=== PATIENT | female | born 1990 | race Caucasian/White ===

== ENCOUNTER 2016-11-16 09:39 | Inpatient (IN) | payer OTHER ==
--- NOTE | 2016-11-16 10:23 | PDOC ---
History of Present Illness - General Chief Complaint: Abscess Boil Stated Complaint: INFECTION IN RIGHT HAND Time Seen by Provider: 11/16/16 10:23 - History of Present Illness Initial Comments: 11/16/16 12:02 CHIEF COMPLAINT: "abscess formation in the left middle finger" PCP: Dr. Keila Garcia HISTORY OF PRESENT ILLNESS: 26 year old female presented to the ED with the chief complaints of abscess formation in the left middle finger since yesterday". A/c to the patient, she noticed redness over the left 3rd digit and was painful on movement, 10/10 in intensity. This morning when she woke up, the redness and swelling got worse, saw a pin point pus and on movement yellowish fluid came out. She started feeling very ill, myalgia and came to the ED. Patient was recently discharged in August. She was treated for osteomyelitis of L thumb confirmed with MRI. Wound culture showed MSSA and was treated with ceftriaxone. Blood cultures were negative. She had PICC line placed 2015. She continued taking rocephin 2g daily via PICC for 37 more days (6 weeks total of abx treatment). Denies chest pain, sob, cough, palpitation, abdominal pain, nausea or vomiting. Bowel/Bladder habit normal Sleep/Appetite normal. Recent Travel: None PAST MEDICAL HISTORY: charcot betty tooth syndrome, hx of osteomyelitis, neuropathy, PTSD PAST SURGICAL HISTORY: As mentioned above Social History: Smoking: Denies Alcohol: Denies Drugs: Denies Family History: Allergies: NKDA Past History - Past Medical History Allergies/Adverse Reactions: Allergies Allergy/AdvReac Type Severity Reaction Status Date / Time oxycodone Allergy Intermediate Rash Verified 11/16/16 09:54 vancomycin Allergy skin Verified 11/16/16 09:54 reaction Home Medications: Ambulatory Orders Risperidone [Risperdal -] 0.5 mg PO BID #40 tablet 05/18/16 Multivitamins [Multivit ([facility] Formul[facility])] 1 tab PO DAILY #0 tab 06/14/16 Duloxetine HCl [Cymbalta -] 60 mg PO DAILY 07/25/16 Omeprazole 20 mg PO DAILY 07/25/16 Fluoxetine HCl [Prozac -] 60 mg PO DAILY 08/13/16 Trazodone HCl 300 mg PO DAILY 08/13/16 Anemia: No Asthma: No Cancer: No Cardiac Disorders: No CVA: No COPD: No CHF: No Dementia: No Diabetes: No GI Disorders: Yes (Gastritis) Disorders: No HTN: No Hypercholesterolemia: No Psychiatric Problems: Yes (bipolar) Seizures: No Thyroid Disease: No Other medical history: neuropathy, scoliosis - Surgical History Abdominal Surgery: Yes Appendectomy: Yes Cholecystectomy: No Orthopedic Surgery: Yes (amp rt great toe,bilat.feet bones removed for osteomyelitis) - Immunization History Immunization Up to Date: Yes (FLU ) - Psycho/Social/Smoking Cessation Hx Anxiety: Yes Suicidal Ideation: No Smoking Status: No Smoking History: Never smoked Have you smoked in the past 12 months: No Number of Cigarettes Smoked Daily: 0 Information on smoking cessation initiated: No 'Breaking Loose' booklet given: 05/16/12 Hx Alcohol Use: No Drug/Substance Use Hx: Yes Substance Use Type: Marijuana Hx Substance Use Treatment: No Review of Systems - Review of Systems Able to Perform ROS?: Yes Comments:: 11/16/16 12:21 CONSTITUTIONAL:~ Absent: fever, chills, diaphoresis, generalized weakness, malaise, loss of appetite HEENT:~ Absent: rhinorrhea, nasal congestion, throat pain, throat swelling, difficulty swallowing, mouth swelling, ear pain, eye pain, visual Changes CARDIOVASCULAR:~ Absent: chest pain, syncope, palpitations, irregular heart rate, lightheadedness , peripheral edema RESPIRATORY:~ Absent: cough, shortness of breath, dyspnea with exertion, orthopnea, wheezing, stridor, hemoptysis GASTROINTESTINAL: Absent: abdominal pain, abdominal distension, nausea, vomiting, diarrhea, constipation, melena, hematochezia GENITOURINARY:~ Absent: dysuria, frequency, urgency, hesitancy, hematuria, flank pain, genital pain MUSCULOSKELETAL: Present: Left middle finger ,Redness, swelling, pus point; Right palm small cut Absent: myalgia, arthralgia, joint swelling SKIN:~ Absent: rash, itching, pallor HEMATOLOGIC/IMMUNOLOGIC:~ Absent: easy bleeding, easy bruising, lymphadenopathy, frequent infections ENDOCRINE: Absent: unexplained weight gain, unexplained weight loss, heat intolerance, cold intolerance NEUROLOGIC:~ Absent: headache, focal weakness or paresthesias, dizziness, unsteady gait, seizure, mental status changes, bladder or bowel incontinence PSYCHIATRIC:~ Absent: anxiety, depression, suicidal or homicidal ideation, hallucinations. Is the patient limited Cameroonian proficient: No *Physical Exam - Vital Signs Last Vital Signs Temp Pulse Resp BP Pulse Ox 98.1 F 113 H 18 116/76 100 11/16/16 09:55 11/16/16 09:55 11/16/16 09:55 11/16/16 09:55 11/16/16 09:55 - Physical Exam Comments: 11/16/16 13:33 PE: GENERAL: Awake, alert, and fully oriented, in no acute distress HEAD: No signs of trauma EYES: PERRLA, EOMI, sclera anicteric, conjunctiva clear ENT: Auricles normal inspection, hearing decreased B/L, nares patent, oropharynx clear without exudates. Moist mucosa NECK: Normal ROM, supple, no lymphadenopathy, JVD, or masses LUNGS: Breath sounds equal, clear to auscultation bilaterally. No wheezes, and no crackles.. HEART: Regular rate and rhythm, normal S1 and S2, no murmurs, rubs or gallops ABDOMEN: Soft, nontender, normoactive bowel sounds. No guarding, no rebound. No masses EXTREMITIES: Left 3rd digit redness, raised temperature, swelling, pin point pus area, tender to palpation and movement. Normal range of motion, no edema. No clubbing or cyanosis. No cords, erythema, or tenderness NEUROLOGICAL: Cranial nerves II through XII grossly intact. Normal speech, normal gait SKIN: Warm, Dry, normal turgor, no rashes or lesions noted. ED Treatment Course - LABORATORY CBC & Chemistry Diagram: 11/16/16 11:16 11/16/16 11:16 Medical Decision Making - Medical Decision Making 11/16/16 10:23 Patient seen and examined at bed side. Vitals noted, unremarkable. Physical examination Left 3rd digit redness, raised temperature, swelling, pin point pus area, tender to palpation and movement. Will order routine labs, urine and x-ray of the finger 11/16/16 11:30 Patient reassessed. Plan: Incision and Drainage IV morphine 4mg, 25mg of Benadryl given Under sterile environment, using a size 11 blade incision and drainage was performed. Minimal pus with blood obtained Wound culture sent IV Ceftriaxone ordered x-ray of the fingers showed Acute osteomyelitis of the middle phalanx of the left third finger with bony destruction and extensive soft tissue swelling. Clinical Impression: Acute osteomyelitis of the middle phalanx of the left third finger Received one dose of Ceftriaxone Admit the patient Spoke with Dr. Gonzales and he agrees to the plan of admission Illness, Investigation and Plan of care explained to the patient. She verbalized understanding. Case seen and discussed with Dr. May. *DC/Admit/Observation/Transfer Diagnosis at time of Disposition: Osteomyelitis Qualifiers: Osteomyelitis location: foot Laterality: unspecified laterality Chronicity: subacute Qualified Code(s): M86.279 - Subacute osteomyelitis, unspecified ankle and foot - Discharge Dispostion Admit: Yes - Referrals
[2016-11-16] MEDS ORDERED: KETOROLAC TROMETHAMINE 30 MG/1 ML VIAL IVPUSH ONE (10:47)
[2016-11-16] MEDS ORDERED: CEFTRIAXONE 1 GM in DEXTROSE 5%-WATER - 50 ML IVPB ONE (10:47)
[2016-11-16] MEDS ORDERED: KETOROLAC TROMETHAMINE 30 MG/1 ML VIAL ONE (10:59)
[2016-11-16] MEDS ORDERED: CEFTRIAXONE 50 ML ONE (10:59)
[2016-11-16 11:30] LABS: BASOPHIL 0.6 % (0-2.0); MCH 29.8 pg (25.7-33.7); MCHC 33.3 g/dl (32.0-36.0); MEAN CELL VOLUME 89.5 fl (80-96); MEAN PLT VOLUME 9.9 fl (7.5-11.1); NEUTROPHILS 76.8 % (42.8-82.8); PLATELET COUNT 221 K/MM3 (134-434); RDW 12.4 % (11.6-15.6); WHITE BLOOD COUNT 13.2 K/mm3 (4.0-10.0)
[2016-11-16 11:51] LABS: ALBUMIN 4.5 g/dl (3.4-5.0); ALK PHOS 110 U/L (45-117); ANION GAP 10 (8-16); CALCIUM 9.3 mg/dL (8.5-10.1); CO2 24 mmol/L (21-32); CREATININE 0.6 mg/dL (0.55-1.02); GLUCOSE,RANDOM 91 mg/dL (74-106); SGOT/AST 9 U/L (15-37); SGPT/ALT 14 U/L (12-78); TOT PROT 8.6 g/dl (6.4-8.2)
[2016-11-16] MEDS ORDERED: morphine CARPU-JECT 2 MG/1 ML DISP.SYRIN IVPUSH ONE (12:08)
[2016-11-16] MEDS ORDERED: ONDANSETRON 4 MG/2 ML VIAL IVPB ONE (12:10)
[2016-11-16] MEDS ORDERED: morphine CARPU-JECT 4 MG/1 ML DISP.SYRIN ONE (12:27)
[2016-11-16] MEDS ORDERED: ONDANSETRON 4 MG/2 ML VIAL ONE (12:28)
--- NOTE | 2016-11-16 14:28 | HP ---
PCP: Keila Zapien CHIEF COMPLAINT: Pain and swelling of left 3rd finger HISTORY OF PRESENT ILLNESS: This is a 26-year-old woman who comes to the ER today with pain and swelling of her left 3rd finger. She denies fever, chills. She notes that some pus has drained from the finger. She had been admitted here August 13 - August 18 with cellulitis and osteomyelitis of the same finger and possible osteomyelitis of her left 1st finger. She was treated then with Zyvox in the ER, followed by Zosyn and Vancomycin. Culture grew MSSA and antibiotics were changed to Ancef. She was discharged on August 18 with a PICC line to complete 6 weeks of antibiotics with Rocephin. She says after this was completed, she took Amoxicillin for another 2 weeks. She says there was improvement until last night. 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 Allergies oxycodone Allergy (Intermediate, Verified 11/16/16 09:54) Rash vancomycin Allergy (Verified 11/16/16 09:54) skin reaction HOME MEDICATIONS 3 Medication Instructions Recorded Risperidone [Risperdal -] 0.5 mg PO BID #40 tablet 05/18/16 Multivitamins [Multivit ([facility] 1 tab PO DAILY #0 tab 06/14/16 Formulary)] Duloxetine HCl [Cymbalta -] 60 mg PO DAILY 07/25/16 Omeprazole 20 mg PO DAILY 07/25/16 Fluoxetine HCl [Prozac -] 60 mg PO DAILY 08/13/16 Trazodone HCl 300 mg PO DAILY 08/13/16 Social History: Smoking: Denies Alcohol: Denies Drugs: Marijuana Recent Travel: No Family History: Neuropathy REVIEW OF SYSTEMS CONSTITUTIONAL: Absent: fever, chills, diaphoresis, generalized weakness, malaise, loss of appetite, weight change HEENT: Absent: rhinorrhea, nasal congestion, throat pain, throat swelling, difficulty swallowing, mouth swelling, ear pain, eye pain, visual changes CARDIOVASCULAR: Absent: chest pain, syncope, palpitations, lightheadedness, peripheral edema RESPIRATORY: Absent: cough, shortness of breath, dyspnea with exertion, orthopnea, wheezing, stridor, hemoptysis GASTROINTESTINAL: Absent: abdominal pain, abdominal distension, nausea, vomiting , diarrhea, constipation, melena, hematochezia GENITOURINARY: Absent: dysuria, frequency, urgency, hesitancy, hematuria, flank pain MUSCULOSKELETAL: Present: myalgias, arthralgias, joint swelling. Absent: back pain, neck pain SKIN: Absent: rash, itching, pallor HEMATOLOGIC/IMMUNOLOGIC: Absent: easy bleeding, easy bruising, lymphadenopathy, frequent infections ENDOCRINE: Absent: unexplained weight gain, unexplained weight loss, heat intolerance, cold intolerance NEUROLOGIC: Absent: headache, focal weakness, paresthesias, dizziness, unsteady gait, seizure, mental status changes, bladder or bowel incontinence PSYCHIATRIC: Absent: anxiety, depression, suicidal or homicidal ideation, hallucinations. PHYSICAL EXAMINATION Vital Signs - 24 hr 11/16/16 09:55 Temperature 98.1 F Pulse Rate 113 H Respiratory 18 Rate Blood Pressure 116/76 O2 Sat by Pulse 100 Oximetry (%) GENERAL: Awake, alert, and fully oriented, in no acute distress. HEAD: Normal with no signs of trauma. EYES: Pupils equal, round and reactive to light, extraocular movements intact, sclerae anicteric, conjunctivae clear. EARS, NOSE, THROAT: Ears normal, nares patent, oropharynx clear without exudates. Moist mucous membranes. NECK: Normal range of motion, supple without lymphadenopathy, JVD, or masses. LUNGS: Breath sounds equal, clear to auscultation bilaterally. No wheezes, and no crackles. No accessory muscle use. HEART: Tachycardic, normal S1 and S2 without murmur, rub or gallop. ABDOMEN: Soft, nontender, not distended, normoactive bowel sounds, no guarding, no rebound, no masses. No hepatomegaly or splenomegaly. MUSCULOSKELETAL: Multiple joint deformities. Left 3rd finger is swollen and erythematous from mid proximal phalanx to tip UPPER EXTREMITIES: 2+ pulses, warm, well-perfused. No cyanosis. No clubbing. Cap refill <2 seconds. No peripheral edema. LOWER EXTREMITIES: 2+ pulses, warm, well-perfused. No calf tenderness. No peripheral edema. NEUROLOGICAL: Cranial nerves II-XII intact. Normal speech. Gait not observed. PSYCHIATRIC: Cooperative. Good eye contact. Appropriate mood and affect. SKIN: Warm, dry, normal turgor, no rashes. Laboratory Results - last 24 hr 11/16/16 11/16/16 11/16/16 11:16 11:16 11:16 WBC 13.2 H D RBC 4.78 D Hgb 14.2 D Hct 42.8 D MCV 89.5 MCHC 33.3 RDW 12.4 Plt Count 221 MPV 9.9 Neutrophils % 76.8 D Lymphocytes % 13.8 D Monocytes % 7.8 Eosinophils % 1.0 Basophils % 0.6 Sodium 136 Potassium 3.8 Chloride 102 Carbon Dioxide 24 Anion Gap 10 BUN 8 Creatinine 0.6 Creat Clearance w eGFR > 60 Random Glucose 91 Calcium 9.3 Total Bilirubin 1.0 D AST 9 L ALT 14 Alkaline Phosphatase 110 Total Protein 8.6 H D Albumin 4.5 D Serum , Qual Negative X-ray left fingers: Extensive soft tissue swelling of the 3rd finger. Destructive changes of the distal middle phalanx. ASSESSMENT/PLAN: This is a 26-year-old woman with a history of osteomyelitis of her left 3rd finger, bipolar disorder, PTSD, GERD/gastritis, fibromyalgia, scoliosis, Charcot -Carmelita-Tooth syndrome and erosive arthritis who presented to the ER with pain and swelling of her left 3rd finger since last night. She is afebrile, but WBC is 13.2 and she is tachycardic 113. X-rays show destruction of the distal 3rd middle phalanx. She is being admitted now for treatment of an emergent condition. 1. Sepsis secondary to cellulitis and abscess of left 3rd finger and acute vs chronic osteomyelitis of left 3rd middle phalanx - In Jul 2016, wound culture from same finger grew MSSA and she was treated with Rocephin - Rocephin 1 g IV given in ER - Incision and drainage done in ER - Check lactic acid, ESR, C-reactive protein - ID and hand surgery consults 2. Bipolar disorder/PTSD - Continue Cymbalta, Risperdal, Trazodone 3. Fibromyalgia - Continue Cymbalta 4. GERD/gastritis - Continue Omeprazole 5. Scoliosis 6. Cvnmarv-Raqsi-Hrgwy syndrome 7. Erosive arthritis Visit type - Emergency Visit Emergency Visit: Yes ED Registration Date: 11/16/16 Care time: The patient presented to the Emergency Department on the above date and was hospitalized for further evaluation of their emergent condition. - New Patient This patient is new to me today: Yes Date on this admission: 11/16/16 - Critical Care Critical Care patient: No
[2016-11-16] MEDS ORDERED: diphenhydrAMINE HCL 25 MG CAPSULE (FP) PO PRN (14:30)
[2016-11-16] MEDS: SODIUM CHLORIDE 1,000 ML IV SCH (14:54)
--- NOTE | 2016-11-16 16:37 | CONSULT ---
Consult Consult Specialty:: Infectious Disease Referred by:: Dr. Gonzales Reason for Consultation:: Osteomyelitis - History of Present Illness Chief Complaint: Swelling and pain or left middle finger History of Present Illness: this is a 26F with PMH listed below including charcot betty tooth and multiple traumatic ulcers due to neuropathy and a history of osteomyelitis presents to the ED with acute onset left third middle finger swelling. She states last night she had pain in the middle finger and then woke up with it erythematous hot and swollen. 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 She states she usually has arthritic pain especially in this weather and didn't think much of the pain since she attributed it to arthritis. She was recently treated in August of 2016 and September of this year with 6 weeks of Rocephin for the same left middle finger osteomyelitis followed by 2 weeks of amoxicillin and she healed well. She also has a history of multiple ulcers of the foot and hands which required admission and IV ABx which have since healed. She follows with Dr. Jackson who sees her regularly for her ulcers on her feet and shaves down the calluses. She denies nausea vomiting fevers dysuria diarrhea shortness of breath or chest pain. She does at times experience chills especially yesterday and today. In the ED there was an attempt to drain the finger but only a few drops of pus were expressed and sent to the lab for culture and sensitivities. Her labs were significant for a WBC count of 13. She was also tachycardic on presentation thus meets criteria for Sepsis. She has a history of rash with Vancomycin but is still able to receive it with Benadryl pre-medication. 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: Peripheral Neuropathy, Other (charcot betty tooth ) Gastrointestinal: Yes: Gastritis ...LMP: 04/25/16 Infectious Disease: Yes: Other Psych: Yes: Anxiety, Bipolar, Depression, Other Musculoskeletal: Yes: Osteoarthritis, Other Rheumatology: Yes: Fibromyalgia, Other (erosive arthritis ) Additional Medical History: neuropathy - Alcohol/Substance Use Hx Alcohol Use: No History of Substance Use: reports: Marijuana - Smoking History Smoking history: Never smoked Have you smoked in the past 12 months: No Aproximately how many cigarettes per day: 0 - Social History ADL: Independent History of Recent Travel: No Home Medications - Allergies Allergies/Adverse Reactions: Allergies Allergy/AdvReac Type Severity Reaction Status Date / Time oxycodone Allergy Intermediate Rash Verified 11/16/16 09:54 vancomycin Allergy skin Verified 11/16/16 09:54 reaction - Home Medications Home Medications: Ambulatory Orders Risperidone [Risperdal -] 0.5 mg PO BID #40 tablet 05/18/16 Multivitamins [Multivit ([facility] Formul[facility])] 1 tab PO DAILY #0 tab 06/14/16 Duloxetine HCl [Cymbalta -] 60 mg PO DAILY 07/25/16 Omeprazole 20 mg PO DAILY 07/25/16 Fluoxetine HCl [Prozac -] 60 mg PO DAILY 08/13/16 Trazodone HCl 300 mg PO DAILY 08/13/16 Review of Systems - Review of Systems Constitutional: reports: Chills Eyes: reports: No Symptoms HENT: reports: No Symptoms Neck: reports: No Symptoms Cardiovascular: reports: No Symptoms Respiratory: reports: No Symptoms Gastrointestinal: reports: Other (ABD pain from chronic gastritis) Genitourinary: reports: No Symptoms Musculoskeletal: reports: Extremity Pain, Joint Pain, Joint Swelling, Muscle Pain Integumentary: reports: Blister, Other (chronic ulcerations) Neurological: reports: Numbness, Parasthesia Endocrine: reports: No Symptoms Hematology/Lymphatic: reports: No Symptoms Psychiatric: reports: Anxiety Physical Exam Vital Signs: Vital Signs Temperature 97.7 F 11/16/16 16:14 Pulse Rate 87 11/16/16 16:14 Respiratory Rate 20 11/16/16 16:14 Blood Pressure 117/75 11/16/16 16:14 O2 Sat by Pulse Oximetry (%) 100 11/16/16 09:55 Constitutional: Yes: Well Nourished, No Distress, Calm HENT: Yes: Atraumatic Neck: Yes: Supple Cardiovascular: Yes: Tachycardia Respiratory: Yes: CTA Bilaterally Gastrointestinal: Yes: Normal Bowel Sounds, Soft Musculoskeletal: Yes: Joint Stiffness Extremities: Yes: Other (left middle finger swelling with erythema and some minimal drainage. Multiple deformed fingers multple healed ulcer on upper and lower extremities) ...Motor Strength: WNL Psychiatric: Yes: Alert, Oriented Imaging - Results X-ray: Report Reviewed, Image Reviewed (left middle finger) Problem List - Problems (1) Osteomyelitis Code(s): M86.9 - OSTEOMYELITIS, UNSPECIFIED Qualifiers: Osteomyelitis location: foot Laterality: unspecified laterality Chronicity: subacute Qualified Code(s): M86.279 - Subacute osteomyelitis , unspecified ankle and foot (2) Abscess of finger of left hand Code(s): L02.512 - CUTANEOUS ABSCESS OF LEFT HAND (3) Anxiety Code(s): F41.9 - ANXIETY DISORDER, UNSPECIFIED (4) Fibromyalgia Code(s): M79.7 - FIBROMYALGIA (5) Gastritis Code(s): K29.70 - GASTRITIS, UNSPECIFIED, WITHOUT BLEEDING (7) Cellulitis of finger of left hand Code(s): L03.012 - CELLULITIS OF LEFT FINGER (8) Skin ulcers of foot, bilateral Code(s): L97.519 - NON-PRS CHRONIC ULCER OTH PRT RIGHT FOOT W UNSP SEVERITY L97.529 - NON-PRESSURE CHRONIC ULCER OTH PRT LEFT FOOT W UNSP SEVERITY (9) Sepsis Code(s): A41.9 - SEPSIS, UNSPECIFIED ORGANISM Assessment/Plan 26F with charcot betty tooth with osteomyelitis of left middle finger middle phalynx patient is tachycardic with leukocytosis which meets SIRS cririera and has a known infection which meets the criteria for sepsis. XRay consistent with erosion of left middle finger distal phalynx Admit to inpatient floors IV Abx with vancomycin and zosyn-premedication with benadryl before vancomycin follow up cultures follow up hand surgery send ESR and CRP f/u lactic acid thank you for this consult and allowing us to participate in the care of this patient Case discussed with Dr. Sanders and Dr. Gonzales
--- NOTE | 2016-11-16 16:46 | PN ---
Teaching Attending Note Name of Resident: Javi Edwards ATTENDING PHYSICIAN STATEMENT I saw and evaluated the patient. I reviewed the resident's note and discussed the case with the resident. I agree with the resident's findings and plan as documented. SUBJECTIVE: OBJECTIVE: ASSESSMENT AND PLAN: Recurrent osteomyelitis L 3rd finger Possible ST abscess CMT Await c/s ESR CRP Hand surgery evaluation Empiric zosyn/ vancomycin
[2016-11-16 16:50] VITALS: BMI 18.7
[2016-11-16] MEDS: diphenhydrAMINE HCL 25 MG CAPSULE (FP) PO SCH (17:09)
[2016-11-16] MEDS: VANCOMYCIN 1 GRAM (PRE-DOCKED) 250 ML IVPB SCH (17:09)
[2016-11-16] MEDS: morphine CARPU-JECT 2 MG/1 ML DISP.SYRIN IVPUSH PRN (17:32)
[2016-11-16] MEDS: PIPERACILLIN/TAZOB 3.375 GM 50 ML IVPB SCH (19:13)
[2016-11-16] MEDS ORDERED: traZODone HCL 50 MG TABLET (FP) ONE (21:24)
[2016-11-16] MEDS: risperiDONE 0.5 MG TABLET (FP) PO SCH (22:05)
[2016-11-16] MEDS: ACETAMINOPHEN 325 MG TABLET (FP) PO PRN (22:08)
[2016-11-17] MEDS: PIPERACILLIN/TAZOB 3.375 GM 50 ML IVPB SCH ×3 (02:23→17:06)
[2016-11-17] MEDS: diphenhydrAMINE HCL 25 MG CAPSULE (FP) PO SCH ×2 (05:06→17:06)
[2016-11-17] MEDS: SODIUM CHLORIDE 1,000 ML IV SCH ×3 (05:15→21:54)
[2016-11-17] MEDS: VANCOMYCIN 1 GRAM (PRE-DOCKED) 250 ML IVPB SCH ×2 (05:36→17:56)
[2016-11-17 07:36] LABS: BASOPHIL 0.8 % (0-2.0); EOSINOPHIL 3.4 % (0-4.5); MCH 31.1 pg (25.7-33.7); MCHC 34.3 g/dl (32.0-36.0); MEAN CELL VOLUME 90.7 fl (80-96); NEUTROPHILS 58.6 % (42.8-82.8); PLATELET COUNT 174 K/MM3 (134-434); RDW 12.4 % (11.6-15.6); WHITE BLOOD COUNT 6.6 K/mm3 (4.0-10.0)
[2016-11-17] MEDS ORDERED: PT OWN MED DRAWER 7, Y5N ONE ×3 (07:50→12:44)
[2016-11-17 08:00] LABS: CALCIUM 8.3 mg/dL (8.5-10.1); CREATININE 0.6 mg/dL (0.55-1.02)
[2016-11-17 09:29] LABS: ERYTHROCYTE SEDIMENTATION RATE 5 mm/hr (0-20)
[2016-11-17] MEDS ORDERED: FLUoxetine HCL 20 MG CAPSULE (FP) PO SCH (10:00)
[2016-11-17] MEDS: MULTIVITAMINS (DAILY MVI) TABLET (FP) PO SCH (12:40)
[2016-11-17] MEDS: PANTOPRAZOLE 20 MG TABLET (FP) PO SCH (12:41)
[2016-11-17] MEDS: DULoxetine HCL 30 MG CAPSULE.DR (FP) PO SCH (12:42)
--- NOTE | 2016-11-17 12:54 | PN ---
Addendum entered and electronically signed by Javi Edwards RES 11/17/16 13:50: will send blood cultures Original Note: Progress Note, Physician History of Present Illness: Patient seen and examined at bedside complains of pain to the left middle finger otherwise no other complaints still not seen by hand surgery - Current Medication List Current Medications: Active Medications Acetaminophen (Tylenol -) 650 mg PO Q4H PRN PRN Reason: FEVER OR PAIN Last Admin: 11/16/16 22:08 Dose: 650 mg Diphenhydramine HCl (Benadryl -) 25 mg PO Q6H PRN PRN Reason: FOR ITCHING Diphenhydramine HCl (Benadryl -) 25 mg PO Q12H [facility] Last Admin: 11/17/16 05:06 Dose: 25 mg Duloxetine HCl (Cymbalta -) 60 mg PO DAILY [facility] Last Admin: 11/17/16 12:42 Dose: 60 mg Sodium Chloride (Normal Saline -) 1,000 mls @ 83 mls/hr IV ASDIR [facility] Last Admin: 11/17/16 05:15 Dose: 83 mls/hr Vancomycin HCl (Vancomycin (Pre-Docked)) 250 mls @ 200 mls/hr IVPB Q12H [facility] Last Admin: 11/17/16 05:36 Dose: 200 mls/hr Piperacillin Sod/Tazobactam Sod (Zosyn 3.375gm Ivpb (Pre-Docked)) 50 mls @ 100 mls/hr IVPB Q8H-IV [facility] PRN Reason: Protocol Last Admin: 11/17/16 02:23 Dose: 100 mls/hr Morphine Sulfate (Morphine Injection -) 2 mg IVPUSH Q4H PRN PRN Reason: PAIN Last Admin: 11/16/16 17:32 Dose: 2 mg Multivitamins/Minerals/Vitamin C (Tab-A-Vit -) 1 tab PO DAILY [facility] Last Admin: 11/17/16 12:40 Dose: 1 tab Ondansetron HCl (Zofran Injection) 4 mg IVPB Q6H PRN PRN Reason: NAUSEA Pantoprazole Sodium (Protonix -) 20 mg PO DAILY [facility] Last Admin: 11/17/16 12:41 Dose: 20 mg Risperidone (Risperdal -) 0.5 mg PO BID [facility] Last Admin: 11/16/16 22:05 Dose: 0.5 mg Trazodone HCl (Desyrel -) 300 mg PO HS [facility] - Objective Vital Signs: Vital Signs Temperature 97.8 F 11/17/16 09:56 Pulse Rate 82 11/17/16 09:56 Respiratory Rate 20 11/17/16 09:56 Blood Pressure 100/58 11/17/16 09:56 O2 Sat by Pulse Oximetry (%) 98 11/17/16 09:00 Laboratory Tests 11/16/16 11/16/16 11/16/16 11:16 11:16 11:16 WBC 13.2 H D RBC 4.78 D Hgb 14.2 D Hct 42.8 D MCV 89.5 MCHC 33.3 RDW 12.4 Plt Count 221 MPV 9.9 Neutrophils % 76.8 D Lymphocytes % 13.8 D Monocytes % 7.8 Eosinophils % 1.0 Basophils % 0.6 ESR Sodium 136 Potassium 3.8 Chloride 102 Carbon Dioxide 24 Anion Gap 10 BUN 8 Creatinine 0.6 Creat Clearance w eGFR > 60 Random Glucose 91 Lactic Acid Calcium 9.3 Total Bilirubin 1.0 D AST 9 L ALT 14 Alkaline Phosphatase 110 Total Protein 8.6 H D Albumin 4.5 D Serum , Qual Negative 11/16/16 11/17/16 11/17/16 21:30 06:35 06:35 WBC 6.6 D RBC 3.90 Hgb 12.2 D Hct 35.4 D MCV 90.7 MCHC 34.3 RDW 12.4 Plt Count 174 D MPV 10.0 Neutrophils % 58.6 D Lymphocytes % 27.3 D Monocytes % 9.9 Eosinophils % 3.4 D Basophils % 0.8 ESR 5 Sodium 142 Potassium 4.2 Chloride 108 H Carbon Dioxide 27 Anion Gap 7 L BUN 14 D Creatinine 0.6 Creat Clearance w eGFR Random Glucose 110 H D Lactic Acid 1.246 Calcium 8.3 L Total Bilirubin AST ALT Alkaline Phosphatase Total Protein Albumin Serum , Qual Constitutional: Yes: Well Nourished, No Distress, Calm HENT: Yes: Atraumatic Neck: Yes: Supple Cardiovascular: Yes: RRR S1 S2 no murmur Respiratory: Yes: CTA Bilaterally Gastrointestinal: Yes: Normal Bowel Sounds, Soft Musculoskeletal: Yes: Joint Stiffness Extremities: Yes: Other (left middle finger swelling with much less erythema increased purulent drainage today. Multiple deformed fingers multiple healed ulcer on upper and lower extremities) ...Motor Strength: WNL Psychiatric: Yes: Alert, Oriented Labs: CBC, BMP 11/17/16 06:35 11/17/16 06:35 Problem List - Problems (1) Osteomyelitis Code(s): M86.9 - OSTEOMYELITIS, UNSPECIFIED Qualifiers: Osteomyelitis location: foot Laterality: unspecified laterality Chronicity: subacute Qualified Code(s): M86.279 - Subacute osteomyelitis , unspecified ankle and foot (2) Abscess of finger of left hand Code(s): L02.512 - CUTANEOUS ABSCESS OF LEFT HAND (3) Anxiety Code(s): F41.9 - ANXIETY DISORDER, UNSPECIFIED (4) Fibromyalgia Code(s): M79.7 - FIBROMYALGIA (5) Gastritis Code(s): K29.70 - GASTRITIS, UNSPECIFIED, WITHOUT BLEEDING (7) Cellulitis of finger of left hand Code(s): L03.012 - CELLULITIS OF LEFT FINGER (8) Skin ulcers of foot, bilateral Code(s): L97.519 - NON-PRS CHRONIC ULCER OTH PRT RIGHT FOOT W UNSP SEVERITY L97.529 - NON-PRESSURE CHRONIC ULCER OTH PRT LEFT FOOT W UNSP SEVERITY (9) Sepsis Code(s): A41.9 - SEPSIS, UNSPECIFIED ORGANISM Assessment/Plan 26F with charcot betty tooth with osteomyelitis of left middle finger middle phalynx patient is tachycardic with leukocytosis which meets SIRS cririera and has a known infection which meets the criteria for sepsis. XRay consistent with erosion of left middle finger distal phalynx IV Abx with vancomycin and zosyn-she is tolerating premedication with benadryl before vancomycin well continue ABx day 2 hospital day 2 vanco trough before fourth dose follow up cultures-pending follow up hand surgery - pending ESR = 5 WNL CRP-pending lactic acid-wnl thank you for this consult and allowing us to participate in the care of this patient Case discussed with Dr. Sanders
--- NOTE | 2016-11-17 13:36 | PN ---
Physical Exam: SUBJECTIVE: Patient seen and examined. She states she feels well, tolerating Vancomycin (needs to be premedicated with Benadrly prior to infusion) OBJECTIVE: Vital Signs Period Temp Pulse Resp BP Sys/Ibarra Pulse Ox Last 24 Hr 97.7 F-98 F 81-87 20-20 97-117/57-75 97-98 GENERAL: The patient is awake, alert, and fully oriented, in no acute distress. HEAD: Normal with no signs of trauma. EYES: PERRL, extraocular movements intact, sclera anicteric, conjunctiva clear. No ptosis. ENT: Ears normal, nares patent, oropharynx clear without exudates, moist mucous membranes. NECK: Trachea midline, full range of motion, supple. LUNGS: Breath sounds equal, clear to auscultation bilaterally, no wheezes, no crackles, no accessory muscle use. HEART: Regular rate and rhythm ABDOMEN: Soft, nontender, nondistended, normoactive bowel sounds, no guarding, no rebound, no hepatosplenomegaly, no masses. EXTREMITIES: 2+ pulses, warm, well-perfused, no edema. NEUROLOGICAL: Normal speech, gait not observed. PSYCH: Normal mood, normal affect. SKIN: abscess formation in the left middle finger with worsening redness and swelling. Laboratory Results - last 24 hr 11/16/16 11/17/16 11/17/16 21:30 06:35 06:35 WBC 6.6 D RBC 3.90 Hgb 12.2 D Hct 35.4 D MCV 90.7 MCHC 34.3 RDW 12.4 Plt Count 174 D MPV 10.0 Neutrophils % 58.6 D Lymphocytes % 27.3 D Monocytes % 9.9 Eosinophils % 3.4 D Basophils % 0.8 ESR 5 Sodium 142 Potassium 4.2 Chloride 108 H Carbon Dioxide 27 Anion Gap 7 L BUN 14 D Creatinine 0.6 Random Glucose 110 H D Lactic Acid 1.246 Calcium 8.3 L Active Medications Generic Name Dose Route Start Last Admin Trade Name Freq PRN Reason Stop Dose Admin Acetaminophen 650 mg 11/16/16 14:30 11/16/16 22:08 Tylenol - PO 650 mg Q4H PRN Administration FEVER OR PAIN Diphenhydramine HCl 25 mg 11/16/16 14:30 Benadryl - PO Q6H PRN FOR ITCHING Diphenhydramine HCl 25 mg 11/16/16 17:00 11/17/16 05:06 Benadryl - PO 25 mg Q12H [facility] Administration Duloxetine HCl 60 mg 11/17/16 10:00 11/17/16 12:42 Cymbalta - PO 60 mg DAILY [facility] Administration Sodium Chloride 1,000 mls @ 83 mls/hr 11/16/16 14:30 11/17/16 05:15 Normal Saline - IV 83 mls/hr ASDIR [facility] Administration Vancomycin HCl 250 mls @ 200 mls/hr 11/16/16 17:30 11/17/16 05:36 Vancomycin (Pre-Docked) IVPB 200 mls/hr Q12H [facility] Administration Piperacillin Sod/Tazobactam Sod 50 mls @ 100 mls/hr 11/16/16 18:00 11/17/16 02: 23 Zosyn 3.375gm Ivpb (Pre-Docked) IVPB 100 mls/hr Q8H-IV [facility] Administration Protocol Morphine Sulfate 2 mg 11/16/16 14:30 11/16/16 17:32 Morphine Injection - IVPUSH 2 mg Q4H PRN Administration PAIN Multivitamins/Minerals/Vitamin C 1 tab 11/17/16 10:00 11/17/16 12:40 Tab-A-Vit - PO 1 tab DAILY [facility] Administration Ondansetron HCl 4 mg 11/16/16 14:30 Zofran Injection IVPB Q6H PRN NAUSEA Pantoprazole Sodium 20 mg 11/17/16 10:00 11/17/16 12:41 Protonix - PO 20 mg DAILY [facility] Administration Risperidone 0.5 mg 11/16/16 22:00 11/16/16 22:05 Risperdal - PO 0.5 mg BID [facility] Administration Trazodone HCl 300 mg 11/16/16 22:00 Desyrel - PO HS [facility] ASSESSMENT/PLAN: Patient is a 25 year old female with a significant past medical history of charcot carmelita tooth, fibromyalgia, gastritis, inflamed colon, appendectomy, bipolar, manic depression and anxiety. She presented to the ER on 11/16/2016 with abscess formation in the left middle finger with worsening redness and swelling. Patient was recently discharged in August of 2016 for osteomylitis of the left thumb and was treated with 6 weeks of IV antibiotics via a PICC line. She denies any chest pain, shortness of breath, fever, chills or vomiting. She has a documented allergy to Vancomycin but has been tolerating Vancomycin thus far with Benadryl 30 minutes prior to Vancomycin. Imaging: Finger Xray 11/16/2016: Findings consistent with acute osteomylitis of middle phalanx of left third finger with bony destruction and extensive soft tissue swelling. ID: Sepsis - likely secondary to abscess formation in the left middle finger with worsening redness and swelling Assessment/Plan: On Vancomycin and Zosyn, started on 11/16/2016: Wound cultures pending Leukocytosis improving 13.2>6.6, Tachycardia resolved Remains afebrile Warm soaks with 10 drops of betadine ordered BID to help healing Wound care as follows: twice daily with warm soaks to left finger with 10 drops of betadine, apply sterile dressing twice per day after soaks Hand surgery consulted Neurology: Charcot-Carmelita Tooth Syndrome Assessment/Plan: Monitor for any progression of symptoms Monitor pain with morphine PRN PT evaluation to avoid decompensation while hospitalized Psych Bipolar disorder Assessment/Plan: On Trazodone 300mg, Cymbalta 60mg daily and Risperidone 0.5mg daily Confirmed with [facility] that pt is no longer on Prozac Muscular/Skeletal: Fibromyalgia Assessment/Plan: On Cymbalta Morphine prn for pain F.E.N. Fluids: Normal saline @ 83cc/hr Electrolytes: corrected calcium 8.2, trend: Nutrition: Regular diet Prophylaxis: GI: Protonix, Colace prn DVT: low risk, ambulatory, SCDs when in bed PT consult Disposition; Requires inpatient hospitalization. Full Code. Visit type - Emergency Visit Emergency Visit: Yes ED Registration Date: 11/16/16 Care time: The patient presented to the Emergency Department on the above date and was hospitalized for further evaluation of their emergent condition. - New Patient This patient is new to me today: Yes Date on this admission: 11/17/16 - Critical Care Critical Care patient: No - Discharge Referral Referred to [facility] No
--- NOTE | 2016-11-17 13:44 | CONSULT ---
Consult - text type - Consultation Consultation Note: FULL CONSULT DICTATED PLAN: CONTINUE ABX, WILL FOLLOW
--- NOTE | 2016-11-17 14:11 | PN ---
Teaching Attending Note Name of Resident: Javi Edwards ATTENDING PHYSICIAN STATEMENT I saw and evaluated the patient. I reviewed the resident's note and discussed the case with the resident. I agree with the resident's findings and plan as documented. SUBJECTIVE: OBJECTIVE: ASSESSMENT AND PLAN: Recurrent osteomyelitis/ cellulitis L 3rd finger CMT Tolerated vancomycin with pre-medication Continue vancomycin + zosyn Check wound and blood c/s, ESR/CRP Hand surgery evaluation
[2016-11-17] MEDS: ONDANSETRON 4 MG/2 ML VIAL IVPB PRN (14:16)
[2016-11-17 14:23] LABS: C-REACTIVE PROTEIN 2.6 MG/DL (0.00-0.3)
[2016-11-17] MEDS: morphine CARPU-JECT 2 MG/1 ML DISP.SYRIN IVPUSH PRN ×2 (15:04→21:48)
[2016-11-17] MEDS: risperiDONE 0.5 MG TABLET (FP) PO SCH ×2 (15:26→21:48)
[2016-11-17] MEDS ORDERED: traZODone HCL 50 MG TABLET (FP) ONE (21:41)
[2016-11-17] MEDS: DOCUSATE SODIUM 100 MG CAPSULE (FP) PO SCH (21:49)
[2016-11-17] MEDS: traZODone HCL 100 MG TABLET (FP) PO SCH (21:55)
[2016-11-18] MEDS: ACETAMINOPHEN 325 MG TABLET (FP) PO PRN (01:04)
[2016-11-18] MEDS: PIPERACILLIN/TAZOB 3.375 GM 50 ML IVPB SCH ×3 (02:19→17:09)
[2016-11-18] MEDS: diphenhydrAMINE HCL 25 MG CAPSULE (FP) PO SCH ×2 (05:35→17:09)
[2016-11-18] MEDS: VANCOMYCIN 1 GRAM (PRE-DOCKED) 250 ML IVPB SCH ×2 (06:20→17:55)
[2016-11-18 07:29] LABS: BASOPHIL 0.5 % (0-2.0); EOSINOPHIL 2.5 % (0-4.5); MCH 30.8 pg (25.7-33.7); MCHC 33.9 g/dl (32.0-36.0); MEAN CELL VOLUME 90.6 fl (80-96); MEAN PLT VOLUME 10.2 fl (7.5-11.1); PLATELET COUNT 162 K/MM3 (134-434); RDW 12.4 % (11.6-15.6); WHITE BLOOD COUNT 7.3 K/mm3 (4.0-10.0)
[2016-11-18 07:56] LABS: ALBUMIN 3.2 g/dl (3.4-5.0); ANION GAP 10 (8-16); CALCIUM 8.5 mg/dL (8.5-10.1); CO2 26 mmol/L (21-32); GLUCOSE,RANDOM 82 mg/dL (74-106)
[2016-11-18 08:00] LABS: ALK PHOS 74 U/L (45-117); BILIRUBIN,TOTAL 0.6 mg/dL (0.2-1.0); CREATININE 0.6 mg/dL (0.55-1.02); SGOT/AST 6 U/L (15-37); SGPT/ALT 11 U/L (12-78); TOT PROT 6.1 g/dl (6.4-8.2)
[2016-11-18] MEDS ORDERED: PT OWN MED DRAWER 7, Y5N ONE (09:23)
[2016-11-18] MEDS: DOCUSATE SODIUM 100 MG CAPSULE (FP) PO SCH ×2 (10:22→23:00)
[2016-11-18] MEDS: DULoxetine HCL 30 MG CAPSULE.DR (FP) PO SCH (10:22)
[2016-11-18] MEDS: PANTOPRAZOLE 20 MG TABLET (FP) PO SCH (10:22)
[2016-11-18] MEDS: risperiDONE 0.5 MG TABLET (FP) PO SCH ×2 (10:22→23:00)
[2016-11-18] MEDS: MULTIVITAMINS (DAILY MVI) TABLET (FP) PO SCH (10:22)
[2016-11-18] MEDS: morphine CARPU-JECT 2 MG/1 ML DISP.SYRIN IVPUSH PRN ×2 (10:37→20:20)
[2016-11-18] MEDS: ONDANSETRON 4 MG/2 ML VIAL IVPB PRN (11:15)
--- NOTE | 2016-11-18 11:20 | PN ---
Progress Note, Physician History of Present Illness: No c/o finger pain Reports small amt wound drainage No fever/ chills Tolerating antibiotics - Current Medication List Current Medications: Active Medications Acetaminophen (Tylenol -) 650 mg PO Q4H PRN PRN Reason: FEVER OR PAIN Last Admin: 11/18/16 01:04 Dose: 650 mg Diphenhydramine HCl (Benadryl -) 25 mg PO Q6H PRN PRN Reason: FOR ITCHING Diphenhydramine HCl (Benadryl -) 25 mg PO Q12H [facility] Last Admin: 11/18/16 05:35 Dose: 25 mg Docusate Sodium (Colace -) 100 mg PO BID [facility] Last Admin: 11/18/16 10:22 Dose: 100 mg Duloxetine HCl (Cymbalta -) 60 mg PO DAILY [facility] Last Admin: 11/18/16 10:22 Dose: 60 mg Vancomycin HCl (Vancomycin (Pre-Docked)) 250 mls @ 200 mls/hr IVPB Q12H [facility] Last Admin: 11/18/16 06:20 Dose: 200 mls/hr Piperacillin Sod/Tazobactam Sod (Zosyn 3.375gm Ivpb (Pre-Docked)) 50 mls @ 100 mls/hr IVPB Q8H-IV [facility] PRN Reason: Protocol Last Admin: 11/18/16 10:22 Dose: 100 mls/hr Morphine Sulfate (Morphine Injection -) 2 mg IVPUSH Q4H PRN PRN Reason: PAIN Last Admin: 11/18/16 10:37 Dose: 2 mg Multivitamins/Minerals/Vitamin C (Tab-A-Vit -) 1 tab PO DAILY [facility] Last Admin: 11/18/16 10:22 Dose: 1 tab Ondansetron HCl (Zofran Injection) 4 mg IVPB Q6H PRN PRN Reason: NAUSEA Last Admin: 11/18/16 11:15 Dose: 4 mg Pantoprazole Sodium (Protonix -) 20 mg PO DAILY [facility] Last Admin: 11/18/16 10:22 Dose: 20 mg Risperidone (Risperdal -) 0.5 mg PO BID [facility] Last Admin: 11/18/16 10:22 Dose: 0.5 mg Trazodone HCl (Desyrel -) 300 mg PO HS [facility] Last Admin: 11/17/16 21:55 Dose: 300 mg - Objective Vital Signs: Vital Signs Temperature 97.6 F 11/17/16 18:09 Pulse Rate 92 H 11/17/16 18:09 Respiratory Rate 20 11/17/16 21:00 Blood Pressure 128/80 11/17/16 18:09 O2 Sat by Pulse Oximetry (%) 98 11/17/16 21:00 Constitutional: Yes: No Distress Eyes: Yes: Conjunctiva Clear Cardiovascular: Yes: Regular Rate and Rhythm, S1, S2 Respiratory: Yes: CTA Bilaterally Gastrointestinal: Yes: Normal Bowel Sounds, Soft. No: Tenderness Extremities: Yes: Other (L 3rd finger remains swollen; erythema resolved Now with slight swelling, dorsum of hand) Labs: CBC, BMP 11/18/16 06:00 11/18/16 06:00 Assessment/Plan Cellulitis/ osteomyelitis L 3rd finger CMT Await wound c/s Continue zosyn/ vancomycin Elevation
--- NOTE | 2016-11-18 15:11 | PN ---
Physical Exam: SUBJECTIVE: Patient seen and examined. She is complaining of left hand pain/ swelling. Denies chest pain or shortness of breath. 0900 - left hand appears more swollen, painful 1030 - spoke with Dr. Germain, ortho who is familiar with patient and discussed hand swelling. No surgical interventions at this time IVF fluids d/ashley, elevate left hand at all times. continue betadine soaks OBJECTIVE: Vital Signs Period Temp Pulse Resp BP Sys/Ibarra Pulse Ox Last 24 Hr 97.6 F 92 20-20 128/80 98 GENERAL: The patient is awake, alert, and fully oriented, in no acute distress. HEAD: Normal with no signs of trauma. EYES: PERRL, extraocular movements intact, sclera anicteric, conjunctiva clear. No ptosis. ENT: Ears normal, nares patent, oropharynx clear without exudates, moist mucous membranes. NECK: Trachea midline, full range of motion, supple. LUNGS: Breath sounds equal, clear to auscultation bilaterally, no wheezes, no crackles, no accessory muscle use. HEART: Regular rate and rhythm ABDOMEN: Soft, nontender, nondistended, normoactive bowel sounds, no guarding, no rebound, no hepatosplenomegaly, no masses. EXTREMITIES: Left hand edema, IVF stopped, hand to be elevated at all times, discussed with ID and Hand surgeon NEUROLOGICAL: Normal speech, gait not observed. PSYCH: Normal mood, normal affect. SKIN: abscess formation in the left middle finger with worsening redness and swelling, now edema on anterior aspect of hand Wound care orders as follows: Warm soaks with 10 drops of betadine ordered BID to help healing Wound care as follows: twice daily with warm soaks to left finger with 10 drops of betadine, apply sterile dressing twice per day after soaks Laboratory Results - last 24 hr 11/18/16 11/18/16 06:00 06:00 WBC 7.3 RBC 3.80 Hgb 11.7 Hct 34.4 MCV 90.6 MCHC 33.9 RDW 12.4 Plt Count 162 MPV 10.2 Neutrophils % 67.0 Lymphocytes % 22.0 Monocytes % 8.0 Eosinophils % 2.5 Basophils % 0.5 Sodium 142 Potassium 3.6 Chloride 106 Carbon Dioxide 26 Anion Gap 10 BUN 7 D Creatinine 0.6 Creat Clearance w eGFR > 60 Random Glucose 82 D Calcium 8.5 Total Bilirubin 0.6 D AST 6 L D ALT 11 L D Alkaline Phosphatase 74 D Total Protein 6.1 L D Albumin 3.2 L D Active Medications Generic Name Dose Route Start Last Admin Trade Name Freq PRN Reason Stop Dose Admin Acetaminophen 650 mg 11/16/16 14:30 11/18/16 01:04 Tylenol - PO 650 mg Q4H PRN Administration FEVER OR PAIN Diphenhydramine HCl 25 mg 11/16/16 14:30 Benadryl - PO Q6H PRN FOR ITCHING Diphenhydramine HCl 25 mg 11/16/16 17:00 11/18/16 05:35 Benadryl - PO 25 mg Q12H [facility] Administration Docusate Sodium 100 mg 11/17/16 22:00 11/18/16 10:22 Colace - PO 100 mg BID [facility] Administration Duloxetine HCl 60 mg 11/17/16 10:00 11/18/16 10:22 Cymbalta - PO 60 mg DAILY [facility] Administration Vancomycin HCl 250 mls @ 200 mls/hr 11/16/16 17:30 11/18/16 06:20 Vancomycin (Pre-Docked) IVPB 200 mls/hr Q12H [facility] Administration Piperacillin Sod/Tazobactam Sod 50 mls @ 100 mls/hr 11/16/16 18:00 11/18/16 10: 22 Zosyn 3.375gm Ivpb (Pre-Docked) IVPB 100 mls/hr Q8H-IV [facility] Administration Protocol Morphine Sulfate 2 mg 11/16/16 14:30 11/18/16 10:37 Morphine Injection - IVPUSH 2 mg Q4H PRN Administration PAIN Multivitamins/Minerals/Vitamin C 1 tab 11/17/16 10:00 11/18/16 10:22 Tab-A-Vit - PO 1 tab DAILY [facility] Administration Ondansetron HCl 4 mg 11/16/16 14:30 11/18/16 11:15 Zofran Injection IVPB 4 mg Q6H PRN Administration NAUSEA Pantoprazole Sodium 20 mg 11/17/16 10:00 11/18/16 10:22 Protonix - PO 20 mg DAILY [facility] Administration Risperidone 0.5 mg 11/16/16 22:00 11/18/16 10:22 Risperdal - PO 0.5 mg BID [facility] Administration Trazodone HCl 300 mg 11/16/16 22:00 11/17/16 21:55 Desyrel - PO 300 mg HS [facility] Administration ASSESSMENT/PLAN: Patient is a 25 year old female with a significant past medical history of charcot carmelita tooth, fibromyalgia, gastritis, inflamed colon, appendectomy, bipolar, manic depression and anxiety. She presented to the ER on 11/16/2016 with abscess formation in the left middle finger with worsening redness and swelling. Patient was recently discharged in August of 2016 for osteomylitis of the left thumb and was treated with 6 weeks of IV antibiotics via a PICC line. She denies any chest pain, shortness of breath, fever, chills or vomiting. She has a documented allergy to Vancomycin but has been tolerating Vancomycin thus far with Benadryl 30 minutes prior to Vancomycin. Imaging: Finger Xray 11/16/2016: Findings consistent with acute osteomylitis of middle phalanx of left third finger with bony destruction and extensive soft tissue swelling. ID: Sepsis - likely secondary to abscess formation in the left middle finger with worsening redness and swelling Assessment/Plan: On Vancomycin and Zosyn, started on 11/16/2016: wound cultures + staph aureus, group D Leukocytosis improving, Tachycardia resolved Remains afebrile Warm soaks with 10 drops of betadine ordered BID to help healing Left hand swelling now extends to anterior prospect of hand, pain verbalizing pain Hand to be elevated at all times, IVF stopped, discussed findings with hand surgery, no surgical interventions at this time Monitor closely, edema seems to be improving with hand elevation. If worsens, will order hand xray Neurology: Charcot-Carmelita Tooth Syndrome Assessment/Plan: Monitor for any progression of symptoms Monitor pain with morphine PRN PT evaluation to avoid decompensation while hospitalized Psych Bipolar disorder Assessment/Plan: On Trazodone 300mg, Cymbalta 60mg daily and Risperidone 0.5mg daily Confirmed with [facility] that pt is no longer on Prozac Muscular/Skeletal: Fibromyalgia Assessment/Plan: On Cymbalta Morphine prn for pain F.E.N. Fluids: tolerating PO Electrolytes: corrected calcium 8.2, trend: Nutrition: Regular diet Prophylaxis: GI: Protonix, Colace prn DVT: low risk, ambulatory, SCDs when in bed PT consult Disposition; Requires inpatient hospitalization. Full Code. Visit type - Emergency Visit Emergency Visit: Yes ED Registration Date: 11/16/16 Care time: The patient presented to the Emergency Department on the above date and was hospitalized for further evaluation of their emergent condition. - New Patient This patient is new to me today: No - Critical Care Critical Care patient: No - Discharge Referral Referred to [facility] No
[2016-11-18] MEDS ORDERED: traZODone HCL 50 MG TABLET (FP) ONE (21:05)
--- NOTE | 2016-11-18 21:32 | CONS ---
DATE OF CONSULTATION: ORTHOPEDIC CONSULTATION HISTORY OF PRESENT ILLNESS: The patient is a 26-year-old female well known to our service. Patient has been admitted multiple times through the emergency room for infected fingers. She has a form of scleroderma which causes it to have a significant deformity of her fingers and recurrent infections. Patient has been debrided in the past by my partner, Dr. Braydon Germain, who has seen her numerous times. We have tried to constantly treat her with conservative measures to preserve her fingers as although possible amputations of part of her fingers has always been entertained, as she has significant deformities and recurrent infections. Currently now she has been readmitted with left 3rd finger deformity and swelling. She was seen by the infectious disease doctor, who placed her on IV antibiotics Zosyn and vancomycin, and then requested orthopedic evaluation and treatment. Her white count is 13.2, yesterday sedimentation rate but was 6.6 today, and the sedimentation rate is 5. Patient feels she is somewhat better today than she was yesterday. PHYSICAL EXAMINATION: She does have the swollen left 3rd finger with a flexion deformity of the DIP joint. There is no fluctuance in any specific location. The swelling she says is down from yesterday. Slight wound on the dorsum of the DIP joint is very small in nature and no drainage at this particular time and no lymphangitis or streaking of the hand. X-rays show complete obliteration of the distal aspect of the middle phalanx into the DIP joint and other multiple deformities in the rest of the hand. IMPRESSION: Improving on intravenous antibiotics for a small wound at this time and resolving swelling and resolving white count. I therefore at this time would recommend continued conservative treatment and have my partner, Dr. Germain, hand surgeon, evaluate her as well to continue treating her. COLE RICH M.D. [id number]
[2016-11-18] MEDS: traZODone HCL 100 MG TABLET (FP) PO SCH (23:01)
[2016-11-19] MEDS: PIPERACILLIN/TAZOB 3.375 GM 50 ML IVPB SCH ×3 (01:39→18:08)
[2016-11-19] MEDS: diphenhydrAMINE HCL 25 MG CAPSULE (FP) PO SCH ×2 (05:04→18:05)
[2016-11-19] MEDS: VANCOMYCIN 1 GRAM (PRE-DOCKED) 250 ML IVPB SCH ×2 (05:25→18:45)
[2016-11-19 07:35] LABS: BASOPHIL 0.5 % (0-2.0); EOSINOPHIL 2.7 % (0-4.5); MCHC 34.5 g/dl (32.0-36.0); MEAN CELL VOLUME 89.7 fl (80-96); MEAN PLT VOLUME 9.9 fl (7.5-11.1); PLATELET COUNT 171 K/MM3 (134-434); RDW 11.9 % (11.6-15.6); WHITE BLOOD COUNT 7.5 K/mm3 (4.0-10.0)
[2016-11-19 07:59] LABS: ALBUMIN 2.9 g/dl (3.4-5.0); ANION GAP 8 (8-16); BILIRUBIN,TOTAL 0.2 mg/dL (0.2-1.0); CO2 30 mmol/L (21-32); CREATININE 0.9 mg/dL (0.55-1.02); GLUCOSE,RANDOM 157 mg/dL (74-106); SGOT/AST 27 U/L (15-37); SGPT/ALT 18 U/L (12-78)
[2016-11-19 08:00] LABS: ALK PHOS 69 U/L (45-117)
[2016-11-19] MEDS: DULoxetine HCL 30 MG CAPSULE.DR (FP) PO SCH (10:39)
[2016-11-19] MEDS: PANTOPRAZOLE 20 MG TABLET (FP) PO SCH (10:39)
[2016-11-19] MEDS: DOCUSATE SODIUM 100 MG CAPSULE (FP) PO SCH ×2 (10:39→22:01)
[2016-11-19] MEDS: MULTIVITAMINS (DAILY MVI) TABLET (FP) PO SCH (10:39)
[2016-11-19] MEDS ORDERED: PT OWN MED DRAWER 7, Y5N ONE (10:40)
[2016-11-19] MEDS: risperiDONE 0.5 MG TABLET (FP) PO SCH ×2 (10:41→22:01)
[2016-11-19] MEDS: ONDANSETRON 4 MG/2 ML VIAL IVPB PRN (11:27)
[2016-11-19] MEDS: morphine CARPU-JECT 2 MG/1 ML DISP.SYRIN IVPUSH PRN (11:41)
--- NOTE | 2016-11-19 11:52 | PN ---
Physical Exam: SUBJECTIVE: Patient seen and examined. Patient reports that her left hand feels better, less swollen. Still having pain. OBJECTIVE: Vital Signs Period Temp Pulse Resp BP Sys/Ibarra Pulse Ox Last 24 Hr 97.8 F-98.2 F 86-94 16-20 102-135/46-78 100 GENERAL: The patient is awake, alert, and fully oriented, in no acute distress. HEAD: Normal with no signs of trauma. EYES: PERRL, extraocular movements intact, sclera anicteric, conjunctiva clear. No ptosis. ENT: Ears normal, nares patent, oropharynx clear without exudates, moist mucous membranes. NECK: Trachea midline, full range of motion, supple. LUNGS: Breath sounds equal, clear to auscultation bilaterally, no wheezes, no crackles, no accessory muscle use. HEART: Regular rate and rhythm ABDOMEN: Soft, nontender, nondistended, normoactive bowel sounds, no guarding, no rebound, no hepatosplenomegaly, no masses. EXTREMITIES: Left hand with less edema, hand to be elevated at all times NEUROLOGICAL: Normal speech, gait not observed. PSYCH: Normal mood, normal affect. SKIN: abscess formation in the left middle finger with worsening redness and swelling, now edema on anterior aspect of hand Wound care orders as follows: Warm soaks with 10 drops of betadine ordered BID to help healing Wound care as follows: twice daily with warm soaks to left finger with 10 drops of betadine, apply sterile dressing twice per day after soaks Laboratory Results - last 24 hr 11/19/16 11/19/16 06:15 06:15 WBC 7.5 RBC 3.67 Hgb 11.4 Hct 33.0 MCV 89.7 MCHC 34.5 RDW 11.9 Plt Count 171 MPV 9.9 Neutrophils % 69.0 Lymphocytes % 19.5 Monocytes % 8.3 Eosinophils % 2.7 Basophils % 0.5 Sodium 143 Potassium 3.6 Chloride 105 Carbon Dioxide 30 Anion Gap 8 BUN 5 L D Creatinine 0.9 D Creat Clearance w eGFR > 60 Random Glucose 157 H D Calcium 8.0 L Total Bilirubin 0.2 D AST 27 D ALT 18 D Alkaline Phosphatase 69 Total Protein 6.0 L Albumin 2.9 L Active Medications Generic Name Dose Route Start Last Admin Trade Name Freq PRN Reason Stop Dose Admin Acetaminophen 650 mg 11/16/16 14:30 11/18/16 01:04 Tylenol - PO 650 mg Q4H PRN Administration FEVER OR PAIN Diphenhydramine HCl 25 mg 11/16/16 14:30 Benadryl - PO Q6H PRN FOR ITCHING Diphenhydramine HCl 25 mg 11/16/16 17:00 11/19/16 05:04 Benadryl - PO 25 mg Q12H FROYLAN Administration Docusate Sodium 100 mg 11/17/16 22:00 11/19/16 10:39 Colace - PO 100 mg BID FROYLAN Administration Duloxetine HCl 60 mg 11/17/16 10:00 11/19/16 10:39 Cymbalta - PO 60 mg DAILY FROYLAN Administration Vancomycin HCl 250 mls @ 200 mls/hr 11/16/16 17:30 11/19/16 05:25 Vancomycin (Pre-Docked) IVPB 200 mls/hr Q12H FROYLAN Administration Piperacillin Sod/Tazobactam Sod 50 mls @ 100 mls/hr 11/16/16 18:00 11/19/16 10: 39 Zosyn 3.375gm Ivpb (Pre-Docked) IVPB 100 mls/hr Q8H-IV FROYLAN Administration Protocol Morphine Sulfate 2 mg 11/16/16 14:30 11/19/16 11:41 Morphine Injection - IVPUSH 2 mg Q4H PRN Administration PAIN Multivitamins/Minerals/Vitamin C 1 tab 11/17/16 10:00 11/19/16 10:39 Tab-A-Vit - PO 1 tab DAILY FROYLAN Administration Ondansetron HCl 4 mg 11/16/16 14:30 11/19/16 11:27 Zofran Injection IVPB 4 mg Q6H PRN Administration NAUSEA Pantoprazole Sodium 20 mg 11/17/16 10:00 11/19/16 10:39 Protonix - PO 20 mg DAILY FROYLAN Administration Risperidone 0.5 mg 11/16/16 22:00 11/19/16 10:41 Risperdal - PO 0.5 mg BID FROYLAN Administration Trazodone HCl 300 mg 11/16/16 22:00 11/18/16 23:01 Desyrel - PO 300 mg HS FROYLAN Administration ASSESSMENT/PLAN: Patient is a 26 year old female with a significant past medical history of charcot carmelita tooth, fibromyalgia, gastritis, inflamed colon, appendectomy, bipolar, manic depression and anxiety. She presented to the ER on 11/16/2016 with abscess formation in the left middle finger with worsening redness and swelling. Patient was recently discharged in August of 2016 for osteomylitis of the left thumb and was treated with 6 weeks of IV antibiotics via a PICC line. She denies any chest pain, shortness of breath, fever, chills or vomiting. She has a documented allergy to Vancomycin but has been tolerating Vancomycin thus far with Benadryl 30 minutes prior to Vancomycin. Imaging: Finger Xray 11/16/2016: Findings consistent with acute osteomylitis of middle phalanx of left third finger with bony destruction and extensive soft tissue swelling. ID: Sepsis - likely secondary to abscess formation in the left middle finger with worsening redness and swelling Assessment/Plan: On Vancomycin and Zosyn, started on 11/16/2016 wound cultures + staph aureus, group D Leukocytosis improving, Tachycardia resolved Remains afebrile Warm soaks with 10 drops of betadine ordered BID to help healing Left hand swelling now extends to anterior prospect of hand, but improvement on edema since yesterday, + pain Hand to be elevated at all times, IVF stopped, no surgical interventions at this time as per surgery Monitor closely, edema seems to be improving with hand elevation. If worsens, will order hand xray Neurology: Charcot-Carmelita Tooth Syndrome Assessment/Plan: Monitor for any progression of symptoms Monitor pain with morphine PRN PT evaluation to avoid decompensation while hospitalized Psych Bipolar disorder Assessment/Plan: On Trazodone 300mg, Cymbalta 60mg daily and Risperidone 0.5mg daily Confirmed with [facility] that pt is no longer on Prozac Muscular/Skeletal: Fibromyalgia Assessment/Plan: On Cymbalta Morphine prn for pain F.E.N. Fluids: tolerating PO Electrolytes: corrected calcium 9.2 Nutrition: Regular diet Prophylaxis: GI: Protonix, Colace prn DVT: low risk, ambulatory, SCDs when in bed PT consult Disposition; Requires inpatient hospitalization. Full Code. Visit type - Emergency Visit Emergency Visit: Yes ED Registration Date: 11/16/16 Care time: The patient presented to the Emergency Department on the above date and was hospitalized for further evaluation of their emergent condition. - New Patient This patient is new to me today: No - Critical Care Critical Care patient: No - Discharge Referral Referred to [facility] Med P.C.: No
[2016-11-19] MEDS ORDERED: morphine CARPU-JECT 2 MG/1 ML DISP.SYRIN IVPUSH PRN (19:50)
[2016-11-19] MEDS ORDERED: traZODone HCL 50 MG TABLET (FP) ONE (20:46)
[2016-11-19] MEDS: traZODone HCL 100 MG TABLET (FP) PO SCH (22:01)
[2016-11-20] MEDS: PIPERACILLIN/TAZOB 3.375 GM 50 ML IVPB SCH ×2 (01:11→10:21)
[2016-11-20] MEDS: ONDANSETRON 4 MG/2 ML VIAL IVPB PRN (02:11)
[2016-11-20] MEDS: diphenhydrAMINE HCL 25 MG CAPSULE (FP) PO SCH (05:25)
[2016-11-20] MEDS: VANCOMYCIN 1 GRAM (PRE-DOCKED) 250 ML IVPB SCH (05:51)
[2016-11-20 07:35] LABS: BASOPHIL 0.3 % (0-2.0); EOSINOPHIL 0.7 % (0-4.5); MCH 31.2 pg (25.7-33.7); MEAN CELL VOLUME 89.1 fl (80-96); MEAN PLT VOLUME 9.6 fl (7.5-11.1); NEUTROPHILS 81.8 % (42.8-82.8); PLATELET COUNT 190 K/MM3 (134-434); WHITE BLOOD COUNT 8.2 K/mm3 (4.0-10.0)
[2016-11-20 08:03] LABS: ALBUMIN 3.4 g/dl (3.4-5.0); ANION GAP 8 (8-16); BILIRUBIN,TOTAL 0.4 mg/dL (0.2-1.0); CALCIUM 8.7 mg/dL (8.5-10.1); CO2 30 mmol/L (21-32); CREATININE 0.9 mg/dL (0.55-1.02); GLUCOSE,RANDOM 131 mg/dL (74-106); SGOT/AST 30 U/L (15-37); SGPT/ALT 22 U/L (12-78); TOT PROT 6.6 g/dl (6.4-8.2)
[2016-11-20 08:04] LABS: ALK PHOS 86 U/L (45-117)
--- NOTE | 2016-11-20 09:01 | PN ---
Progress Note (short form) - Note Progress Note: Ortho Pt seen and examined left 3rd finger improving decr swelling and drainage, incr rom nvi a/p continue abx ROM exercises warm soaks will follow d/w Dr. Germain
--- NOTE | 2016-11-20 09:46 | DS ---
Physical Exam: SUBJECTIVE: Patient seen and examined. States she feels better, her left hand is less swollen. She is worried about her hand getting worse when she goes home. Stressed importance of follow up with hand surgeon. I made appointment for her with Dr Ruano (hand surgeon) [phone] who is affiliated with [facility] and [facility]. Appointment is for this Sunday @11a.m. Pt has to call and provide insurance information. Pt advised to call me back (phone no. provided on d/c instructions) if hand surgeon is unable to accommodate her because of her insurance. Pt verbalized understanding. OBJECTIVE: Vital Signs Period Temp Pulse Resp BP Sys/Ibarra Pulse Ox Last 24 Hr 97.9 F-98.9 F 79-90 16-18 100-132/54-74 98 PHYSICAL EXAM GENERAL: The patient is awake, alert, and fully oriented, in no acute distress. HEAD: Normal with no signs of trauma. EYES: PERRL, extraocular movements intact, sclera anicteric, conjunctiva clear. No ptosis. ENT: Ears normal, nares patent, oropharynx clear without exudates, moist mucous membranes. NECK: Trachea midline, full range of motion, supple. LUNGS: Breath sounds equal, clear to auscultation bilaterally, no wheezes, no crackles, no accessory muscle use. HEART: Regular rate and rhythm ABDOMEN: Soft, nontender, nondistended, normoactive bowel sounds, no guarding, no rebound, no hepatosplenomegaly, no masses. EXTREMITIES: Left hand with less edema, hand to be elevated at all times NEUROLOGICAL: Normal speech, gait not observed. PSYCH: Normal mood, normal affect. SKIN: abscess formation in the left middle finger with, edema on left hand improving - needs outpatient follow up. Wound care orders as follows: Warm soaks with 10 drops of betadine ordered BID to help healing Wound care as follows: twice daily with warm soaks to left finger with 10 drops of betadine, apply sterile dressing twice per day after soaks LABS Laboratory Results - last 24 hr 11/19/16 11/20/16 11/20/16 16:05 06:00 06:00 WBC 8.2 RBC 4.21 Hgb 13.1 D Hct 37.5 MCV 89.1 MCHC 35.0 RDW 12.0 Plt Count 190 MPV 9.6 Neutrophils % 81.8 Lymphocytes % 11.5 D Monocytes % 5.7 Eosinophils % 0.7 Basophils % 0.3 Sodium 143 Potassium 3.6 Chloride 105 Carbon Dioxide 30 Anion Gap 8 BUN 3 L D Creatinine 0.9 Creat Clearance w eGFR > 60 Random Glucose 131 H Calcium 8.7 Total Bilirubin 0.4 D AST 30 ALT 22 D Alkaline Phosphatase 86 D Total Protein 6.6 Albumin 3.4 Vancomycin Trough 10.181 H HOSPITAL COURSE: Date of Admission:11/16/16 Date of Discharge: 11/20/16 ASSESSMENT/PLAN: Patient is a 26 year old female with a significant past medical history of charcot carmelita tooth, fibromyalgia, gastritis, inflamed colon, appendectomy, bipolar, manic depression and anxiety. She presented to the ER on 11/16/2016 with abscess formation in the left middle finger with worsening redness and swelling. Patient was recently discharged in August of 2016 for osteomylitis of the left thumb and was treated with 6 weeks of IV antibiotics via a PICC line. She denies any chest pain, shortness of breath, fever, chills or vomiting. She has a documented allergy to Vancomycin but has been tolerating Vancomycin thus far with Benadryl 30 minutes prior to Vancomycin. Imaging: Finger Xray 11/16/2016: Findings consistent with acute osteomylitis of middle phalanx of left third finger with bony destruction and extensive soft tissue swelling. ID: Sepsis - resolved likely secondary to abscess formation in the left middle finger with worsening redness and swelling, to continue antibiotics as prescribed Assessment/Plan: wound cultures + staph aureus, group D Leukocytosis resolved, Tachycardia resolved Remains afebrile Warm soaks with 10 drops of betadine ordered BID to help healing to continue as outpatient Hand to be elevated at all times, no surgical interventions at this time as per surgery Edema seems to be improving with hand elevation. Must follow up with hand surgeon on d/c as well as PCP and ID, pt in agreement Appt with hand surgeon made for 11/22/2016 @11a.m. Neurology: Charcot-Carmelita Tooth Syndrome - chronic Assessment/Plan: Monitor for any progression of symptoms Monitor pain with morphine PRN PT evaluation to avoid decompensation while hospitalized Psych Bipolar disorder - chronic Assessment/Plan: On Trazodone 300mg, Cymbalta 60mg daily and Risperidone 0.5mg daily Confirmed with [facility] that pt is no longer on Prozac Muscular/Skeletal: Fibromyalgia - chronic Assessment/Plan: On Cymbalta Morphine prn for pain Disposition; Discharge today with continued PO antibiotic therapy. Needs follow up with PCP, hand surgeon and infections disease. Full Code. Minutes to complete discharge: 60 Discharge Summary Reason For Visit: OSTEOMYELITIS Current Active Problems Abscess of finger of left hand (Acute) Cellulitis of finger of left hand (Acute) Osteomyelitis (Acute) Sepsis (Acute) Anxiety (Chronic) Bipolar disorder (manic depression) (Chronic) Cyclic vomiting syndrome (Chronic) Fibromyalgia (Chronic) Gastritis (Chronic) Gastroparesis (Chronic) Skin ulcers of foot, bilateral (Chronic) Condition: Improved - Instructions Diet, Activity, Other Instructions: Please continue new medications of : Dicoloxacillin 500mg twice per day for 3 months. Please follow up with Dr. Sanders/Rowan infections disease within 1 week upon discharge. Please refer to your PCP for a hand surgery consult at [facility]. Please return to the ER if you have the following: Worsening pain on left hand, worsening swelling, streaks/redness on left hand. You have an appointment on SundayNovember 22 @ 11a.m with Dr. Ruano Address: [address] [place] [address], located @ [facility] [phone]. Please call them today with your insurance information. If you have any insurance problems or if the hand surgeon is unable to see you, please call Violet Alvarado NP at [phone] and I will help you find one. [place] see Dr. Sanders/Dr. Donahue after you see the hand surgeon. Referrals: Keila Jeong MD [Primary Care Provider] - Jonathan Donahue MD [Staff Physician] - Disposition: HOME - Home Medications Comprehensive Discharge Medication List: Ambulatory Orders Risperidone [Risperdal -] 0.5 mg PO BID #40 tablet 05/18/16 Multivitamins [Multivit ([facility] Formulary)] 1 tab PO DAILY #0 tab 06/14/16 Duloxetine HCl [Cymbalta -] 60 mg PO DAILY 07/25/16 Omeprazole 20 mg PO DAILY 07/25/16 Trazodone HCl 300 mg PO DAILY 08/13/16 This patient is new to me today: No Emergency Visit: Yes ED Registration Date: 11/16/16 Care time: The patient presented to the Emergency Department on the above date and was hospitalized for further evaluation of their emergent condition. Critical Care patient: No - Discharge Referral Referred to [facility] Med P.C.: No
[2016-11-20] MEDS: DOCUSATE SODIUM 100 MG CAPSULE (FP) PO SCH (10:02)
[2016-11-20] MEDS: DULoxetine HCL 30 MG CAPSULE.DR (FP) PO SCH (10:02)
[2016-11-20] MEDS: PANTOPRAZOLE 20 MG TABLET (FP) PO SCH (10:02)
[2016-11-20] MEDS: MULTIVITAMINS (DAILY MVI) TABLET (FP) PO SCH (10:03)
[2016-11-20] MEDS ORDERED: OXYCODONE/APAP 5/325MG COMBO TABLET PO ONE (10:44)
[2016-11-20] MEDS ORDERED: DICLOXACILLIN SODIUM 250 MG CAPSULE PO SCH (10:45)
--- NOTE | 2016-11-20 11:16 | PN ---
Progress Note, Physician History of Present Illness: Patient seen and examined at bedside complains of pain to the left middle finger otherwise no other complaints - Current Medication List Current Medications: Active Medications Acetaminophen (Tylenol -) 650 mg PO Q4H PRN PRN Reason: FEVER OR PAIN Last Admin: 11/18/16 01:04 Dose: 650 mg Dicloxacillin Sodium (Dynapen -) 500 mg PO BID [facility] Diphenhydramine HCl (Benadryl -) 25 mg PO Q6H PRN PRN Reason: FOR ITCHING Diphenhydramine HCl (Benadryl -) 25 mg PO Q12H [facility] Last Admin: 11/20/16 05:25 Dose: 25 mg Docusate Sodium (Colace -) 100 mg PO BID [facility] Last Admin: 11/20/16 10:02 Dose: 100 mg Duloxetine HCl (Cymbalta -) 60 mg PO DAILY [facility] Last Admin: 11/20/16 10:02 Dose: 60 mg Morphine Sulfate (Morphine Injection -) 2 mg IVPUSH Q4H PRN PRN Reason: PAIN Last Admin: 11/19/16 22:14 Dose: 2 mg Multivitamins/Minerals/Vitamin C (Tab-A-Vit -) 1 tab PO DAILY [facility] Last Admin: 11/20/16 10:03 Dose: 1 tab Ondansetron HCl (Zofran Injection) 4 mg IVPB Q6H PRN PRN Reason: NAUSEA Last Admin: 11/20/16 02:11 Dose: 4 mg Oxycodone/Acetaminophen (Percocet 5/325 -) 1 combo PO ONCE ONE Stop: 11/20/16 10:45 Pantoprazole Sodium (Protonix -) 20 mg PO DAILY [facility] Last Admin: 11/20/16 10:02 Dose: 20 mg Risperidone (Risperdal -) 0.5 mg PO BID [facility] Last Admin: 11/19/16 22:01 Dose: 0.5 mg Trazodone HCl (Desyrel -) 300 mg PO HS [facility] Last Admin: 11/19/16 22:01 Dose: 300 mg - Objective Vital Signs: Vital Signs Temperature 98.9 F 11/20/16 06:57 Pulse Rate 79 11/20/16 06:57 Respiratory Rate 18 11/20/16 06:57 Blood Pressure 107/65 11/20/16 06:57 O2 Sat by Pulse Oximetry (%) 98 11/19/16 21:00 Constitutional: Yes: Well Nourished, No Distress, Calm HENT: Yes: Atraumatic Neck: Yes: Supple Cardiovascular: Yes: RRR S1 S2 no murmur Respiratory: Yes: CTA Bilaterally Gastrointestinal: Yes: Normal Bowel Sounds, Soft Musculoskeletal: Yes: Joint Stiffness Extremities: Yes: Other (left middle finger swelling with no more erythema no purulent drainage today. Multiple deformed fingers multiple healed ulcer on upper and lower extremities) tenderness to palpation ...Motor Strength: WNL Psychiatric: Yes: Alert, Oriented Microbiology 11/17/16 15:30 Blood - Peripheral Venous Blood Culture - Preliminary NO GROWTH OBTAINED AFTER 48 HOURS, INCUBATION TO CONTINUE FOR 3 DAYS. 11/17/16 15:30 Blood - Peripheral Venous Blood Culture - Preliminary NO GROWTH OBTAINED AFTER 48 HOURS, INCUBATION TO CONTINUE FOR 3 DAYS. 11/16/16 13:15 Abscess Gram Stain - Final 11/16/16 13:15 Abscess Wound Culture - Final Staphylococcus Aureus Enterococcus Faecalis Streptococcus Viridans Labs: CBC, BMP 11/20/16 06:00 11/20/16 06:00 Problem List - Problems (1) Osteomyelitis Code(s): M86.9 - OSTEOMYELITIS, UNSPECIFIED Qualifiers: Osteomyelitis location: foot Laterality: unspecified laterality Chronicity: subacute Qualified Code(s): M86.279 - Subacute osteomyelitis , unspecified ankle and foot (2) Abscess of finger of left hand Code(s): L02.512 - CUTANEOUS ABSCESS OF LEFT HAND (3) Anxiety Code(s): F41.9 - ANXIETY DISORDER, UNSPECIFIED (4) Fibromyalgia Code(s): M79.7 - FIBROMYALGIA (5) Gastritis Code(s): K29.70 - GASTRITIS, UNSPECIFIED, WITHOUT BLEEDING (7) Cellulitis of finger of left hand Code(s): L03.012 - CELLULITIS OF LEFT FINGER (8) Skin ulcers of foot, bilateral Code(s): L97.519 - NON-PRS CHRONIC ULCER OTH PRT RIGHT FOOT W UNSP SEVERITY L97.529 - NON-PRESSURE CHRONIC ULCER OTH PRT LEFT FOOT W UNSP SEVERITY (9) Sepsis Code(s): A41.9 - SEPSIS, UNSPECIFIED ORGANISM Assessment/Plan 26F with charcot betty tooth with osteomyelitis of left middle finger middle phalynx patient is tachycardic with leukocytosis which meets SIRS cririera and has a known infection which meets the criteria for sepsis. XRay consistent with erosion of left middle finger distal phalynx erythema improved pain control Stop Vancomycin/Zosyn start dicloxacillin 500mg po BID for 3 months. can discharge from ID standpoint and will need follow up with a hand surgeon at [facility] cultures noted thank you for this consult and allowing us to participate in the care of this patient Case discussed with Dr. Sanders
[2016-11-20] MEDS ORDERED: oxyCODONE HCL 5 MG TABLET PO ONE (11:30)
[2016-11-20] MEDS ORDERED: ACETAMINOPHEN 325 MG TABLET (FP) PO ONE (11:30)
--- NOTE | 2016-11-20 11:46 | DS ---
Physical Exam: SUBJECTIVE: Patient seen and examined. OBJECTIVE: Vital Signs Period Temp Pulse Resp BP Sys/Ibarra Pulse Ox Last 24 Hr 97.9 F-98.9 F 79-90 16-18 100-132/54-74 98 PHYSICAL EXAM GENERAL: The patient is awake, alert, and fully oriented, in no acute distress. HEAD: Normal with no signs of trauma. EYES: PERRL, extraocular movements intact, sclera anicteric, conjunctiva clear. ENT: Ears normal, nares patent, oropharynx clear without exudates, moist mucous membranes. NECK: Trachea midline, full range of motion, supple. LUNGS: Breath sounds equal, clear to auscultation bilaterally, no wheezes, no crackles, no accessory muscle use. HEART: Regular rate and rhythm, S1, S2 without murmur, rub or gallop. ABDOMEN: Soft, nontender, nondistended, normoactive bowel sounds, no guarding, no rebound, no hepatosplenomegaly, no masses. EXTREMITIES: 2+ pulses, warm, well-perfused, no edema. NEUROLOGICAL: Cranial nerves II through XII grossly intact. Normal speech, gait not observed. PSYCH: Normal mood, normal affect. SKIN: Warm, dry, normal turgor, no rashes or lesions noted. LABS Laboratory Results - last 24 hr 11/19/16 11/20/16 11/20/16 16:05 06:00 06:00 WBC 8.2 RBC 4.21 Hgb 13.1 D Hct 37.5 MCV 89.1 MCHC 35.0 RDW 12.0 Plt Count 190 MPV 9.6 Neutrophils % 81.8 Lymphocytes % 11.5 D Monocytes % 5.7 Eosinophils % 0.7 Basophils % 0.3 Sodium 143 Potassium 3.6 Chloride 105 Carbon Dioxide 30 Anion Gap 8 BUN 3 L D Creatinine 0.9 Creat Clearance w eGFR > 60 Random Glucose 131 H Calcium 8.7 Total Bilirubin 0.4 D AST 30 ALT 22 D Alkaline Phosphatase 86 D Total Protein 6.6 Albumin 3.4 Vancomycin Trough 10.181 H HOSPITAL COURSE: Date of Admission:11/16/16 Date of Discharge: 11/20/16 Discharge Summary Reason For Visit: OSTEOMYELITIS Current Active Problems Abscess of finger of left hand (Acute) Cellulitis of finger of left hand (Acute) Osteomyelitis (Acute) Sepsis (Acute) Anxiety (Chronic) Bipolar disorder (manic depression) (Chronic) Cyclic vomiting syndrome (Chronic) Fibromyalgia (Chronic) Gastritis (Chronic) Gastroparesis (Chronic) Skin ulcers of foot, bilateral (Chronic) Condition: Improved - Instructions Diet, Activity, Other Instructions: Please continue new medications of : Dicoloxacillin 500mg twice per day for 3 months. Please follow up with Dr. Sanders/Rowan infections disease within 1 week upon discharge. Please refer to your PCP for a hand surgery consult at [facility]. Please return to the ER if you have the following: Worsening pain on left hand, worsening swelling, streaks/redness on left hand. You have an appointment on SundayNovember 22 @ 11a.m with Dr. Ruano Address: [address] [place] [address], located @ [facility] [phone]. Please call them today with your insurance information. If you have any insurance problems or if the hand surgeon is unable to see you, please call Violet Alvarado NP at [phone] and I will help you find one. [place] see Dr. Sanders/Dr. Donahue after you see the hand surgeon. Referrals: Jonathan Donahue MD [Staff Physician] - Keila Jeong MD [Primary Care Provider] - Disposition: HOME - Home Medications Comprehensive Discharge Medication List: Ambulatory Orders Risperidone [Risperdal -] 0.5 mg PO BID #40 tablet 05/18/16 Multivitamins [Multivit ([facility] Formulary)] 1 tab PO DAILY #0 tab 06/14/16 Duloxetine HCl [Cymbalta -] 60 mg PO DAILY 07/25/16 Omeprazole 20 mg PO DAILY 07/25/16 Trazodone HCl 300 mg PO DAILY 08/13/16 Dicloxacillin Sodium [Dynapen -] 500 mg PO BID #180 capsule 11/20/16 Oxycodone HCl 5 mg PO PRN #20 capsule MDD 20mg 11/20/16 - Discharge Referral Referred to [facility] Med P.C.: No
[2016-11-20 13:50] VITALS: BP 111/60; PULSE 77; TEMP 98
[2016-11-20] MEDS ORDERED: ONDANSETRON *ODT* 4 MG TABLET SL ONE (14:49)
--- NOTE | 2016-11-20 15:00 | PN ---
Teaching Attending Note Name of Resident: Javi Edwards ATTENDING PHYSICIAN STATEMENT I saw and evaluated the patient. I reviewed the resident's note and discussed the case with the resident. I agree with the resident's findings and plan as documented. SUBJECTIVE: Reports less finger pain no fever/ chills Tolerating antibiotics OBJECTIVE: Erythema of 3rd finger resolved; decreased swelling No wound drainage Wound c/s MSSA, Enterococcus,Viridans strep ASSESSMENT AND PLAN: Substitute po dicloxacillin. USP antibiotic suppression Outpatient hand surgery follow up- Orthopedic consultants recommend follow up at [facility]
[2016-11-20] MEDS: risperiDONE 0.5 MG TABLET (FP) PO SCH (16:07)
== END 2016-11-20 18:06 | disposition home or self-care (01) | DRG 720 ==
LOC: JER 09:39 → JERBED 14:40 → J7W 15:47
PROVIDERS: ADMIT Internal Medicine; ATTEND Nurse Practitioner Family
PROC: 0X9 Anatomical Regions, Upper Extremities, Drainage (ICD-10-PCS; principal; 2016-11-16)
DX: A41.9 Sepsis, unspecified organism (principal); M86.142 Other acute osteomyelitis, left hand; M41.9 Scoliosis, unspecified; L02.512 Cutaneous abscess of left hand; F43.10 Post-traumatic stress disorder, unspecified; F31.9 Bipolar disorder, unspecified; K21.9 Gastro-esophageal reflux disease without esophagitis; K29.60 Other gastritis without bleeding; M79.7 Fibromyalgia; G60.0 Hereditary motor and sensory neuropathy; F41.9 Anxiety disorder, unspecified; B95.61 Methicillin susceptible Staphylococcus aureus infection as the cause of diseases classified elsewhere
CPT/HCPCS: 36415; 73140-TC-LT; 80048; 80053; 83605; 84703; 85025; 85651; 86140; 87040; 87070; 87186; 87205; 97116-GP; 97161-GP; 99283-25; G0480

== ENCOUNTER 2017-05-27 14:43 | Emergency (ER) | payer OTHER ==
[2017-05-27 14:51] VITALS: BP 117/71; PULSE 105; TEMP 98.8; BMI 18.0
[2017-05-27] MEDS ORDERED: KETOROLAC TROMETHAMINE 60 MG/2 ML VIAL IM ONE (15:27)
[2017-05-27] MEDS ORDERED: KETOROLAC TROMETHAMINE 60 MG/2 ML VIAL ONE (15:27)
--- NOTE | 2017-05-27 15:32 | PDOC ---
History of Present Illness - General Chief Complaint: Pain Stated Complaint: LEGS PAIN Time Seen by Provider: 05/27/17 15:19 History Source: Patient Exam Limitations: No Limitations - History of Present Illness Initial Comments: 05/27/17 15:27 Came to emergency department for evaluation of an acute exacerbation of fibromyalgia pain. Has not taken any medications today but feels that things like Tylenol and ibuprofen do not work. Has been here in the past for pain medication but states with prefer not to have any narcotic medication as it makes her stomach sick and does not feel resolves pain well. Any recent illness , no exercise changes or recent injury. And is not on any chronic pain management 05/27/17 15:28 Occurred: reports: this morning Severity: reports: mild, moderate Pain Location: reports: lower extremity, upper extremity Method of Injury: Yes: unknown Modifying Factors: improves with: None Loss of Consciousness: no loss of consciousness Associated Symptoms (Fall): denies symptoms Past History - Travel Traveled outside of the country in the last 30 days: No Close contact w/someone who was outside of country & ill: No - Past Medical History Allergies/Adverse Reactions: Allergies Allergy/AdvReac Type Severity Reaction Status Date / Time oxycodone Allergy Intermediate Rash Verified 05/27/17 14:51 vancomycin Allergy skin Verified 05/27/17 14:51 reaction Home Medications: Ambulatory Orders Multivitamins [Multivit ([facility] Formulary)] 1 tab PO DAILY #0 tab 06/14/16 Omeprazole 20 mg PO DAILY 07/25/16 Amoxicillin/Potassium Clav [Augmentin 875-125 Tablet] 1 each PO BID #14 tablet 05/15/17 Amox-Tr/K Cl [Augmentin - 875Mg Tablet] 1 tab PO BID #28 tablet 05/22/17 Anemia: No Asthma: No Cancer: No Cardiac Disorders: No CVA: No COPD: No CHF: No Dementia: No Diabetes: No GI Disorders: Yes (Gastritis) Disorders: No HTN: No Hypercholesterolemia: No Liver Disease: No Psychiatric Problems: Yes (bipolar) Seizures: No Thyroid Disease: No Other medical history: FIBROMYALGIA WITH NEUROPATHY - Surgical History Abdominal Surgery: Yes Appendectomy: Yes Cholecystectomy: No Orthopedic Surgery: Yes (amp rt great toe,bilat.feet bones removed for osteomyelitis) - Immunization History Immunization Up to Date: Yes (FLU ) - Psycho/Social/Smoking Cessation Hx Anxiety: No Suicidal Ideation: No Smoking Status: No Smoking History: Never smoked Have you smoked in the past 12 months: No Number of Cigarettes Smoked Daily: 0 'Breaking Loose' booklet given: 05/16/12 Hx Alcohol Use: Yes (SOCIAL) Drug/Substance Use Hx: No Substance Use Type: None Hx Substance Use Treatment: No Review of Systems - Review of Systems Able to Perform ROS?: Yes Is the patient limited Sinhala proficient: Yes Constitutional: Yes: Symptoms Reported, See HPI. No: Fever, Loss of Appetite, Malaise HEENTM: Yes: See HPI. No: Symptoms Reported Respiratory: Yes: See HPI Musculoskeletal: Yes: Symptoms Reported, See HPI, Joint Pain, Joint Swelling, Joint Stiffness (deformities) Integumentary: Yes: Symptoms Reported, See HPI Neurological: Yes: Symptoms reported, See HPI All Other Systems: Reviewed and Negative *Physical Exam - Vital Signs Last Vital Signs Temp Pulse Resp BP Pulse Ox 98.8 F 105 H 20 117/71 99 05/27/17 14:47 05/27/17 14:47 05/27/17 14:47 05/27/17 14:47 05/27/17 14:47 - Physical Exam General Appearance: Yes: Nourished, Appropriately Dressed, Apparent Distress HEENT: positive: SHREYAS, Normal ENT Inspection, Normal Voice, TMs Normal, Pharynx Normal Neck: positive: Supple, Other. negative: Tender, Lymphadenopathy (R), Lymphadenopathy (L) Respiratory/Chest: positive: Normal Breath Sounds Musculoskeletal: positive: Normal Inspection. negative: Vertebral Tenderness Extremity: positive: Normal Capillary Refill, Normal Range of Motion. negative : Normal Inspection Integumentary: positive: Normal Color Neurologic: positive: machine umbrella tipper II-XII NML intact, Fully Oriented, Alert, Normal Mood/ Affect, Normal Response, Motor Strength 5/5 Progress Note - Progress Note Progress Note: Acute on chronic pain fibromyalgia, will treat with Toradol and recommend continued NSAID use. Has follow-up appointment with psychiatrist tomorrow and will request neurology or chronic pain management referral *DC/Admit/Observation/Transfer Diagnosis at time of Disposition: Fibromyalgia - Discharge Dispostion Disposition: HOME Condition at time of disposition: Stable Admit: No - Patient Instructions Printed Discharge Instructions: Fibromyalgia Additional Instructions: Rest, ice to area on and off for 15 minutes 4-6 times a day Avoid heavy lifting or exercise until pain and swelling is resolved or until further directed Followup with orthopedist / neurologist in one to 2 days if not improving, if significantly improved may wait one week for followup with orthopedist May use ibuprofen 2-200 mg tablets every 6 hours as needed for pain - Post Discharge Activity Work/School Note: Back to Work
== END 2017-05-27 15:39 | disposition home or self-care (01) ==
LOC: JERFT 14:43
PROC: 3E0233Z Introduction of Anti-inflammatory into Muscle, Percutaneous Approach (ICD-10-PCS; principal; 2017-05-27)
DX: M79.7 Fibromyalgia (principal); F31.9 Bipolar disorder, unspecified; Z89.411 Acquired absence of right great toe
CPT/HCPCS: 96372; 99281-25

== ENCOUNTER 2017-06-19 08:01 | Day surgery (SDC) | payer OTHER ==
[2017-06-15 17:09] VITALS: BMI 20.9
[2017-06-19] MEDS ORDERED: LIDOCAINE HCL 1%, 10 MG/ML (20ML VIAL) ONE (09:45)
[2017-06-19] MEDS ORDERED: BUPIVACAINE HCL/PF 0.5% (5MG/ML) 10 ML VIAL ONE (09:46)
[2017-06-19] MEDS ORDERED: PROPOFOL 20 ML ONE (09:55)
[2017-06-19] MEDS ORDERED: MIDAZOLAM HCL 2 MG/2 ML SINGLE DOSE VIAL ONE (09:55)
[2017-06-19] MEDS ORDERED: SUCCINYLCHOLINE CHLORIDE 200 MG/10 ML VIAL ONE (09:55)
[2017-06-19] MEDS ORDERED: ceFAZolin SODIUM 1 GM VIAL ONE (10:18)
[2017-06-19] MEDS ORDERED: LIDOCAINE HCL 1%, 10 MG/ML (20ML VIAL) INF ONE (10:28)
[2017-06-19] MEDS ORDERED: ceFAZolin SODIUM 1 GM VIAL IVPB ONE (11:00)
[2017-06-19] MEDS ORDERED: ONDANSETRON 4 MG/2 ML VIAL IVPUSH PRN (11:10)
[2017-06-19] MEDS ORDERED: ACETAMINOPHEN 1000 MG/100 ML VIAL (NON FORMULARY) IVPB ONE (11:10)
[2017-06-19] MEDS ORDERED: LACTATED RINGERS SOLUTION 1,000 ML IV SCH (11:15)
[2017-06-19] MEDS ORDERED: oxyCODONE HCL 5 MG TABLET PO PRN (11:48)
--- NOTE | 2017-06-19 11:50 | OP ---
Operative Note - Note: Operative Date: 06/19/17 Pre-Operative Diagnosis: Osteomyelitis, right fourth toe Operation: Partial amputation, right fourth toe Post-Operative Diagnosis: Same as Pre-op Surgeon: Beto Jackson Anesthesiologist/LAMINATOR HAND: Wolf Quintero Anesthesia: Local, MAC Specimens Removed: Bone, right foot Estimated Blood Loss (mls): 20 Operative Report Dictated: Yes
[2017-06-19 12:34] VITALS: TEMP 98
[2017-06-19] MEDS ORDERED: oxyCODONE HCL 5 MG TABLET ONE (14:16)
[2017-06-19 14:41] VITALS: BP 108/55; PULSE 87
--- NOTE | 2017-06-20 00:27 | OP ---
DATE OF OPERATION: 06/19/2017 PREOPERATIVE DIAGNOSIS: Osteomyelitis, right fourth toe. POSTOPERATIVE DIAGNOSIS: Osteomyelitis, right fourth toe. PROCEDURE: Partial amputation right fourth toe. SURGEON: Beto Jackson D.P.M. SUGAR MIXER: None. HEMOSTASIS: Surgical dissection. ESTIMATED BLOOD LOSS: 20 mL. ANESTHESIA: Local with IV sedation. PATHOLOGY: Bone, right foot. COMPLICATIONS: None. DESCRIPTION OF PROCEDURE: The patient was brought to the operating room and placed on the operating table in a supine position. I applied a pneumatic ankle tourniquet; however, I elected not to use a tourniquet during the course of the procedure. Following the induction of IV sedation, local anesthesia was achieved, utilizing 5 mL of 2% lidocaine plain. The right foot was then scrubbed, prepped, and draped in the usual aseptic fashion. Directed my attention to the right 4th toe, where a distal probing to bone was visualized and appreciated. I began by performing a fishmouth circumferential incision about the distal aspect of the 4th toe. The incision was deepened using sharp and blunt dissection, taking care to retract vital neural and vascular structures. All bleeders were cauterized and ligated as needed. Next, the distal aspect of the toe was disarticulated at the level of the middle interphalangeal joint. The middle and distal phalanges were removed from the operative field and sent to pathology for analysis. Next, the deep capsular and ligamentous structures were reflected from the head of the proximal phalanx. A sagittal saw was used to resect the head of the proximal phalanx. This was sent for pathology for proximal bone as well as a culture being obtained for bone culture. The surgical site was copiously irrigated with sterile saline. The incision was coapted and maintained utilizing 3-0 nylon in a simple interrupted suture fashion. Following the conclusion of the procedure, the surgical site was covered with Xeroform, and a sterile compressive dressing was applied to the right foot consisting of sterile gauze, Nirmal, Kerlix, and Tj wrap. The patient tolerated the procedure and anesthesia well without complications. She was transferred from the operating room to the recovery unit with vital signs stable and neurovasculature intact to the right foot. RADHA URIARTE/[id number]
--- NOTE | 2017-06-21 15:19 | PATH ---
Surgical Pathology Report Patient Name: CINTIA YUAN [facility]. Rec. #: [id number] /Age/Gender: 1990 (Age: 26) / F Account: [id number] Location: [facility] SURGICAL Taken: 06/19/2017 Received: 06/19/2017 Reported: 06/21/2017 Physicians: Beto Jackson DPM Specimen(s) Received A: RIGHT FOURTH TOE PROXIMAL BONE B: RIGHT FOURTH TOE DISTAL BONE Clinical History Osteomyelitis right fourth toe Final Diagnosis A. BONE, PROXIMAL RIGHT FOURTH TOE, EXCISION: BENIGN BONE WITH ATTACHED SOFT TISSUE. B. DISTAL RIGHT FOURTH TOE, PARTIAL AMPUTATION: SKIN WITH HYPERKERATOSIS AND PARAKERATOSIS SUGGESTIVE OF VERRUCA, AND BONE WITH REACTIVE CHANGES. NO OSTEOMYELITIS IDENTIFIED. Electronically Signed Nam Sharpe M.D. Gross Description A. Received in formalin labeled "right fourth toe proximal bone," is a 1.1 x 0.5 x 0.4 cm escobedo, irregular portion of bone. The specimen is bisected and entirely submitted in one cassette, following decalcification. B. Received in formalin labeled "right fourth toe distal bone," is a 3.0 x 1.5 cm escobedo, elliptical, unoriented portion of skin excised to depth of 1.0 cm. There is a portion of bone attached to the underlying soft tissue. The specimen is serially sectioned and entirely and sequentially submitted in 3 cassettes, following decalcification. /06/20/2017 saudi/06/20/2017
== END 2017-06-19 14:30 | disposition home or self-care (01) ==
LOC: JASU-SURG 08:01
PROVIDERS: ATTEND Student in an Organized Health Care Education/Training Program
PROC: 0Y6V0Z3 Detachment at Right 4th Toe, Low, Open Approach (ICD-10-PCS; principal; 2017-06-19 10:00)
DX: M86.8X7 Other osteomyelitis, ankle and foot (principal)
CPT/HCPCS: 36415; 84702; 87070; 87075; 87186; 87205; 88304-TC; 88311-TC; 94760; 97116-GP

== ENCOUNTER 2017-11-12 12:02 | Emergency (ER) | payer OTHER ==
[2017-11-12 12:22] VITALS: BP 125/90; PULSE 92; TEMP 98; BMI 22.6
--- NOTE | 2017-11-12 13:03 | PDOC ---
History of Present Illness - General Chief Complaint: Chest Pain Stated Complaint: CHEST PAIN Time Seen by Provider: 11/12/17 12:49 History Source: Patient Exam Limitations: No Limitations - History of Present Illness Initial Comments: 11/12/17 13:22 Patient came for evaluation of 2 months of breast tenderness and pain. Denies skin changes, denies any discharge from nipples, denies any history of breast disease. Is not currently sexually active . has seen multiple providers including QUANTITATIVE RESEARCH ANALYST doctor who recommended her to [facility]. Patient had an appointment today but was in too much pain and came to this emergency department instead. Denies exercise changes, denies any heavy lifting or strenuous activity, denies any trauma. Has breast cancer in her family and was concerned about possible cancer. Patient suffers from psychiatric disease, fibromyalgia, rheumatoid arthritis and is on multiple medications for same. Has taken no meds pain medication for this tenderness, has Motrin at home but has not used 11/12/17 13:23 Timing/Duration: unsure, getting worse Severity: mild Associated Symptoms: reports: denies symptoms Past History - Travel Traveled outside of the country in the last 30 days: No Close contact w/someone who was outside of country & ill: No - Past Medical History Allergies/Adverse Reactions: Allergies Allergy/AdvReac Type Severity Reaction Status Date / Time oxycodone Allergy Intermediate Rash Verified 11/12/17 12:16 vancomycin Allergy skin Verified 11/12/17 12:16 reaction Home Medications: Ambulatory Orders Fluoxetine HCl [Prozac] 20 mg PO HS 06/15/17 Quetiapine Fumarate [Seroquel -] 50 mg PO HS 06/15/17 Trazodone HCl 500 mg PO HS 06/15/17 Clonidine HCl [Clonidine HCl ER] 1 tab PO DAILY 10/30/17 Gabapentin [Neurontin] 1 cap PO BID 10/30/17 Anemia: No Asthma: No Cancer: No Cardiac Disorders: No CVA: No COPD: No CHF: No Dementia: No Diabetes: No GI Disorders: Yes (Gastritis) Disorders: No HTN: No Hypercholesterolemia: No Liver Disease: No Psychiatric Problems: Yes (anxiety, bipolar, ptsd, imsomina,) Seizures: No Thyroid Disease: No Other medical history: scoliosis, bbd (body dysmorphic ds),fibromyalgia - Surgical History Abdominal Surgery: Yes Appendectomy: Yes Cholecystectomy: No Orthopedic Surgery: Yes (amp rt great toe,bilat.feet bones removed for osteomyelitis) - Immunization History Immunization Up to Date: Yes (FLU ) - Suicide/Smoking/Psychosocial Hx Smoking Status: No Smoking History: Never smoked Have you smoked in the past 12 months: No Number of Cigarettes Smoked Daily: 1 Information on smoking cessation initiated: No 'Breaking Loose' booklet given: 05/16/12 Hx Alcohol Use: No Drug/Substance Use Hx: Yes (marijuana) Substance Use Type: Marijuana Hx Substance Use Treatment: No Review of Systems - Review of Systems Able to Perform ROS?: Yes Is the patient limited Swiss proficient: Yes Constitutional: Yes: Symptoms Reported, See HPI, Malaise HEENTM: Yes: See HPI Respiratory: Yes: See HPI. No: Symptoms reported, Cough Musculoskeletal: Yes: Symptoms Reported, See HPI, Muscle Pain Integumentary: Yes: See HPI. No: Symptoms Reported, Bruising All Other Systems: Reviewed and Negative *Physical Exam - Vital Signs Last Vital Signs Temp Pulse Resp BP Pulse Ox 98.0 F 92 H 12 125/90 100 11/12/17 12:16 11/12/17 12:16 11/12/17 12:16 11/12/17 12:16 11/12/17 12:16 - Physical Exam General Appearance: Yes: Nourished, Appropriately Dressed, Apparent Distress, Mild Distress HEENT: positive: SHREYAS, Normal ENT Inspection, TMs Normal, Pharynx Normal Neck: positive: Supple. negative: Tender, Lymphadenopathy (R), Lymphadenopathy (L) Respiratory/Chest: positive: Lungs Clear, Normal Breath Sounds, Other ( difficult to assess as patient complaints of pain before palpation of chest wall or breast tissue. Breast exam reveals no lymphadenopathy although intermittent reproduced tenderness along chest wall and musculature. No nodes, masses, skin color changes or nipple discharge with either breast exam, and lip no lip adenopathy appreciated.) Cardiovascular: positive: Regular Rhythm Gastrointestinal/Abdominal: positive: Soft. negative: Tender Musculoskeletal: positive: Normal Inspection Extremity: positive: Normal Inspection, Normal Range of Motion Integumentary: positive: Normal Color, Dry, Warm Neurologic: positive: industrial cafeteria manager II-XII NML intact, Fully Oriented, Alert, Normal Mood/ Affect, Normal Response, Motor Strength 5/5 Heart Score/ECG Review - ECG Intrepretation Rhythm: Regular Rhythm - ST and T Non Specific ST-T Wave changes: No - ECG Impressions Normal ECG: Yes Non-specific ST Elevation: No Ischemic Changes: No Medical Decision Making - Medical Decision Making 11/12/17 16:14 Musculoskeletal pain, breast pain. No evidence of other pathology. therefore will treat with NSAIDs and have follow-up with QUANTITATIVE RESEARCH ANALYST doctor as scheduled *DC/Admit/Observation/Transfer Diagnosis at time of Disposition: Breast tenderness in female - Discharge Dispostion Disposition: HOME Condition at time of disposition: Stable Admit: No - Referrals Referrals: Keila Jeong MD [Primary Care Provider] - - Patient Instructions Printed Discharge Instructions: DI for Breast Pain (Mastalgia) Additional Instructions: Rest, ice to area on and off for 15 minutes 4-6 times a day Avoid heavy lifting or exercise until pain and swelling is resolved or until further directed Followup with IM physician or family practice doctor in one to 2 days if not improving, if significantly improved may wait one week for followup with orthopedist May use ibuprofen 2-200 mg tablets every 6 hours as needed for pain - Post Discharge Activity Forms/Work/School Notes: Back to Work
[2017-11-12] MEDS ORDERED: KETOROLAC TROMETHAMINE 60 MG/2 ML VIAL ONE (13:15)
[2017-11-12] MEDS ORDERED: KETOROLAC TROMETHAMINE 60 MG/2 ML VIAL IM ONE (13:21)
--- NOTE | 2017-11-13 11:37 | EKG ---
Test Reason : Blood Pressure : / mmHG Vent. Rate : 089 BPM Atrial Rate : 089 BPM P-R Int : 144 ms QRS Dur : 098 ms QT Int : 348 ms P-R-T Axes : 072 068 068 degrees QTc Int : 423 ms NORMAL SINUS RHYTHM POSSIBLE LEFT ATRIAL ENLARGEMENT INCOMPLETE RIGHT BUNDLE BRANCH BLOCK BORDERLINE ECG WHEN COMPARED WITH ECG OF 08-MAR-2012 19:46, NO SIGNIFICANT CHANGE WAS FOUND Confirmed by MD Davis, Enoc ([id number]) on 11/13/2017 11:37:16 AM Referred By: Confirmed By:Enoc Cannon MD
== END 2017-11-12 13:29 | disposition home or self-care (01) ==
LOC: JERFT 12:02
PROC: 3E0233Z Introduction of Anti-inflammatory into Muscle, Percutaneous Approach (ICD-10-PCS; principal; 2017-11-12)
DX: N64.4 Mastodynia (principal); Z80.3 Family history of malignant neoplasm of breast; M06.9 Rheumatoid arthritis, unspecified; M79.7 Fibromyalgia; F31.9 Bipolar disorder, unspecified; F41.9 Anxiety disorder, unspecified; F43.10 Post-traumatic stress disorder, unspecified; G47.00 Insomnia, unspecified; Z89.411 Acquired absence of right great toe
CPT/HCPCS: 93005; 93010; 96372; 99281-25

== ENCOUNTER 2019-02-04 14:49 | Inpatient (IN) | payer OTHER ==
--- NOTE | 2019-02-04 14:52 | PDOC ---
Rapid Medical Evaluation Time Seen by Provider: 02/04/19 14:52 Medical Evaluation: Allergies Allergy/AdvReac Type Severity Reaction Status Date / Time oxycodone Allergy Intermediate Rash Verified 11/12/17 12:16 vancomycin Allergy skin Verified 11/12/17 12:16 reaction 02/04/19 14:55 I have performed a brief in-person evaluation of this patient. The patient presents with a chief complaint of: foot infection Pertinent physical exam findings:stable and in NAD, non-focal I have ordered the following: urine , xray, labs, blood cultures The patient will proceed to the ED for further evaluation. 02/04/19 15:32 02/04/19 15:32 02/04/19 15:38
[2019-02-04] MEDS ORDERED: KETOROLAC TROMETHAMINE 30 MG/1 ML VIAL IVPUSH ONE (15:36)
[2019-02-04] MEDS ORDERED: SODIUM CHLORIDE 1,000 ML IV STA (15:36)
[2019-02-04] MEDS ORDERED: CLINDAMYCIN 600MG PREMIX IVPB 600 MG/50 ML BAG IVPB ONE ×2 (15:38→15:52)
--- NOTE | 2019-02-04 15:42 | PDOC ---
History of Present Illness - General Chief Complaint: Pain Stated Complaint: SENT BY PCP RT LEG/FOOT PAIN Time Seen by Provider: 02/04/19 14:52 History Source: Patient - History of Present Illness Occurred: reports: yesterday Severity: Yes: severe Lower Extremity Pain Location: right: other (foot) Past History - Past Medical History Allergies/Adverse Reactions: Allergies Allergy/AdvReac Type Severity Reaction Status Date / Time oxycodone Allergy Intermediate Rash Verified 02/04/19 14:56 vancomycin Allergy skin Verified 02/04/19 14:56 reaction Home Medications: Ambulatory Orders Fluoxetine HCl [Prozac] 20 mg PO HS 06/15/17 Quetiapine Fumarate [Seroquel -] 50 mg PO HS 06/15/17 Trazodone HCl 500 mg PO HS 06/15/17 Clonidine HCl [Clonidine HCl ER] 1 tab PO DAILY 10/30/17 Gabapentin [Neurontin] 1 cap PO BID 10/30/17 Anemia: No Asthma: No Cancer: No Cardiac Disorders: No CVA: No COPD: No CHF: No Dementia: No Diabetes: No GI Disorders: Yes (Gastritis) Disorders: No HTN: No Hypercholesterolemia: No Liver Disease: No Psychiatric Problems: Yes (anxiety, bipolar, ptsd, imsomina,) Seizures: No Thyroid Disease: No Other medical history: neurophathy, amputation of toes - Surgical History Abdominal Surgery: Yes Appendectomy: Yes Cholecystectomy: No Orthopedic Surgery: Yes (amp rt great toe,bilat.feet bones removed for osteomyelitis) - Immunization History Immunization Up to Date: Yes (FLU ) - Suicide/Smoking/Psychosocial Hx Smoking Status: No Smoking History: Never smoked Have you smoked in the past 12 months: No Number of Cigarettes Smoked Daily: 1 Information on smoking cessation initiated: No 'Breaking Loose' booklet given: 05/16/12 Hx Alcohol Use: No Drug/Substance Use Hx: Yes (marijuana) Substance Use Type: Marijuana Hx Substance Use Treatment: No Review of Systems - Review of Systems Constitutional: Yes: Malaise. No: Chills, Fever Integumentary: Yes: Erythema *Physical Exam - Vital Signs Last Vital Signs Temp Pulse Resp BP Pulse Ox 99 F 124 H 19 102/84 97 02/04/19 14:53 02/04/19 14:53 02/04/19 14:53 02/04/19 14:53 02/04/19 14:53 - Physical Exam General Appearance: Yes: Appropriately Dressed. No: Apparent Distress HEENT: positive: Normal Voice Neck: positive: Supple Respiratory/Chest: negative: Respiratory Distress Extremity: positive: Other (diffuse erythema/warmth/ttp to dorsum of R foot, s/ p R hullux amputation, anonychia to R 2nd /3rd/4th digits, hyperkeratotic lesion to submetatarsal R 5th digit) Integumentary: positive: Dry, Warm Neurologic: positive: Fully Oriented, Alert, Normal Mood/Affect ED Treatment Course - LABORATORY CBC & Chemistry Diagram: 02/04/19 15:43 02/04/19 15:43 Medical Decision Making - Medical Decision Making 02/04/19 15:33 28 yo F, h/o anorexia, OCD, PTSD, bipolar, "hereditary neuropathy" w/ multiple toe amputations to R foot, sent in by stamp pad maker, Dr Dubon, for admission for cellulitis to R foot. Pt reports pain/redness/swelling to R foot since yesterday. Also reports malaise but no f/c See exam R foot cellulitis Exam remarkable for tachy to 124 but afebrile w/ erythema/warmth/ttp to dorsum of R foot -abx (prior cx reviewed-enterococcus and staph) -labs -XR -admit 02/04/19 17:52 WBC of 17. Pending admission 02/04/19 19:11 Signed out to LESLEE Helton pending admission. Hospitalist team microblogged by scribe > 1 hr ago *DC/Admit/Observation/Transfer Diagnosis at time of Disposition: Cellulitis of foot - Discharge Dispostion Condition at time of disposition: Fair Decision to Admit order: Yes - Referrals - Patient Instructions - Post Discharge Activity
[2019-02-04] MEDS ORDERED: KETOROLAC TROMETHAMINE 30 MG/1 ML VIAL ONE (15:52)
[2019-02-04 16:07] LABS: BASO % 0.6 % (0-2.0); EOS % 0.5 % (0-4.5); HEMATOCRIT 39.5 % (32.4-45.2); HEMOGLOBIN 13.2 GM/dL (10.7-15.3); LYMPH % 7.8 % (8-40); MCH 30.8 pg (25.7-33.7); MCHC 33.4 g/dl (32.0-36.0); MEAN CELL VOLUME 92.1 fl (80-96); MEAN PLT VOLUME 10.9 fl (7.5-11.1); MONO % 6.9 % (3.8-10.2); NEUT % 84.2 % (42.8-82.8); PLATELET COUNT 205 K/MM3 (134-434); RBC 4.29 M/mm3 (3.60-5.2); RDW 11.9 % (11.6-15.6); WHITE BLOOD COUNT 17.6 K/mm3 (4.0-10.0)
[2019-02-04 16:34] LABS: BILIRUBIN,TOTAL 0.8 mg/dL (0.2-1); CALCIUM 9.5 mg/dL (8.5-10.1); CREATININE 0.5 mg/dL (0.55-1.3); POTASSIUM 3.5 mmol/L (3.5-5.1); TOT PROT 8.2 g/dl (6.4-8.2)
--- NOTE | 2019-02-04 18:29 | HP ---
CHIEF COMPLAINT: pain in rt foot. HISTORY OF PRESENT ILLNESS: Pt was sent in by her ux specialist because of pain in her left foot , swelling and fever for 1 day and discharge from her callus. Patient states that she woke up yesterday with swelling and erytrhema in her foot. She report some discharge from callus. Pt also report chills but didnt checjk her temp. States she is taking a good care of her feet and is seeing her podiatry regularly. States she has switched her podiatry as her old podiatry is not taking her insurance anymore. Denies cough, runny nose, sob, palpitations, burning micturation ER course was notable for: (1)cbc, cmp, Recent Travel: no PAST MEDICAL HISTORY Bipolar disorder PTSD GERD/gastritis Fibromyalgia Scoliosis Ucwsogp-Sgylf-Snoka syndrome Erosive arthritis PAST SURGICAL HISTORY Right 1st toe amputation Bilateral 5th metatarsal head amputations appendectomy 2005 r ankle tendon transfer , l foot surgery, wound debridement hands, R big toe amputation smoking: quit couple of weaks ago marijuana : quit couple of weak ago alcohol: no Allergies oxycodone Allergy (Intermediate, Verified 11/16/16 09:54) Rash vancomycin Allergy (Verified 11/16/16 09:54) skin reaction HOME MEDICATIONS: Home Medications Medication Instructions Recorded Fluoxetine HCl [Prozac] 20 mg PO HS 06/15/17 Quetiapine Fumarate [Seroquel -] 50 mg PO HS 06/15/17 Trazodone HCl 500 mg PO HS 06/15/17 Clonidine HCl [Clonidine HCl ER] 1 tab PO DAILY 10/30/17 Gabapentin [Neurontin] 1 cap PO BID 10/30/17 REVIEW OF SYSTEMS CONSTITUTIONAL: Absent: fever, chills, diaphoresis, generalized weakness, malaise, loss of appetite, weight change HEENT: Absent: rhinorrhea, nasal congestion, throat pain, throat swelling, difficulty swallowing, mouth swelling, ear pain, eye pain, visual changes CARDIOVASCULAR: Absent: chest pain, syncope, palpitations, irregular heart rate, lightheadedness , peripheral edema RESPIRATORY: Absent: cough, shortness of breath, dyspnea with exertion, orthopnea, wheezing, stridor, hemoptysis GASTROINTESTINAL: Absent: abdominal pain, abdominal distension, nausea, vomiting, diarrhea, constipation, melena, hematochezia GENITOURINARY: Absent: dysuria, frequency, urgency, hesitancy, hematuria, flank pain, genital pain MUSCULOSKELETAL: Absent: myalgia, arthralgia, joint swelling, back pain, neck pain SKIN: Absent: rash, itching, pallor HEMATOLOGIC/IMMUNOLOGIC: Absent: easy bleeding, easy bruising, lymphadenopathy, frequent infections ENDOCRINE: Absent: unexplained weight gain, unexplained weight loss, heat intolerance, cold intolerance NEUROLOGIC: Absent: headache, focal weakness or paresthesias, dizziness, unsteady gait, seizure, mental status changes, bladder or bowel incontinence PSYCHIATRIC: Absent: anxiety, depression, suicidal or homicidal ideation, hallucinations. PHYSICAL EXAMINATION Vital Signs - 24 hr 02/04/19 14:53 Temperature 99 F Pulse Rate 124 H Respiratory 19 Rate Blood Pressure 102/84 O2 Sat by Pulse 97 Oximetry (%) GENERAL: Awake, alert, and fully oriented, in no acute distress. HEAD: Normal with no signs of trauma. EARS, NOSE, THROAT: Moist mucous membranes.. LUNGS: Breath sounds equal, clear to auscultation bilaterally. No wheezes, and no crackles. No accessory muscle use. HEART: Regular rate and rhythm, normal S1 and S2 without murmur, rub or gallop. ABDOMEN: Soft, nontender, not distended, normoactive bowel sounds, no guarding, no rebound, no masses. MUSCULOSKELETAL: Normal range of motion at all joints. No bony deformities or tenderness. No CVA tenderness. UPPER EXTREMITIES: 2+ pulses, warm, well-perfused. LOWER EXTREMITIES: 2+ pulses, diffuse erythema on dorasl aspect of foot/warmth/ ttp to dorsum of R foot, s/p R hullux amputation, anonychia to R 2nd /3rd/4th digits, hyperkeratotic lesion to submetatarsal R 5th digit, exudate visualized form hyperkeratotic lesion. dystrophic nails. NEUROLOGICAL: Cranial nerves II-XII intact. Normal speech. PSYCHIATRIC: Cooperative. Good eye contact. Appropriate mood and affect. SKIN: Warm, dry, normal Laboratory Results - last 24 hr 02/04/19 02/04/19 02/04/19 15:43 15:43 15:43 WBC 17.6 H RBC 4.29 Hgb 13.2 Hct 39.5 MCV 92.1 MCH 30.8 MCHC 33.4 RDW 11.9 Plt Count 205 MPV 10.9 D Absolute Neuts (auto) 14.8 H Neutrophils % 84.2 H Lymphocytes % 7.8 L D Monocytes % 6.9 Eosinophils % 0.5 Basophils % 0.6 Nucleated RBC % 0 Sodium 138 Potassium 3.5 Chloride 106 Carbon Dioxide 24 Anion Gap 8 BUN 10 Creatinine 0.5 L Est GFR (CKD-EPI)AfAm 150.52 Est GFR (CKD-EPI)NonAf 129.87 Random Glucose 87 Calcium 9.5 Total Bilirubin 0.8 AST 8 L ALT 14 Alkaline Phosphatase 105 Total Protein 8.2 Albumin 4.0 Serum , Qual Negative ASSESSMENT/PLAN: 28 yo F with h/o anxiety, bipolar disorder, charcot-betty- tooth syndrome, osteomylelitis, erosive arthritis, neuropathy, PTSD, fibromyalgia, scoliosis, and insomnia admitted for cellulitis of the R foot with concern for osteomyelitits. Cellulites of right foot ? osteo IV antibiotics linazolid and zosyn pt is allergic to vanco but she got vanco in previous admissions with Benadryl ID and podiatry consult blood culture crp and esr MRI foot to r/o osteo as pt has callus at planter aspect of foot and fluid is coming out of it. monitor vitals Anxiety/ bpolar/ptsd/fibromyalgia / neuropathy continue home meds. Prophylaxis DVT: Lovenox GI: not indicated dispo: med surg Visit type - Emergency Visit Emergency Visit: Yes ED Registration Date: 02/04/19 Care time: The patient presented to the Emergency Department on the above date and was hospitalized for further evaluation of their emergent condition. - New Patient This patient is new to me today: Yes Date on this admission: 02/06/19 - Critical Care Critical Care patient: No
--- NOTE | 2019-02-04 19:16 | PN ---
Teaching Attending Note Name of Resident: Corwin Gutierrez ATTENDING PHYSICIAN STATEMENT I saw and evaluated the patient. I reviewed the resident's note and discussed the case with the resident. I agree with the resident's findings and plan as documented. SUBJECTIVE: Seen and examined; please review resident note for further historical details. Briefly, this is a 28 y/o presenting to the ER with worsening foot wound. She has a history of anxiety, bipolar disorder, blxkgtq-dtmcb-hjjjr syndrome, osteomylelitis, erosive arthritis, neuropathy, PTSD, fibromyalgia, scoliosis, and insomnia. The wound, present since yday with pain, worsened today and had discharge from the callus. Bone culture from last time gre proteus, staph aureus, and GBS. Seen by Dr. Sanders at that time; prolonged abx course noted. Septic with elevated WBC and tachycardia with source today. Giving broad spectrum abx, fluids, and bringing to medicine. 10 sys ROS done and negative aside from HPI PMH, PSH, FH, SH reviewed Home Medications Medication Instructions Recorded Fluoxetine HCl [Prozac] 20 mg PO HS 06/15/17 Quetiapine Fumarate [Seroquel -] 50 mg PO HS 06/15/17 Trazodone HCl 500 mg PO HS 06/15/17 Clonidine HCl [Clonidine HCl ER] 1 tab PO DAILY 10/30/17 Gabapentin [Neurontin] 1 cap PO BID 10/30/17 OBJECTIVE: VS, labs, imaging reviewed NAD, AAO, resting comfortably in bed NC AT EOMI PERRLA RRR s1/2 no mgr Lungs CTAB, w/ sym exp NT ND +BS Cellulitis evident with induration and pain CN2-12 wnl, no fnd Normal mood, appropriate behavior EKG pending XR pending of foot MRI pending ASSESSMENT AND PLAN: Patient presents with sepsis 2/2 foot wound; 1) Sepsis 2/2 foot wound -Will r/o osteo given history; MRI foot pending. Prior encounters noted. S/P right 1st toe amputation, bilateral 5th metatarsal head amputations -Linezolid and Zosyn given vanco allergy with ID consult -LE dopplers to r/o arterial disease, though less likely given history -Podiatry consult, WC consult, ID consult given abx choice. Appreciate expert opinion. 2) Bipolar disorder -Verify and continue home meds 3) PTSD -Verify and continue home meds 4) GERD/gastritis -Verify and continue home meds 5) Fibromyalgia -Verify and continue home meds 6) Scoliosis -Noted; PRN tx. Followup with PCP; carbajal angle unknown 7) Fomitiw-Pvuzr-Wnlzh syndrome -Noted as applies to #1 8) Erosive arthritis -Noted as applies to #1 9) Vanco allergy -Has gotten it with benadryl before in the past; can retry if Zyvox cost prohibitive, etc. Defer to ID. Full Code
[2019-02-04] MEDS ORDERED: PIPERACILLIN/TAZOB 4.5 GM 4.5 GM/100 ML BAG IVPB ONE (20:54)
[2019-02-04] MEDS ORDERED: QUEtiapine FUMARATE 25 MG TABLET (FP) ONE (20:55)
[2019-02-04] MEDS ORDERED: LINEZOLID 600 MG PREMIX BAG 600 MG/300 ML BAG IVPB ONE (21:00)
[2019-02-04] MEDS ORDERED: CLONIDINE HCL PO SCH (22:00)
[2019-02-04] MEDS: LACTATED RINGERS SOLUTION 1,000 ML/1,000 ML INFUS.BAG IV SCH (22:05)
[2019-02-04] MEDS: PIPERACILLIN/TAZOB 4.5 GM 4.5 GM in DEXTROSE 5%-WATER 100 ML IVPB SCH (22:05)
[2019-02-04] MEDS: QUEtiapine FUMARATE 50 MG TABLET PO SCH (22:35)
[2019-02-04] MEDS: traZODone HCL 100 MG TABLET (FP) PO SCH (22:35)
[2019-02-04] MEDS: CLOTRIMAZOLE 1% CREAM 15 GM TUBE TP SCH (23:23)
[2019-02-05] MEDS ORDERED: morphine CARPU-JECT 4 MG/1 ML DISP.SYRIN IVPUSH ONE (01:33)
[2019-02-05] MEDS ORDERED: morphine SULFATE 4 MG/ML VIAL IVPUSH ONE (01:33)
[2019-02-05] MEDS ORDERED: CLINDAMYCIN 600MG PREMIX IVPB 600 MG/50 ML BAG IVPB SCH (02:00)
[2019-02-05] MEDS ORDERED: PIPERACILLIN/TAZOBACTAM 4.5 GM VIAL IVPB ONE ×2 (02:10→10:53)
[2019-02-05] MEDS ORDERED: DEXTROSE 5%-WATER 100 ML IVPB ONE ×2 (02:11→10:54)
[2019-02-05] MEDS: PIPERACILLIN/TAZOB 4.5 GM 4.5 GM in DEXTROSE 5%-WATER 100 ML IVPB SCH ×4 (02:15→13:17)
[2019-02-05 07:26] LABS: BASO % 0.4 % (0-2.0); EOS % 0.9 % (0-4.5); HEMATOCRIT 31.8 % (32.4-45.2); HEMOGLOBIN 10.7 GM/dL (10.7-15.3); MCH 31.2 pg (25.7-33.7); MCHC 33.8 g/dl (32.0-36.0); MEAN CELL VOLUME 92.5 fl (80-96); MEAN PLT VOLUME 11.1 fl (7.5-11.1); MONO % 8.7 % (3.8-10.2); PLATELET COUNT 154 K/MM3 (134-434); RBC 3.43 M/mm3 (3.60-5.2); RDW 11.9 % (11.6-15.6); WHITE BLOOD COUNT 10.3 K/mm3 (4.0-10.0)
[2019-02-05 07:33] LABS: ALBUMIN 2.9 g/dl (3.4-5.0); BILIRUBIN,TOTAL 0.9 mg/dL (0.2-1); CALCIUM 8.1 mg/dL (8.5-10.1); CREATININE 0.5 mg/dL (0.55-1.3); MAGNESIUM 1.6 mg/dL (1.8-2.4); POTASSIUM 3.1 mmol/L (3.5-5.1)
[2019-02-05] MEDS ORDERED: POTASSIUM CHLORIDE TABS 20 MEQ TABLET.ER (FP) PO ONE (08:34)
[2019-02-05] MEDS ORDERED: MAGNESIUM SULF 50% (8.12 MEQ/2 ML-1 GM VIAL) IVPB ONE (09:02)
[2019-02-05] MEDS ORDERED: ONDANSETRON 4 MG/2 ML VIAL IVPUSH ONE (09:07)
[2019-02-05] MEDS ORDERED: ENOXAPARIN NA (PORCINE) 40 MG/0.4 ML DISP.SYRIN SQ SCH (10:00)
[2019-02-05] MEDS: KCL 10 MEQ IVPB 10 MEQ/100 ML INFUS.BAG IVPB SCH ×3 (11:20→18:09)
--- NOTE | 2019-02-05 12:38 | PN ---
Progress Note (short form) - Note Progress Note: ID CONSULT DICTATED OSTEOMYELITIS R FOOT R/O SOFT TISSUE ABSCESS LEUKOCYTOSIS CMT/ PERIPHERAL NEUROPATHY PODIATRY EVALUATION CONTINUE EMPIRIC ZOSYN
[2019-02-05] MEDS: LINEZOLID 600 MG PREMIX BAG 600 MG/300 ML BAG IVPB SCH (13:16)
--- NOTE | 2019-02-05 15:11 | PN ---
Physical Exam: SUBJECTIVE: Patient seen and examined at bedside- no acute events overnight patient states that she is feeling ok is having some slight nausea and pain at the right forefoot; she denies any CP/SOB/N/V OBJECTIVE: Vital Signs Period Temp Pulse Resp BP Sys/Ibarra Pulse Ox Last 24 Hr 97.7 F-99.3 F 96-109 18-98 100-127/57-74 98-100 GENERAL: The patient is awake, alert, and fully oriented, in no acute distress. EYES:PEERLA; EOMI no scleral icterus NECK: no JVD; no lymphadenopathy LUNGS: CTA B/L; no rales, rhonchi or wheezing . HEART: Regular rate and rhythm, S1, S2 without murmur, rub or gallop. ABDOMEN: Soft, nontender, nondistended, normoactive bowel sounds, no guarding, no rebound, no hepatosplenomegaly, no masses. EXTREMITIES: 2+ pulses, diffuse erythema on dorasl aspect of foot/warmth/ttp to dorsum of R foot, s/p R hullux amputation, anonychia to R 2nd /3rd/4th digits, hyperkeratotic lesion to submetatarsal R 5th digit, exudate visualized form hyperkeratotic lesion. dystrophic nails. PSYCH: Normal mood, normal affect. SKIN: Warm, dry, normal turgor, no rashes or lesions noted Laboratory Results - last 24 hr 02/04/19 02/04/19 02/04/19 15:43 15:43 15:43 WBC 17.6 H RBC 4.29 Hgb 13.2 Hct 39.5 MCV 92.1 MCH 30.8 MCHC 33.4 RDW 11.9 Plt Count 205 MPV 10.9 D Absolute Neuts (auto) 14.8 H Neutrophils % 84.2 H Lymphocytes % 7.8 L D Monocytes % 6.9 Eosinophils % 0.5 Basophils % 0.6 Nucleated RBC % 0 ESR Sodium 138 Potassium 3.5 Chloride 106 Carbon Dioxide 24 Anion Gap 8 BUN 10 Creatinine 0.5 L Est GFR (CKD-EPI)AfAm 150.52 Est GFR (CKD-EPI)NonAf 129.87 POC Glucometer Random Glucose 87 Hemoglobin A1c % Calcium 9.5 Phosphorus Magnesium Total Bilirubin 0.8 AST 8 L ALT 14 Alkaline Phosphatase 105 C-Reactive Protein 4.3 H Total Protein 8.2 Albumin 4.0 Serum , Qual Negative 02/04/19 02/04/19 02/05/19 18:53 22:30 05:30 WBC 10.3 H RBC 3.43 L Hgb 10.7 Hct 31.8 L D MCV 92.5 MCH 31.2 MCHC 33.8 RDW 11.9 Plt Count 154 D MPV 11.1 Absolute Neuts (auto) 8.2 H Neutrophils % 79.0 Lymphocytes % 11.0 D Monocytes % 8.7 Eosinophils % 0.9 Basophils % 0.4 Nucleated RBC % 0 ESR 16 Sodium Potassium Chloride Carbon Dioxide Anion Gap BUN Creatinine Est GFR (CKD-EPI)AfAm Est GFR (CKD-EPI)NonAf POC Glucometer Random Glucose Hemoglobin A1c % 4.4 Calcium Phosphorus Magnesium Total Bilirubin AST ALT Alkaline Phosphatase C-Reactive Protein Total Protein Albumin Serum , Qual 02/05/19 02/05/19 02/05/19 05:30 06:59 11:23 WBC RBC Hgb Hct MCV MCH MCHC RDW Plt Count MPV Absolute Neuts (auto) Neutrophils % Lymphocytes % Monocytes % Eosinophils % Basophils % Nucleated RBC % ESR Sodium 142 Potassium 3.1 L Chloride 110 H Carbon Dioxide 24 Anion Gap 8 BUN 6 L Creatinine 0.5 L Est GFR (CKD-EPI)AfAm 150.52 Est GFR (CKD-EPI)NonAf 129.87 POC Glucometer 84 98 Random Glucose 89 Hemoglobin A1c % Calcium 8.1 L Phosphorus 3.0 Magnesium 1.6 L Total Bilirubin 0.9 AST 5 L ALT 11 L Alkaline Phosphatase 78 C-Reactive Protein Total Protein 6.0 L Albumin 2.9 L Serum , Qual Active Medications Generic Name Dose Route Start Last Admin Trade Name Freq PRN Reason Stop Dose Admin Clotrimazole 1 applic 02/04/19 22:00 02/04/19 23:23 Lotrimin 1% Cream - TP 1 applic BID FROYLAN Administration Enoxaparin Sodium 40 mg 02/05/19 10:00 02/05/19 11:20 Lovenox - SQ 40 mg DAILY FROYLAN Administration Lactated Ringer's 1,000 ml in 1,000 mls @ 100 mls/hr 02/04/19 21:00 02/04/19 22:05 Lactated Ringers Solution IV 100 mls/hr ASDIR FROYLAN Administration Piperacillin Sod/Tazobactam 50 mls @ 100 mls/hr 02/05/19 18:00 Sod 3.375 gm/ Dextrose IVPB Q8H-IV FROYLAN Protocol Non-Formulary Medication 1 tab 02/04/19 22:00 Clonidine Hcl [Clonidine Hcl Er] PO HS FROYLAN Quetiapine Fumarate 50 mg 02/04/19 22:00 02/04/19 22:35 Seroquel - PO 50 mg HS FROYLAN Administration Trazodone HCl 300 mg 02/04/19 22:00 02/04/19 22:35 Desyrel - PO 300 mg HS FROYLAN Administration ASSESSMENT/PLAN: 28 yo F with h/o anxiety, bipolar disorder, sqdgozt-zfcqd-tvthn syndrome, osteomylelitis, erosive arthritis, neuropathy, PTSD, fibromyalgia, scoliosis, and insomnia admitted for cellulitis of the R foot with confirmed osteomyelitis #Osteomyelitis IV antibiotics- lorrie Sanders on board Dr Jackson consulted blood culture no growth to date crp and esr elevated monitor vitals #Bipolar seroqel 50 HS Trazodone 300 mg Prophylaxis DVT: Lovenox GI: not indicated Problem List - Problems (1) Osteomyelitis Code(s): M86.9 - OSTEOMYELITIS, UNSPECIFIED Qualifiers: Osteomyelitis location: foot Laterality: unspecified laterality Qualified Code(s): M86.279 - Subacute osteomyelitis, unspecified ankle and foot (2) Anxiety Code(s): F41.9 - ANXIETY DISORDER, UNSPECIFIED (3) Bipolar disorder (manic depression) Code(s): F31.9 - BIPOLAR DISORDER, UNSPECIFIED Visit type - Emergency Visit Emergency Visit: Yes ED Registration Date: 02/04/19 Care time: The patient presented to the Emergency Department on the above date and was hospitalized for further evaluation of their emergent condition. - New Patient This patient is new to me today: Yes Date on this admission: 02/05/19 - Critical Care Critical Care patient: No
--- NOTE | 2019-02-05 15:24 | EKG ---
Test Reason : Blood Pressure : / mmHG Vent. Rate : 089 BPM Atrial Rate : 089 BPM P-R Int : 146 ms QRS Dur : 086 ms QT Int : 352 ms P-R-T Axes : 066 076 065 degrees QTc Int : 428 ms NORMAL SINUS RHYTHM NORMAL ECG WHEN COMPARED WITH ECG OF 12-NOV-2017 12:10, INCOMPLETE RIGHT BUNDLE BRANCH BLOCK IS NO LONGER PRESENT Confirmed by COLBY TURNER, LEANNA ([id number]) on 02/05/2019 3:24:23 PM Referred By: Confirmed By:LEANNA BOWMAN MD
[2019-02-05] MEDS ORDERED: KETOROLAC TROMETHAMINE 30 MG/1 ML VIAL IVPUSH ONE ×2 (15:26→19:45)
[2019-02-05] MEDS ORDERED: morphine SULFATE 4 MG/ML VIAL IM ONE (15:26)
[2019-02-05 15:28] VITALS: BMI 19.1
--- NOTE | 2019-02-05 15:35 | CONSULT ---
Consult - text type - Consultation Consultation Note: 28 y/o non diabetic female seen and evaluated for right osteo. Sees a pod as an outpatient who saw infection and was sent to the ER. MRI has been done. States she is very prone to feet infections as she has CMT and cannot feel the bottomof her feet. Denies any other complaints. Denies any f/c/n/v/sob O: right foot lateral 5th MPJ head with some underlying fluctuance noted, moderate surrounding edema noted, moderate erythema noted, large plantar callousity noted , no open wound is noted at this time, POP noted overlyign 5th MPJ, prior incision site noted and healed, multiple amputation sites, Vascular status dp/ pt 2/4 A: osteomyelitis right 5th digit/MPJ with underlying abscess P: Evaluated and reviewed will need to have abscess flushed out and will resect remaining 5th MPJ as well for biopsy Will attempt to leave digit on but discussed that if infection continues to recur in future will need amputation Will require long chain beamer IV abx after procedure antibiotics per ID> Plan for OR tomorrow after noon NPO status placed. Discussed with patient and she is in understanding. Will f/u.
--- NOTE | 2019-02-05 15:53 | CONS ---
DATE OF CONSULTATION: DATE OF DICTATION: 02/05/2019 INFECTIOUS DISEASE CONSULTATION The patient is a 28-year-old female with a history of Nvekkwf-Cjlyb-Ctscu syndrome, peripheral neuropathy, history of recurrent infected ulcers, and osteomyelitis of the hands and feet now readmitted with osteomyelitis of the right foot. The patient states that she had developed worsening pain, swelling, erythema of the right foot for approximately 1-2 days prior to admission associated with fever. She was evaluated in the emergency room where she was diagnosed with cellulitis of the foot. An MRI was performed and showed extensive destructive process involving the mid and distal aspect of the fifth metatarsal and base of the proximal phalanx with extensive bone marrow edema and soft tissue swelling. There was a soft tissue swelling near the fifth metatarsal phalangeal joint compatible with an evolving abscess. She denied any purulent drainage. She was empirically treated with Zosyn and linezolid. Patient has had a long history of recurrent ulcerations on her feet and hands bilaterally secondary to peripheral neuropathy secondary to Rdphgum-Udpcy-Tmwre. She has had polymicrobial wound cultures in the past. No documented history of MRSA here at [facility]. PAST MEDICAL HISTORY: Positive for Zujnbrc-Ljfws-Oxnaf, bipolar disorder, posttraumatic stress disorder. PAST SURGICAL HISTORY: Status post amputation of right first toe, bilateral fifth metatarsal resection, appendectomy. ALLERGIES: VANCOMYCIN AND OXYCODONE. Patient had tolerated vancomycin in the past with Benadryl premedication. MEDICATIONS: Include Prozac, Seroquel, trazodone, clonidine, Neurontin. SOCIAL HISTORY: Lives at home in the community. Nonsmoker. Nondrinker. SYSTEM REVIEW: Neurologic: Positive for peripheral neuropathy. Cardiac: Negative chest pain or palpitations. Respiratory: Negative cough or sputum production. Gastrointestinal: Negative vomiting or diarrhea. Genitourinary: Negative for urinary tract infection. LABORATORY DATA: White count on admission 17.6, presently 10.3, hematocrit 31.8, platelet count 154. Creatinine 0.5. ESR 16, C reactive protein 4.3. PHYSICAL EXAMINATION: General: She is awake and alert. She is pale, chronically ill appearing. Vital Signs: Temperature 98.6, blood pressure 100/58, pulse 102 regular respirations 20 per minute. Eyes: Sclerae anicteric. Heart: Sounds S1, S2. Lungs: Clear. Abdomen: Soft and nontender. Hands: Examination of the hands, there are ulcerations present on 1 digit on each hand. They appear deep. No purulent drainage or surrounding erythema. Right Foot: Examination of the right foot, there is a dry callus present over the lateral aspect of the fifth metatarsal head with diffuse swelling of the foot and erythema extending to the dorsum of the foot. No tenderness. No crepitus. No fluctuance. IMPRESSION: 1. Osteomyelitis of the right foot. 2. Rule out soft tissue abscess. 3. Leukocytosis, rule out sepsis secondary to skin source. 4. Mjglexv-Txokh-Kibbj/peripheral neuropathy. 5. History of vancomycin intolerance. PLAN: Await Podiatry evaluation. Blood cultures. Empiric Zosyn. Will follow. Thank you for the kind referral. ORLIN PELAYO M.D. [id number]
[2019-02-05] MEDS: CLOTRIMAZOLE 1% CREAM 15 GM TUBE TP SCH ×2 (16:53→21:41)
[2019-02-05] MEDS ORDERED: KCL 10 MEQ IVPB 10 MEQ/100 ML INFUS.BAG IVPB SCH (17:00)
[2019-02-05] MEDS ORDERED: DEXTROSE 5%-WATER - 50 ML IVPB ONE (17:08)
[2019-02-05] MEDS ORDERED: PIPERACILLIN/TAZOBACTAM 3.375 GM VIAL IVPB ONE (17:08)
[2019-02-05] MEDS: PIPERACILLIN/TAZOB 3.375 GM 3.375 GM in DEXTROSE 5%-WATER - 50 ML IVPB SCH (18:08)
--- NOTE | 2019-02-05 18:27 | PN ---
Teaching Attending Note Name of Resident: Jie Caraballo ATTENDING PHYSICIAN STATEMENT I saw and evaluated the patient. I reviewed the resident's note and discussed the case with the resident. I agree with the resident's findings and plan as documented. SUBJECTIVE: Reports pain/tenderness R fifth toe. No fever/chills. OBJECTIVE: Afebrile, Hemodynamically Stable. Last Vital Signs Temp Pulse Resp BP Pulse Ox 98.4 F 101 H 18 89/51 L 98 02/05/19 14:00 02/05/19 14:00 02/05/19 14:00 02/05/19 14:00 02/04/19 23:00 HEENT - Atraumatic, Normocephalic. Heart - S1, S2, SM Lungs - clear to auscultation Abdomen - soft, non-tender. Bowel Sounds normal. Extremities - R great toe amputation, R 5th toe swelling/tenderness including MTP joint area. Laboratory Results - last 24 hr 02/04/19 02/04/19 02/04/19 15:43 18:53 22:30 WBC RBC Hgb Hct MCV MCH MCHC RDW Plt Count MPV Absolute Neuts (auto) Neutrophils % Lymphocytes % Monocytes % Eosinophils % Basophils % Nucleated RBC % ESR 16 Sodium 138 Potassium 3.5 Chloride 106 Carbon Dioxide 24 Anion Gap 8 BUN 10 Creatinine 0.5 L Est GFR (CKD-EPI)AfAm 150.52 Est GFR (CKD-EPI)NonAf 129.87 POC Glucometer Random Glucose 87 Hemoglobin A1c % 4.4 Calcium 9.5 Phosphorus Magnesium Total Bilirubin 0.8 AST 8 L ALT 14 Alkaline Phosphatase 105 C-Reactive Protein 4.3 H Total Protein 8.2 Albumin 4.0 02/05/19 02/05/19 02/05/19 05:30 05:30 06:59 WBC 10.3 H RBC 3.43 L Hgb 10.7 Hct 31.8 L D MCV 92.5 MCH 31.2 MCHC 33.8 RDW 11.9 Plt Count 154 D MPV 11.1 Absolute Neuts (auto) 8.2 H Neutrophils % 79.0 Lymphocytes % 11.0 D Monocytes % 8.7 Eosinophils % 0.9 Basophils % 0.4 Nucleated RBC % 0 ESR Sodium 142 Potassium 3.1 L Chloride 110 H Carbon Dioxide 24 Anion Gap 8 BUN 6 L Creatinine 0.5 L Est GFR (CKD-EPI)AfAm 150.52 Est GFR (CKD-EPI)NonAf 129.87 POC Glucometer 84 Random Glucose 89 Hemoglobin A1c % Calcium 8.1 L Phosphorus 3.0 Magnesium 1.6 L Total Bilirubin 0.9 AST 5 L ALT 11 L Alkaline Phosphatase 78 C-Reactive Protein Total Protein 6.0 L Albumin 2.9 L 02/05/19 11:23 WBC RBC Hgb Hct MCV MCH MCHC RDW Plt Count MPV Absolute Neuts (auto) Neutrophils % Lymphocytes % Monocytes % Eosinophils % Basophils % Nucleated RBC % ESR Sodium Potassium Chloride Carbon Dioxide Anion Gap BUN Creatinine Est GFR (CKD-EPI)AfAm Est GFR (CKD-EPI)NonAf POC Glucometer 98 Random Glucose Hemoglobin A1c % Calcium Phosphorus Magnesium Total Bilirubin AST ALT Alkaline Phosphatase C-Reactive Protein Total Protein Albumin Current Medications Generic Name Dose Route Start Last Admin Trade Name Freq PRN Reason Stop Dose Admin Clotrimazole 1 applic 02/04/19 22:00 02/05/19 16:53 Lotrimin 1% Cream - TP 1 applic BID FROYLAN Administration Lactated Ringer's 1,000 ml in 1,000 mls @ 100 mls/hr 02/04/19 21:00 02/04/19 22:05 Lactated Ringers Solution IV 100 mls/hr ASDIR FROYLAN Administration Piperacillin Sod/Tazobactam 50 mls @ 100 mls/hr 02/05/19 18:00 02/05/19 18:08 Sod 3.375 gm/ Dextrose IVPB 100 mls/hr Q8H-IV FROYLAN Administration Protocol Non-Formulary Medication 1 tab 02/04/19 22:00 Clonidine Hcl [Clonidine Hcl Er] PO HS FROYLAN Quetiapine Fumarate 50 mg 02/04/19 22:00 02/04/19 22:35 Seroquel - PO 50 mg HS FROYLAN Administration Trazodone HCl 300 mg 02/04/19 22:00 02/04/19 22:35 Desyrel - PO 300 mg HS FROYLAN Administration Home Medications Medication Instructions Recorded Fluoxetine HCl [Prozac] 20 mg PO HS 06/15/17 Quetiapine Fumarate [Seroquel -] 50 mg PO HS 06/15/17 Trazodone HCl 500 mg PO HS 06/15/17 Clonidine HCl [Clonidine HCl ER] 1 tab PO DAILY 10/30/17 Gabapentin [Neurontin] 1 cap PO BID 10/30/17 ASSESSMENT AND PLAN: 28 year old female with Bipolar Disorder, PTSD, GERD, Fibromyalgia, Charcot- Carmelita-Tooth Syndrome, erosive arthritis bilateral 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 1. Sepsis secondary to Osteomyelitis and Abscess 5th MT of R foot MRI - Abscess with ulceration and osteomyleitis. Initially treated with Zosyn and Linezolid (given Hx of MRSA infection and allergy to vancomycin) Eval by ID - Abx rationalized top Zosyn Eval by Podiatry - for Abscess drainage and debridement tomorrow. Leukocytosis, tachycardia improving. 2. Bipolar Disorder/PTSD - Continue Fluoxetine, Quetiapine, Trazodone, Clonidine 3. Lwnopxh-Tqkoz-Hgitr Syndrome Continue Gabapentin DVT Px - Heparin SQ
[2019-02-05] MEDS ORDERED: QUEtiapine FUMARATE 25 MG TABLET (FP) ONE (21:29)
[2019-02-05] MEDS ORDERED: traZODone HCL 50 MG TABLET (FP) ONE (21:30)
[2019-02-05] MEDS: HEPARIN NA (PORCINE) 5,000 UNITS/ML 1ML VIAL SQ SCH (21:35)
[2019-02-05] MEDS: LACTATED RINGERS SOLUTION 1,000 ML/1,000 ML INFUS.BAG IV SCH (21:39)
[2019-02-05] MEDS: traZODone HCL 100 MG TABLET (FP) PO SCH (22:34)
[2019-02-05] MEDS: QUEtiapine FUMARATE 50 MG TABLET PO SCH (22:34)
[2019-02-06] MEDS ORDERED: DEXTROSE 5%-WATER - 50 ML IVPB ONE ×3 (01:11→17:22)
[2019-02-06] MEDS ORDERED: PIPERACILLIN/TAZOBACTAM 3.375 GM VIAL IVPB ONE ×3 (01:11→17:22)
[2019-02-06] MEDS: PIPERACILLIN/TAZOB 3.375 GM 3.375 GM in DEXTROSE 5%-WATER - 50 ML IVPB SCH ×3 (01:57→17:33)
[2019-02-06] MEDS: HEPARIN NA (PORCINE) 5,000 UNITS/ML 1ML VIAL SQ SCH (05:28)
[2019-02-06] MEDS ORDERED: ACETAMINOPHEN 500 MG TABLET (FP) PO ONE (06:15)
--- NOTE | 2019-02-06 08:16 | PN ---
Physical Exam: SUBJECTIVE: Patient seen and examined at bedside no acute events overnight; patient states that she is feeling well in not too much pain; she denies any CP/ SOb/N/V patient going to OR this afternoon OBJECTIVE: Vital Signs Period Temp Pulse Resp BP Sys/Ibarra Pulse Ox Last 24 Hr 98.4 F-99.5 F 92-102 18-20 89-105/50-68 GENERAL: The patient is awake, alert, and fully oriented, in no acute distress. EYES:PEERLA: EOMI; no scleral icterus NECK: no JVD; no lymphadenopathy LUNGS: CTA B/L; no rales, rhoncchi or wheezing . HEART: Regular rate and rhythm, S1, S2 without murmur, rub or gallop. ABDOMEN: Soft, nontender, nondistended, normoactive bowel sounds, no guarding, no rebound, no hepatosplenomegaly, no masses. EXTREMITIES: 2+ pulses, diffuse erythema on dorasl aspect of foot/warmth/ttp to dorsum of R foot, s/p R hullux amputation, anonychia to R 2nd /3rd/4th digits , hyperkeratotic lesion to submetatarsal R 5th digit, exudate visualized form hyperkeratotic lesion. dystrophic nails. PSYCH: Normal mood, normal affect. SKIN: Warm, dry, normal turgor, no rashes or lesions noted Laboratory Results - last 24 hr 02/05/19 02/05/19 11:23 21:34 POC Glucometer 98 89 Active Medications Generic Name Dose Route Start Last Admin Trade Name Freq PRN Reason Stop Dose Admin Clotrimazole 1 applic 02/04/19 22:00 02/05/19 21:41 Lotrimin 1% Cream - TP 1 applic BID FROYLAN Administration Heparin Sodium (Porcine) 5,000 unit 02/05/19 22:00 02/06/19 05:28 Heparin - SQ Not Given TID FROYLAN Lactated Ringer's 1,000 ml in 1,000 mls @ 100 mls/hr 02/04/19 21:00 02/05/19 21:39 Lactated Ringers Solution IV 100 mls/hr ASDIR FROYLAN Administration Piperacillin Sod/Tazobactam 50 mls @ 100 mls/hr 02/05/19 18:00 02/06/19 01:57 Sod 3.375 gm/ Dextrose IVPB 100 mls/hr Q8H-IV FROYLAN Administration Protocol Non-Formulary Medication 1 tab 02/04/19 22:00 Clonidine Hcl [Clonidine Hcl Er] PO HS FROYLAN Quetiapine Fumarate 50 mg 02/04/19 22:00 02/05/19 22:34 Seroquel - PO 50 mg HS FROYLAN Administration Trazodone HCl 300 mg 02/04/19 22:00 02/05/19 22:34 Desyrel - PO 300 mg HS FROYLAN Administration ASSESSMENT/PLAN: 28 yo F with h/o anxiety, bipolar disorder, dvicbtx-qxteh-yjjit syndrome, osteomylelitis, erosive arthritis, neuropathy, PTSD, fibromyalgia, scoliosis, and insomnia admitted for cellulitis of the R foot with confirmed osteomyelitis #Osteomyelitis IV antibiotics- zosyn day 3 [address] Sanders on board Dr Jackson consulted ; patient going to OR today for flush of abscess and resection of 5th mtpj for biopsy blood culture no growth to date crp and esr elevated monitor vitals will need PICC line placed for fci 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 Visit type - Emergency Visit Emergency Visit: Yes ED Registration Date: 02/04/19 Care time: The patient presented to the Emergency Department on the above date and was hospitalized for further evaluation of their emergent condition. - New Patient This patient is new to me today: No - Critical Care Critical Care patient: No
[2019-02-06 08:24] LABS: HEMATOCRIT 28.7 % (32.4-45.2); HEMOGLOBIN 9.7 GM/dL (10.7-15.3); MCHC 33.7 g/dl (32.0-36.0); MEAN CELL VOLUME 91.8 fl (80-96); PLATELET COUNT 136 K/MM3 (134-434); RBC 3.13 M/mm3 (3.60-5.2); RDW 11.9 % (11.6-15.6); WHITE BLOOD COUNT 7.1 K/mm3 (4.0-10.0)
[2019-02-06 08:52] LABS: CREATININE 0.5 mg/dL (0.55-1.3); POTASSIUM 4.1 mmol/L (3.5-5.1)
[2019-02-06] MEDS: CLOTRIMAZOLE 1% CREAM 15 GM TUBE TP SCH ×2 (09:38→21:36)
[2019-02-06] MEDS ORDERED: ONDANSETRON 4 MG/2 ML VIAL IVPUSH ONE (12:29)
[2019-02-06 13:21] LABS: INR 1.23 (0.83-1.09); PROTHROMBIN TIME (PATIENT) 14.6 SEC (9.7-13.0)
[2019-02-06 13:24] LABS: ACTIVATED PTT 33.6 SECONDS (25.2-36.5)
--- NOTE | 2019-02-06 14:42 | PN ---
Progress Note, Physician History of Present Illness: AWAKE, ALERT NO C/O FOOT PAIN NO F/C AFEBRILE WBC IMPROVED WNL BC (-) MRI FINDINGS NOTED - Current Medication List Current Medications: Active Medications Clotrimazole (Lotrimin 1% Cream -) 1 applic TP BID [facility] Last Admin: 02/06/19 09:38 Dose: 1 applic Heparin Sodium (Porcine) (Heparin -) 5,000 unit SQ TID [facility] Last Admin: 02/06/19 05:28 Dose: Not Given Lactated Ringer's (Lactated Ringers Solution) 1,000 ml in 1,000 mls @ 100 mls/ hr IV ASDIR FROYLAN Last Admin: 02/05/19 21:39 Dose: 100 mls/hr Piperacillin Sod/Tazobactam (Sod 3.375 gm/ Dextrose) 50 mls @ 100 mls/hr IVPB Q8H-IV FROYLAN; Protocol Last Admin: 02/06/19 09:38 Dose: 100 mls/hr Non-Formulary Medication (Clonidine Hcl [Clonidine Hcl Er]) 1 tab PO HS [facility] Quetiapine Fumarate (Seroquel -) 50 mg PO HS [facility] Last Admin: 02/05/19 22:34 Dose: 50 mg Trazodone HCl (Desyrel -) 300 mg PO HS [facility] Last Admin: 02/05/19 22:34 Dose: 300 mg - Objective Vital Signs: Vital Signs Temperature 99 F 02/06/19 06:42 Pulse Rate 97 H 02/06/19 06:42 Respiratory Rate 20 02/06/19 06:42 Blood Pressure 103/68 02/06/19 06:42 O2 Sat by Pulse Oximetry (%) 98 02/06/19 09:00 Constitutional: Yes: No Distress Eyes: Yes: Conjunctiva Clear Cardiovascular: Yes: Regular Rate and Rhythm, S1, S2 Respiratory: Yes: CTA Bilaterally Gastrointestinal: Yes: Normal Bowel Sounds, Soft. No: Tenderness Extremities: Yes: Other (DECREASED R FOOT SWELLING/ ERYTHEMA +DRY CALLOUS) Labs: CBC, BMP 02/06/19 06:46 02/06/19 06:46 INR, PTT INR 1.23 (0.83-1.09) H 02/06/19 12:25 Assessment/Plan R FOOT ABSCESS/OSTEOMYELITIS LEUKOCYTOSIS IMPROVED CMT/ PERIPHERAL NEUROPATHY FOR DEBRIDEMENT IN OR CONTINUE ZOSYN
[2019-02-06] MEDS ORDERED: LIDOCAINE HCL 2% (20ML MULTI-DOSE VIAL) NR ONE (14:45)
[2019-02-06] MEDS ORDERED: MIDAZOLAM HCL 2 MG/2 ML SINGLE DOSE VIAL ONE ×2 (14:54)
--- NOTE | 2019-02-06 14:55 | PN ---
Teaching Attending Note Name of Resident: Jie Caraballo ATTENDING PHYSICIAN STATEMENT I saw and evaluated the patient. I reviewed the resident's note and discussed the case with the resident. I agree with the resident's findings and plan as documented. SUBJECTIVE: Reports improvement in pain/tenderness R fifth toe. No fever/chills. OBJECTIVE: Afebrile, Hemodynamically Stable. Last Vital Signs Temp Pulse Resp BP Pulse Ox 98.9 F 100 H 18 100/58 L 98 02/06/19 10:00 02/06/19 10:00 02/06/19 10:00 02/06/19 10:00 02/06/19 09:00 Heart - S1, S2, SM Lungs - clear to auscultation Abdomen - soft, non-tender. Bowel Sounds normal. Extremities - R great toe amputation, R 5th toe swelling/tenderness including MTP joint area. Laboratory Results - last 24 hr 02/05/19 02/06/19 02/06/19 21:34 06:46 06:46 WBC 7.1 RBC 3.13 L Hgb 9.7 L Hct 28.7 L MCV 91.8 MCH 31.0 MCHC 33.7 RDW 11.9 Plt Count 136 MPV 11.0 PT with INR INR PTT (Actin FS) Sodium 142 Potassium 4.1 Chloride 112 H Carbon Dioxide 24 Anion Gap 7 L BUN 5 L Creatinine 0.5 L Est GFR (CKD-EPI)AfAm 150.52 Est GFR (CKD-EPI)NonAf 129.87 POC Glucometer 89 Random Glucose 79 Calcium 8.0 L 02/06/19 12:25 WBC RBC Hgb Hct MCV MCH MCHC RDW Plt Count MPV PT with INR 14.60 H INR 1.23 H PTT (Actin FS) 33.6 Sodium Potassium Chloride Carbon Dioxide Anion Gap BUN Creatinine Est GFR (CKD-EPI)AfAm Est GFR (CKD-EPI)NonAf POC Glucometer Random Glucose Calcium Current Medications Generic Name Dose Route Start Last Admin Trade Name Freq PRN Reason Stop Dose Admin Clotrimazole 1 applic 02/04/19 22:00 02/06/19 09:38 Lotrimin 1% Cream - TP 1 applic BID FROYLAN Administration Heparin Sodium (Porcine) 5,000 unit 02/05/19 22:00 02/06/19 05:28 Heparin - SQ Not Given TID FROYLAN Lactated Ringer's 1,000 ml in 1,000 mls @ 100 mls/hr 02/04/19 21:00 02/05/19 21:39 Lactated Ringers Solution IV 100 mls/hr ASDIR FROYLAN Administration Piperacillin Sod/Tazobactam 50 mls @ 100 mls/hr 02/05/19 18:00 02/06/19 09:38 Sod 3.375 gm/ Dextrose IVPB 100 mls/hr Q8H-IV FROYLAN Administration Protocol Non-Formulary Medication 1 tab 02/04/19 22:00 Clonidine Hcl [Clonidine Hcl Er] PO HS FROYLAN Quetiapine Fumarate 50 mg 02/04/19 22:00 02/05/19 22:34 Seroquel - PO 50 mg HS FROYLAN Administration Trazodone HCl 300 mg 02/04/19 22:00 02/05/19 22:34 Desyrel - PO 300 mg HS FROYLAN Administration ASSESSMENT AND PLAN: 28 year old female with Bipolar Disorder, PTSD, GERD, Fibromyalgia, Charcot- Carmelita-Tooth Syndrome, erosive arthritis bilateral 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 1. Sepsis secondary to Osteomyelitis and Abscess 5th MT of R foot - sepsis resolved. MRI - Abscess with ulceration and osteomyleitis. Continue IV Zosyn as per ID Eval by Podiatry - for Abscess drainage/debridement and resection of remaining 5th MTPJ as well, with sample for Cx. Leukocytosis, tachycardia resolved. Afebrile, Hemodynamically Stable. For PICC placement for long-term Abx therapy. 2. Bipolar Disorder/PTSD - Continue Fluoxetine, Quetiapine, Trazodone, Clonidine 3. Twnijom-Xdrlm-Cfvsa Syndrome Continue Gabapentin 4. Hypokalemia - resolved s/p repletion. DVT Px - Heparin SQ
[2019-02-06] MEDS ORDERED: PROPOFOL 20 ML ONE (15:01)
[2019-02-06] MEDS ORDERED: BACITRACIN 50,000 UNITS VIAL NR ONE (15:10)
[2019-02-06] MEDS ORDERED: LIDOCAINE HCL 2% (50ML VIAL) NR ONE (15:10)
--- NOTE | 2019-02-06 15:30 | OP ---
Operative Note - Note: Operative Date: 02/06/19 Pre-Operative Diagnosis: right foot abscess and osteomyelitis Operation: right foot incision and drainage with debridmetn Findings: see dictation Post-Operative Diagnosis: Same as Pre-op Surgeon: Bakari Deutsch Anesthesia: Local, MAC Estimated Blood Loss (mls): 5 Operative Report Dictated: No
[2019-02-06] MEDS ORDERED: PROMETHAZINE HCL 25 MG/1 ML VIAL IVPUSH PRN (15:37)
[2019-02-06] MEDS ORDERED: ONDANSETRON 4 MG/2 ML VIAL IVPUSH PRN (15:37)
[2019-02-06] MEDS ORDERED: LACTATED RINGERS SOLUTION 1,000 ML IV SCH (15:45)
[2019-02-06] MEDS ORDERED: LACTATED RINGERS SOLUTION 1,000 ML/1,000 ML INFUS.BAG IV SCH (16:15)
[2019-02-06 17:23] LABS: MAGNESIUM 2.1 mg/dL (1.8-2.4)
--- NOTE | 2019-02-06 19:48 | OP ---
DATE OF OPERATION: DATE OF DICTATION: 02/06/2019 PREOPERATIVE DIAGNOSIS: Right foot abscess with osteomyelitis. POSTOPERATIVE DIAGNOSIS: Right foot abscess with osteomyelitis. PROCEDURE PERFORMED: Right foot incision and drainage. SURGEON: Bakari Deutsch DPM ANESTHESIA: IV sedation with local injections. INDICATIONS: This patient is a 28-year-old female with the above mentioned diagnosis. The patient has a long-standing history of Ajfeimo-Tcubc-Weoty, and was admitted to the hospital for underlying abscess with confirmed osteomyelitis on MRI. At this time the patient has exhausted conservative measures and requires surgical intervention for the condition listed above. After a careful explanation of the risks, benefits and complications for the proposed procedure, the patient signed the consent form. All questions and concerns were addressed at this time. Prior to taking the patient to the OR, n.p.o. was verified, and preoperative antibiotics were given. DESCRIPTION OF PROCEDURE: The patient was brought to the operating room and placed on the operating table in the supine position. Due to blood flow, a tourniquet was placed on the patient's right ankle at 250 mmHg. Following the induction of IV sedation, local injection of 2% lidocaine plain was injected into the patient's right foot in a local block type fashion without complications. Following local anesthetic, the right foot was prepped and draped in the normal sterile manner and the procedure began. PROCEDURE NUMBER 1: Right foot incision and drainage with debridement. At this time attention was directed to the lateral aspect of the patient's right foot where at the 5th metatarsophalangeal joint there was a large underlying fluctuant abscess noted. At this time, utilizing a number 15 blade, a linear incision measuring roughly 2.5 cm long, extending dorsolaterally over the 5th metatarsophalangeal joint was made. Upon incision, a large amount of purulent drainage was exposed in the 5th metatarsophalangeal joint area. Roughly 10 mL of purulence was expressed. It is to be noted that in this area, the patient had prior had a 5th metatarsophalangeal joint head resection and so there was no bone left in the area to excise. So at this time the incision was carried distally and proximally just a little to expose the base of the proximal phalanx and the distal tip of the remaining 5th metatarsal head to allow for adequate exposure for flush. Following this, with pulse lavage, the wound was flushed the remainder of the purulent discharge. It is to be noted that prior to the flush cultures were taken. A bone and soft tissue biopsy was also taken from the proximal phalanx of the 5th digit and passed from the operative field. Both of these cultures were sent to [facility] for evaluation, so the patient could be placed on long-term IV antibiotics. After this the wound was flushed with a pulse lavage copiously. Following this, the wound was then partially closed with 4-0 nylon and packed open with Iodoform packing. The wound was then dressed with Adaptic, 4 x 4's and Tj bandage. POSTOPERATIVE CONDITION: The patient tolerated the anesthesia and procedure well and was transferred to the recovery room with vital signs stable and neurovascular status intact to the right foot. The patient will be followed up on the floor as needed. RADHA MODI/[id number]
[2019-02-06] MEDS ORDERED: traZODone HCL 100 MG TABLET (FP) PO SCH (22:00)
[2019-02-06] MEDS ORDERED: CLONIDINE HCL PO SCH (22:00)
[2019-02-06] MEDS ORDERED: QUEtiapine FUMARATE 50 MG TABLET PO SCH (22:00)
[2019-02-07] MEDS ORDERED: DEXTROSE 5%-WATER - 50 ML IVPB ONE (01:08)
[2019-02-07] MEDS ORDERED: PIPERACILLIN/TAZOBACTAM 3.375 GM VIAL IVPB ONE (01:08)
[2019-02-07] MEDS: PIPERACILLIN/TAZOB 3.375 GM 3.375 GM in DEXTROSE 5%-WATER - 50 ML IVPB SCH ×2 (01:20→13:01)
[2019-02-07 06:11] LABS: HEMATOCRIT 29.7 % (32.4-45.2); HEMOGLOBIN 10.1 GM/dL (10.7-15.3); MCH 31.6 pg (25.7-33.7); MEAN CELL VOLUME 92.9 fl (80-96); MEAN PLT VOLUME 10.3 fl (7.5-11.1); PLATELET COUNT 146 K/MM3 (134-434); RDW 11.9 % (11.6-15.6); WHITE BLOOD COUNT 5.5 K/mm3 (4.0-10.0)
[2019-02-07 06:48] LABS: CALCIUM 8.2 mg/dL (8.5-10.1); CREATININE 0.5 mg/dL (0.55-1.3); MAGNESIUM 1.9 mg/dL (1.8-2.4); PHOSPHOROUS 3.7 mg/dL (2.5-4.9); POTASSIUM 3.9 mmol/L (3.5-5.1)
--- NOTE | 2019-02-07 09:06 | PN ---
Progress Note (short form) - Note Progress Note: POD1 s/p right ft debridement under MAC. Pt tolerated procedure well, resting comfortably in bed with minimal pain. No anesthetic issues/complicationed noted.
--- NOTE | 2019-02-07 09:07 | PN ---
Physical Exam: SUBJECTIVE: Patient seen and examined OBJECTIVE: Vital Signs Period Temp Pulse Resp BP Sys/Ibarra Pulse Ox Last 24 Hr 97.8 F-98.9 F 64-100 16-20 90-109/48-74 98-100 GENERAL: The patient is awake, alert, and fully oriented, in no acute distress. HEAD: Normal with no signs of trauma. EYES: PERRL, extraocular movements intact, sclera anicteric, conjunctiva clear. No ptosis. ENT: Ears normal, nares patent, oropharynx clear without exudates, moist mucous membranes. NECK: Trachea midline, full range of motion, supple. LUNGS: Breath sounds equal, clear to auscultation bilaterally, no wheezes, no crackles, no accessory muscle use. HEART: Regular rate and rhythm, S1, S2 without murmur, rub or gallop. ABDOMEN: Soft, nontender, nondistended, normoactive bowel sounds, no guarding, no rebound, no hepatosplenomegaly, no masses. EXTREMITIES: 2+ pulses, warm, well-perfused, no edema. NEUROLOGICAL: Cranial nerves II through XII grossly intact. Normal speech, gait not observed. PSYCH: Normal mood, normal affect. SKIN: Warm, dry, normal turgor, no rashes or lesions noted Laboratory Results - last 24 hr 02/06/19 02/06/19 02/06/19 06:46 12:25 17:37 WBC RBC Hgb Hct MCV MCH MCHC RDW Plt Count MPV PT with INR 14.60 H INR 1.23 H PTT (Actin FS) 33.6 Sodium 142 Potassium 4.1 Chloride 112 H Carbon Dioxide 24 Anion Gap 7 L BUN 5 L Creatinine 0.5 L Est GFR (CKD-EPI)AfAm 150.52 Est GFR (CKD-EPI)NonAf 129.87 POC Glucometer 74 Random Glucose 79 Calcium 8.0 L Phosphorus Magnesium 2.1 02/07/19 02/07/19 05:00 05:00 WBC 5.5 RBC 3.20 L Hgb 10.1 L Hct 29.7 L MCV 92.9 MCH 31.6 MCHC 34.0 RDW 11.9 Plt Count 146 MPV 10.3 PT with INR INR PTT (Actin FS) Sodium 141 Potassium 3.9 Chloride 110 H Carbon Dioxide 25 Anion Gap 6 L BUN 5 L Creatinine 0.5 L Est GFR (CKD-EPI)AfAm 150.52 Est GFR (CKD-EPI)NonAf 129.87 POC Glucometer Random Glucose 80 Calcium 8.2 L Phosphorus 3.7 Magnesium 1.9 Active Medications Generic Name Dose Route Start Last Admin Trade Name Freq PRN Reason Stop Dose Admin Clotrimazole 1 applic 02/06/19 22:00 02/06/19 21:36 Lotrimin 1% Cream - TP 1 applic BID FROYLAN Administration Fentanyl 50 mcg 02/06/19 15:37 Sublimaze Injection - IVPUSH [id number] PRN PAIN-PACU ORDER X 4 DOSES ONLY Lactated Ringer's 1,000 ml in 1,000 mls @ 100 mls/hr 02/06/19 16:15 02/06/19 17:34 Lactated Ringers Solution IV 100 mls/hr ASDIR FROYLAN Administration Piperacillin Sod/Tazobactam 50 mls @ 100 mls/hr 02/06/19 18:00 02/07/19 01:20 Sod 3.375 gm/ Dextrose IVPB 100 mls/hr Q8H-IV FROYLAN Administration Protocol Non-Formulary Medication 1 tab 02/06/19 22:00 Clonidine Hcl [Clonidine Hcl Er] PO HS FROYLAN Ondansetron HCl 4 mg 02/06/19 15:37 Zofran Injection IVPUSH Q6H PRN NAUSEA AND/OR VOMITING Promethazine HCl 12.5 mg 02/06/19 15:37 Phenergan Injection - IVPUSH Q6H PRN NAUSEA-FOR RESCUE AFTER 15 MIN Quetiapine Fumarate 50 mg 02/06/19 22:00 02/06/19 21:37 Seroquel - PO 50 mg HS FROYLAN Administration Trazodone HCl 300 mg 02/06/19 22:00 02/06/19 21:36 Desyrel - PO 300 mg HS FROYLAN Administration ASSESSMENT/PLAN: 28 yo F with h/o anxiety, bipolar disorder, jpeygbz-qonbr-blfqw syndrome, osteomylelitis, erosive arthritis, neuropathy, PTSD, fibromyalgia, scoliosis, and insomnia admitted for cellulitis of the R foot with confirmed osteomyelitis #Osteomyelitis POD#1 right foot I and D with debridement IV antibiotics- zosyn day 4 awaiting cx from OR Dr Sanders on board Dr Jackson consulted ; monitor vitals will need 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
--- NOTE | 2019-02-07 10:49 | PN ---
Progress Note, Physician History of Present Illness: S/P R FOOT DEBRIDEMENT CULTURES PENDING AWAKE, ALERT NO C/O FOOT PAIN NO F/C AFEBRILE WBC IMPROVED WNL BC (-) - Current Medication List Current Medications: Active Medications Clotrimazole (Lotrimin 1% Cream -) 1 applic TP BID [facility] Last Admin: 02/06/19 21:36 Dose: 1 applic Fentanyl (Sublimaze Injection -) 50 mcg IVPUSH [id number] PRN PRN Reason: PAIN-PACU ORDER X 4 DOSES ONLY Lactated Ringer's (Lactated Ringers Solution) 1,000 ml in 1,000 mls @ 100 mls/ hr IV ASDIR [facility] Last Admin: 02/06/19 17:34 Dose: 100 mls/hr Piperacillin Sod/Tazobactam (Sod 3.375 gm/ Dextrose) 50 mls @ 100 mls/hr IVPB Q8H-IV FROYLAN; Protocol Last Admin: 02/07/19 01:20 Dose: 100 mls/hr Non-Formulary Medication (Clonidine Hcl [Clonidine Hcl Er]) 1 tab PO [facility] Ondansetron HCl (Zofran Injection) 4 mg IVPUSH Q6H PRN PRN Reason: NAUSEA AND/OR VOMITING Promethazine HCl (Phenergan Injection -) 12.5 mg IVPUSH Q6H PRN PRN Reason: NAUSEA-FOR RESCUE AFTER 15 MIN Quetiapine Fumarate (Seroquel -) 50 mg PO [facility] Last Admin: 02/06/19 21:37 Dose: 50 mg Trazodone HCl (Desyrel -) 300 mg PO [facility] Last Admin: 02/06/19 21:36 Dose: 300 mg - Objective Vital Signs: Vital Signs Temperature 98.3 F 02/07/19 06:00 Pulse Rate 64 02/07/19 06:00 Respiratory Rate 18 02/07/19 06:00 Blood Pressure 95/63 02/07/19 06:00 O2 Sat by Pulse Oximetry (%) 100 02/06/19 21:00 Constitutional: Yes: No Distress Cardiovascular: Yes: Regular Rate and Rhythm, S1, S2 Respiratory: Yes: CTA Bilaterally Gastrointestinal: Yes: Normal Bowel Sounds, Soft. 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
[2019-02-07] MEDS ORDERED: CEFTRIAXONE 2 GM in DEXTROSE 5%-WATER 100 ML IVPB SCH (11:00)
[2019-02-07] MEDS ORDERED: DEXTROSE 5%-WATER 100 ML IVPB ONE (12:58)
[2019-02-07] MEDS: CLOTRIMAZOLE 1% CREAM 15 GM TUBE TP SCH (13:43)
--- NOTE | 2019-02-07 15:10 | DS ---
Physical Exam: SUBJECTIVE: Patient seen and examined OBJECTIVE: Vital Signs Period Temp Pulse Resp BP Sys/Ibarra Pulse Ox Last 24 Hr 97.8 F-98.5 F 64-97 16-20 90-109/48-74 98-100 PHYSICAL EXAM GENERAL: The patient is awake, alert, and fully oriented, in no acute distress. HEAD: Normal with no signs of trauma. EYES: PERRL, extraocular movements intact, sclera anicteric, conjunctiva clear. ENT: Ears normal, nares patent, oropharynx clear without exudates, moist mucous membranes. NECK: Trachea midline, full range of motion, supple. LUNGS: Breath sounds equal, clear to auscultation bilaterally, no wheezes, no crackles, no accessory muscle use. HEART: Regular rate and rhythm, S1, S2 without murmur, rub or gallop. ABDOMEN: Soft, nontender, nondistended, normoactive bowel sounds, no guarding, no rebound, no hepatosplenomegaly, no masses. EXTREMITIES: 2+ pulses, warm, well-perfused, no edema. NEUROLOGICAL: Cranial nerves II through XII grossly intact. Normal speech, gait not observed. PSYCH: Normal mood, normal affect. SKIN: Warm, dry, normal turgor, no rashes or lesions noted. LABS Laboratory Results - last 24 hr 02/06/19 02/06/19 02/07/19 06:46 17:37 05:00 WBC 5.5 RBC 3.20 L Hgb 10.1 L Hct 29.7 L MCV 92.9 MCH 31.6 MCHC 34.0 RDW 11.9 Plt Count 146 MPV 10.3 Sodium 142 Potassium 4.1 Chloride 112 H Carbon Dioxide 24 Anion Gap 7 L BUN 5 L Creatinine 0.5 L Est GFR (CKD-EPI)AfAm 150.52 Est GFR (CKD-EPI)NonAf 129.87 POC Glucometer 74 Random Glucose 79 Calcium 8.0 L Phosphorus Magnesium 2.1 02/07/19 05:00 WBC RBC Hgb Hct MCV MCH MCHC RDW Plt Count MPV Sodium 141 Potassium 3.9 Chloride 110 H Carbon Dioxide 25 Anion Gap 6 L BUN 5 L Creatinine 0.5 L Est GFR (CKD-EPI)AfAm 150.52 Est GFR (CKD-EPI)NonAf 129.87 POC Glucometer Random Glucose 80 Calcium 8.2 L Phosphorus 3.7 Magnesium 1.9 HOSPITAL COURSE: Date of Admission:02/04/19 Date of Discharge: 02/07/19 Minutes to complete discharge: 35 Discharge Summary Reason For Visit: CELLULITIS Current Active Problems Cellulitis of foot (Acute) Condition: Stable - Instructions Diet, Activity, Other Instructions: You came into the hospital with complaints of right foot swelling and were found to have osteomyelitis of the right fifth metatarsal. You were seen by the guitar player and you underwent an incision and drainage and debridement of the wound. We have been giving you antibiotics for which you got a PICC line placed and will need to continue with the antibiotics for 6 weeks. Please resume all of your home medications in addition: Please take the antibiotic Ceftriaxone 2grams daily through the PICC line for a total of 6 weeks Please follow up with either Dr. Jackson or Dr. Dubon within one week We are giving you a referral for a production support specialist, Dr. Ivan, to follow up with within one week Please follow up with Dr. Sanders the infectious disease specialist Please follow up with your primary care physician within one week *if you begin to experience worsening foot pain, chest pains, shortness of breath, nausea/vomiting please return to the emergency room immediately Referrals: Jonas Sanders MD [Staff Physician] - 1 Week Beto Jackson MD [Staff Physician] - 1 Week Iggy Ivan MD [Non Staff, Medical] - 1 Week Disposition: HOME - Home Medications Comprehensive Discharge Medication List: Ambulatory Orders Fluoxetine HCl [Prozac] 20 mg PO HS 06/15/17 Quetiapine Fumarate [Seroquel -] 50 mg PO HS 06/15/17 Trazodone HCl 500 mg PO HS 06/15/17 Clonidine HCl [Clonidine HCl ER] 1 tab PO DAILY 10/30/17 Gabapentin [Neurontin] 1 cap PO BID 10/30/17 Ceftriaxone [Rocephin -] 2 gm IVPB DAILY vial 02/07/19 Problem List - Problems (1) Osteomyelitis Code(s): M86.9 - OSTEOMYELITIS, UNSPECIFIED Qualifiers: Osteomyelitis location: foot Laterality: unspecified laterality (2) Anxiety Code(s): F41.9 - ANXIETY DISORDER, UNSPECIFIED (3) Bipolar disorder (manic depression) Code(s): F31.9 - BIPOLAR DISORDER, UNSPECIFIED
[2019-02-07 15:54] VITALS: BP 103/65; PULSE 95; TEMP 98.7
--- NOTE | 2019-02-07 16:18 | PN ---
Teaching Attending Note Name of Resident: Jie Caraballo ATTENDING PHYSICIAN STATEMENT I saw and evaluated the patient. I reviewed the resident's note and discussed the case with the resident. I agree with the resident's findings and plan as documented. SUBJECTIVE: Reports improvement in pain/tenderness R fifth toe. No fever/chills. OBJECTIVE: Afebrile, Hemodynamically Stable. Last Vital Signs Temp Pulse Resp BP Pulse Ox 98.7 F 95 H 18 103/65 100 02/07/19 15:00 02/07/19 15:00 02/07/19 15:00 02/07/19 15:00 02/06/19 21:00 Heart - S1, S2, SM Lungs - clear to auscultation Abdomen - soft, non-tender. Bowel Sounds normal. Extremities - R foot dressed s/p 5th toe abscess drainage and MTPJ resection Laboratory Results - last 24 hr 02/06/19 02/06/19 02/07/19 06:46 17:37 05:00 WBC 5.5 RBC 3.20 L Hgb 10.1 L Hct 29.7 L MCV 92.9 MCH 31.6 MCHC 34.0 RDW 11.9 Plt Count 146 MPV 10.3 Sodium 142 Potassium 4.1 Chloride 112 H Carbon Dioxide 24 Anion Gap 7 L BUN 5 L Creatinine 0.5 L Est GFR (CKD-EPI)AfAm 150.52 Est GFR (CKD-EPI)NonAf 129.87 POC Glucometer 74 Random Glucose 79 Calcium 8.0 L Phosphorus Magnesium 2.1 02/07/19 05:00 WBC RBC Hgb Hct MCV MCH MCHC RDW Plt Count MPV Sodium 141 Potassium 3.9 Chloride 110 H Carbon Dioxide 25 Anion Gap 6 L BUN 5 L Creatinine 0.5 L Est GFR (CKD-EPI)AfAm 150.52 Est GFR (CKD-EPI)NonAf 129.87 POC Glucometer Random Glucose 80 Calcium 8.2 L Phosphorus 3.7 Magnesium 1.9 Current Medications Generic Name Dose Route Start Last Admin Trade Name Freq PRN Reason Stop Dose Admin Clotrimazole 1 applic 02/06/19 22:00 02/07/19 13:43 Lotrimin 1% Cream - TP 1 applic BID FROYLAN Administration Fentanyl 50 mcg 02/06/19 15:37 Sublimaze Injection - IVPUSH [id number] PRN PAIN-PACU ORDER X 4 DOSES ONLY Lactated Ringer's 1,000 ml in 1,000 mls @ 100 mls/hr 02/06/19 16:15 02/06/19 17:34 Lactated Ringers Solution IV 100 mls/hr ASDIR FROYLAN Administration Ceftriaxone Sodium 2 gm/ 100 mls @ 100 mls/hr 02/07/19 11:00 02/07/19 13:43 Dextrose IVPB 100 mls/hr DAILY FROYLAN Administration Protocol Non-Formulary Medication 1 tab 02/06/19 22:00 Clonidine Hcl [Clonidine Hcl Er] PO HS FROYLAN Ondansetron HCl 4 mg 02/06/19 15:37 Zofran Injection IVPUSH Q6H PRN NAUSEA AND/OR VOMITING Promethazine HCl 12.5 mg 02/06/19 15:37 Phenergan Injection - IVPUSH Q6H PRN NAUSEA-FOR RESCUE AFTER 15 MIN Quetiapine Fumarate 50 mg 02/06/19 22:00 02/06/19 21:37 Seroquel - PO 50 mg HS FROYLAN Administration Trazodone HCl 300 mg 02/06/19 22:00 02/06/19 21:36 Desyrel - PO 300 mg HS FROYLAN Administration ASSESSMENT AND PLAN: 28 year old female with Bipolar Disorder, PTSD, GERD, Fibromyalgia, Charcot- Carmelita-Tooth Syndrome, erosive arthritis bilateral 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 1. Sepsis secondary to Osteomyelitis and Abscess 5th MT of R foot - sepsis resolved. MRI - Abscess with ulceration and osteomyleitis. POD 1 s/p Abscess drainage/debridement and resection of remaining 5th MTPJ as well, surgical Cx pending. Leukocytosis, tachycardia resolved. Afebrile, Hemodynamically Stable. PICC placed for long-term Abx therapy for 6 weeks For discharge with Ceftriaxone as per ID pending Cx results. Out-patient ID follow up. 2. Acute Blood Loss Anemia s/p Podiatry Surgery - no active blood loss. Will discharge on FeSO4 3. Bipolar Disorder/PTSD - Continue Fluoxetine, Quetiapine, Trazodone, Clonidine 4. Ovjxjav-Mooci-Rzwrt Syndrome Continue Gabapentin 5. Hypokalemia - resolved s/p repletion. Medically stable for discharge with Abx via PICC with Podiatry and ID follow up.
== END 2019-02-07 16:25 | disposition home or self-care (01) | DRG 720 ==
LOC: JER 14:49 → JERBED 19:21 → J8W 22:46
PROVIDERS: ADMIT Internal Medicine
PROC: 0J9Q0ZX Drainage of Right Foot Subcutaneous Tissue and Fascia, Open Approach, Diagnostic (ICD-10-PCS; principal; 2019-02-06 14:30)
PROC: 02HV33Z Insertion of Infusion Device into Superior Vena Cava, Percutaneous Approach (ICD-10-PCS; 2019-02-07)
DX: A41.89 Other specified sepsis (principal); F31.9 Bipolar disorder, unspecified; M79.7 Fibromyalgia; G47.00 Insomnia, unspecified; K21.9 Gastro-esophageal reflux disease without esophagitis; D72.829 Elevated white blood cell count, unspecified; E87.6 Hypokalemia; F41.9 Anxiety disorder, unspecified; G60.0 Hereditary motor and sensory neuropathy; M41.9 Scoliosis, unspecified; G62.9 Polyneuropathy, unspecified; E83.42 Hypomagnesemia; D62 Acute posthemorrhagic anemia; M86.8X7 Other osteomyelitis, ankle and foot; L02.611 Cutaneous abscess of right foot
CPT/HCPCS: 36415; 36569; 73630-TC-RT-FY; 73718-TC-RT; 75820-TC-FY; 77001-TC-FY; 80048; 80053; 82962; 83036; 83735; 84100; 84703; 85025; 85027; 85610; 85651; 85730; 86140; 87040; 87070; 87075; 87186; 87205; 93005; 93010; 94760; 99282-25; C1751; J1644; J7030

== ENCOUNTER 2019-05-22 14:59 | Inpatient (IN) | payer OTHER | END 2019-05-27 17:34 | disposition home health service (06) | LOC: JERFT 14:59 → JERBED 20:54 → J7W 21:29 ==

== ENCOUNTER 2019-06-09 11:00 | Emergency (ER) | payer OTHER ==
[2019-06-09 11:11] VITALS: BP 131/89; PULSE 90; TEMP 97.7; BMI 20.9
--- NOTE | 2019-06-09 11:53 | PDOC ---
History of Present Illness - General Chief Complaint: Suture/Staple Removal(Here) Stated Complaint: STITCHES REMOVAL Time Seen by Provider: 06/09/19 11:17 History Source: Patient, Old Records Exam Limitations: No Limitations - History of Present Illness Initial Comments: 06/09/19 11:48 HISTORY OF PRESENT ILLNESS: This is a 28-year-old woman presents emergency department for evaluation of suture removal from a tunneled dialysis catheter which was placed on 05/27/19. Patient is undergoing outpatient ceftriaxone treatment for osteomyelitis of her left third digit. Patient was instructed to return to have sutures removed from tunneled dialysis catheter 10-14 days after placement. Patient presented to my are today but was told to come to the emergency department to have procedure performed. Patient denies any redness, fevers, chills, tenderness around the insertion site. No recent travel or sick contacts. PAST MEDICAL HISTORY: osteomyelitis, Sqsgl-Ldavelv-Zkcrt, fibromyalgia, neuropathy SURGICAL HISTORY: Denies ALLERGIES: oxycodone, vancomycin REVIEW OF SYSTEMS General/Constitutional: Denies fever or chills. Denies weakness, weight change. HEENT: Denies change in vision. Denies ear pain or discharge. Denies sore throat. Cardiovascular: Denies chest pain or shortness of breath. Respiratory: Denies cough, wheezing, or hemoptysis. Gastrointestinal: Denies nausea, vomiting, diarrhea or constipation. Denies rectal bleeding. Genitourinary: Denies dysuria, frequency, or change in urination. Musculoskeletal: see HPI Skin and breasts: Denies rash or easy bruising. Neurologic: Denies headache, vertigo, loss of consciousness, or loss of sensation. Psychiatric: Denies depression or anxiety. Endocrine: Denies increased thirst. Denies abnormal weight change. Hematologic/Lymphatic: Denies anemia, easy bleeding, or history of blood clots. Allergic/Immunologic: Denies hives or skin allergy. Denies latex allergy. PHYSICAL EXAM General Appearance: Well-appearing, appropriately dressed. No apparent distress , no intoxication. Respiratory/Chest: Lungs CTAB. No shortness of breath, chest tenderness, respiratory distress, accessory muscle use. No crackles, rales, rhonchi, stridor , wheezing, dullness Cardiovascular: RRR. S1, S2. No JVD, murmur, bradycardia, tachycardia. Vascular Pulses: Dorsalis-Pedis (R): 2+, Dorsalis-Pedis (L): 2+ Musculoskeletal/Extremities: Ulceration to PIP of 3rd digit of left hand. Integumentary: Tunneled catheter present in the right anterior chest wall. Site is clean and dry. No erythema or tenderness present to site. Catheter in place with 2 nylon sutures. Neurologic: social work case manager II-XII intact. Fully oriented, alert. Appropriate mood/affect. Motor strength 5/5. No appreciable EOM palsy, facial droop or sensory deficit. Past History - Past Medical History Allergies/Adverse Reactions: Allergies Allergy/AdvReac Type Severity Reaction Status Date / Time oxycodone Allergy Intermediate Rash Verified 06/09/19 11:11 vancomycin Allergy skin Verified 06/09/19 11:11 reaction Home Medications: Ambulatory Orders Trazodone HCl 150 mg PO HS 06/15/17 Clonidine HCl [Clonidine HCl ER] 0.1 mg PO DAILY 10/30/17 Lamotrigine 25 mg PO DAILY 02/12/19 Quetiapine Fumarate [Seroquel -] 100 mg PO HS 05/23/19 Ceftriaxone [Rocephin -] 2 gm IVPB DAILY 28 Days #28 vial 05/26/19 Anemia: Yes Asthma: No Cancer: No Cardiac Disorders: No CVA: No COPD: No CHF: No Dementia: No Diabetes: No GI Disorders: Yes (Gastritis) Disorders: No HTN: No Hypercholesterolemia: No Liver Disease: No Psychiatric Problems: Yes (anxiety, bipolar, ptsd, imsomina,) Seizures: No Thyroid Disease: No - Surgical History Abdominal Surgery: Yes Appendectomy: Yes Cholecystectomy: No Orthopedic Surgery: Yes (amp rt great toe,bilat.feet bones removed for osteomyelitis) - Immunization History Immunization Up to Date: Yes (FLU ) - Suicide/Smoking/Psychosocial Hx Smoking Status: No Smoking History: Never smoked Have you smoked in the past 12 months: No Number of Cigarettes Smoked Daily: 1 If you are a former smoker, when did you quit?: 8 years ago Information on smoking cessation initiated: No 'Breaking Loose' booklet given: 05/16/12 Hx Alcohol Use: No Drug/Substance Use Hx: No Substance Use Type: Marijuana Hx Substance Use Treatment: No *Physical Exam - Vital Signs Last Vital Signs Temp Pulse Resp BP Pulse Ox 97.7 F 90 19 131/89 100 06/09/19 11:09 06/09/19 11:09 06/09/19 11:09 06/09/19 11:09 06/09/19 11:09 Medical Decision Making - Medical Decision Making 06/09/19 11:51 A/P: 28-year-old woman with visit for suture removal on tunneled catheter Sedative tunneled catheter clean, dry without erythema, induration or tenderness present. Patient without systemic signs of infection. Finger wound has been improving on outpatient antibiotics. Suture removal Discharge home 06/09/19 12:14 Nylon retention sutures removed without difficulty. No movement of the catheter. Sterile dressing applied. Patient to follow up with wound care and to have catheter removed the completion of outpatient treatment. I discussed the physical exam findings, ancillary test results and final diagnoses with the patient. I answered all of the patient's questions. The patient was satisfied with the care received and felt comfortable with the discharge plan and treatment plan. The patient will call their primary care physician within 24 hours to arrange follow-up and will return to the Emergency Department with any new, persistent or worsening symptoms. Portions of this note have been documented using voice recognition software. As a result, errors may occur in the upholstery sewer process. Effort has been made to correct all grammatical and upholstery sewer error, but some may have been missed. *DC/Admit/Observation/Transfer Diagnosis at time of Disposition: Visit for suture removal - Discharge Dispostion Disposition: HOME Condition at time of disposition: Stable Decision to Admit order: No - Referrals - Patient Instructions Additional Instructions: Follow-up with wound care as previously instructed. Make sure to follow up with interventional radiology for removal of catheter once outpatient treatment has been completed. Return to emergency department for any concerns. Thank you very much for choosing us to provide your emergent health care needs. - Post Discharge Activity
== END 2019-06-09 12:27 | disposition home or self-care (01) ==
LOC: JERFT 11:00
DX: Z48.02 Encounter for removal of sutures (principal); F31.9 Bipolar disorder, unspecified; F41.9 Anxiety disorder, unspecified; F43.10 Post-traumatic stress disorder, unspecified; G47.00 Insomnia, unspecified; D64.9 Anemia, unspecified; Z87.19 Personal history of other diseases of the digestive system; Z89.411 Acquired absence of right great toe; M86.9 Osteomyelitis, unspecified; G60.0 Hereditary motor and sensory neuropathy; Z88.2 Allergy status to sulfonamides; Z88.5 Allergy status to narcotic agent
CPT/HCPCS: 99281-25

== ENCOUNTER → 2019-07-14 | Day surgery (SDC) | payer OTHER | END | disposition home or self-care (01) | LOC: JRADIR 11:01 | PROVIDERS: ATTEND Internal Medicine | PROC: 02PY03Z Removal of Infusion Device from Great Vessel, Open Approach (ICD-10-PCS; principal; 2019-07-14) | DX: Z45.2 Encounter for adjustment and management of vascular access device (principal) | CPT/HCPCS: 36589 ==

== ENCOUNTER 2019-07-30 15:25 | Inpatient (IN) | payer OTHER ==
--- NOTE | 2019-07-30 15:44 | PDOC ---
Rapid Medical Evaluation Time Seen by Provider: 07/30/19 15:41 Medical Evaluation: Allergies Allergy/AdvReac Type Severity Reaction Status Date / Time oxycodone Allergy Intermediate Rash Verified 06/09/19 11:11 vancomycin Allergy skin Verified 06/09/19 11:11 reaction 07/30/19 15:43 I have performed a brief in-person evaluation of this patient. The patient presents with a chief complaint of: poss osteo of rt 3rd toe, + injury 1 week ago, sent by podiatry for admission and w/u, Pertinent physical exam findings: pt refusing to remove boot/bandage, vss I have ordered the following: none The patient will proceed to the ED for further evaluation. Discharge Disposition - Diagnosis Cellulitis of foot, Oakasdf-Zzmdf-Hwxdg disease, Neuropathy - Discharge Dispostion Condition at time of disposition: Stable - Referrals - Patient Instructions - Post Discharge Activity
--- NOTE | 2019-07-30 16:07 | PDOC ---
History of Present Illness - General Chief Complaint: Pain Stated Complaint: ADMIT FOR POSSIBLE OSTEOMYELITIS Time Seen by Provider: 07/30/19 15:41 - History of Present Illness Initial Comments: The pt is a 28F w/ a history of bipolar disorder, PTSD, GERD, fibromyalgia, scoliosis, Qpiboqn-Wfnyh-Guhyg syndrome, erosive arthritis, osteomyelitis, s/p R hallux amputation who presents for evaluation of worsening swelling and redness of her R third toe for 1 week. The pt was seen at her Materials Mgmt Tech's office today (Dr. Deutsch) and sent for MRI and IV abx. Pt denies fevers/chills, increasing pain, drainage from the foot, myalgias, N/V , red streaking of the skin. 07/30/19 16:08 Past History - Past Medical History Allergies/Adverse Reactions: Allergies Allergy/AdvReac Type Severity Reaction Status Date / Time oxycodone Allergy Intermediate Rash Verified 07/30/19 15:46 vancomycin Allergy skin Verified 07/30/19 15:46 reaction Home Medications: Ambulatory Orders Trazodone HCl 300 mg PO HS 06/15/17 Clonidine HCl [Clonidine HCl ER] 0.1 mg PO DAILY 10/30/17 Lamotrigine 25 mg PO DAILY 02/12/19 Quetiapine Fumarate [Seroquel -] 100 mg PO HS 05/23/19 Anemia: Yes Asthma: No Cancer: No Cardiac Disorders: No CVA: No COPD: No CHF: No Dementia: No Diabetes: No GI Disorders: Yes (Gastritis) Disorders: No HTN: No Hypercholesterolemia: No Liver Disease: No Psychiatric Problems: Yes (anxiety, bipolar, ptsd, imsomina,) Seizures: No Thyroid Disease: No - Surgical History Abdominal Surgery: Yes Appendectomy: Yes Cholecystectomy: No Orthopedic Surgery: Yes (amp rt great toe,bilat.feet bones removed for osteomyelitis) - Immunization History Immunization Up to Date: Yes (FLU ) - Psycho Social/Smoking Cessation Hx Smoking Status: No Smoking History: Never smoked Have you smoked in the past 12 months: No Number of Cigarettes Smoked Daily: 1 If you are a former smoker, when did you quit?: 8 years ago Information on smoking cessation initiated: No 'Breaking Loose' booklet given: 05/16/12 Hx Alcohol Use: No Drug/Substance Use Hx: No Substance Use Type: Marijuana Hx Substance Use Treatment: No Review of Systems - Review of Systems Able to Perform ROS?: Yes Comments:: GENERAL/CONSTITUTIONAL: No fever or chills. No weakness HEAD, EYES, EARS, NOSE AND THROAT: No change in vision. No change in hearing. No sore throat CARDIOVASCULAR: No chest pain or shortness of breath RESPIRATORY: Denies cough, hemoptysis GASTROINTESTINAL: No nausea, vomiting, diarrhea or constipation GENITOURINARY: No dysuria, frequency, or change in urination MUSCULOSKELETAL: No joint or muscle swelling or pain. No neck or back pain SKIN: R third toe increasing redness NEUROLOGIC: No headache, vertigo, loss of consciousness, +chronic peripheral neuropathy ENDOCRINE: No increased thirst. No abnormal weight change HEMATOLOGIC/LYMPHATIC: No anemia, easy bleeding, or history of blood clots ALLERGIC/IMMUNOLOGIC: No hives or skin allergy 07/30/19 16:06 Is the patient limited Vietnamese proficient: No *Physical Exam - Vital Signs Last Vital Signs Temp Pulse Resp BP Pulse Ox 97.9 F 89 18 106/66 98 07/30/19 15:44 07/30/19 15:44 07/30/19 15:44 07/30/19 15:44 07/30/19 15:44 - Physical Exam Comments: GENERAL: Awake, alert, and oriented to person/place/time, in no acute distress HEAD: No signs of trauma, normocephalic, atraumatic EYES: PERRLA, EOMI, sclera anicteric, conjunctiva clear ENT: Hearing grossly normal, nares patent, oropharynx clear without exudates. Moist mucosa LUNGS: No distress, speaks in full sentences, clear to auscultation bilaterally HEART: Regular rate and rhythm, normal S1 and S2, no murmurs appreciated, peripheral pulses normal and equal bilaterally ABDOMEN: Soft, nontender, normoactive bowel sounds. No guarding, no rebound EXTREMITIES: moves all extremities independently; s/p R hallux amputation NEUROLOGICAL: Cranial nerves II through XII grossly intact. Normal speech, normal gait, decreased sensation to light touch to BUE/BLE (reported chronic), decreased to distal 1/3 of BLE and wrist of BUE SKIN: RLE third phalanx erythema, swelling, mild warmth, no drainage 07/30/19 16:07 ED Treatment Course - LABORATORY CBC & Chemistry Diagram: 07/30/19 16:45 07/30/19 16:45 Medical Decision Making - Medical Decision Making The pt is a 28F w/ a history of bipolar disorder, PTSD, GERD, fibromyalgia, scoliosis, Pjjdccb-Rdgca-Bjjvg syndrome, erosive arthritis, osteomyelitis, s/p R hallux amputation who presents for evaluation of worsening swelling and redness of her R third toe. ED Course CMP, CBC, Blood cultures ECG R foot XR Plan for admission for MRI and IV abx Pt w/ allergy to Vancomycin, will give Clinda 600mg IV once 07/30/19 16:22 ECG w/ NSR; HR 72; QTc 407; no axis deviation; no GILBERT; similar to previous 07/30/19 16:57 No leukocytosis No anemia Lytes wnl No PAUL LFTs wnl 07/30/19 17:48 Pt signed out to [facility] Admitting XR read by myself, s/p multiple surgical changes including s/p R hallux amputation, bony distruction of multiple phalanges noted, no SQ at 3rd digit noted 07/30/19 19:45 Discharge - Discharge Information Problems reviewed: Yes Clinical Impression/Diagnosis: Cellulitis of foot, Heouesy-Hjehy-Pgmlg disease, Neuropathy Condition: Stable - Admission Yes - Follow up/Referral - Patient Discharge Instructions - Post Discharge Activity
[2019-07-30] MEDS ORDERED: CLINDAMYCIN 600MG PREMIX IVPB 600 MG/50 ML BAG IVPB ONE ×2 (16:28→16:50)
--- NOTE | 2019-07-30 16:57 | PDOC ---
Documentation entered by Joel Wagner SCRIBE, acting as scribe for Piter Morton MD. Piter Morton MD: This documentation has been prepared by the Kristy bartholomew Nirvannie, SCRIBE, under my direction and personally reviewed by me in its entirety. I confirm that the documentation accurately reflects all work, treatment, procedures, and medical decision making performed by me. Attending Attestation - Resident Resident Name: Corey Knox - ED Attending Attestation I have performed the following: I have examined & evaluated the patient, The case was reviewed & discussed with the resident, I agree w/resident's findings & plan, Exceptions are as noted - HPI HPI: 07/30/19 16:38 The patient is a 28 year old female, with a significant past medical history of bipolar disorder, PTSD, GERD, fibromyalgia, scoliosis, Loghhan-Odrxg-Sljry syndrome, erosive arthritis, osteomyelitis, who presents to the emergency department with 2 weeks of progressively worsening erythema and swelling to the right third toe. As per patient, she was at Dr. Deutsch, her podiatrists office today at which time she was advised to report to the ED for IV antibiotics and MRI. She denies recent fevers, chills, or foul-smelling purulent discharge. She denies recent nausea, vomiting, diarrhea or constipation. She denies recent dysuria, frequency, urgency or hematuria. She denies recent chest pain or shortness of breath. Allergies: Oxycodone, Vancomycin. Primary Care Physician: Dr. Noe - Physicial Exam PE: 07/30/19 16:38 Agree with resident exam - Medical Decision Making 07/30/19 17:00 28 F with toe infection, sent in for r/o osteomyelitis. - Labs - MRI - IV abx
[2019-07-30 17:16] LABS: BASO % 0.5 % (0-2.0); HEMATOCRIT 36.8 % (32.4-45.2); HEMOGLOBIN 12.2 GM/dL (10.7-15.3); LYMPH % 19.2 % (8-40); MCH 31.2 pg (25.7-33.7); MCHC 33.3 g/dl (32.0-36.0); MEAN CELL VOLUME 93.8 fl (80-96); MEAN PLT VOLUME 10.5 fl (7.5-11.1); MONO % 6.7 % (3.8-10.2); NEUT % 68.6 % (42.8-82.8); PLATELET COUNT 245 K/MM3 (134-434); RBC 3.92 M/mm3 (3.60-5.2); RDW 11.8 % (11.6-15.6)
[2019-07-30 17:43] LABS: ALBUMIN 3.6 g/dl (3.4-5.0); BILIRUBIN,TOTAL 0.5 mg/dL (0.2-1); BLOOD UREA NITROGEN 9.3 mg/dL (7-18); CALCIUM 8.9 mg/dL (8.5-10.1); CREATININE 0.5 mg/dL (0.55-1.3); POTASSIUM 4.6 mmol/L (3.5-5.1); TOT PROT 7.4 g/dl (6.4-8.2)
--- NOTE | 2019-07-30 18:37 | PN ---
Teaching Attending Note Name of Resident: Yue Leigh ATTENDING PHYSICIAN STATEMENT I saw and evaluated the patient. I reviewed the resident's note and discussed the case with the resident. I agree with the resident's findings and plan as documented with exceptions below. SUBJECTIVE: 28 yof with PMhx of scoliosis, fibromylagia, charcot carmelita tooth syndrome, hx of osteomyelitis, bipolar disorder, PTSD, neuropathy, GERD, big toe amputation, left middle finger infected ulcer/osteomyelitis in 01/2019 s/p 6 weeks of Ceftriaxone, being followed by Dr. Uribe in the wound care clinic for her left middle finger wound, had trauma to her right 3rd toe about a week ago. was seen by Dr. Deutsch and given 1 week of augmentin, was seen again today but given worsening toe redness/swelling/some pain, was sent to the ED. patient denies fevers, chills, discharge or foul smell. Had decreased sensations in bilateral hands and feet. reports allergy to vancomycin, states local reaction with redness/swelling/ itching with facial redness, that is usually better if pre-medicated with benadryl. OBJECTIVE: Vital Signs Period Temp Pulse Resp BP Sys/Ibarra Pulse Ox Last 24 Hr 97.7 F-98.1 F 67-89 15-20 98-110/66-68 98-100 Intake & Output 07/27/19 07/28/19 07/29/19 07/30/19 23:59 23:59 23:59 23:59 Weight 95 lb GENERAL: Awake, alert, and fully oriented, in no acute distress,cachectic female. HEAD: Normal with no signs of trauma. EYES: Pupils equal, round and reactive to light, extraocular movements intact, sclera anicteric, conjunctiva clear. No lid lag. EARS, NOSE, THROAT: Ears normal, nares patent, oropharynx clear without exudates. Moist mucous membranes. NECK: Normal range of motion, supple, no JVD noted LUNGS: Breath sounds equal, clear to auscultation bilaterally. No wheezes, and no crackles. No accessory muscle use. HEART: Regular rate and rhythm, normal S1 and S2 ABDOMEN: Soft, nontender, not distended, normoactive bowel sounds, no guarding, no rebound, no masses. MUSCULOSKELETAL: marked deformities of bilateral hand and feet joints, scoliosis UPPER EXTREMITIES: bilateral hand deformities, 1 cm ulcer with granulation tissue on right lateral base of thumb, left middle finger wound with granulation /fibrinous tissue at the base, no surrounding swelling or erythema noted LOWER EXTREMITIES: right hallux amputation, right 3rd phalanx with redness/ erythema/some warmth and fluctuation, no active discharge. scab on left lateral distal foot at base on 5th toe and base or left great toe, pos DP pulses NEUROLOGICAL: AAOx3, Cranial nerves II-XII intact. Normal speech. decrease sensation digits and bilateral feet distal to the ankle, power 5/5 PSYCHIATRIC: Cooperative. Good eye contact. Appropriate mood and affect. SKIN: Warm, dry, normal turgor, no rashes or lesions noted, normal capillary refill. Home Medications Medication Instructions Recorded Trazodone HCl 300 mg PO HS 06/15/17 Clonidine HCl [Clonidine HCl ER] 0.1 mg PO DAILY 10/30/17 Lamotrigine 25 mg PO DAILY 02/12/19 Quetiapine Fumarate [Seroquel -] 100 mg PO HS 05/23/19 Laboratory Results - last 24 hr 07/30/19 07/30/19 16:45 16:45 WBC 9.0 RBC 3.92 Hgb 12.2 Hct 36.8 MCV 93.8 MCH 31.2 MCHC 33.3 RDW 11.8 Plt Count 245 D MPV 10.5 Absolute Neuts (auto) 6.2 Neutrophils % 68.6 Lymphocytes % 19.2 Monocytes % 6.7 Eosinophils % 5.0 H Basophils % 0.5 Nucleated RBC % 0 Sodium 140 Potassium 4.6 Chloride 107 Carbon Dioxide 27 Anion Gap 6 L BUN 9.3 Creatinine 0.5 L Est GFR (CKD-EPI)AfAm 150.52 Est GFR (CKD-EPI)NonAf 129.87 Random Glucose 81 Calcium 8.9 Total Bilirubin 0.5 AST 25 ALT 18 Alkaline Phosphatase 77 Total Protein 7.4 Albumin 3.6 Foot xray results pending EKG NSR, Incomplete RBBB ASSESSMENT AND PLAN: 28 yof with h/o scoliosis, fibromylagia, charcot carmelita tooth syndrome, hx of osteomyelitis, bipolar disorder, PTSD, neuropathy, GERD, big toe amputation, left middle finger infected ulcer/osteomyelitis in 01/2019 s/p 6 weeks of Ceftriaxone, being followed by Dr. Uribe in the wound care clinic for her left middle finger wound, admitted with right third toe cellulitis +/- abscess/ osteomyelitis after trauma -Right third toe cellulitis, suspeceted abscess_+/- osteomyelitis -Failure of outpatient antibiotic tx (augmentin) -Charcot Carmelita tooth syndrome -h/o left middle finger infected ulcer/osteomyelitis in 01/2019 s/p 6 weeks of Ceftriaxone, being followed by Dr. Uribe in the wound care clinic -Right hallux amputation -Fibromyalgia -Scoliosis -Cannabis use -Bipolar disorder -PTSD -Neuropathy -GERD Plan: Blood cx, Ceftriaxone/clindamycin. MRI right foot.May need I&D. Podiatry/ID consult. ESR/CRP Continue home seroquel/trazodone/lamotrigine/Clonidine PPI DVTPPX lovenox Dispo pending clinical course, may need senior living IV abx based on above work up. Plan discussed with patient in detail, all questions answered. Total admit time 65 min.
--- NOTE | 2019-07-30 18:45 | HP ---
CHIEF COMPLAINT: R foot 3rd digit pain/swelling PCP: Dr. Noe HISTORY OF PRESENT ILLNESS: 28F w/ pmhx of bipolar disorder, GERD, fibromyalgia, idiopathic scoliosis, Circjhm-Uzkgn-Lbmmp, erosive arthritis, OM (3rd digit of L hand) presents in the ED for complaints of worsening pain, swelling, redness of her 3rd toe on the R foot. States last week her boyfriend accidentally stepped on her foot, she started having pain, had an xray done as an outpatient and found to have a broken 3rd toe. She was seen by her diorama model maker last week, Dr. Deutsch and started on 10 day abx therapy of Amoxicillin for her toe, however with no symptomatic improvement. Today she presented in the ED after being sent by her podiatry for IV abx and MRI to r/o osteomyelitis. Denies f/c, n/v, chest pain, sob, abd pain, urinary/bowel symptoms. Of note she recently underwent 6 weeks of IV Ceftriaxone (finished 07/09) for OM of the 3rd digit of her L hand. ER course was notable for: (1) VS stable, BCx pending (2) IV Clindamycin given (3) Recent Travel: Denies PAST MEDICAL HISTORY: As per HPI PAST SURGICAL HISTORY: R hallux amputation appendectomy R ankle tendon L foot surgery multiple wound debridements of both hands Social History: Smoking: Denies Alcohol: Denies Drugs: Smokes MJ daily Allergies oxycodone Allergy (Intermediate, Verified 07/30/19 15:46) Rash vancomycin Allergy (Verified 07/30/19 15:46) skin reaction HOME MEDICATIONS: Home Medications Medication Instructions Recorded Trazodone HCl 300 mg PO HS 06/15/17 Clonidine HCl [Clonidine HCl ER] 0.1 mg PO DAILY 10/30/17 Lamotrigine 25 mg PO DAILY 02/12/19 Quetiapine Fumarate [Seroquel -] 100 mg PO HS 05/23/19 REVIEW OF SYSTEMS CONSTITUTIONAL: Absent: fever, chills, diaphoresis, generalized weakness, malaise, loss of appetite, weight change HEENT: Absent: rhinorrhea, nasal congestion, throat pain, throat swelling, difficulty swallowing, mouth swelling, ear pain, eye pain, visual changes CARDIOVASCULAR: Absent: chest pain, syncope, palpitations, irregular heart rate, lightheadedness , peripheral edema RESPIRATORY: Absent: cough, shortness of breath, dyspnea with exertion, orthopnea, wheezing, stridor, hemoptysis GASTROINTESTINAL: Absent: abdominal pain, abdominal distension, nausea, vomiting, diarrhea, constipation, melena, hematochezia GENITOURINARY: Absent: dysuria, frequency, urgency, hesitancy, hematuria, flank pain, genital pain MUSCULOSKELETAL: R 3rd toe pain/swelling/redness Absent: myalgia, arthralgia, joint swelling, back pain, neck pain SKIN: Absent: rash, itching, pallor HEMATOLOGIC/IMMUNOLOGIC: Absent: easy bleeding, easy bruising, lymphadenopathy, frequent infections ENDOCRINE: Absent: unexplained weight gain, unexplained weight loss, heat intolerance, cold intolerance NEUROLOGIC: pain on R foot during ambulation Absent: headache, focal weakness or paresthesias, dizziness, unsteady gait, seizure, mental status changes, bladder or bowel incontinence PSYCHIATRIC: Absent: anxiety, depression, suicidal or homicidal ideation, hallucinations. PHYSICAL EXAMINATION Vital Signs - 24 hr 07/30/19 07/30/19 07/30/19 15:44 16:17 18:33 Temperature 97.9 F 98.1 F 97.7 F Pulse Rate 89 Pulse Rate [ 67 80 Right Radial] Respiratory 18 15 20 Rate Blood Pressure 106/66 Blood Pressure 98/67 110/68 [Right Arm] O2 Sat by Pulse 98 100 100 Oximetry (%) GENERAL: Pleasant, well-appearing young female. Awake, alert, and fully oriented , in no acute distress. HEENT: AT/NC. EOMI. MMM. NECK: Normal range of motion, supple without lymphadenopathy, JVD, or masses. LUNGS: Breath sounds equal, clear to auscultation bilaterally. No wheezes, and no crackles. No accessory muscle use. HEART: Regular rate and rhythm, normal S1 and S2 without murmur, rub or gallop. ABDOMEN: Soft, nontender, not distended, normoactive bowel sounds, no guarding, no rebound, no masses. No hepatomegaly or splenomegaly. MUSCULOSKELETAL: Normal range of motion at all joints. No bony deformities or tenderness. No CVA tenderness. UPPER EXTREMITIES: 2+ pulses, warm, well-perfused. No cyanosis. No clubbing. No peripheral edema. B/l hand deformities. Decreased sensation in both UE. LOWER EXTREMITIES: 2+ pulses, warm, well-perfused. No calf tenderness. No peripheral edema. R hallux amputated. R third toe swollen, erythematous and red , no visible open wound ulcer seen. Able to move toes. Visible deformities on toes bilaterally. NEUROLOGICAL: Cranial nerves II-XII intact. Normal speech. PSYCHIATRIC: Cooperative. Good eye contact. Appropriate mood and affect. SKIN: Warm, dry, normal turgor, no rashes or lesions noted, normal capillary refill. Laboratory Results - last 24 hr 07/30/19 07/30/19 16:45 16:45 WBC 9.0 RBC 3.92 Hgb 12.2 Hct 36.8 MCV 93.8 MCH 31.2 MCHC 33.3 RDW 11.8 Plt Count 245 D MPV 10.5 Absolute Neuts (auto) 6.2 Neutrophils % 68.6 Lymphocytes % 19.2 Monocytes % 6.7 Eosinophils % 5.0 H Basophils % 0.5 Nucleated RBC % 0 Sodium 140 Potassium 4.6 Chloride 107 Carbon Dioxide 27 Anion Gap 6 L BUN 9.3 Creatinine 0.5 L Est GFR (CKD-EPI)AfAm 150.52 Est GFR (CKD-EPI)NonAf 129.87 Random Glucose 81 Calcium 8.9 Total Bilirubin 0.5 AST 25 ALT 18 Alkaline Phosphatase 77 Total Protein 7.4 Albumin 3.6 ASSESSMENT/PLAN: 28F w/ pmhx of bipolar disorder, GERD, fibromyalgia, idiopathic scoliosis, Idkcfft-Eicxw-Hvmsu, erosive arthritis, OM (3rd digit of L hand) presents in the ED for complaints of worsening pain, swelling, redness of her 3rd toe on the R foot. #R third toe cellulitis; r/o osteomyelitis -Pt has a significant hx of osteomyelitis -IV Clindamycin given; Will cont with IV Ceftriaxone/Clindamycin -MRI ordered -BCx pending -ESR/CRP -ID/Podiatry consulted #Bipolar Disorder; Cont home meds: Lamotrigine, Seroquel, Clonidine #Insomnia; Cont home med: Trazodone #GERD; Protonix #Prophylaxis DVT: Lovenox Dispo -admit to med-surg Visit type - Emergency Visit Emergency Visit: Yes ED Registration Date: 07/30/19 Care time: The patient presented to the Emergency Department on the above date and was hospitalized for further evaluation of their emergent condition. - New Patient This patient is new to me today: No - Critical Care Critical Care patient: No ATTENDING PHYSICIAN STATEMENT I saw and evaluated the patient. I reviewed the resident's note and discussed the case with the resident. I agree with the resident's findings and plan as documented. SUBJECTIVE: OBJECTIVE: ASSESSMENT AND PLAN:
[2019-07-30] MEDS ORDERED: PATIENT'S OWN MEDICATION (NON-FORMULARY) (Clonidine Hcl [Clonidine Hcl Er] 0.1 MG) PO SCH (20:00)
[2019-07-30] MEDS ORDERED: QUEtiapine FUMARATE 100 MG TABLET (FP) PO SCH (20:00)
[2019-07-30] MEDS ORDERED: traZODone HCL 100 MG TABLET (FP) PO SCH (20:00)
[2019-07-30] MEDS ORDERED: PNEUMOC 13-VAL CONJ-DIP CRM/PF 0.5 ML DISP.SYRIN IM ONE (20:49)
[2019-07-30] MEDS ORDERED: FLU VACCINE QUAD 60 MCG/0.5 ML (MDV 19-20) IM ONE (20:49)
[2019-07-30] MEDS ORDERED: DEXTROSE 5%-WATER 100 ML IVPB ONE (21:08)
[2019-07-30] MEDS: CEFTRIAXONE 2 GM in DEXTROSE 5%-WATER 100 ML IVPB SCH (21:32)
[2019-07-30] MEDS: traZODone HCL 100 MG TABLET (FP) PO SCH (21:36)
[2019-07-30] MEDS: ENOXAPARIN NA (PORCINE) 40 MG/0.4 ML DISP.SYRIN SQ SCH (21:41)
[2019-07-30] MEDS: QUEtiapine FUMARATE 100 MG TABLET (FP) PO SCH (21:45)
[2019-07-30] MEDS: lamoTRIgine 25 MG TABLET PO SCH (21:45)
[2019-07-31] MEDS: CLINDAMYCIN 600MG PREMIX IVPB 600 MG/50 ML BAG IVPB SCH ×3 (01:20→18:38)
[2019-07-31] MEDS ORDERED: CLINDAMYCIN 600MG PREMIX IVPB 600 MG/50 ML BAG IVPB SCH (02:00)
[2019-07-31] MEDS ORDERED: SODIUM CHLORIDE 1,000 ML IV STA ×3 (07:02→09:33)
[2019-07-31 09:18] LABS: BASO % 0.8 % (0-2.0); EOS % 5.1 % (0-4.5); HEMATOCRIT 34.9 % (32.4-45.2); HEMOGLOBIN 11.7 GM/dL (10.7-15.3); LYMPH % 14.7 % (8-40); MCH 31.9 pg (25.7-33.7); MCHC 33.5 g/dl (32.0-36.0); MEAN CELL VOLUME 95.1 fl (80-96); MEAN PLT VOLUME 9.9 fl (7.5-11.1); MONO % 7.4 % (3.8-10.2); PLATELET COUNT 194 K/MM3 (134-434); RBC 3.67 M/mm3 (3.60-5.2); RDW 12.1 % (11.6-15.6); WHITE BLOOD COUNT 7.5 K/mm3 (4.0-10.0)
[2019-07-31] MEDS ORDERED: PT OWN MED DRAWER 7, Y5N ONE (09:19)
[2019-07-31] MEDS: ENOXAPARIN NA (PORCINE) 40 MG/0.4 ML DISP.SYRIN SQ SCH (09:30)
[2019-07-31 10:08] LABS: ALBUMIN 3.2 g/dl (3.4-5.0); BILIRUBIN,TOTAL 0.3 mg/dL (0.2-1); BLOOD UREA NITROGEN 12.8 mg/dL (7-18); CALCIUM 8.6 mg/dL (8.5-10.1); CREATININE 0.6 mg/dL (0.55-1.3); POTASSIUM 3.7 mmol/L (3.5-5.1); TOT PROT 6.4 g/dl (6.4-8.2)
[2019-07-31] MEDS ORDERED: DEXTROSE 5%-WATER 100 ML IVPB ONE (10:56)
[2019-07-31] MEDS: CEFTRIAXONE 2 GM in DEXTROSE 5%-WATER 100 ML IVPB SCH (10:57)
--- NOTE | 2019-07-31 11:11 | PN ---
Physical Exam: SUBJECTIVE: Patient seen and examined. No acute events overnight. Pt endorses chills and has not eaten much, state she is anorexic. OBJECTIVE: Vital Signs Period Temp Pulse Resp BP Sys/Ibarra Pulse Ox Last 24 Hr 97.4 F-98.1 F 67-89 15-20 83-110/41-68 98-100 GENERAL: The patient is lethargic but arousable. Oriented x3. NAD. Cachectic appearing. HEAD: Normal with no signs of trauma. EYES: PERRL, extraocular movements intact, sclera anicteric, conjunctiva clear. No ptosis. LUNGS: Breath sounds equal, clear to auscultation bilaterally, no wheezes, no crackles, no accessory muscle use. HEART: Regular rate and rhythm, S1, S2 without murmur, rub or gallop. ABDOMEN: Soft, nontender, nondistended, normoactive bowel sounds, no guarding, no rebound, no hepatosplenomegaly, no masses. MUSCULOSKELETAL: Scoliosis, marked deformities of hand and leg joints BL. UPPER EXTREMITIES: BL hand deformities. 2cm open wound on w/fibrinous tissue on L middle finger, no purulent discharge. 1-2cm ulcer w/granulation tissue on R thumb base, no surrounding erythema or discharge. EXTREMITIES: R first toe amputation. R 3rd toe with marked fluctuant swelling, erythema, and warmth. No open wounds or discharge. 2+ pulses, no extremity edema. NEUROLOGICAL: Gait not observed. Decreased sensation in BL feet. Laboratory Results - last 24 hr CBC, BMP 07/31/19 07:20 07/31/19 07:20 Active Medications Enoxaparin Sodium (Lovenox -) 40 mg SQ DAILY [facility] Last Admin: 07/31/19 09:30 Dose: 40 mg Ceftriaxone Sodium 2 gm/ (Dextrose) 100 mls @ 200 mls/hr IVPB DAILY [facility]; Protocol Last Admin: 07/30/19 21:32 Dose: 200 mls/hr Clindamycin Phosphate (Cleocin 600 Mg Premix Ivpb -) 600 mg in 50 mls @ 100 mls /hr IVPB Q8H-IV [facility]; Protocol Last Admin: 07/31/19 09:30 Dose: 100 mls/hr Lamotrigine (Lamictal -) 25 mg PO DAILY [facility] Last Admin: 07/30/19 21:45 Dose: 25 mg Non-Formulary Medication (Clonidine Hcl [Clonidine Hcl Er]) 0.1 mg PO HS [facility] Pantoprazole Sodium (Protonix -) 40 mg PO DAILY [facility] Quetiapine Fumarate (Seroquel -) 100 mg PO DAILY@1999 [facility] Last Admin: 07/30/19 21:45 Dose: 100 mg Trazodone HCl (Desyrel -) 300 mg PO HS [facility] Last Admin: 07/30/19 21:36 Dose: 300 mg ASSESSMENT/PLAN: Ms. Rai is a 28 year old female with PMH of bipolar disorder, GERD, fibromyalgia, idiopathic scoliosis, Jyitdwj-Zovwu-Kpgaz, erosive arthritis, osteomyelitis (3rd digit of L hand) presents with worsening pain, swelling, and redness of her R 3rd toe s/p injury. #R 3rd toe cellulitis, complicated by osteomyelitis R foot XR: swelling w/soft tissue and possible osteomyelitis MRI: pending, to assess extent of infection. Cont IV 600mg clindamycin and 2gm ceftriaxone ESR: 6, CRP: 0.6 Podiatry consulted ([facility]): senior living IV abx vs amputation. Likely plan for surgery next week. Can leave dry, open to air w/o dressing ID consulted (Dr. Rios) PT eval daily Blood cx: pending #Bipolar disorder Cont home meds: lamotrigine 25mg, seroquel 100mg, clonidine 0.1mg HS #Insomnia Cont home meds: trazadone 300mg po HS #GERD Cont protonix 40mg daily #DVT ppx Lovenox sq #FEN 1/2-NS @ 75ml/hr Regular diet #Dispo Monitor on med-surg Visit type - Emergency Visit Emergency Visit: No - New Patient This patient is new to me today: Yes Date on this admission: 07/31/19 - Critical Care Critical Care patient: No ATTENDING PHYSICIAN STATEMENT I saw and evaluated the patient. I reviewed the resident's note and discussed the case with the resident. I agree with the resident's findings and plan as documented. SUBJECTIVE: OBJECTIVE: ASSESSMENT AND PLAN:
[2019-07-31] MEDS: lamoTRIgine 25 MG TABLET PO SCH (11:34)
[2019-07-31] MEDS: PANTOPRAZOLE 40 MG TABLET (FP) PO SCH (11:34)
--- NOTE | 2019-07-31 12:39 | EKG ---
Test Reason : Blood Pressure : / mmHG Vent. Rate : 072 BPM Atrial Rate : 072 BPM P-R Int : 144 ms QRS Dur : 092 ms QT Int : 380 ms P-R-T Axes : 057 073 063 degrees QTc Int : 416 ms NORMAL SINUS RHYTHM NORMAL ECG WHEN COMPARED WITH ECG OF 22-MAY-2019 20:14, NO SIGNIFICANT CHANGE WAS FOUND Confirmed by BROOKE AMADO MD ([id number]) on 07/31/2019 12:39:08 PM Referred By: Confirmed By:BROOKE AMADO MD
--- NOTE | 2019-07-31 13:34 | CONSULT ---
Consult - text type - Consultation Consultation Note: 28 yof with PMhx of scoliosis, fibromylagia, charcot betty tooth syndrome, hx of osteomyelitis, bipolar disorder, PTSD, neuropathy, GERD, and a history of amputations sent by myself tot he ER for workup of osteo of the right third digit. Had trauma tot he foot roughly 1 week ago and was seen in my office. Small fracture was noted but digit was grossly swolen and erythematous. Given history of osteo was started on abx. The end of the digit continued to break down and antibiotic treatment failed and was sent to ER. Denies any acute complaints. O: Right foot third digit grossly edematous, erythema decreased from office, minimal serous drainage, wound at tip fo the digit probes directly to the distal phalanx, no pain on palpation noted, amputations noted, no streaking noted up foot , no malodor Xray: ?Gas but more likely from opening of the wound at distal tip o the digit, compared to office xrays last week gross destruction of the distal and middle phalanx of the digit a: Osteo P: Evaluated and reviewed Awaiting MRI to see extend of the infection Discussed need for either termite control representative Iv abx or amputation of the digit; she will consider both pending MRI so will likely plan for surgery early next week if needed Will follow up Can leave open to air for now w/o dressing to keep dry.
[2019-07-31] MEDS ORDERED: SODIUM CHLORIDE 0.45% 1,000 ML IV SCH (14:30)
[2019-07-31] MEDS ORDERED: SODIUM CHLORIDE 0.9% 500 ML INFUS.BAG IV ONE (16:17)
--- NOTE | 2019-07-31 16:38 | PN ---
Teaching Attending Note Name of Resident: Kate Chavez ATTENDING PHYSICIAN STATEMENT I saw and evaluated the patient. I reviewed the resident's note and discussed the case with the resident. I agree with the resident's findings and plan as documented with exceptions below. SUBJECTIVE: patient seen and examined. unchanged right foot findings, sleeping till noon ( states its normal for her with her home medications) OBJECTIVE: Vital Signs Period Temp Pulse Resp BP Sys/Ibarra Pulse Ox Last 24 Hr 97.4 F-98.3 F 69-80 20-20 82-110/41-68 98-100 Intake & Output 07/28/19 07/29/19 07/30/19 07/31/19 23:59 23:59 23:59 23:59 Intake Total 150 Balance 150 Weight 103 lb 102 lb 3.2 oz General; sleeping but arousable, no acute distress Neck: soft, supple Chest: CTAB, no rales or wheezing Abdomen:Soft, NT Extremities: right third toe findings unchanged, pos warmth/swelling/erythema, no tenderness noted on exam Home Medications Medication Instructions Recorded Trazodone HCl 300 mg PO HS 06/15/17 Clonidine HCl [Clonidine HCl ER] 0.1 mg PO DAILY 10/30/17 Lamotrigine 25 mg PO DAILY 02/12/19 Quetiapine Fumarate [Seroquel -] 100 mg PO HS 05/23/19 Active Medications Enoxaparin Sodium (Lovenox -) 40 mg SQ DAILY [facility] Last Admin: 07/31/19 09:30 Dose: 40 mg Ceftriaxone Sodium 2 gm/ (Dextrose) 100 mls @ 200 mls/hr IVPB DAILY [facility]; Protocol Last Admin: 07/31/19 10:57 Dose: 200 mls/hr Clindamycin Phosphate (Cleocin 600 Mg Premix Ivpb -) 600 mg in 50 mls @ 100 mls /hr IVPB Q8H-IV [facility]; Protocol Last Admin: 07/31/19 09:30 Dose: 100 mls/hr Sodium Chloride (Normal Saline -) 1,000 mls @ 125 mls/hr IV ASDIR [facility] Lamotrigine (Lamictal -) 25 mg PO DAILY [facility] Last Admin: 07/31/19 11:34 Dose: 25 mg Non-Formulary Medication (Clonidine Hcl [Clonidine Hcl Er]) 0.1 mg PO HS [facility] Pantoprazole Sodium (Protonix -) 40 mg PO DAILY [facility] Last Admin: 07/31/19 11:34 Dose: 40 mg Quetiapine Fumarate (Seroquel -) 100 mg PO DAILY@1999 [facility] Last Admin: 07/30/19 21:45 Dose: 100 mg Sodium Chloride (Normal Saline -) 1,000 ml IV ONCE ONE Stop: 07/31/19 16:18 Trazodone HCl (Desyrel -) 300 mg PO [facility] Last Admin: 07/30/19 21:36 Dose: 300 mg Laboratory Results - last 24 hr 07/30/19 07/30/19 07/31/19 16:45 16:45 07:20 WBC 9.0 7.5 RBC 3.92 3.67 Hgb 12.2 11.7 Hct 36.8 34.9 MCV 93.8 95.1 MCH 31.2 31.9 MCHC 33.3 33.5 RDW 11.8 12.1 Plt Count 245 D 194 D MPV 10.5 9.9 Absolute Neuts (auto) 6.2 5.4 Neutrophils % 68.6 72.0 Lymphocytes % 19.2 14.7 D Monocytes % 6.7 7.4 Eosinophils % 5.0 H 5.1 H Basophils % 0.5 0.8 Nucleated RBC % 0 0 ESR Sodium 140 Potassium 4.6 Chloride 107 Carbon Dioxide 27 Anion Gap 6 L BUN 9.3 Creatinine 0.5 L Est GFR (CKD-EPI)AfAm 150.52 Est GFR (CKD-EPI)NonAf 129.87 Random Glucose 81 Calcium 8.9 Total Bilirubin 0.5 AST 25 ALT 18 Alkaline Phosphatase 77 C-Reactive Protein Total Protein 7.4 Albumin 3.6 07/31/19 07/31/19 07:20 07:20 WBC RBC Hgb Hct MCV MCH MCHC RDW Plt Count MPV Absolute Neuts (auto) Neutrophils % Lymphocytes % Monocytes % Eosinophils % Basophils % Nucleated RBC % ESR 6 Sodium 141 Potassium 3.7 Chloride 110 H Carbon Dioxide 25 Anion Gap 6 L BUN 12.8 Creatinine 0.6 Est GFR (CKD-EPI)AfAm 141.76 Est GFR (CKD-EPI)NonAf 122.31 Random Glucose 87 Calcium 8.6 Total Bilirubin 0.3 AST 8 L ALT 14 Alkaline Phosphatase 66 C-Reactive Protein 0.6 H Total Protein 6.4 Albumin 3.2 L ASSESSMENT AND PLAN: 28 yof with h/o scoliosis, fibromylagia, charcot betty tooth syndrome, hx of osteomyelitis, bipolar disorder, PTSD, neuropathy, GERD, big toe amputation, left middle finger infected ulcer/osteomyelitis in 01/2019 s/p 6 weeks of Ceftriaxone, being followed by Dr. Uribe in the wound care clinic for her left middle finger wound, admitted with right third toe cellulitis +/- abscess/ osteomyelitis after trauma -Right third toe cellulitis, suspeceted abscess_+/- osteomyelitis -Failure of outpatient antibiotic tx (augmentin) -Charcot Betty tooth syndrome -h/o left middle finger infected ulcer/osteomyelitis in 01/2019 s/p 6 weeks of Ceftriaxone, being followed by Dr. Uribe in the wound care clinic -Right hallux amputation -Fibromyalgia -Scoliosis -Cannabis use -Bipolar disorder -PTSD -Neuropathy -GERD Plan: Blood cx, Ceftriaxone/clindamycin. Right foot xray noted, ?air, discussed with Dr. Jackson. Podiatry input noted. Keep wound open and monitor Follow up MRI right foot custodial IV abx vs amputation. ESR/CRP noted. Continue home seroquel/trazodone/lamotrigine/Clonidine PPI DVTPPX lovenox Dispo pending above. Plan discussed with patient in detail, all questions answered.
[2019-07-31] MEDS ORDERED: SODIUM CHLORIDE 1,000 ML IV SCH (16:45)
[2019-07-31] MEDS ORDERED: ACETAMINOPHEN 325 MG TABLET (FP) PO ONE (19:48)
[2019-07-31] MEDS: QUEtiapine FUMARATE 100 MG TABLET (FP) PO SCH (20:02)
[2019-07-31] MEDS: traZODone HCL 100 MG TABLET (FP) PO SCH (21:05)
[2019-08-01] MEDS: CLINDAMYCIN 600MG PREMIX IVPB 600 MG/50 ML BAG IVPB SCH ×2 (01:30→10:01)
[2019-08-01] MEDS ORDERED: ONDANSETRON 4 MG/2 ML VIAL IVPUSH ONE (02:22)
[2019-08-01 07:43] LABS: HEMATOCRIT 34.2 % (32.4-45.2); HEMOGLOBIN 11.3 GM/dL (10.7-15.3); MCH 31.7 pg (25.7-33.7); MCHC 32.9 g/dl (32.0-36.0); MEAN CELL VOLUME 96.5 fl (80-96); MEAN PLT VOLUME 9.9 fl (7.5-11.1); PLATELET COUNT 175 K/MM3 (134-434); RBC 3.55 M/mm3 (3.60-5.2); RDW 12.1 % (11.6-15.6); WHITE BLOOD COUNT 5.2 K/mm3 (4.0-10.0)
[2019-08-01] MEDS ORDERED: ACETAMINOPHEN 325 MG TABLET (FP) PO PRN (08:03)
[2019-08-01 08:17] LABS: BLOOD UREA NITROGEN 6.1 mg/dL (7-18); CALCIUM 8.1 mg/dL (8.5-10.1); CREATININE 0.4 mg/dL (0.55-1.3); POTASSIUM 3.9 mmol/L (3.5-5.1)
[2019-08-01] MEDS ORDERED: PT OWN MED DRAWER 7, Y5N ONE (09:57)
[2019-08-01] MEDS: ENOXAPARIN NA (PORCINE) 40 MG/0.4 ML DISP.SYRIN SQ SCH (10:01)
[2019-08-01] MEDS: PANTOPRAZOLE 40 MG TABLET (FP) PO SCH (10:01)
[2019-08-01] MEDS: lamoTRIgine 25 MG TABLET PO SCH (10:01)
[2019-08-01] MEDS: SODIUM CHLORIDE 0.45% 1,000 ML IV SCH (10:08)
--- NOTE | 2019-08-01 10:15 | PN ---
Physical Exam: SUBJECTIVE: Patient seen and examined. No acute events overnight. Pt complained of moderate pain in R toe. No fevers, chills, lightheadedness, or dizziness. OBJECTIVE: Vital Signs Period Temp Pulse Resp BP Sys/Ibarra Pulse Ox Last 24 Hr 98 F-98.4 F 69-87 20-20 84-107/50-69 GENERAL: The patient is lethargic, but arousable. Oriented x3, in no acute distress. HEAD: Normal with no signs of trauma. LUNGS: Breath sounds equal, clear to auscultation bilaterally, no wheezes, no crackles, no accessory muscle use. HEART: Regular rate and rhythm, S1, S2 without murmur, rub or gallop. ABDOMEN: Soft, nontender, nondistended, normoactive bowel sounds, no guarding, no rebound, no hepatosplenomegaly, no masses. MUSCULOSKELETAL: Scoliosis, marked deformities of hand and leg joints BL. UPPER EXTREMITIES: BL hand deformities. 2cm open wound on w/fibrinous tissue on L middle finger, no purulent discharge. 1-2cm ulcer w/granulation tissue on R thumb base, no surrounding erythema or discharge. EXTREMITIES: R first toe amputation. R 3rd toe with marked fluctuant swelling, erythema, and warmth. No open wounds or discharge. 2+ pulses, no extremity edema. NEUROLOGICAL: Gait not observed. Decreased sensation in BL feet. Laboratory Results - last 24 hr 08/01/19 08/01/19 06:25 06:25 WBC 5.2 RBC 3.55 L Hgb 11.3 Hct 34.2 MCV 96.5 H MCH 31.7 MCHC 32.9 RDW 12.1 Plt Count 175 MPV 9.9 Sodium 141 Potassium 3.9 Chloride 114 H Carbon Dioxide 24 Anion Gap 3 L BUN 6.1 L Creatinine 0.4 L Est GFR (CKD-EPI)AfAm 161.99 Est GFR (CKD-EPI)NonAf 139.77 Random Glucose 88 Calcium 8.1 L Active Medications Acetaminophen (Tylenol -) 650 mg PO Q6H PRN PRN Reason: Fever Or Pain Enoxaparin Sodium (Lovenox -) 40 mg SQ DAILY [facility] Last Admin: 08/01/19 10:01 Dose: 40 mg Ceftriaxone Sodium 2 gm/ (Dextrose) 100 mls @ 200 mls/hr IVPB DAILY [facility]; Protocol Last Admin: 07/31/19 10:57 Dose: 200 mls/hr Clindamycin Phosphate (Cleocin 600 Mg Premix Ivpb -) 600 mg in 50 mls @ 100 mls /hr IVPB Q8H-IV [facility]; Protocol Last Admin: 08/01/19 10:01 Dose: 100 mls/hr Sodium Chloride (1/2 Normal Saline) 1,000 mls @ 75 mls/hr IV ASDIR [facility] Last Admin: 08/01/19 10:08 Dose: 75 mls/hr Lamotrigine (Lamictal -) 25 mg PO DAILY [facility] Last Admin: 08/01/19 10:01 Dose: 25 mg Non-Formulary Medication (Clonidine Hcl [Clonidine Hcl Er]) 0.1 mg PO HS [facility] Pantoprazole Sodium (Protonix -) 40 mg PO DAILY [facility] Last Admin: 08/01/19 10:01 Dose: 40 mg Quetiapine Fumarate (Seroquel -) 100 mg PO DAILY@1999 [facility] Last Admin: 07/31/19 20:02 Dose: 100 mg Trazodone HCl (Desyrel -) 300 mg PO HS [facility] Last Admin: 07/31/19 21:05 Dose: 300 mg ASSESSMENT/PLAN: Ms. Rai is a 28 year old female with PMH of bipolar disorder, GERD, fibromyalgia, idiopathic scoliosis, Kaothsg-Qcqsr-Urouc, erosive arthritis, osteomyelitis (3rd digit of L hand) presents with worsening pain, swelling, and redness of her R 3rd toe s/p injury. #R 3rd toe cellulitis, complicated by osteomyelitis R foot XR: swelling w/soft tissue and possible osteomyelitis MRI: osteomyelitis in R 3rd distal phalanx with perifocal cellulitis Cont IV 600mg clindamycin and 2gm ceftriaxone (Day 3) ESR: 6, CRP: 0.6 [facility]iatry consulted ([facility]):Plan for amputation next week. Can leave dry, open to air w/o dressing ID consulted (Dr. Rios) PT eval daily Blood cx: pending #Bipolar disorder Cont home meds: lamotrigine 25mg, seroquel 100mg, clonidine 0.1mg HS #Insomnia Cont home meds: trazadone 300mg po HS #GERD Cont protonix 40mg daily #DVT ppx Lovenox sq #FEN 1/2-NS @ 75ml/hr Regular diet #Dispo Monitor on med-surg Visit type - Emergency Visit Emergency Visit: No - New Patient This patient is new to me today: No - Critical Care Critical Care patient: No ATTENDING PHYSICIAN STATEMENT I saw and evaluated the patient. I reviewed the resident's note and discussed the case with the resident. I agree with the resident's findings and plan as documented. SUBJECTIVE: OBJECTIVE: ASSESSMENT AND PLAN:
[2019-08-01] MEDS ORDERED: DEXTROSE 5%-WATER 100 ML IVPB ONE (10:52)
[2019-08-01] MEDS: CEFTRIAXONE 2 GM in DEXTROSE 5%-WATER 100 ML IVPB SCH (10:56)
--- NOTE | 2019-08-01 11:35 | PN ---
Teaching Attending Note Name of Resident: Kate Chavez ATTENDING PHYSICIAN STATEMENT I saw and evaluated the patient. I reviewed the resident's note and discussed the case with the resident. I agree with the resident's findings and plan as documented with exceptions below. SUBJECTIVE: Patient seen and examined. Sleeping, overall unchanged symptoms, no new fevers, chills, dizziness or concerns. OBJECTIVE: Vital Signs Period Temp Pulse Resp BP Sys/Ibarra Pulse Ox Last 24 Hr 97.4 F-98.4 F 69-88 20-20 87-107/50-69 Intake & Output 07/29/19 07/30/19 07/31/19 08/01/19 23:59 23:59 23:59 23:59 Intake Total 4684 500 Balance 4684 500 Weight 103 lb 102 lb 3.2 oz 110 lb General: sleeping in bed, no acute distress Chest: CTAb, no rales or wheezing Abdomen: soft, NT Extremities: right 3rd toe redness/swelling/fluctuation overall unchanged Home Medications Medication Instructions Recorded Trazodone HCl 300 mg PO HS 06/15/17 Clonidine HCl [Clonidine HCl ER] 0.1 mg PO DAILY 10/30/17 Lamotrigine 25 mg PO DAILY 02/12/19 Quetiapine Fumarate [Seroquel -] 100 mg PO HS 05/23/19 Active Medications Acetaminophen (Tylenol -) 650 mg PO Q6H PRN PRN Reason: Fever Or Pain Enoxaparin Sodium (Lovenox -) 40 mg SQ DAILY [facility] Last Admin: 08/01/19 10:01 Dose: 40 mg Ceftriaxone Sodium 2 gm/ (Dextrose) 100 mls @ 200 mls/hr IVPB DAILY [facility]; Protocol Last Admin: 08/01/19 10:56 Dose: 200 mls/hr Clindamycin Phosphate (Cleocin 600 Mg Premix Ivpb -) 600 mg in 50 mls @ 100 mls /hr IVPB Q8H-IV [facility]; Protocol Last Admin: 08/01/19 10:01 Dose: 100 mls/hr Sodium Chloride (1/2 Normal Saline) 1,000 mls @ 75 mls/hr IV ASDIR [facility] Last Admin: 08/01/19 10:08 Dose: 75 mls/hr Lamotrigine (Lamictal -) 25 mg PO DAILY [facility] Last Admin: 08/01/19 10:01 Dose: 25 mg Non-Formulary Medication (Clonidine Hcl [Clonidine Hcl Er]) 0.[address] [facility] Pantoprazole Sodium (Protonix -) 40 mg PO DAILY [facility] Last Admin: 08/01/19 10:01 Dose: 40 mg Quetiapine Fumarate (Seroquel -) 100 mg PO DAILY@1999 [facility] Last Admin: 07/31/19 20:02 Dose: 100 mg Trazodone HCl (Desyrel -) 300 mg PO [facility] Last Admin: 07/31/19 21:05 Dose: 300 mg Laboratory Results - last 24 hr 08/01/19 08/01/19 06:25 06:25 WBC 5.2 RBC 3.55 L Hgb 11.3 Hct 34.2 MCV 96.5 H MCH 31.7 MCHC 32.9 RDW 12.1 Plt Count 175 MPV 9.9 Sodium 141 Potassium 3.9 Chloride 114 H Carbon Dioxide 24 Anion Gap 3 L BUN 6.1 L Creatinine 0.4 L Est GFR (CKD-EPI)AfAm 161.99 Est GFR (CKD-EPI)NonAf 139.77 Random Glucose 88 Calcium 8.1 L Microbiology 07/30/19 16:45 Blood - Peripheral Venous Blood Culture - Preliminary NO GROWTH OBTAINED AFTER 24 HOURS, INCUBATION TO CONTINUE FOR 4 DAYS. 07/30/19 16:45 Blood - Peripheral Venous Blood Culture - Preliminary NO GROWTH OBTAINED AFTER 24 HOURS, INCUBATION TO CONTINUE FOR 4 DAYS. ASSESSMENT AND PLAN: 28 yof with h/o scoliosis, fibromylagia, charcot betty tooth syndrome, hx of osteomyelitis, bipolar disorder, PTSD, neuropathy, GERD, big toe amputation, left middle finger infected ulcer/osteomyelitis in 01/2019 s/p 6 weeks of Ceftriaxone, being followed by Dr. Uribe in the wound care clinic for her left middle finger wound, admitted with right third toe cellulitis +/- abscess/ osteomyelitis after trauma -Right third toe cellulitis, Osteomyelitis+/- suspect abscess -Failure of outpatient antibiotic tx (augmentin) -Charcot Betty tooth syndrome -h/o left middle finger infected ulcer/osteomyelitis in 01/2019 s/p 6 weeks of Ceftriaxone, being followed by Dr. Uribe in the wound care clinic -Right hallux amputation -Fibromyalgia -Scoliosis -Cannabis use -Bipolar disorder -PTSD -Neuropathy -GERD Plan: Blood cx neg ceftriaxone/vancomycin MRI LE noted Discussed with Dr. Jackson, plan for amputation early next week Discuss with ID abx plan. Keep wound open and monitor ESR/CRP noted. Continue home seroquel/trazodone/lamotrigine/Clonidine PPI DVTPPX lovenox Dispo pending amputation early next week. Anticipate will need to stay inhouse for IV abx given concerning findings and need for IV abx. Plan discussed with patient in detail, all questions answered.
--- NOTE | 2019-08-01 15:38 | CONS ---
INFECTIOUS DISEASE CONSULTATION DATE OF CONSULTATION: DATE OF DICTATION: 08/01/2019 HISTORY: The patient is a 28-year-old female with a history of Rgdioba-Hyhfa-Sfwhh syndrome, peripheral neuropathy, history of recurrent, infected foot and hand ulcers, and osteomyelitis now evaluated for recurrent osteomyelitis. She had recently completed a 6-week course of IV ceftriaxone for osteomyelitis of the left 3rd digit. She now returns with swelling of her right 3rd toe. She had sustained trauma to her foot after her boyfriend stepped on her foot. She subsequently developed worsening erythema, warmth, and swelling of the right 3rd today. An x-ray was performed and showed evidence of osteomyelitis of the distal aspect of the toe. This was confirmed on MRI. She had received a course of amoxicillin prior to admission without significant improvement. At the present time, she is awake and responsive. She has no complaint of foot pain. No fever or chills. PAST MEDICAL HISTORY: Positive for Ababcjm-Kdzek-Dcfuf, peripheral neuropathy, bipolar disorder, gastroesophageal reflux, fibromyalgia, history of recurrent, infected foot ulcers, and osteomyelitis. ALLERGIES: VANCOMYCIN and OXYCODONE. 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 SOCIAL HISTORY: Former smoker. Occasional marijuana use. SYSTEMS REVIEW: Neurologic: Positive for peripheral neuropathy. Cardiac: Negative chest pain or palpitations. Respiratory: Negative cough or sputum production. Gastrointestinal: Negative vomiting or diarrhea. Genitourinary: Negative for urinary tract infection. LABORATORY DATA: White count 5.2, hematocrit 34, platelets 175, creatinine 0.4. ESR 6, C-reactive protein 0.6. PHYSICAL EXAMINATION: General: She is awake and alert. She is not acutely toxic appearing. Vital Signs: Temperature 97.4, blood pressure 102/59, pulse 88 regular, respirations 20 per minute. HEENT: Sclerae anicteric. Heart: Sounds S1, S2. Lungs: Clear. Abdomen: Soft. Extremities: Multiple deformities of the fingers with an ulceration present over the dorsal aspect of the left 3rd finger. Examination of the right foot, she is status post amputation of the great toe and partial amputation of the remaining toes. The right 3rd toe is diffusely swollen and red. There is no purulent drainage noted. IMPRESSION: 1. Cellulitis, recurrent osteomyelitis of the right foot. 2. History of peripheral neuropathy/Efhuoej-Qgvge-Nhodu. 3. History of VANCOMYCIN allergy. Previous cultures reviewed. Patient has consistently grown methicillin-sensitive Staphylococcus aureus in the past. Will continue ceftriaxone 2 g IV piggyback daily. Podiatry evaluation for debridement versus amputation. We will follow. Thank you for the kind referral. ROLIN PELAYO M.D. [id number]
--- NOTE | 2019-08-01 16:56 | PN ---
Progress Note (short form) - Note Progress Note: 28 yof with PMhx of scoliosis, fibromylagia, charcot betty tooth syndrome, hx of osteomyelitis, bipolar disorder, PTSD, neuropathy, GERD, and a history of amputations sent by myself tot he ER for workup of osteo of the right third digit. Had trauma tot he foot roughly 1 week ago and was seen in my office. Small fracture was noted but digit was grossly swolen and erythematous. MRI ordered shows osteo. O: Right foot third digit grossly edematous, erythema decreased from office, minimal serous drainage, wound at tip fo the digit probes directly to the distal phalanx, no pain on palpation noted, amputations noted, no streaking noted up foot , no malodor Xray: ?Gas but more likely from opening of the wound at distal tip o the digit, compared to office xrays last week gross destruction of the distal and middle phalanx of the digit MRI: + osteo 3rd digit a: Osteo P: Evaluated and reviewed Wants to try to keep part of the digit so will plan for partial amputation of the digit Will do on sunday afternoon. Will f/u on sunday for pre op. Cont abx per ID. will f/u
[2019-08-01] MEDS: QUEtiapine FUMARATE 100 MG TABLET (FP) PO SCH (21:23)
[2019-08-01] MEDS: traZODone HCL 100 MG TABLET (FP) PO SCH (21:23)
[2019-08-01] MEDS ORDERED: ACETAMINOPHEN 1000 MG/100 ML VIAL (NON FORMULARY) IVPB ONE (22:17)
[2019-08-02 08:05] LABS: HEMATOCRIT 33.3 % (32.4-45.2); HEMOGLOBIN 11.2 GM/dL (10.7-15.3); MCH 31.6 pg (25.7-33.7); MCHC 33.7 g/dl (32.0-36.0); MEAN PLT VOLUME 9.8 fl (7.5-11.1); PLATELET COUNT 187 K/MM3 (134-434); RBC 3.55 M/mm3 (3.60-5.2); RDW 11.6 % (11.6-15.6); WHITE BLOOD COUNT 4.3 K/mm3 (4.0-10.0)
[2019-08-02 08:17] LABS: BLOOD UREA NITROGEN 4.1 mg/dL (7-18); CALCIUM 8.2 mg/dL (8.5-10.1); CREATININE 0.4 mg/dL (0.55-1.3); POTASSIUM 3.6 mmol/L (3.5-5.1)
[2019-08-02] MEDS ORDERED: DEXTROSE 5%-WATER 100 ML IVPB ONE (08:59)
[2019-08-02] MEDS: CEFTRIAXONE 2 GM in DEXTROSE 5%-WATER 100 ML IVPB SCH (09:27)
[2019-08-02] MEDS: PANTOPRAZOLE 40 MG TABLET (FP) PO SCH (09:28)
[2019-08-02] MEDS: ENOXAPARIN NA (PORCINE) 40 MG/0.4 ML DISP.SYRIN SQ SCH (09:28)
[2019-08-02] MEDS: lamoTRIgine 25 MG TABLET PO SCH (09:28)
[2019-08-02] MEDS: SODIUM CHLORIDE 0.45% 1,000 ML IV SCH (10:00)
--- NOTE | 2019-08-02 15:19 | PN ---
Physical Exam: SUBJECTIVE: Patient seen and examined, left toe redness/swelling improved, no new complaints. OBJECTIVE: Vital Signs Period Temp Pulse Resp BP Sys/Ibarra Pulse Ox Last 24 Hr 98 F-98.9 F 66-82 20-20 101-124/57-83 98 Intake & Output 07/30/19 07/31/19 08/01/19 08/02/19 23:59 23:59 23:59 23:59 Intake Total 4684 2519 Balance 4684 2519 Weight 103 lb 102 lb 3.2 oz 110 lb 112 lb GENERAL: sitting in bed, no acute distress Neck: soft, supple HEENT: PERRL, EOMI CVS:S1S2 regular Chest: CTAb, no rales or wheezing Abdomen:Soft, NT Extremities: left third toe swelling/redness markedly improved, Psych: awake appropriate currently Laboratory Results - last 24 hr 08/02/19 08/02/19 06:15 06:15 WBC 4.3 RBC 3.55 L Hgb 11.2 Hct 33.3 MCV 94.0 MCH 31.6 MCHC 33.7 RDW 11.6 Plt Count 187 MPV 9.8 Sodium 141 Potassium 3.6 Chloride 112 H Carbon Dioxide 25 Anion Gap 4 L BUN 4.1 L Creatinine 0.4 L Est GFR (CKD-EPI)AfAm 161.99 Est GFR (CKD-EPI)NonAf 139.77 Random Glucose 83 Calcium 8.2 L Active Medications Generic Name Dose Route Start Last Admin Trade Name Freq PRN Reason Stop Dose Admin Acetaminophen 650 mg 08/01/19 08:03 08/01/19 13:49 Tylenol - PO 650 mg Q6H PRN Administration Fever Or Pain Enoxaparin Sodium 40 mg 07/30/19 18:45 08/02/19 09:28 Lovenox - SQ 40 mg DAILY [facility] Administration Ceftriaxone Sodium 2 gm/ 100 mls @ 200 mls/hr 07/30/19 18:45 08/02/19 09:27 Dextrose IVPB 200 mls/hr DAILY [facility] Administration Protocol Sodium Chloride 1,000 mls @ 75 mls/hr 08/01/19 10:00 08/02/19 10:00 1/2 Normal Saline IV 75 mls/hr ASDIR [facility] Administration Lamotrigine 25 mg 07/30/19 18:45 08/02/19 09:28 Lamictal - PO 25 mg DAILY [facility] Administration Non-Formulary Medication 0.1 mg 07/30/19 20:00 Clonidine Hcl [Clonidine Hcl Er] PO HS [facility] Pantoprazole Sodium 40 mg 07/31/19 10:00 08/02/19 09:28 Protonix - PO 40 mg DAILY [facility] Administration Quetiapine Fumarate 100 mg 07/30/19 20:00 08/01/19 21:23 Seroquel - PO 100 mg DAILY@2000 [facility] Administration Trazodone HCl 300 mg 07/30/19 22:00 08/01/19 21:23 Desyrel - PO 300 mg HS [facility] Administration Microbiology 07/30/19 16:45 Blood - Peripheral Venous Blood Culture - Preliminary NO GROWTH OBTAINED AFTER 48 HOURS, INCUBATION TO CONTINUE FOR 3 DAYS. 07/30/19 16:45 Blood - Peripheral Venous Blood Culture - Preliminary NO GROWTH OBTAINED AFTER 48 HOURS, INCUBATION TO CONTINUE FOR 3 DAYS. ASSESSMENT/PLAN: 28 yof with h/o scoliosis, fibromylagia, charcot carmelita tooth syndrome, hx of osteomyelitis, bipolar disorder, PTSD, neuropathy, GERD, big toe amputation, left middle finger infected ulcer/osteomyelitis in 01/2019 s/p 6 weeks of Ceftriaxone, being followed by Dr. Uribe in the wound care clinic for her left middle finger wound, admitted with right third toe cellulitis +/- abscess/ osteomyelitis after trauma -Right third toe cellulitis, Osteomyelitis+/- suspect abscess -Failure of outpatient antibiotic tx (augmentin) -Charcot Carmelita tooth syndrome -h/o left middle finger infected ulcer/osteomyelitis in 01/2019 s/p 6 weeks of Ceftriaxone, being followed by Dr. Uribe in the wound care clinic -Right hallux amputation -Fibromyalgia -Scoliosis -Cannabis use -Bipolar disorder -PTSD -Neuropathy -GERD Plan: Blood cx neg ID input noted, off vancomycin Ceftriaxone. MRI LE noted Plan for amputation early next week. Keep wound open and monitor ESR/CRP noted. Continue home seroquel/trazodone/lamotrigine/Clonidine PPI DVTPPX lovenox Dispo pending amputation early next week. Anticipate will need to stay inhouse awaiting surgery given concerning findings and ongoing need for IV abx. Plan discussed with patient in detail, all questions answered. Visit type - Emergency Visit Emergency Visit: Yes ED Registration Date: 07/30/19 Care time: The patient presented to the Emergency Department on the above date and was hospitalized for further evaluation of their emergent condition. - New Patient This patient is new to me today: No - Critical Care Critical Care patient: No - Discharge Referral Referred to [facility] No
[2019-08-02] MEDS: QUEtiapine FUMARATE 100 MG TABLET (FP) PO SCH (21:47)
[2019-08-02] MEDS: traZODone HCL 100 MG TABLET (FP) PO SCH (21:47)
[2019-08-03] MEDS ORDERED: DEXTROSE 5%-WATER 100 ML IVPB ONE (09:52)
--- NOTE | 2019-08-03 09:59 | PN ---
Physical Exam: SUBJECTIVE: Patient seen and examined. No acute events overnight. Pt denies fevers or chills. Pain is controlled. OBJECTIVE: Vital Signs Period Temp Pulse Resp BP Sys/Ibarra Pulse Ox Last 24 Hr 97.7 F-98.5 F 58-87 18-20 107-158/66-88 GENERAL: The patient is lethargic, but arousable. Oriented x3, in no acute distress. HEAD: Normal with no signs of trauma. LUNGS: Breath sounds equal, clear to auscultation bilaterally, no wheezes, no crackles, no accessory muscle use. HEART: Regular rate and rhythm, S1, S2 without murmur, rub or gallop. ABDOMEN: Soft, nontender, nondistended, normoactive bowel sounds, no guarding, no rebound, no hepatosplenomegaly, no masses. MUSCULOSKELETAL: Scoliosis, marked deformities of hand and leg joints BL. UPPER EXTREMITIES: BL hand deformities. 2cm open wound on w/fibrinous tissue on L middle finger, no purulent discharge. 1-2cm ulcer w/granulation tissue on R thumb base, no surrounding erythema or discharge. EXTREMITIES: R first toe amputation. R 3rd toe with marked fluctuant swelling, erythema, and warmth. No open wounds or discharge. 2+ pulses, no extremity edema. NEUROLOGICAL: Gait not observed. Decreased sensation in BL feet. Active Medications Acetaminophen (Tylenol -) 650 mg PO Q6H PRN PRN Reason: Fever Or Pain Last Admin: 08/01/19 13:49 Dose: 650 mg Enoxaparin Sodium (Lovenox -) 40 mg SQ DAILY [facility] Last Admin: 08/02/19 09:28 Dose: 40 mg Ceftriaxone Sodium 2 gm/ (Dextrose) 100 mls @ 200 mls/hr IVPB DAILY [facility]; Protocol Last Admin: 08/02/19 09:27 Dose: 200 mls/hr Sodium Chloride (1/2 Normal Saline) 1,000 mls @ 75 mls/hr IV ASDIR [facility] Last Admin: 08/02/19 10:00 Dose: 75 mls/hr Lamotrigine (Lamictal -) 25 mg PO DAILY [facility] Last Admin: 08/02/19 09:28 Dose: 25 mg Non-Formulary Medication (Clonidine Hcl [Clonidine Hcl Er]) 0.[address] [facility] Pantoprazole Sodium (Protonix -) 40 mg PO DAILY [facility] Last Admin: 08/02/19 09:28 Dose: 40 mg Quetiapine Fumarate (Seroquel -) 100 mg PO DAILY@1999 [facility] Last Admin: 08/02/19 21:47 Dose: 100 mg Trazodone HCl (Desyrel -) 300 mg PO HS [facility] Last Admin: 08/02/19 21:47 Dose: 300 mg ASSESSMENT/PLAN: Ms. Rai is a 28 year old female with PMH of bipolar disorder, GERD, fibromyalgia, idiopathic scoliosis, Bgyqjfy-Xoqgn-Akqqs, erosive arthritis, osteomyelitis (3rd digit of L hand) presents with worsening pain, swelling, and redness of her R 3rd toe s/p injury. #R 3rd toe cellulitis, complicated by osteomyelitis R foot XR: swelling w/soft tissue and possible osteomyelitis MRI: osteomyelitis in R 3rd distal phalanx with perifocal cellulitis Cont IV 2gm ceftriaxone (Day 5), d/c vanc per ID (Dr. Rios) ESR: 6, CRP: 0.6 Podiatry ([facility]): Plan for partial amputation 08/05. Can leave toe dry, open to air w/o dressing PT eval daily Blood cx: pending #Bipolar disorder Cont home meds: lamotrigine 25mg, seroquel 100mg, clonidine 0.1mg HS #Insomnia Cont home meds: trazadone 300mg po HS #GERD Cont protonix 40mg daily #DVT ppx Lovenox sq #FEN 1/2-NS @ 75ml/hr Regular diet #Dispo Monitor on med-surg Visit type - Emergency Visit Emergency Visit: No - New Patient This patient is new to me today: No - Critical Care Critical Care patient: No ATTENDING PHYSICIAN STATEMENT I saw and evaluated the patient. I reviewed the resident's note and discussed the case with the resident. I agree with the resident's findings and plan as documented. SUBJECTIVE: OBJECTIVE: ASSESSMENT AND PLAN:
[2019-08-03] MEDS: CEFTRIAXONE 2 GM in DEXTROSE 5%-WATER 100 ML IVPB SCH (10:02)
[2019-08-03] MEDS: PANTOPRAZOLE 40 MG TABLET (FP) PO SCH (10:02)
[2019-08-03] MEDS: lamoTRIgine 25 MG TABLET PO SCH (10:02)
[2019-08-03] MEDS: ENOXAPARIN NA (PORCINE) 40 MG/0.4 ML DISP.SYRIN SQ SCH (10:03)
[2019-08-03] MEDS: SODIUM CHLORIDE 0.45% 1,000 ML IV SCH (10:05)
--- NOTE | 2019-08-03 12:14 | PN ---
Teaching Attending Note Name of Resident: Kate Chavez ATTENDING PHYSICIAN STATEMENT I saw and evaluated the patient. I reviewed the resident's note and discussed the case with the resident. I agree with the resident's findings and plan as documented with exceptions below. SUBJECTIVE: Patient seen and examined, sleeping, no complaints. OBJECTIVE: Vital Signs Period Temp Pulse Resp BP Sys/Ibarra Pulse Ox Last 24 Hr 97.7 F-98.5 F 58-87 18-20 107-158/66-88 Intake & Output 07/31/19 08/01/19 08/02/19 08/03/19 23:59 23:59 23:59 23:59 Intake Total 4684 2519 1700 900 Balance 4684 2519 1700 900 Weight 102 lb 3.2 oz 110 lb 112 lb 112 lb 8 oz General: lying in bed in no acute distress Chest: CTAb, no rales or wheezing Abdomen: soft, obese Extremities: Right foot third toe findings with unchanged swelling/erythema from yesterday, no tenderness noted, pos DP pulses Home Medications Medication Instructions Recorded Trazodone HCl 300 mg PO HS 06/15/17 Clonidine HCl [Clonidine HCl ER] 0.1 mg PO DAILY 10/30/17 Lamotrigine 25 mg PO DAILY 02/12/19 Quetiapine Fumarate [Seroquel -] 100 mg PO HS 05/23/19 Active Medications Acetaminophen (Tylenol -) 650 mg PO Q6H PRN PRN Reason: Fever Or Pain Last Admin: 08/01/19 13:49 Dose: 650 mg Enoxaparin Sodium (Lovenox -) 40 mg SQ DAILY [facility] Last Admin: 08/03/19 10:03 Dose: 40 mg Ceftriaxone Sodium 2 gm/ (Dextrose) 100 mls @ 200 mls/hr IVPB DAILY [facility]; Protocol Last Admin: 08/03/19 10:02 Dose: 200 mls/hr Sodium Chloride (1/2 Normal Saline) 1,000 mls @ 75 mls/hr IV ASDIR [facility] Last Admin: 08/03/19 10:05 Dose: 75 mls/hr Lamotrigine (Lamictal -) 25 mg PO DAILY [facility] Last Admin: 08/03/19 10:02 Dose: 25 mg Non-Formulary Medication (Clonidine Hcl [Clonidine Hcl Er]) 0.1 mg PO [facility] Pantoprazole Sodium (Protonix -) 40 mg PO DAILY [facility] Last Admin: 08/03/19 10:02 Dose: 40 mg Quetiapine Fumarate (Seroquel -) 100 mg PO DAILY@1999 [facility] Last Admin: 08/02/19 21:47 Dose: 100 mg Trazodone HCl (Desyrel -) 300 mg PO HS [facility] Last Admin: 08/02/19 21:47 Dose: 300 mg Microbiology 07/30/19 16:45 Blood - Peripheral Venous Blood Culture - Preliminary NO GROWTH OBTAINED AFTER 72 HOURS, INCUBATION TO CONTINUE FOR 2 DAYS. 07/30/19 16:45 Blood - Peripheral Venous Blood Culture - Preliminary NO GROWTH OBTAINED AFTER 72 HOURS, INCUBATION TO CONTINUE FOR 2 DAYS. ASSESSMENT AND PLAN: 28 yof with h/o scoliosis, fibromylagia, charcot carmelita tooth syndrome, hx of osteomyelitis, bipolar disorder, PTSD, neuropathy, GERD, big toe amputation, left middle finger infected ulcer/osteomyelitis in 01/2019 s/p 6 weeks of Ceftriaxone, being followed by Dr. Uribe in the wound care clinic for her left middle finger wound, admitted with right third toe cellulitis +/- abscess/ osteomyelitis after trauma -Right third toe cellulitis, Osteomyelitis+/- suspect abscess -Failure of outpatient antibiotic tx (augmentin) -Charcot Carmelita tooth syndrome -h/o left middle finger infected ulcer/osteomyelitis in 01/2019 s/p 6 weeks of Ceftriaxone, being followed by Dr. Uribe in the wound care clinic -Right hallux amputation -Fibromyalgia -Scoliosis -Cannabis use -Bipolar disorder -PTSD -Neuropathy -GERD Plan: Blood cx neg ID input noted, off vancomycin Ceftriaxone. MRI LE noted Plan for amputation Sunday. Keep wound open and monitor ESR/CRP noted. Continue home seroquel/trazodone/lamotrigine/Clonidine PPI DVTPPX lovenox Dispo pending amputation early next week. Anticipate will need to stay inhouse awaiting surgery given concerning findings and ongoing need for IV abx.
--- NOTE | 2019-08-03 12:55 | PN ---
Physical Exam: SUBJECTIVE: Patient seen and examined. No acute events overnight. OBJECTIVE: Vital Signs Period Temp Pulse Resp BP Sys/Ibarra Pulse Ox Last 24 Hr 97.7 F-98.5 F 58-87 18-20 107-158/66-88 GENERAL: The patient is lethargic, but arousable. Oriented x3, in no acute distress. HEAD: Normal with no signs of trauma. LUNGS: Breath sounds equal, clear to auscultation bilaterally, no wheezes, no crackles, no accessory muscle use. HEART: Regular rate and rhythm, S1, S2 without murmur, rub or gallop. ABDOMEN: Soft, nontender, nondistended, normoactive bowel sounds, no guarding, no rebound, no hepatosplenomegaly, no masses. MUSCULOSKELETAL: Scoliosis, marked deformities of hand and leg joints BL. UPPER EXTREMITIES: BL hand deformities. 2cm open wound on w/fibrinous tissue on L middle finger, no purulent discharge. 1-2cm ulcer w/granulation tissue on R thumb base, no surrounding erythema or discharge. EXTREMITIES: R first toe amputation. R 3rd toe with marked fluctuant swelling, erythema, and warmth. No open wounds or discharge. 2+ pulses, no extremity edema. NEUROLOGICAL: Gait not observed. Decreased sensation in BL feet. Active Medications Acetaminophen (Tylenol -) 650 mg PO Q6H PRN PRN Reason: Fever Or Pain Last Admin: 08/01/19 13:49 Dose: 650 mg Enoxaparin Sodium (Lovenox -) 40 mg SQ DAILY [facility] Last Admin: 08/03/19 10:03 Dose: 40 mg Ceftriaxone Sodium 2 gm/ (Dextrose) 100 mls @ 200 mls/hr IVPB DAILY [facility]; Protocol Last Admin: 08/03/19 10:02 Dose: 200 mls/hr Sodium Chloride (1/2 Normal Saline) 1,000 mls @ 75 mls/hr IV ASDIR [facility] Last Admin: 08/03/19 10:05 Dose: 75 mls/hr Lamotrigine (Lamictal -) 25 mg PO DAILY [facility] Last Admin: 08/03/19 10:02 Dose: 25 mg Non-Formulary Medication (Clonidine Hcl [Clonidine Hcl Er]) 0.1 mg PO HS [facility] Pantoprazole Sodium (Protonix -) 40 mg PO DAILY [facility] Last Admin: 08/03/19 10:02 Dose: 40 mg Quetiapine Fumarate (Seroquel -) 100 mg PO DAILY@1999 [facility] Last Admin: 08/02/19 21:47 Dose: 100 mg Trazodone HCl (Desyrel -) 300 mg PO HS [facility] Last Admin: 08/02/19 21:47 Dose: 300 mg ASSESSMENT/PLAN: Ms. Rai is a 28 year old female with PMH of bipolar disorder, GERD, fibromyalgia, idiopathic scoliosis, Luucfvk-Jhffh-Rokxf, erosive arthritis, osteomyelitis (3rd digit of L hand) presents with worsening pain, swelling, and redness of her R 3rd toe s/p injury. #R 3rd toe cellulitis, complicated by osteomyelitis R foot XR: swelling w/soft tissue and possible osteomyelitis MRI: osteomyelitis in R 3rd distal phalanx with perifocal cellulitis Cont IV 2gm ceftriaxone (Day 7), d/c vanc per ID (Dr. Rios) ESR: 6, CRP: 0.6 Podiatry ([facility]): Plan for partial amputation 08/05. Can leave toe dry, open to air w/o dressing PT eval daily Blood cx: pending #Bipolar disorder Cont home meds: lamotrigine 25mg, seroquel 100mg, clonidine 0.1mg HS #Insomnia Cont home meds: trazadone 300mg po HS #GERD Cont protonix 40mg daily #DVT ppx Lovenox sq #FEN 1/2-NS @ 75ml/hr Regular diet #Dispo Monitor on med-surg ATTENDING PHYSICIAN STATEMENT I saw and evaluated the patient. I reviewed the resident's note and discussed the case with the resident. I agree with the resident's findings and plan as documented. SUBJECTIVE: OBJECTIVE: ASSESSMENT AND PLAN:
[2019-08-03] MEDS: QUEtiapine FUMARATE 100 MG TABLET (FP) PO SCH (20:57)
[2019-08-03] MEDS: traZODone HCL 100 MG TABLET (FP) PO SCH (21:00)
[2019-08-04 08:11] LABS: HEMATOCRIT 34.8 % (32.4-45.2); HEMOGLOBIN 11.6 GM/dL (10.7-15.3); MCH 31.7 pg (25.7-33.7); MCHC 33.4 g/dl (32.0-36.0); MEAN PLT VOLUME 9.7 fl (7.5-11.1); PLATELET COUNT 199 K/MM3 (134-434); RBC 3.66 M/mm3 (3.60-5.2); RDW 11.8 % (11.6-15.6); WHITE BLOOD COUNT 5.8 K/mm3 (4.0-10.0)
[2019-08-04 08:39] LABS: BLOOD UREA NITROGEN 8.5 mg/dL (7-18); CALCIUM 8.6 mg/dL (8.5-10.1); CREATININE 0.6 mg/dL (0.55-1.3); POTASSIUM 3.5 mmol/L (3.5-5.1)
[2019-08-04] MEDS ORDERED: DEXTROSE 5%-WATER 100 ML IVPB ONE (09:36)
[2019-08-04] MEDS: SODIUM CHLORIDE 0.45% 1,000 ML IV SCH (09:56)
[2019-08-04] MEDS: PANTOPRAZOLE 40 MG TABLET (FP) PO SCH (09:57)
[2019-08-04] MEDS: lamoTRIgine 25 MG TABLET PO SCH (09:57)
[2019-08-04] MEDS: CEFTRIAXONE 2 GM in DEXTROSE 5%-WATER 100 ML IVPB SCH (09:57)
[2019-08-04] MEDS: ENOXAPARIN NA (PORCINE) 40 MG/0.4 ML DISP.SYRIN SQ SCH (10:23)
--- NOTE | 2019-08-04 12:56 | PN ---
Progress Note (short form) - Note Progress Note: Podiatry F/U: Seen/evaluated at bedside NAD. Pain controlled, denies F/V/N/C/SOB/CP. Afebrile. A bit nervous about upcoming surgery tomorrow. AMINA: R foot: pedal pulses palpable 2/4, TG wnl. There is a distal tuft neuropathic ulcer third digit probing deep, surrounding hyperkeratotic tissue, gross digital edema, moderate digital erythema, no purulence, no soft tissue crepitus , no streaking cellulitis, no signs of acute infection. MRI R foot: (+) osteomyelitis right third digit Imp: 28 year old female, history of CMT, with neuropathic ulcer and osteomyelitis right third digit 1. Abx per ID 2. Continue local care 3. Plan for OR tomorrow for right third digit amputation with my partner Dr. Deutsch 4. NPO midnight 5. Will follow Fahad Jackson DPM
--- NOTE | 2019-08-04 16:03 | PN ---
Teaching Attending Note Name of Resident: Elie Armijo ATTENDING PHYSICIAN STATEMENT I saw and evaluated the patient. I reviewed the resident's note and discussed the case with the resident. I agree with the resident's findings and plan as documented with exceptions below. SUBJECTIVE: Patient seen and examined, leg symptoms unchanged, no new pain or concerns. OBJECTIVE: Vital Signs Period Temp Pulse Resp BP Sys/Ibarra Pulse Ox Last 24 Hr 98 F-98.5 F 64-91 18-83 89-137/40-84 96-99 Intake & Output 08/01/19 08/02/19 08/03/19 08/04/19 23:59 23:59 23:59 23:59 Intake Total 2519 1700 2075 400 Balance 2519 1700 2075 400 Weight 110 lb 112 lb 112 lb 8 oz 108 lb 9.6 oz General: sitting in bed, no acute distress Chest: CTAB, no rales or wheezing Abdomen:Soft, Nt Extremities: right third toe findings unchanged Home Medications Medication Instructions Recorded Trazodone HCl 300 mg PO HS 06/15/17 Clonidine HCl [Clonidine HCl ER] 0.1 mg PO DAILY 10/30/17 Lamotrigine 25 mg PO DAILY 02/12/19 Quetiapine Fumarate [Seroquel -] 100 mg PO HS 05/23/19 Active Medications Acetaminophen (Tylenol -) 650 mg PO Q6H PRN PRN Reason: Fever Or Pain Last Admin: 08/01/19 13:49 Dose: 650 mg Enoxaparin Sodium (Lovenox -) 40 mg SQ DAILY [facility]OYLAN Last Admin: 08/04/19 10:23 Dose: 40 mg Ceftriaxone Sodium 2 gm/ (Dextrose) 100 mls @ 200 mls/hr IVPB DAILY FROYLAN; Protocol Last Admin: 08/04/19 09:57 Dose: 200 mls/hr Sodium Chloride (1/2 Normal Saline) 1,000 mls @ 75 mls/hr IV ASDIR FROYLAN Stop: 08/05/19 00:01 Last Admin: 08/04/19 09:56 Dose: 75 mls/hr Dextrose/Lactated Ringer's (D5-Lr -) 1,000 mls @ 100 mls/hr IV ASDIR FROYLAN Lamotrigine (Lamictal -) 25 mg PO DAILY [facility] Last Admin: 08/04/19 09:57 Dose: 25 mg Non-Formulary Medication (Clonidine Hcl [Clonidine Hcl Er]) 0.1 mg PO [facility] Pantoprazole Sodium (Protonix -) 40 mg PO DAILY [facility] Last Admin: 08/04/19 09:57 Dose: 40 mg Quetiapine Fumarate (Seroquel -) 100 mg PO DAILY@1999 [facility] Last Admin: 08/03/19 20:57 Dose: 100 mg Trazodone HCl (Desyrel -) 300 mg PO [facility] Last Admin: 08/03/19 21:00 Dose: 300 mg Laboratory Results - last 24 hr 08/04/19 08/04/19 07:24 07:24 WBC 5.8 RBC 3.66 Hgb 11.6 Hct 34.8 MCV 95.0 MCH 31.7 MCHC 33.4 RDW 11.8 Plt Count 199 MPV 9.7 Sodium 141 Potassium 3.5 Chloride 109 H Carbon Dioxide 27 Anion Gap 5 L BUN 8.5 Creatinine 0.6 Est GFR (CKD-EPI)AfAm 141.76 Est GFR (CKD-EPI)NonAf 122.31 Random Glucose 80 Calcium 8.6 Microbiology 07/30/19 16:45 Blood - Peripheral Venous Blood Culture - Preliminary NO GROWTH OBTAINED AFTER 96 HOURS, INCUBATION TO CONTINUE FOR 1 DAYS. 07/30/19 16:45 Blood - Peripheral Venous Blood Culture - Preliminary NO GROWTH OBTAINED AFTER 96 HOURS, INCUBATION TO CONTINUE FOR 1 DAYS. ASSESSMENT AND PLAN: 28 yof with h/o scoliosis, fibromylagia, charcot carmelita tooth syndrome, hx of osteomyelitis, bipolar disorder, PTSD, neuropathy, GERD, big toe amputation, left middle finger infected ulcer/osteomyelitis in 01/2019 s/p 6 weeks of Ceftriaxone, being followed by Dr. Uribe in the wound care clinic for her left middle finger wound, admitted with right third toe cellulitis /osteomyelitis +/ - abscess. -Right third toe cellulitis, Osteomyelitis+/- suspected abscess -Failure of outpatient antibiotic tx (augmentin) -Charcot Carmelita tooth syndrome -h/o left middle finger infected ulcer/osteomyelitis in 01/2019 s/p 6 weeks of Ceftriaxone, being followed by Dr. Uribe in the wound care clinic -Right hallux amputation -Asymptomatic Hypotension -Fibromyalgia -Scoliosis -Cannabis use -Bipolar disorder -PTSD -Neuropathy -GERD Plan: Blood cx neg ID input noted, off vancomycin Ceftriaxone. MRI LE noted Plan for right third digit amputation tomorrow. Keep wound open and monitor ESR/CRP noted. IV hydration. Continue home seroquel/trazodone/lamotrigine/Clonidine PPI DVTPPX hold lovenox in AM Dispo post op over the next 2-3 days if no concerns. Discussed with patient and nursing.
--- NOTE | 2019-08-04 17:11 | PN ---
Physical Exam: SUBJECTIVE: Patient seen and examined at the bedside. Patient stated she did not have any complaints of pain. Stated was nervous for her surgery tomorrow. Denies fever, chills, cp, sob, n/v/c/d, abd pain, weakness. OBJECTIVE: Vital Signs Period Temp Pulse Resp BP Sys/Ibarra Pulse Ox Last 24 Hr 98 F-98.5 F 64-91 18-83 89-137/40-84 96-99 GENERAL: The patient is awake and alert, Oriented x3, in no acute distress. HEAD: Normal with no signs of trauma. LUNGS: Breath sounds equal, clear to auscultation bilaterally, no wheezes, no crackles, no accessory muscle use. HEART: Regular rate and rhythm, S1, S2 without murmur, rub or gallop. ABDOMEN: Soft, nontender, nondistended, normoactive bowel sounds, no guarding, no rebound, no hepatosplenomegaly, no masses. MUSCULOSKELETAL: Scoliosis, marked deformities of hand and leg joints BL. UPPER EXTREMITIES: BL hand deformities. 2cm open wound on w/fibrinous tissue on L middle finger, no purulent discharge. 1-2cm ulcer w/granulation tissue on R thumb base, no surrounding erythema or discharge. EXTREMITIES: R first toe amputation. R 3rd toe with marked fluctuant swelling, erythema, and warmth. No open wounds or discharge. 2+ pulses, no extremity edema. NEUROLOGICAL: Gait not observed. Decreased sensation in BL feet. Laboratory Results - last 24 hr 08/04/19 08/04/19 07:24 07:24 WBC 5.8 RBC 3.66 Hgb 11.6 Hct 34.8 MCV 95.0 MCH 31.7 MCHC 33.4 RDW 11.8 Plt Count 199 MPV 9.7 Sodium 141 Potassium 3.5 Chloride 109 H Carbon Dioxide 27 Anion Gap 5 L BUN 8.5 Creatinine 0.6 Est GFR (CKD-EPI)AfAm 141.76 Est GFR (CKD-EPI)NonAf 122.31 Random Glucose 80 Calcium 8.6 Active Medications Generic Name Dose Route Start Last Admin Trade Name Freq PRN Reason Stop Dose Admin Acetaminophen 650 mg 08/01/19 08:03 08/01/19 13:49 Tylenol - PO 650 mg Q6H PRN Administration Fever Or Pain Enoxaparin Sodium 40 mg 07/30/19 18:45 08/04/19 10:23 Lovenox - SQ 40 mg DAILY FROYLAN Administration Ceftriaxone Sodium 2 gm/ 100 mls @ 200 mls/hr 07/30/19 18:45 08/04/19 09:57 Dextrose IVPB 200 mls/hr DAILY FROYLAN Administration Protocol Sodium Chloride 1,000 mls @ 75 mls/hr 08/01/19 10:00 08/04/19 09:56 1/2 Normal Saline IV 08/05/19 00:01 75 mls/hr ASDIR FROYLAN Administration Dextrose/Lactated Ringer's 1,000 mls @ 100 mls/hr 08/05/19 00:01 D5-Lr - IV ASDIR FROYLAN Lamotrigine 25 mg 07/30/19 18:45 08/04/19 09:57 Lamictal - PO 25 mg DAILY FROYLAN Administration Non-Formulary Medication 0.1 mg 07/30/19 20:00 Clonidine Hcl [Clonidine Hcl Er] PO HS [facility] Pantoprazole Sodium 40 mg 07/31/19 10:00 08/04/19 09:57 Protonix - PO 40 mg DAILY FROY[facility]AN Administration Quetiapine Fumarate 100 mg 07/30/19 20:00 08/03/19 20:57 Seroquel - PO 100 mg DAILY@1999 [facility] Administration Trazodone HCl 300 mg 07/30/19 22:00 08/03/19 21:00 Desyrel - PO 300 mg HS FROYLAN Administration ASSESSMENT/PLAN: Isabela Rai is a 28 year old female with PMH of bipolar disorder, GERD, fibromyalgia, idiopathic scoliosis, Nrydnhb-Iqade-Onpyy, erosive arthritis, osteomyelitis (3rd digit of L hand) presents with worsening pain, swelling, and redness of her R 3rd toe s/p injury. R 3rd toe cellulitis, complicated by osteomyelitis - R foot XR: swelling w/soft tissue and possible osteomyelitis - MRI: osteomyelitis in R 3rd distal phalanx with perifocal cellulitis - Cont IV 2gm ceftriaxone (Day 6), d/c vanc per ID (Dr. Rios) - Podiatry ([facility]): Plan for partial amputation 08/05. Can leave toe dry, open to air w/o dressing - PT eval daily, walking well with walker, 150ft - Blood cx no growth after 5 days Bipolar disorder - Cont home meds: lamotrigine 25mg, seroquel 100mg, clonidine 0.1mg HS Insomnia - Cont home meds: trazadone 300mg po HS GERD - Cont protonix 40mg daily DVT ppx - Lovenox sq, held pending surgery, SCDs FEN - switch to D5LR after midnight - continue to monitor electrolytes and replete as necessary - NPO after midnight pending surgery Dispo - Monitor on med-surg Visit type - Emergency Visit Emergency Visit: No - New Patient This patient is new to me today: Yes Date on this admission: 08/04/19 - Critical Care Critical Care patient: No
[2019-08-04] MEDS: QUEtiapine FUMARATE 100 MG TABLET (FP) PO SCH (21:16)
[2019-08-04] MEDS: traZODone HCL 100 MG TABLET (FP) PO SCH (21:16)
--- NOTE | 2019-08-04 23:42 | PN ---
Progress Note, Physician History of Present Illness: AWAKE, ALERT NO C/O FOOT PAIN NO FEVER/ CHILLS - Current Medication List Current Medications: Active Medications Acetaminophen (Tylenol -) 650 mg PO Q6H PRN PRN Reason: Fever Or Pain Last Admin: 08/01/19 13:49 Dose: 650 mg Enoxaparin Sodium (Lovenox -) 40 mg SQ DAILY [facility] Last Admin: 08/04/19 10:23 Dose: 40 mg Ceftriaxone Sodium 2 gm/ (Dextrose) 100 mls @ 200 mls/hr IVPB DAILY [facility]; Protocol Last Admin: 08/04/19 09:57 Dose: 200 mls/hr Sodium Chloride (1/2 Normal Saline) 1,000 mls @ 75 mls/hr IV ASDIR [facility] Stop: 08/05/19 00:01 Last Admin: 08/04/19 09:56 Dose: 75 mls/hr Dextrose/Lactated Ringer's (D5-Lr -) 1,000 mls @ 100 mls/hr IV ASDIR [facility] Lamotrigine (Lamictal -) 25 mg PO DAILY [facility] Last Admin: 08/04/19 09:57 Dose: 25 mg Non-Formulary Medication (Clonidine Hcl [Clonidine Hcl Er]) 0.1 mg PO [facility] Pantoprazole Sodium (Protonix -) 40 mg PO DAILY [facility] Last Admin: 08/04/19 09:57 Dose: 40 mg Quetiapine Fumarate (Seroquel -) 100 mg PO DAILY@1999 [facility] Last Admin: 08/04/19 21:16 Dose: 100 mg Trazodone HCl (Desyrel -) 300 mg PO HS [facility] Last Admin: 08/04/19 21:16 Dose: 300 mg - Objective Vital Signs: Vital Signs Temperature 98.0 F 08/04/19 17:53 Pulse Rate 82 08/04/19 17:53 Respiratory Rate 18 08/04/19 17:53 Blood Pressure 118/82 08/04/19 17:53 O2 Sat by Pulse Oximetry (%) 96 08/04/19 09:00 Constitutional: Yes: No Distress Eyes: Yes: Conjunctiva Clear Cardiovascular: Yes: Regular Rate and Rhythm, S1, S2 Respiratory: Yes: CTA Bilaterally Gastrointestinal: Yes: Normal Bowel Sounds, Soft Extremities: Yes: Other (R THIRD TOE SWOLLEN; LESS ERYTHEMATOUS; NO DRAINAGE) Labs: CBC, BMP 08/04/19 07:24 08/04/19 07:24 Assessment/Plan CELLULITIS/ OSTEOMYELITIS R 3RD TOE CMT FOR AMPUTATION OF TOE TODAY CONTINUE ANTIBIOTICS
[2019-08-05] MEDS ORDERED: DEXTROSE 5%-LACTATED RINGERS 1,000 ML IV SCH (00:01)
[2019-08-05] MEDS ORDERED: DEXTROSE 5%-WATER 100 ML IVPB ONE (09:01)
[2019-08-05 09:10] LABS: HEMATOCRIT 37.2 % (32.4-45.2); HEMOGLOBIN 12.4 GM/dL (10.7-15.3); MCH 31.3 pg (25.7-33.7); MCHC 33.4 g/dl (32.0-36.0); MEAN CELL VOLUME 93.8 fl (80-96); MEAN PLT VOLUME 9.8 fl (7.5-11.1); PLATELET COUNT 217 K/MM3 (134-434); RBC 3.96 M/mm3 (3.60-5.2); RDW 11.8 % (11.6-15.6); WHITE BLOOD COUNT 5.5 K/mm3 (4.0-10.0)
[2019-08-05 09:26] LABS: INR 1.08 (0.83-1.09); PROTHROMBIN TIME (PATIENT) 12.8 SEC (9.7-13.0)
[2019-08-05 09:29] LABS: ACTIVATED PTT 35.4 SECONDS (25.2-36.5)
[2019-08-05 10:00] LABS: ANION GAP 7 MMOL/L (8-16); BLOOD UREA NITROGEN 10.7 mg/dL (7-18); CHLORIDE 109 mmol/L (98-107); CO2 26 mmol/L (21-32); CREATININE 0.6 mg/dL (0.55-1.3); GLUCOSE,RANDOM 68 mg/dL (74-106); POTASSIUM 3.7 mmol/L (3.5-5.1); SODIUM 141 mmol/L (136-145)
[2019-08-05] MEDS: lamoTRIgine 25 MG TABLET PO SCH (10:02)
[2019-08-05] MEDS: PANTOPRAZOLE 40 MG TABLET (FP) PO SCH (10:02)
[2019-08-05] MEDS: CEFTRIAXONE 2 GM in DEXTROSE 5%-WATER 100 ML IVPB SCH (10:02)
[2019-08-05] MEDS ORDERED: LIDOCAINE HCL 1%, 10 MG/ML (20ML VIAL) ONE (12:25)
[2019-08-05] MEDS ORDERED: BUPIVACAINE HCL/PF 0.5% (5 MG/ML) 30 ML VIAL IJ ONE ×2 (12:25→14:19)
[2019-08-05] MEDS ORDERED: MIDAZOLAM HCL 2 MG/2 ML SINGLE DOSE VIAL ONE ×2 (13:55→14:08)
[2019-08-05] MEDS ORDERED: fentaNYL CITRATE 250 MCG/5 ML VIAL ONE (13:55)
[2019-08-05] MEDS ORDERED: LIDOCAINE HCL 1%, 10 MG/ML (20ML VIAL) NR ONE (14:02)
[2019-08-05] MEDS ORDERED: PROMETHAZINE HCL 25 MG/1 ML VIAL IVPUSH PRN ×2 (14:06→15:06)
[2019-08-05] MEDS ORDERED: ONDANSETRON 4 MG/2 ML VIAL IVPUSH PRN ×2 (14:06→15:06)
[2019-08-05] MEDS ORDERED: LACTATED RINGERS SOLUTION 1,000 ML IV SCH ×2 (14:15→15:06)
--- NOTE | 2019-08-05 14:32 | PN ---
Physical Exam: SUBJECTIVE: Patient seen and examined at the bedside. She stated she was doing well and was anxious for her surgery. Denied cp, sob, foot pain, numbness, tingling, fever, chills, n/v/c/d, abd pain. OBJECTIVE: Vital Signs Period Temp Pulse Resp BP Sys/Ibarra Pulse Ox Last 24 Hr 97.9 F-98.4 F 66-90 18-20 98-130/52-82 99 GENERAL: The patient is awake and alert, Oriented x3, in no acute distress. HEAD: Normal with no signs of trauma. LUNGS: Breath sounds equal, clear to auscultation bilaterally, no wheezes, no crackles, no accessory muscle use. HEART: Regular rate and rhythm, S1, S2 without murmur, rub or gallop. ABDOMEN: Soft, nontender, nondistended, normoactive bowel sounds, no guarding, no rebound, no masses. MUSCULOSKELETAL: Scoliosis, marked deformities of hand and leg joints BL. UPPER EXTREMITIES: BL hand deformities. 2cm open wound on w/fibrinous tissue on L middle finger, no purulent discharge. 1-2cm ulcer w/granulation tissue on R thumb base, no surrounding erythema or discharge. LOWER EXTREMITIES: R first toe amputation. R 3rd toe with marked fluctuant swelling, erythema, and warmth. No open wounds or discharge. 2+ pulses, no extremity edema. NEUROLOGICAL: Gait not observed. Decreased sensation in BL feet. Laboratory Results - last 24 hr 08/05/19 08/05/19 08/05/19 07:10 07:10 07:10 WBC 5.5 RBC 3.96 Hgb 12.4 Hct 37.2 MCV 93.8 MCH 31.3 MCHC 33.4 RDW 11.8 Plt Count 217 MPV 9.8 PT with INR 12.80 INR 1.08 PTT (Actin FS) 35.4 Sodium 141 Potassium 3.7 Chloride 109 H Carbon Dioxide 26 Anion Gap 7 L BUN 10.7 Creatinine 0.6 Est GFR (CKD-EPI)AfAm 141.76 Est GFR (CKD-EPI)NonAf 122.31 Random Glucose 68 L Calcium 9.0 Beta HCG, Quant < 1.0 Active Medications Generic Name Dose Route Start Last Admin Trade Name Freq PRN Reason Stop Dose Admin Acetaminophen 650 mg 08/01/19 08:03 08/01/19 13:49 Tylenol - PO 650 mg Q6H PRN Administration Fever Or Pain Enoxaparin Sodium 40 mg 07/30/19 18:45 08/04/19 10:23 Lovenox - SQ 40 mg DAILY FROYLAN Administration Fentanyl 50 mcg 08/05/19 14:06 Sublimaze Injection - IVPUSH [id number] PRN PAIN-PACU ORDER X 4 DOSES ONLY Ceftriaxone Sodium 2 gm/ 100 mls @ 200 mls/hr 07/30/19 18:45 08/05/19 10:02 Dextrose IVPB 200 mls/hr DAILY FROYLAN Administration Protocol Dextrose/Lactated Ringer's 1,000 mls @ 100 mls/hr 08/05/19 00:01 08/05/19 10: 02 D5-Lr - IV Not Given ASDIR FROYLAN Lactated Ringer's 1,000 mls @ 125 mls/hr 08/05/19 14:15 Lactated Ringers Solution IV ASDIR FROYLAN Lamotrigine 25 mg 07/30/19 18:45 08/05/19 10:02 Lamictal - PO 25 mg DAILY FROY[facility]AN Administration Non-Formulary Medication 0.1 mg 07/30/19 20:00 Clonidine Hcl [Clonidine Hcl Er] PO HS FROYLAN Ondansetron HCl 4 mg 08/05/19 14:06 Zofran Injection IVPUSH Q6H PRN NAUSEA AND/OR VOMITING Pantoprazole Sodium 40 mg 07/31/19 10:00 08/05/19 10:02 Protonix - PO 40 mg DAILY FROYLAN Administration Promethazine HCl 12.5 mg 08/05/19 14:06 Phenergan Injection - IVPUSH Q6H PRN NAUSEA-FOR RESCUE AFTER 15 MIN Quetiapine Fumarate 100 mg 07/30/19 20:00 08/04/19 21:16 Seroquel - PO 100 mg DAILY@2000 FR[facility] Administration Trazodone HCl 300 mg 07/30/19 22:00 08/04/19 21:16 Desyrel - PO 300 mg HS FROYLAN Administration ASSESSMENT/PLAN: Isabela Rai is a 28 year old female with PMH of bipolar disorder, GERD, fibromyalgia, idiopathic scoliosis, Urgvhxy-Kvhez-Teirb, erosive arthritis, osteomyelitis (3rd digit of L hand) presents with worsening pain, swelling, and redness of her R 3rd toe s/p injury. R 3rd toe cellulitis, complicated by osteomyelitis - R foot XR: swelling w/soft tissue and possible osteomyelitis - MRI: osteomyelitis in R 3rd distal phalanx with perifocal cellulitis - Cont IV 2gm ceftriaxone (Day 7), d/c vanc per ID (Dr. Rios) - Podiatry ([facility]): partial amputation today. Will follow post-surgical recommendations. - PT eval daily, walking well with walker, 150ft - Blood cx no growth after 5 days Bipolar disorder - Cont home meds: lamotrigine 25mg, seroquel 100mg, clonidine 0.1mg HS Insomnia - Cont home meds: trazadone 300mg po HS GERD - Cont protonix 40mg daily DVT ppx - Lovenox sq, held pending surgery, SCDs FEN - D5LR at 125cc/hr, will reduce fluids after surgery - continue to monitor electrolytes and replete as necessary - restart diet as tolerated Dispo - Monitor on med-surg Visit type - Emergency Visit Emergency Visit: No - New Patient This patient is new to me today: No - Critical Care Critical Care patient: No
[2019-08-05] MEDS ORDERED: ACETAMINOPHEN 325 MG TABLET (FP) PO PRN (15:06)
--- NOTE | 2019-08-05 15:19 | OP ---
DATE OF OPERATION: 08/05/2019 PREOPERATIVE DIAGNOSIS: Right foot 3rd digit osteomyelitis. POSTOPERATIVE DIAGNOSIS: Right foot 3rd digit osteomyelitis. PROCEDURE PERFORMED: Right 3rd digit amputation. SURGEON: Bakari Deutsch DPM ANESTHESIA: IV sedation with local injections. INDICATIONS: Patient is a 28-year-old female with the above-mentioned diagnosis. Patient exhausted all forms of conservative treatment at this time and requires further surgical interventions for the conditions listed above. After careful explanation of risks, benefits, complications for the procedure, patient signed the consent form. All questions and concerns addressed at this time. Prior to taking the patient to the OR, n.p.o. status was verified. Preoperative antibiotics had been given on the floor. DESCRIPTION OF PROCEDURE: Patient brought to the operating room and placed on operative table in supine position. Pneumatic ankle tourniquet was placed to the patient's right ankle and inflated to 250 mmHg. Following induction of IV sedation, a local injection of 10 mL of 2% lidocaine plain were injected to the patient's right foot in local block-type fashion without complication. Following local anesthetic, the foot was prepped and draped in the normal sterile manner and procedure began. Procedure number 1, right foot 3rd digit amputation. At this time, attention was directed to the patient's right foot. There was noted to be a grossly swollen 3rd digit at this time. Using a No. 15 blade, a fish mouth-type incision was made starting at the 3rd metatarsophalangeal joint going directly down to bone and ellipsing a 3rd digit. The 3rd digit was then grabbed with a towel clamp, elevated, and disarticulated at the 3rd metatarsophalangeal joint without complication. A culture was taken at this time without complications. Utilizing a sagittal saw, the head of the 3rd metatarsal was removed to remove the cartilaginous cap and allow for adequate bleeding to allow for good healing. This proximal cap was sectioned in 2 parts to be sent 1, for microbiology and 2, for pathology to evaluate the proximal margin to evaluate for any residual signs of osteomyelitis. At this time, the wound was flushed with copious amounts of normal sterile saline. The right foot was closed with 4-0 Vicryl and 4-0 nylon in a normal sterile manner. POSTOPERATIVE CONDITION: Patient tolerated anesthesia and procedure well and was transferred to recovery room with vital signs stable, neurovascular status intact to right foot. This patient will be followed up on the floor as previously discussed with the patient. RADHA MODI/[id number]
[2019-08-05] MEDS: PATIENT'S OWN MEDICATION (NON-FORMULARY) (Clonidine Hcl [Clonidine Hcl Er] 0.1 MG) PO SCH (16:31)
--- NOTE | 2019-08-05 17:59 | PN ---
Progress Note, Physician History of Present Illness: S/P AMPUTATION OF TOE NO C/O PAIN AWAKE, ALERT NO FEVER/ CHILLS - Current Medication List Current Medications: Active Medications Acetaminophen (Tylenol -) 650 mg PO Q6H PRN PRN Reason: Fever Or Pain Enoxaparin Sodium (Lovenox -) 40 mg SQ DAILY [facility] Ceftriaxone Sodium 2 gm/ (Dextrose) 100 mls @ 200 mls/hr IVPB DAILY FROYLNA; Protocol Lactated Ringer's (Lactated Ringers Solution) 1,000 mls @ 125 mls/hr IV ASDIR FROYLAN Lamotrigine (Lamictal -) 25 mg PO DAILY FROYLAN Non-Formulary Medication (Clonidine Hcl [Clonidine Hcl Er]) 0.1 mg PO HS [facility] Pantoprazole Sodium (Protonix -) 40 mg PO DAILY [facility] Quetiapine Fumarate (Seroquel -) 100 mg PO DAILY@1999 [facility] Trazodone HCl (Desyrel -) 300 mg PO HS FROYLAN - Objective Vital Signs: Vital Signs Temperature 97.7 F 08/05/19 16:25 Pulse Rate 87 08/05/19 16:25 Respiratory Rate 20 08/05/19 16:25 Blood Pressure 121/75 08/05/19 16:25 O2 Sat by Pulse Oximetry (%) 98 08/05/19 15:16 Constitutional: Yes: No Distress Eyes: Yes: Conjunctiva Clear Cardiovascular: Yes: Regular Rate and Rhythm, S1, S2 Respiratory: Yes: CTA Bilaterally Gastrointestinal: Yes: Normal Bowel Sounds, Soft. No: Tenderness Extremities: Yes: Other (POST OPERATIVE DRESSING IN PLACE) Labs: CBC, BMP 08/05/19 07:10 08/05/19 07:10 INR, PTT INR 1.08 (0.83-1.09) 08/05/19 07:10 Assessment/Plan CELLULITIS/ OSTEOMYELITIS R 3RD TOE S/P AMPUTATION CMT AWAIT C/S , PATH CONTINUE ANTIBIOTICS
[2019-08-05] MEDS ORDERED: cloNIDine HCL 0.1 MG TABLET PO SCH ×3 (18:00→20:00)
--- NOTE | 2019-08-05 18:40 | PN ---
Teaching Attending Note Name of Resident: Elie Armijo ATTENDING PHYSICIAN STATEMENT I saw and evaluated the patient. I reviewed the resident's note and discussed the case with the resident. I agree with the resident's findings and plan as documented. SUBJECTIVE: R 2nd toe swelling/discomfort. No fever/chills. OBJECTIVE: Afebrile, Hemodynamically Stable. Comfortable. Last Vital Signs Temp Pulse Resp BP Pulse Ox 97.7 F 87 20 121/75 98 08/05/19 16:25 08/05/19 16:25 08/05/19 16:25 08/05/19 16:25 08/05/19 15:16 HEENT - Atraumativc, Normocephalic. Heart - S1, S2, RRR lungs - clear to auscultation Abdomen - Soft, non-tender. Bowel Sounds normal. Extremities - R foot s/p R great toe amputation, partial R 2nd toe amputation, swollen discolored 3rd toe. Multiple DIP and PIP joint deformities in hands. Laboratory Results - last 24 hr 08/05/19 08/05/19 08/05/19 07:10 07:10 07:10 WBC 5.5 RBC 3.96 Hgb 12.4 Hct 37.2 MCV 93.8 MCH 31.3 MCHC 33.4 RDW 11.8 Plt Count 217 MPV 9.8 PT with INR 12.80 INR 1.08 PTT (Actin FS) 35.4 Sodium 141 Potassium 3.7 Chloride 109 H Carbon Dioxide 26 Anion Gap 7 L BUN 10.7 Creatinine 0.6 Est GFR (CKD-EPI)AfAm 141.76 Est GFR (CKD-EPI)NonAf 122.31 Random Glucose 68 L Calcium 9.0 Beta HCG, Quant < 1.0 Current Medications Generic Name Dose Route Start Last Admin Trade Name Freq PRN Reason Stop Dose Admin Acetaminophen 650 mg 08/05/19 15:06 Tylenol - PO Q6H PRN Fever Or Pain Clonidine 0.2 mg 08/05/19 20:00 Catapres - PO DAILY@2000 [facility] Enoxaparin Sodium 40 mg 08/06/19 10:00 Lovenox - SQ DAILY [facility] Ceftriaxone Sodium 2 gm/ 100 mls @ 200 mls/hr 08/06/19 10:00 Dextrose IVPB DAILY [facility] Protocol Lactated Ringer's 1,000 mls @ 125 mls/hr 08/05/19 15:06 Lactated Ringers Solution IV ASDIR [facility] Lamotrigine 25 mg 08/06/19 10:00 Lamictal - PO DAILY [facility] Pantoprazole Sodium 40 mg 08/06/19 10:00 Protonix - PO DAILY [facility] Quetiapine Fumarate 100 mg 08/05/19 20:00 Seroquel - PO DAILY@2000 [facility] Trazodone HCl 300 mg 08/05/19 22:00 Desyrel - PO [facility] Home Medications Medication Instructions Recorded Trazodone HCl 300 mg PO HS 06/15/17 Clonidine HCl [Clonidine HCl ER] 0.1 mg PO DAILY 10/30/17 Lamotrigine 25 mg PO DAILY 02/12/19 Quetiapine Fumarate [Seroquel -] 100 mg PO HS 05/23/19 ASSESSMENT AND PLAN: 28 year old female with history of Scoliosis, Fibromylagia, Charcot Carmelita Tooth syndrome, Hx of osteomyelitis, Bipolar disorder, PTSD, neuropathy, GERD, R great toe amputation, left middle finger infected ulcer/osteomyelitis in 01/2019 s/p 6 weeks of Ceftriaxone, being followed by Dr. Uribe in the wound care clinic for her left middle finger wound, admitted with right third toe cellulitis/osteomyelitis. 1. R third toe osteomyelitis Scheduled for OR today for amputation Continue IV ceftriaxone. Podiatry/ID following 2. Bipolar/PTSD - continue Seroquel, Lamotrigine, Trazodone. DVT Px - Lovenox SQ
[2019-08-05] MEDS: QUEtiapine FUMARATE 100 MG TABLET (FP) PO SCH (20:19)
[2019-08-05] MEDS ORDERED: IBUPROFEN 400 MG TABLET (FP) PO ONE (20:40)
[2019-08-05] MEDS ORDERED: PATIENT'S OWN MEDICATION (NON-FORMULARY) (Clonidine Hcl [Clonidine Hcl Er] 0.1 MG) PO SCH (22:00)
[2019-08-05] MEDS: traZODone HCL 100 MG TABLET (FP) PO SCH (22:11)
[2019-08-06] MEDS ORDERED: DEXTROSE 5%-WATER 100 ML IVPB ONE (09:18)
[2019-08-06] MEDS: CEFTRIAXONE 2 GM in DEXTROSE 5%-WATER 100 ML IVPB SCH (09:22)
[2019-08-06] MEDS: KETOROLAC TROMETHAMINE 10 MG TABLET PO PRN ×2 (09:22→21:32)
[2019-08-06] MEDS: lamoTRIgine 25 MG TABLET PO SCH (09:23)
[2019-08-06] MEDS: PANTOPRAZOLE 40 MG TABLET (FP) PO SCH (09:23)
[2019-08-06] MEDS: ENOXAPARIN NA (PORCINE) 40 MG/0.4 ML DISP.SYRIN SQ SCH (09:23)
[2019-08-06 11:30] VITALS: BMI 21.9
--- NOTE | 2019-08-06 11:41 | PN ---
Progress Note, Physician History of Present Illness: S/P AMPUTATION OF TOE NO C/O PAIN AWAKE, ALERT NO FEVER/ CHILLS CULTURES AND PATHOLOGY PENDING - Current Medication List Current Medications: Active Medications Acetaminophen (Tylenol -) 650 mg PO Q6H PRN PRN Reason: Fever Or Pain Last Admin: 08/06/19 11:19 Dose: 650 mg Clonidine (Catapres -) 0.2 mg PO DAILY@1999 [facility] Last Admin: 08/05/19 20:19 Dose: 0.2 mg Enoxaparin Sodium (Lovenox -) 40 mg SQ DAILY [facility] Last Admin: 08/06/19 09:23 Dose: 40 mg Ceftriaxone Sodium 2 gm/ (Dextrose) 100 mls @ 200 mls/hr IVPB DAILY [facility]; Protocol Last Admin: 08/06/19 09:22 Dose: 200 mls/hr Lactated Ringer's (Lactated Ringers Solution) 1,000 mls @ 125 mls/hr IV ASDIR [facility] Ketorolac Tromethamine (Toradol) 10 mg PO TID PRN PRN Reason: PAIN LEVEL 6-10 Stop: 08/11/19 13:59 Last Admin: 08/06/19 09:22 Dose: 10 mg Lamotrigine (Lamictal -) 25 mg PO DAILY [facility] Last Admin: 08/06/19 09:23 Dose: 25 mg Pantoprazole Sodium (Protonix -) 40 mg PO DAILY [facility] Last Admin: 08/06/19 09:23 Dose: 40 mg Quetiapine Fumarate (Seroquel -) 100 mg PO DAILY@1999 [facility] Last Admin: 08/05/19 20:19 Dose: 100 mg Trazodone HCl (Desyrel -) 300 mg PO [facility] Last Admin: 08/05/19 22:11 Dose: 300 mg - Objective Vital Signs: Vital Signs Temperature 98.1 F 08/06/19 09:21 Pulse Rate 67 08/06/19 08:37 Respiratory Rate 20 08/06/19 08:37 Blood Pressure 106/56 L 08/06/19 08:37 O2 Sat by Pulse Oximetry (%) 99 08/05/19 19:30 Constitutional: Yes: No Distress Eyes: Yes: Conjunctiva Clear Cardiovascular: Yes: Regular Rate and Rhythm, S1, S2 Respiratory: Yes: CTA Bilaterally Gastrointestinal: Yes: Normal Bowel Sounds, Soft. No: Tenderness Extremities: Yes: Other (R 3RD TOE AMP SITE WITH SUTURES IN PLACE AREA RED; NO DRAINAGE) Labs: CBC, BMP 08/05/19 07:10 08/05/19 07:10 INR, PTT INR 1.08 (0.83-1.09) 08/05/19 07:10 Assessment/Plan CELLULITIS/ OSTEOMYELITIS R 3RD TOE S/P AMPUTATION CMT AWAIT C/S , PATH CONTINUE ANTIBIOTICS DURATION OF ANTIBIOTIC THERAPY TO BE DETERMINED UPON WHETHER OR NOT ALL INFECTED BONE EXCISED
--- NOTE | 2019-08-06 14:38 | PN ---
Physical Exam: SUBJECTIVE: Patient seen and examined at the bedside. POD#1 s/p R 3rd toe amputation. Patient stated that she had some pain post-operatively, but was doing well overall. Denied numbness, tinging, cold limb, fever, chills, cp, sob , n/v/c/d, abd pain. Currently awaiting pathology results to determine length of antibiotic regimen. OBJECTIVE: Vital Signs Period Temp Pulse Resp BP Sys/Ibarra Pulse Ox Last 24 Hr 97.6 F-98.4 F 60-87 13-20 82-133/38-82 98-100 GENERAL: The patient is awake and alert, Oriented x3, in no acute distress. HEAD: Normal with no signs of trauma. LUNGS: Breath sounds equal, clear to auscultation bilaterally, no wheezes, no crackles, no accessory muscle use. HEART: Regular rate and rhythm, S1, S2 without murmur, rub or gallop. ABDOMEN: Soft, nontender, nondistended, normoactive bowel sounds, no guarding, no rebound, no masses. MUSCULOSKELETAL: Scoliosis, marked deformities of hand and leg joints BL. UPPER EXTREMITIES: BL hand deformities. 2cm open wound on w/fibrinous tissue on L middle finger, no purulent discharge. 1-2cm ulcer w/granulation tissue on R thumb base, no surrounding erythema or discharge. LOWER EXTREMITIES: R first toe amputation. R 3rd toe amputation. Healing wound post-amputation. Foot in dressing. 2+ pulses, no extremity edema. NEUROLOGICAL: Gait not observed. Decreased sensation in BL feet. Active Medications Generic Name Dose Route Start Last Admin Trade Name Freq PRN Reason Stop Dose Admin Acetaminophen 650 mg 08/05/19 15:06 08/06/19 11:19 Tylenol - PO 650 mg Q6H PRN Administration Fever Or Pain Amino Acids 30 ml 08/06/19 17:30 Prosource No Carb Liquid Pkt PO BID@0800,1730 [facility] Ascorbic Acid 500 mg 08/07/19 10:00 Vitamin C - PO DAILY [facility] Clonidine 0.2 mg 08/05/19 20:00 08/05/19 20:19 Catapres - PO 0.2 mg DAILY@2000 [facility] Administration Enoxaparin Sodium 40 mg 08/06/19 10:00 08/06/19 09:23 Lovenox - SQ 40 mg DAILY [facility] Administration Ceftriaxone Sodium 2 gm/ 100 mls @ 200 mls/hr 08/06/19 10:00 08/06/19 09:22 Dextrose IVPB 200 mls/hr DAILY [facility] Administration Protocol Lactated Ringer's 1,000 mls @ 125 mls/hr 08/05/19 15:06 Lactated Ringers Solution IV ASDIR [facility] Ketorolac Tromethamine 10 mg 08/06/19 08:43 08/06/19 09:22 Toradol PO 08/11/19 13:59 10 mg TID PRN Administration PAIN LEVEL 6-10 Lamotrigine 25 mg 08/06/19 10:00 08/06/19 09:23 Lamictal - PO 25 mg DAILY [facility] Administration Multivitamins/Minerals 15 ml 08/07/19 10:00 Certavite-Antioxidant Liquid PO DAILY [facility] Pantoprazole Sodium 40 mg 08/06/19 10:00 08/06/19 09:23 Protonix - PO 40 mg DAILY [facility] Administration Quetiapine Fumarate 100 mg 08/05/19 20:00 08/05/19 20:19 Seroquel - PO 100 mg DAILY@1999 [facility] Administration Trazodone HCl 300 mg 08/05/19 22:00 08/05/19 22:11 Desyrel - PO 300 mg HS [facility] Administration ASSESSMENT/PLAN: Isabela Rai is a 28 year old female with PMH of bipolar disorder, GERD, fibromyalgia, idiopathic scoliosis, Ajciikf-Wvjft-Guxyc, erosive arthritis, osteomyelitis (3rd digit of L hand) presents with worsening pain, swelling, and redness of her R 3rd toe s/p injury. R 3rd toe cellulitis, complicated by osteomyelitis - R foot XR: swelling w/soft tissue and possible osteomyelitis - MRI: osteomyelitis in R 3rd distal phalanx with perifocal cellulitis - Cont IV 2gm ceftriaxone (Day 8), d/c vanc per ID (Dr. Sanders) - Podiatry ([facility]): R 3rd toe amputation. Following post-op surgery recommendations - PT eval daily, walking well with walker, 150ft - Blood cx no growth after 5 days - awaiting culture and pathology results to determine length of antibiotic regimen - toradol and tylenol for post-op pain Bipolar disorder - Cont home meds: lamotrigine 25mg, seroquel 100mg, clonidine 0.1mg HS Insomnia - Cont home meds: trazadone 300mg po HS GERD - Cont protonix 40mg daily Chronic hand wounds - patient had appointment with Dr. Uribe in wound clinic for regular follow up of chronic wounds - Dr. Uribe seen patient at the bedside FEN - no standing fluids - continue to monitor electrolytes and replete as necessary - regular diet, addition of Prosource, MVI, and Vitamic C DVT ppx - Lovenox sq Dispo - Monitor on med-surg - plan for discharge upon pathology results Visit type - Emergency Visit Emergency Visit: No - New Patient This patient is new to me today: No - Critical Care Critical Care patient: No
--- NOTE | 2019-08-06 15:51 | PN ---
Progress Note (short form) - Note Progress Note: Podiatry F/U: Seen/evaluated at bedside NAD. Pain controlled, denies F/V/N/C/SOB/CP. Afebrile. S/p 3rd digit amputation. AMINA: R foot: pedal pulses palpable 2/4, TG wnl. suture line intact, no dehiscence, no sigsn of hematoma, no erythema, no edema, no signs of acute infection. MRI R foot: (+) osteomyelitis right third digit Imp: 28 year old female, history of CMT, with neuropathic ulcer and osteomyelitis right third digit; s/p amputation Evaluated and reviewed path still pending Upon d/c even if culture negative would send with 10 days PO augmentin abx coverage for post op period if fine with ID dressing changed keep c/d/i until follow up to see me in my office next sunday stable for dc planning
--- NOTE | 2019-08-06 16:38 | PN ---
Teaching Attending Note Name of Resident: Elie Armijo ATTENDING PHYSICIAN STATEMENT I saw and evaluated the patient. I reviewed the resident's note and discussed the case with the resident. I agree with the resident's findings and plan as documented. SUBJECTIVE: R 2nd toe swelling/discomfort. No fever/chills. OBJECTIVE: Afebrile, Hemodynamically Stable. Comfortable. Last Vital Signs Temp Pulse Resp BP Pulse Ox 97.8 F 95 H 20 100/52 L 100 08/06/19 14:00 08/06/19 14:00 08/06/19 14:00 08/06/19 14:00 08/06/19 09:00 HEENT - Atraumativc, Normocephalic. Heart - S1, S2, RRR lungs - clear to auscultation Abdomen - Soft, non-tender. Bowel Sounds normal. Extremities - R foot s/p R great toe amputation, partial R 2nd toe amputation, swollen discolored 3rd toe. Multiple DIP and PIP joint deformities in hands. Current Medications Generic Name Dose Route Start Last Admin Trade Name Freq PRN Reason Stop Dose Admin Acetaminophen 650 mg 08/05/19 15:06 08/06/19 11:19 Tylenol - PO 650 mg Q6H PRN Administration Fever Or Pain Amino Acids 30 ml 08/06/19 17:30 Prosource No Carb Liquid Pkt PO BID@0800,1730 [facility] Ascorbic Acid 500 mg 08/07/19 10:00 Vitamin C - PO DAILY [facility] Clonidine 0.1 mg 08/06/19 20:00 Catapres - PO DAILY@2000 [facility] Enoxaparin Sodium 40 mg 08/06/19 10:00 08/06/19 09:23 Lovenox - SQ 40 mg DAILY [facility] Administration Ceftriaxone Sodium 2 gm/ 100 mls @ 200 mls/hr 08/06/19 10:00 08/06/19 09:22 Dextrose IVPB 200 mls/hr DAILY [facility] Administration Protocol Ketorolac Tromethamine 10 mg 08/06/19 08:43 08/06/19 09:22 Toradol PO 08/11/19 13:59 10 mg TID PRN Administration PAIN LEVEL 6-10 Lamotrigine 25 mg 08/06/19 10:00 08/06/19 09:23 Lamictal - PO 25 mg DAILY [facility] Administration Multivitamins/Minerals 15 ml 08/07/19 10:00 Certavite-Antioxidant Liquid PO DAILY [facility] Pantoprazole Sodium 40 mg 08/06/19 10:00 08/06/19 09:23 Protonix - PO 40 mg DAILY [facility] Administration Quetiapine Fumarate 100 mg 08/05/19 20:00 08/05/19 20:19 Seroquel - PO 100 mg DAILY@2000 [facility] Administration Trazodone HCl 300 mg 08/05/19 22:00 08/05/19 22:11 Desyrel - PO 300 mg HS [facility] Administration Home Medications Medication Instructions Recorded Trazodone HCl 300 mg PO HS 06/15/17 Lamotrigine 25 mg PO DAILY 02/12/19 Quetiapine Fumarate [Seroquel -] 100 mg PO HS 05/23/19 Miscellaneous Medical Supply 1 each ASDIR #1 [facility] [place]/06/19 [Outpatient Order] cloNIDine HCL [Catapres -] 0.1 mg PO DAILY 08/06/19 ASSESSMENT AND PLAN: 28 year old female with history of Scoliosis, Fibromylagia, Charcot Carmelita Tooth syndrome, Hx of osteomyelitis, Bipolar disorder, PTSD, neuropathy, GERD, R great toe amputation, left middle finger infected ulcer/osteomyelitis in 01/2019 s/p 6 weeks of Ceftriaxone, being followed by Dr. Uribe in the wound care clinic for her left middle finger wound, admitted with right third toe cellulitis/osteomyelitis. 1. R third toe osteomyelitis POD 1 s/p amputation R third toe Afebrile, Hemodynamically Stable. Continue IV ceftriaxone. Podiatry/ID following - awaiting ID and Sens of Surgical Cx and pathology report to determine need/duration of ongoing Abx therapy. 2. Bipolar/PTSD - continue Seroquel, Lamotrigine, Trazodone. DVT Px - Lovenox SQ
[2019-08-06] MEDS: AMINO ACIDS/PROTEIN HYDROLYS 30 ML LIQUID.PKT PO SCH (17:45)
[2019-08-06] MEDS ORDERED: cloNIDine HCL 0.1 MG TABLET PO SCH ×2 (20:00)
[2019-08-06] MEDS: traZODone HCL 100 MG TABLET (FP) PO SCH (21:33)
[2019-08-06] MEDS: QUEtiapine FUMARATE 100 MG TABLET (FP) PO SCH (21:34)
[2019-08-07] MEDS ORDERED: SODIUM CHLORIDE 250 ML IV STA (02:51)
[2019-08-07] MEDS ORDERED: DEXTROSE 5%-WATER 100 ML IVPB ONE (08:40)
[2019-08-07] MEDS: ENOXAPARIN NA (PORCINE) 40 MG/0.4 ML DISP.SYRIN SQ SCH (09:28)
[2019-08-07] MEDS: CEFTRIAXONE 2 GM in DEXTROSE 5%-WATER 100 ML IVPB SCH (09:28)
[2019-08-07] MEDS: lamoTRIgine 25 MG TABLET PO SCH (09:29)
[2019-08-07] MEDS: PANTOPRAZOLE 40 MG TABLET (FP) PO SCH (09:29)
[2019-08-07] MEDS ORDERED: ASCORBIC ACID 500 MG TABLET (FP) PO SCH (10:00)
[2019-08-07] MEDS ORDERED: MULTIVIT-MINERALS ORAL LIQUID PO SCH (10:00)
[2019-08-07] MEDS: AMINO ACIDS/PROTEIN HYDROLYS 30 ML LIQUID.PKT PO SCH ×2 (10:12→17:12)
--- NOTE | 2019-08-07 12:15 | PN ---
Teaching Attending Note Name of Resident: Elie Armijo ATTENDING PHYSICIAN STATEMENT I saw and evaluated the patient. I reviewed the resident's note and discussed the case with the resident. I agree with the resident's findings and plan as documented. SUBJECTIVE: Feeling well post-op. No fever/chills. Pain well controlled. OBJECTIVE: Afebrile, Hemodynamically Stable. Comfortable. Last Vital Signs Temp Pulse Resp BP Pulse Ox 97.8 F 66 18 94/55 L 100 08/07/19 06:00 08/07/19 06:00 08/07/19 06:00 08/07/19 06:00 08/06/19 21:00 Heart - S1, S2, RRR lungs - clear to auscultation Abdomen - Soft, non-tender. Bowel Sounds normal. Extremities - R foot post-op dressing in place. On prior exam 08/05 - s/p R great toe amputation, partial R 2nd toe amputation, swollen discolored 3rd toe. Multiple DIP and PIP joint deformities in hands. Current Medications Generic Name Dose Route Start Last Admin Trade Name Haq PRN Reason Stop Dose Admin Acetaminophen 650 mg 08/05/19 15:06 08/06/19 11:19 Tylenol - PO 650 mg Q6H PRN Administration Fever Or Pain Amino Acids 30 ml 08/06/19 17:30 08/07/19 10:12 Prosource No Carb Liquid Pkt PO 30 ml BID@0800,1730 [facility] Administration Ascorbic Acid 500 mg 08/07/19 10:00 08/07/19 09:29 Vitamin C - PO 500 mg DAILY [facility] Administration Clonidine 0.1 mg 08/06/19 20:00 08/06/19 21:34 Catapres - PO 0.1 mg DAILY@2000 [facility] Administration Enoxaparin Sodium 40 mg 08/06/19 10:00 08/07/19 09:28 Lovenox - SQ 40 mg DAILY [facility] Administration Ceftriaxone Sodium 2 gm/ 100 mls @ 200 mls/hr 08/06/19 10:00 08/07/19 09:28 Dextrose IVPB 200 mls/hr DAILY [facility] Administration Protocol Ketorolac Tromethamine 10 mg 08/06/19 08:43 08/06/19 21:32 Toradol PO 08/11/19 13:59 10 mg TID PRN Administration PAIN LEVEL 6-10 Lamotrigine 25 mg 08/06/19 10:00 08/07/19 09:29 Lamictal - PO 25 mg DAILY [facility] Administration Multivitamins/Minerals 15 ml 08/07/19 10:00 Certavite-Antioxidant Liquid PO DAILY [facility] Pantoprazole Sodium 40 mg 08/06/19 10:00 08/07/19 09:29 Protonix - PO 40 mg DAILY [facility] Administration Quetiapine Fumarate 100 mg 08/05/19 20:00 08/06/19 21:34 Seroquel - PO 100 mg DAILY@1999 [facility] Administration Trazodone HCl 300 mg 08/05/19 22:00 08/06/19 21:33 Desyrel - PO 300 mg HS [facility] Administration Home Medications Medication Instructions Recorded Trazodone HCl 300 mg PO HS 06/15/17 Lamotrigine 25 mg PO DAILY 02/12/19 Quetiapine Fumarate [Seroquel -] 100 mg PO HS 05/23/19 Miscellaneous Medical Supply 1 each ASDIR #1 misc 08/06/19 [Outpatient Order] cloNIDine HCL [Catapres -] 0.1 mg PO DAILY 08/06/19 ASSESSMENT AND PLAN: 28 year old female with history of Scoliosis, Fibromylagia, Charcot Carmelita Tooth syndrome, Hx of osteomyelitis, Bipolar disorder, PTSD, neuropathy, GERD, R great toe amputation, left middle finger infected ulcer/osteomyelitis in 01/2019 s/p 6 weeks of Ceftriaxone, being followed by Dr. Uribe in the wound care clinic for her left middle finger wound, admitted with right third toe cellulitis/osteomyelitis. 1. R third toe osteomyelitis POD 2 s/p amputation R third toe Afebrile, Hemodynamically Stable. On IV ceftriaxone. For discharge on Augmentin as per Podiatry. Podiatry/ID following - awaiting ID and Sens of Surgical Cx and pathology report to determine need/duration of ongoing Abx therapy - PO vs IV. 2. Bipolar/PTSD - continue Seroquel, Lamotrigine, Trazodone. DVT Px - Lovenox SQ
[2019-08-07] MEDS ORDERED: PT OWN MED DRAWER 7, Y5N ONE (14:19)
--- NOTE | 2019-08-07 15:56 | PATH ---
Surgical Pathology Report Patient Name: CINTIA YUAN Med. Rec. #: [id number] /Age/Gender: 1990 (Age: 28) / F Account: [id number] Location: [facility] MED/SURG Taken: 08/05/2019 Received: 08/06/2019 Reported: 08/07/2019 Physicians: Bakari Deutsch DPM Specimen(s) Received A: RIGHT 3RD DIGIT B: RIGHT 3RD DIGIT PROXIMAL MARGIN Clinical History Osteomyelitis Final Diagnosis A. FOOT, RIGHT, THIRD DIGIT, RIGHT, AMPUTATION: DIGIT WITH ACUTE AND CHRONIC INFLAMMATION AND ASSOCIATED ULCERATION. UNDERLYING BONE WITH FOCAL REMODELING AND REACTIVE CHANGES. NO ACUTE OSTEOMYELITIS IDENTIFIED. BONE AND SOFT TISSUE MARGINS ARE VIABLE. B. FOOT, RIGHT, THIRD DIGIT, PROXIMAL MARGIN, RIGHT, EXCISION: BONE WITH FATTY MARROW. NO ACUTE OSTEOMYELITIS IDENTIFIED. Electronically Signed Cassi Newton M.D. Gross Description A. Received in formalin labeled "right third digit," is a 4.4 x 2.3 x 2.0 cm toe amputation. The epidermal surface displays a 2.0 x 1.4 cm ulcerated lesion at the distal aspect. The lesion extends to 0.4 cm from the skin and soft tissue margin. Loss Prevention Auditor sections are submitted in 3 cassettes as follows: 1-lesion and underlying bone, following decalcification; 2-skin and soft tissue margin; 3-bone margin, following decalcification. B. Received in formalin labeled "right third digit proximal margin," are 2 bone fragments measuring 0.9 x 0.4 x 0.2 cm and 1.0 x 0.4 x 0.3 cm. The specimens are submitted in toto in one cassette, following decalcification. 08/06/201908/06/2019
--- NOTE | 2019-08-07 17:24 | DS ---
Physical Exam: SUBJECTIVE: Patient seen and examined at the bedside. The patient stated that she felt well and did not have any pain at the site of the amputation. Patient denied fever, chills, cp, sob, abd pain, n/v/c/d, numbness, tingling. Pathology report was obtained and showed that margins were clear and viable. Dr. Sanders, infectious disease, was notified and agreed to continue the patient on Augmentin 875-125mg bid for 10 days. OBJECTIVE: Vital Signs Period Temp Pulse Resp BP Sys/Ibarra Pulse Ox Last 24 Hr 97.8 F-98.8 F 66-91 16-18 86-121/44-76 98-100 PHYSICAL EXAM GENERAL: The patient is awake and alert, Oriented x3, in no acute distress. HEAD: Normal with no signs of trauma. LUNGS: Breath sounds equal, clear to auscultation bilaterally, no wheezes, no crackles, no accessory muscle use. HEART: Regular rate and rhythm, S1, S2 without murmur, rub or gallop. ABDOMEN: Soft, nontender, nondistended, normoactive bowel sounds, no guarding, no rebound, no masses. MUSCULOSKELETAL: Scoliosis, marked deformities of hand and leg joints BL. UPPER EXTREMITIES: BL hand deformities. 2cm open wound on w/fibrinous tissue on L middle finger, no purulent discharge. 1-2cm ulcer w/granulation tissue on R thumb base, no surrounding erythema or discharge. LOWER EXTREMITIES: R first toe amputation. R 3rd toe amputation. Healing wound post-amputation. Foot in dressing. 2+ pulses, no extremity edema. NEUROLOGICAL: Gait not observed. Decreased sensation in BL feet. HOSPITAL COURSE: Isabela Rai is a 28 year old female with a past medical history of bipolar disorder, GERD, fibromyalgia, idiopathic scoliosis, Fsgfkul-Vigxb-Kbiap, erosive arthritis, OM (3rd digit of L hand) who was admitted for worsening pain , swelling and redness of her 3rd toe on her R foot after an accident. The patient was sent to the hospital by her drafter heating and ventilating Dr. Deutsch when her pain did not improved after a 10 day course of amoxicillin. The patient was admitted and treated with IV antibiotics, ceftriaxone and vancomycin. Vancomycin was stopped and the patient continued on IV ceftriaxone. She underwent and MRI that was highly suggestive of osteomyelitis. She was seen by Dr. Deutsch who recommended that the patient have an amputation of the 3rd toe and the patient underwent a R third toe amputation. Pathology results showed acute and chronic inflammation with no definitive osteomyelitis and clear and viable margins. Dr. Sanders was notified and recommended that the patient complete an outpatient course of Augmentin 875-125mg bid for 10 days and follow up with Dr. Deutsch. A walker was ordered for the patient to help offload her foot. The patient voiced understanding and stated she would comply with the discharged instructions. The patient was discharged in stable condition. Date of Admission:07/30/19 Date of Discharge: 08/07/19 Minutes to complete discharge: 35 Discharge Summary Problems reviewed: Yes Reason For Visit: PERONEAL MUSCULAR ATROPHY Current Active Problems Hwsyvhr-Ycemg-Hmerq disease (Chronic) Condition: Stable - Instructions Diet, Activity, Other Instructions: You were admitted to the hospital for an infection of the bone. You were seen by the drafter heating and ventilating, Dr. Deutsch. You received antibiotics for the infection and had an amputation performed to control the spread of the infection. You will be sent home on antibiotics. You were seen by physical therapy and it was recommended that you have an assistive device to help you walk such as a walker. MEDICATIONS Please start taking Augmentin 875mg every 12 hours for 10 days. Continue taking all of your home medications. REFERRALS Please follow up with your primary care doctor, Dr. Enoc Noe, within one week. Please follow up with the drafter heating and ventilating, Dr. Bakari Deutsch, within one week. SPECIAL INSTRUCTIONS You have been prescribed a walker. Please use it to walk around safely. Please use dry dressings for your wound. You will need to have your foot evaluated by the drafter heating and ventilating within one week for continued care of your wounds. If you have any symptoms of fever, chills, extreme pain around the foot, redness , excessive bleeding from the foot, or general feelings of unwellness please go to your nearest emergency room for further evaluation. Referrals: Enoc Noe MD [Primary Care Provider] - 1 Week Bakari Deutsch DPM [Staff Physician] - 1 Week Disposition: HOME - Home Medications Comprehensive Discharge Medication List: Ambulatory Orders Trazodone HCl 300 mg PO HS 06/15/17 Lamotrigine 25 mg PO DAILY 02/12/19 Quetiapine Fumarate [Seroquel -] 100 mg PO HS 05/23/19 Miscellaneous Medical Supply [Outpatient Order] 1 each ASDIR #1 misc cloNIDine HCL [Catapres -] 0.1 mg PO DAILY 08/06/19 Amox-Tr/K Cl [Augmentin - 875Mg Tablet] 1 tab PO BID #20 tablet 08/07/19 Problem List - Problems (1) Xmsvtik-Qvnre-Wzyot disease Code(s): G60.0 - HEREDITARY MOTOR AND SENSORY NEUROPATHY (2) Anxiety Code(s): F41.9 - ANXIETY DISORDER, UNSPECIFIED (3) Bipolar disorder (manic depression) Code(s): F31.9 - BIPOLAR DISORDER, UNSPECIFIED (4) Fibromyalgia Code(s): M79.7 - FIBROMYALGIA (5) Finger ulcer Code(s): L98.499 - NON-PRESSURE CHRONIC ULCER OF SKIN OF SITES W UNSP SEVERITY (6) Neuropathy Code(s): G62.9 - POLYNEUROPATHY, UNSPECIFIED (7) Skin ulcers of foot, bilateral Code(s): L97.519 - NON-PRS CHRONIC ULCER OTH PRT RIGHT FOOT W UNSP SEVERITY; L97.529 - NON-PRESSURE CHRONIC ULCER OTH PRT LEFT FOOT W UNSP SEVERITY (8) Osteomyelitis Code(s): M86.9 - OSTEOMYELITIS, UNSPECIFIED Qualifiers: Osteomyelitis type: other chronic This patient is new to me today: No Emergency Visit: No Critical Care patient: No - Discharge Referral Referred to [facility] Med P.C.: No
--- NOTE | 2019-08-07 18:07 | PN ---
Progress Note, Physician History of Present Illness: S/P AMPUTATION OF TOE NO C/O PAIN AWAKE, ALERT NO FEVER/ CHILLS PATH-SURGICAL MARGINS CLEAR - Current Medication List Current Medications: Active Medications Acetaminophen (Tylenol -) 650 mg PO Q6H PRN PRN Reason: Fever Or Pain Last Admin: 08/06/19 11:19 Dose: 650 mg Amino Acids (Prosource No Carb Liquid Pkt) 30 ml PO BID@0800,1730 [facility] Last Admin: 08/07/19 17:12 Dose: Not Given Ascorbic Acid (Vitamin C -) 500 mg PO DAILY [facility] Last Admin: 08/07/19 09:29 Dose: 500 mg Clonidine (Catapres -) 0.1 mg PO DAILY@1999 [facility] Last Admin: 08/06/19 21:34 Dose: 0.1 mg Enoxaparin Sodium (Lovenox -) 40 mg SQ DAILY [facility] Last Admin: 08/07/19 09:28 Dose: 40 mg Ceftriaxone Sodium 2 gm/ (Dextrose) 100 mls @ 200 mls/hr IVPB DAILY [facility]; Protocol Last Admin: 08/07/19 09:28 Dose: 200 mls/hr Ketorolac Tromethamine (Toradol) 10 mg PO TID PRN PRN Reason: PAIN LEVEL 6-10 Stop: 08/11/19 13:59 Last Admin: 08/06/19 21:32 Dose: 10 mg Lamotrigine (Lamictal -) 25 mg PO DAILY [facility] Last Admin: 08/07/19 09:29 Dose: 25 mg Multivitamins/Minerals (Certavite-Antioxidant Liquid) 15 ml PO DAILY [facility] Last Admin: 08/07/19 14:31 Dose: 15 ml Pantoprazole Sodium (Protonix -) 40 mg PO DAILY [facility] Last Admin: 08/07/19 09:29 Dose: 40 mg Quetiapine Fumarate (Seroquel -) 100 mg PO DAILY@1999 [facility] Last Admin: 08/06/19 21:34 Dose: 100 mg Trazodone HCl (Desyrel -) 300 mg PO HS [facility] Last Admin: 08/06/19 21:33 Dose: 300 mg - Objective Vital Signs: Vital Signs Temperature 98.2 F 08/07/19 14:00 Pulse Rate 89 08/07/19 14:00 Respiratory Rate 18 08/07/19 14:00 Blood Pressure 117/75 08/07/19 14:00 O2 Sat by Pulse Oximetry (%) 100 08/06/19 21:00 Constitutional: Yes: No Distress Eyes: Yes: Conjunctiva Clear Cardiovascular: Yes: Regular Rate and Rhythm, S1, S2 Respiratory: Yes: CTA Bilaterally Gastrointestinal: Yes: Normal Bowel Sounds, Soft. No: Tenderness Extremities: Yes: Other (TOE AMPUTATION SITE WITH SUTURES IN PLACE NO DRAINAGE ) Labs: CBC, BMP 08/05/19 07:10 08/05/19 07:10 INR, PTT INR 1.08 (0.83-1.09) 08/05/19 07:10 Assessment/Plan CELLULITIS/ OSTEOMYELITIS R 3RD TOE S/P AMPUTATION CMT SUBSTITUTE AUGMENTIN 875MG PO Q12H X 7D
[2019-08-07 18:13] VITALS: BP 111/70; PULSE 92; TEMP 98.6
== END 2019-08-07 18:29 | disposition home or self-care (01) | DRG 305 ==
LOC: JER 15:25 → JERBED 16:59 → J8W 20:09
PROVIDERS: ADMIT Hospitalist
PROC: 0Y6M0ZC Detachment at Right Foot, Partial 3rd Ray, Open Approach (ICD-10-PCS; 2019-08-05)
PROC: 0Y6T0Z0 Detachment at Right 3rd Toe, Complete, Open Approach (ICD-10-PCS; principal; 2019-08-05 14:12)
DX: M86.9 Osteomyelitis, unspecified (principal); K21.9 Gastro-esophageal reflux disease without esophagitis; G47.00 Insomnia, unspecified; G62.9 Polyneuropathy, unspecified; F12.90 Cannabis use, unspecified, uncomplicated; F31.9 Bipolar disorder, unspecified; F43.10 Post-traumatic stress disorder, unspecified; L03.031 Cellulitis of right toe; G60.0 Hereditary motor and sensory neuropathy; M79.7 Fibromyalgia; M41.9 Scoliosis, unspecified; Z68.22 Body mass index [BMI] 22.0-22.9, adult; R64 Cachexia
CPT/HCPCS: 36415; 73630-TC-RT-FY; 73718-TC-RT; 80048; 80053; 84702; 85025; 85027; 85610; 85651; 85730; 86140; 87040; 87070; 87075; 87077; 87186; 87205; 90670; 93005; 93010; 94760; 97116-GP; 97162-GP; 99284-25; J0131; J0735; J7030; Q2036

== ENCOUNTER 2019-09-14 22:59 | Emergency (ER) | payer OTHER ==
[2019-09-14 23:16] VITALS: BMI 20.5
--- NOTE | 2019-09-15 00:18 | PDOC ---
History of Present Illness - General History Source: Patient Exam Limitations: No Limitations - History of Present Illness Initial Comments: 09/14/19 23:49 HPI: Pt Cecelia is a 28 year old female with PMH of bipolar disorder, GERD, fibromyalgia, idiopathic scoliosis, Yuhkdca-Mafon-Oebqc, erosive arthritis, OM ( 3rd digit of L hand) admitted 07/30-08/07/19 for osteo myelitis s/p R 3rd toe amputation for OM (d/ashley on 10 days Augmentin and a walker), presenting with bilateral chronic hand wounds with concern for infection. Patient reports chronic hand wounds on bilateral hands (Right thumb MCP joint, left 3rd digit DIP joint) that have started to cause her pain (neuropathy with almost no sensation at baseline) and change to a dusky bradley color. She also notes that they have become warmer than usual. She is concerned given her recent presentation with R foot OM that also was not too painful and resulted ultimately in an amputation. All: Oxycodone, Vancomycin Meds: Per chart PMH: As above PSH: As above <Darshan Powell - Last Filed: 09/15/19 02:03> <Ortiz Velez - Last Filed: 09/15/19 03:17> - General Chief Complaint: Wound Stated Complaint: HAND PAIN Time Seen by Provider: 09/14/19 23:46 Past History - Travel Traveled outside of the country in the last 30 days: No Close contact w/someone who was outside of country & ill: No - Past Medical History Anemia: Yes Asthma: No Cancer: No Cardiac Disorders: No CVA: No COPD: No CHF: No Dementia: No Diabetes: No GI Disorders: Yes (Gastritis) Disorders: No (chronic UTI) HTN: No Hypercholesterolemia: No Liver Disease: No Psychiatric Problems: Yes (anxiety, bipolar, ptsd, imsomina,) Seizures: No Thyroid Disease: No Other medical history: neuropathy, [place], fibromyalgia, Borderline , PTSD - Surgical History Abdominal Surgery: Yes Appendectomy: Yes Cholecystectomy: No Orthopedic Surgery: Yes (amp rt great toe,bilat.feet bones removed for osteomyelitis) - Immunization History Immunization Up to Date: Yes (FLU ) - Psycho Social/Smoking Cessation Hx Smoking Status: No Smoking History: Never smoked Have you smoked in the past 12 months: No Number of Cigarettes Smoked Daily: 1 If you are a former smoker, when did you quit?: 7 years ago 'Breaking Loose' booklet given: 05/16/12 Hx Alcohol Use: No Drug/Substance Use Hx: Yes (Marijuana) Substance Use Type: Marijuana Hx Substance Use Treatment: No <Darshan Powell - Last Filed: 09/15/19 02:03> <Ortiz Velez - Last Filed: 09/15/19 03:17> - Past Medical History Allergies/Adverse Reactions: Allergies Allergy/AdvReac Type Severity Reaction Status Date / Time oxycodone Allergy Intermediate Rash Verified 07/30/19 15:46 vancomycin Allergy skin Verified 07/30/19 15:46 reaction Home Medications: Ambulatory Orders Trazodone HCl 300 mg PO HS 06/15/17 Lamotrigine 25 mg PO DAILY 02/12/19 Quetiapine Fumarate [Seroquel -] 100 mg PO HS 05/23/19 Miscellaneous Medical Supply [Outpatient Order] 1 each ASDIR #1 misc cloNIDine HCL [Catapres -] 0.1 mg PO DAILY 08/06/19 Amox-Tr/K Cl [Augmentin - 875Mg Tablet] 1 tab PO BID #20 tablet 08/07/19 Review of Systems - Review of Systems Able to Perform ROS?: Yes Is the patient limited [place]ian proficient: Yes Constitutional: No: Chills, Diaphoresis, Fever HEENTM: No: Recent change in vision, Nose Congestion, Throat Pain Respiratory: No: Cough, Shortness of Breath, Wheezing Cardiac (ROS): No: Chest Pain, Irregular Heart Rate, Chest Tightness ABD/GI: No: Constipated, Diarrhea, Nausea, Poor Fluid Intake, Vomiting : No: Burning, Dysuria, Discharge, Frequency Musculoskeletal: Yes: See HPI, Joint Pain, Joint Swelling. No: Muscle Pain, Muscle Weakness Integumentary: Yes: Dryness, Erythema, Lesions Neurological: No: Headache, Numbness, Tingling, Weakness Hematologic/Lymphatic: No: Anemia, Blood Clots, Easy Bleeding All Other Systems: Reviewed and Negative <Darshan Powell - Last Filed: 09/15/19 02:03> *Physical Exam - Vital Signs Last Vital Signs Temp Pulse Resp BP Pulse Ox 98.1 F 89 19 93/61 98 09/14/19 23:11 09/14/19 23:11 09/14/19 23:11 09/14/19 23:11 09/14/19 23:11 - Physical Exam 09/15/19 00:52 Vitals reviewed, AFVSS WDWN woman, appears stated age, no acute distress MMM, EOMI, NCAT, normal morphologies RRR, nl s1s2, no murmurs appreciated Soft, non-tender, non-distended 2+ radial and PT pulses WWP, no peripheral edema 2mm diameter circular lesion on right thumb MCP joint, does not appears swollen / erythematous / warm, no purulence, no drainage, some dawkins skin on medial aspect 2cm linear lesion on left 3rd digit above DIP joint, does not appears swollen / erythematous / warm, no purulence, no drainage, some dawkins skin along proximal edge <Darshan Powell - Last Filed: 09/15/19 02:03> - Vital Signs Last Vital Signs Temp Pulse Resp BP Pulse Ox 98.1 F 89 19 93/61 98 09/14/19 23:11 09/14/19 23:11 09/14/19 23:11 09/14/19 23:11 09/14/19 23:11 <Ortiz Velez - Last Filed: 09/15/19 03:17> ED Treatment Course - LABORATORY CBC & Chemistry Diagram: 09/15/19 01:00 09/15/19 01:00 <Darshan Powell - Last Filed: 09/15/19 02:03> - LABORATORY CBC & Chemistry Diagram: 09/15/19 01:00 09/15/19 02:00 - ADDITIONAL ORDERS Additional order review: Laboratory Results 09/15/19 09/15/19 09/15/19 02:00 01:00 01:00 Sodium 140 Cancelled Potassium 3.6 Cancelled Chloride 109 H Cancelled Carbon Dioxide 25 Cancelled Anion Gap 6 L Cancelled BUN 9.4 Cancelled Creatinine 0.5 L Cancelled Est GFR (CKD-EPI)AfAm 150.52 Cancelled Est GFR (CKD-EPI)NonAf 129.87 Cancelled Random Glucose 93 Cancelled Calcium 8.3 L Cancelled Total Bilirubin 0.4 Cancelled AST 7 L Cancelled ALT 16 Cancelled Alkaline Phosphatase 76 Cancelled C-Reactive Protein < 0.3 Total Protein 7.1 Cancelled Albumin 3.5 Cancelled Serum , Qual Negative 09/15/19 01:00 Sodium Potassium Chloride Carbon Dioxide Anion Gap BUN Creatinine Est GFR (CKD-EPI)AfAm Est GFR (CKD-EPI)NonAf Random Glucose Calcium Total Bilirubin AST ALT Alkaline Phosphatase C-Reactive Protein Cancelled Total Protein Albumin Serum , Qual 09/15/19 01:00 RBC 4.10 MCV 94.3 MCHC 33.0 RDW 12.7 MPV 11.0 D Neutrophils % 55.8 D Lymphocytes % 31.0 D Monocytes % 6.0 Eosinophils % 6.5 H Basophils % 0.7 <Ortiz Velez - Last Filed: 09/15/19 03:17> Medical Decision Making - Medical Decision Making 09/15/19 00:59 Pt Cecelia is a 28 year old female with PMH of bipolar disorder, GERD, fibromyalgia, idiopathic scoliosis, Cquhcpw-Lqmrm-Iyjao, erosive arthritis, OM ( 3rd digit of L hand) admitted 07/30-08/07/19 for osteo myelitis s/p R 3rd toe amputation for OM (d/ashley on 10 days Augmentin and a walker), presenting with bilateral chronic hand wounds with concern for infection. History notable for recent OM s/p R 3rd toe amputation, absence of systemic signs. Exam notable for lack of infectious signs - non-cellulitic appearance, dusky / dawkins skin abutting wounds. Plan for labs to search for infectious signs. Xray for gross bone involvement. Likely d/c with follow-up if everything is normal - Patient follows at [facility]ound Care, would need Sep 24 appointment moved earlier. - CBC, CMP, ESR, CRP - X-Ray B/L Hands 09/15/19 01:50 - CMP and CRP hemolyzed, reordered 09/15/19 02:02 - Sent repeat labs - Patient Endorsed to Dr. Cain, night team - F/u labs, if non-toxic, discharge with f/u, if infections / inflammatory makers, CT hands r/o OM <Darshan Powell - Last Filed: 09/15/19 02:03> Discharge - Discharge Information Problems reviewed: Yes - Admission No <Darshan Powell - Last Filed: 09/15/19 02:03> - Discharge Information Problems reviewed: Yes - Admission No <Ortiz Velez - Last Filed: 09/15/19 03:17> - Discharge Information Clinical Impression/Diagnosis: Finger ulcer Qualifiers: Non-pressure ulcer stage: limited to breakdown of skin Qualified Code(s): L98.491 - Non-pressure chronic ulcer of skin of other sites limited to breakdown of skin Condition: Stable Disposition: HOME - Follow up/Referral Referrals: Enoc Noe MD [Primary Care Provider] - - Patient Discharge Instructions Patient Printed Discharge Instructions: DI for Wound Infection Additional Instructions: Please call your wound care doctor and ask to move your appointment from Sep 24 to an earlier date, preferably in the next 2-3 days. Return to the ED if you experience any new or concerning symptoms including but not limited to: development of fevers / chills / nausea / vomiting, worsening pain at the wound sites, development of redness, swelling, and/or discharge from the wounds.
[2019-09-15 01:33] LABS: BASO % 0.7 % (0-2.0); EOS % 6.5 % (0-4.5); HEMATOCRIT 38.7 % (32.4-45.2); HEMOGLOBIN 12.7 GM/dL (10.7-15.3); MCH 31.1 pg (25.7-33.7); MEAN CELL VOLUME 94.3 fl (80-96); NEUT % 55.8 % (42.8-82.8); PLATELET COUNT 189 K/MM3 (134-434); RDW 12.7 % (11.6-15.6); WHITE BLOOD COUNT 7.9 K/mm3 (4.0-10.0)
--- NOTE | 2019-09-15 02:12 | PDOC ---
Documentation entered by Nita Huitron SCRIBE, acting as scribe for Ortiz Velez MD. Ortiz Velez MD: This documentation has been prepared by the jenniferibeTomy Lincy, SCRIBE, under my direction and personally reviewed by me in its entirety. I confirm that the documentation accurately reflects all work, treatment, procedures, and medical decision making performed by me. Attending Attestation - Resident Resident Name: AndreDarshan - ED Attending Attestation I have performed the following: I have examined & evaluated the patient, The case was reviewed & discussed with the resident, I agree w/resident's findings & plan, Exceptions are as noted - HPI HPI: 09/15/19 01:09 The patient is a 28-year-old female with a past medical history significant for bipolar disorder, GERD, fibromyalgia, idiopathic scoliosis, Ljqqfvv-Vusxg-Xzmrw , erosive arthritis and OM who presents to the emergency department with 2 wounds to the upper extremities digits. The patient reports a wound to the base of the right thumb and left middle finger thats chronic in nature. However, the patient reports the wounds have been more painful and swollen lately, associated with changing in colo. Denies fever or chills. Exam: General: No acute distress Abd: soft nontender Extremity: knobby/disfigured fingers, R thumb base - deep chornic appeaing ulcer withou significant erythema, rolled bordes without inuration, active dischage, bleeding. L midle finger - with deformity and open wound in crease between 1s and 2nd DIP without any ehythema induration/fluctance. wounds appear chronic, withou any active signs of infection - however as p notes pain is worse and apepars mor swollen to her will obtain xrays/labs screen for osteo - Physicial Exam PE: 09/15/19 02:15 see above - Medical Decision Making 09/15/19 00:10 see above 09/15/19 02:15 signed out to evening team to fu 09/15/19 03:21 labs reviewed no signs of leukocytosis, elevated crp/esr no signs of osteo on xray will dc with wond care fu return precautions were discussed I discussed the physical exam findings, ancillary test results and final diagnoses with the patient. I answered all of the patient's questions. The patient was satisfied with the care received and felt comfortable with the discharge plan and treatment plan. The patient will call their primary care physician within 24 hours to arrange follow-up and will return to the Emergency Department with any new, persistent or worsening symptoms.
[2019-09-15 02:37] LABS: ALBUMIN 3.5 g/dl (3.4-5.0); ALK PHOS 76 U/L (45-117); ANION GAP 6 MMOL/L (8-16); BILIRUBIN,TOTAL 0.4 mg/dL (0.2-1); BLOOD UREA NITROGEN 9.4 mg/dL (7-18); CALCIUM 8.3 mg/dL (8.5-10.1); CHLORIDE 109 mmol/L (98-107); CO2 25 mmol/L (21-32); CREATININE 0.5 mg/dL (0.55-1.3); GLUCOSE,RANDOM 93 mg/dL (74-106); POTASSIUM 3.6 mmol/L (3.5-5.1); SGOT/AST 7 U/L (15-37); SGPT/ALT 16 U/L (13-61); SODIUM 140 mmol/L (136-145); TOT PROT 7.1 g/dl (6.4-8.2)
[2019-09-15 06:30] VITALS: BP 102/70; PULSE 75; TEMP 98.6
== END 2019-09-15 03:30 | disposition home or self-care (01) ==
LOC: JER 22:59
DX: L98.491 Non-pressure chronic ulcer of skin of other sites limited to breakdown of skin (principal); M86.9 Osteomyelitis, unspecified; G60.0 Hereditary motor and sensory neuropathy; M41.9 Scoliosis, unspecified; K21.9 Gastro-esophageal reflux disease without esophagitis; M79.7 Fibromyalgia; F31.9 Bipolar disorder, unspecified; F41.9 Anxiety disorder, unspecified; F43.10 Post-traumatic stress disorder, unspecified; Z89.411 Acquired absence of right great toe; Z89.431 Acquired absence of right foot; Z88.1 Allergy status to other antibiotic agents; Z88.5 Allergy status to narcotic agent; Z99.89 Dependence on other enabling machines and devices
CPT/HCPCS: 36415; 73130-TC-LT-FY; 73130-TC-RT-FY; 80053; 84703; 85025; 85651; 86140; 99282-25

== ENCOUNTER 2019-11-20 18:25 | Emergency (ER) | payer OTHER ==
--- NOTE | 2019-11-20 18:28 | PDOC ---
Rapid Medical Evaluation Time Seen by Provider: 11/20/19 18:27 Medical Evaluation: Allergies Allergy/AdvReac Type Severity Reaction Status Date / Time oxycodone Allergy Intermediate Rash Verified 07/30/19 15:46 vancomycin Allergy skin Verified 07/30/19 15:46 reaction 11/20/19 18:28 I have performed a brief in-person evaluation of this patient. The patient presents with a chief complaint of: abd pain since this morning, persistent vomiting, syncopized upon arrival to ED Pertinent physical exam findings: uncomfortable appearing I have ordered the following: EKG, labs The patient will proceed to the ED for further evaluation. Discharge Disposition - Diagnosis Abdominal pain - Referrals - Patient Instructions - Post Discharge Activity
[2019-11-20 18:34] VITALS: BP 125/86; TEMP 98; BMI 16.1
[2019-11-20] MEDS ORDERED: MAG HYDROX/AL HYDROX/SIMETH 30 ML UNIT-DOSE CUP PO ONE (18:55)
[2019-11-20] MEDS ORDERED: FAMOTIDINE 20 MG/50 ML IVPB 20 MG/50 ML MG IVPB ONE ×2 (18:55→19:02)
[2019-11-20] MEDS ORDERED: LACTATED RINGERS SOLUTION 1000 ML INFUS.BAG IV ONE (18:55)
[2019-11-20] MEDS ORDERED: METOCLOPRAMIDE HCL INJECTION 10 MG/2 ML VIAL IVPUSH ONE (18:55)
[2019-11-20] MEDS ORDERED: ACETAMINOPHEN 1000 MG/100 ML VIAL (NON FORMULARY) IVPB ONE (18:59)
[2019-11-20] MEDS ORDERED: ACETAMINOPHEN INJECTION 100 ML IVPB ONE (19:02)
--- NOTE | 2019-11-20 19:06 | PDOC ---
History of Present Illness - General Chief Complaint: Pain, Acute Stated Complaint: ABD PAIN / FALL Time Seen by Provider: 11/20/19 18:27 History Source: Patient - History of Present Illness Initial Comments: 11/20/19 19:00 Ms. Rai is a 29 y/o woman w/hx cyclic vomiting synrome, charcot betty tooth, chronic upper extremity wounds (followed by wound care), bipolar disorder, p/w one day of 06/26 epigastric abdominal pain, nausea, vomiting. She reports nbnb vomiting constantly over the course of the day and cannot quantify how many times. She endorses x2 non-bloody loose bowel movements. She has been unable to tolerate po over the course of the day. She reports generalized weakness, fatigue. While at triage she reports one brief episode of lightheadedness and syncope, which quickly resolved to her baseline mental status. She denies any vertigo, confusion, chest pain, shortness of breath. Past History - Past Medical History Allergies/Adverse Reactions: Allergies Allergy/AdvReac Type Severity Reaction Status Date / Time oxycodone Allergy Intermediate Rash Verified 07/30/19 15:46 vancomycin Allergy skin Verified 07/30/19 15:46 reaction Home Medications: Ambulatory Orders Duloxetine HCl [Cymbalta -] 40 mg PO HS 10/01/19 Anemia: Yes Asthma: No Cancer: No Cardiac Disorders: No CVA: No COPD: No CHF: No Dementia: No Diabetes: No GI Disorders: Yes (Gastritis) Disorders: No (chronic UTI) HTN: No Hypercholesterolemia: No Liver Disease: No Psychiatric Problems: Yes (anxiety, bipolar, ptsd, imsomina,) Seizures: No Thyroid Disease: No - Surgical History Abdominal Surgery: Yes Appendectomy: Yes Cholecystectomy: No Orthopedic Surgery: Yes (amp rt great toe,bilat.feet bones removed for osteomyelitis) - Immunization History Immunization Up to Date: Yes (FLU ) - Psycho Social/Smoking Cessation Hx Smoking Status: No Smoking History: Never smoked Have you smoked in the past 12 months: No Number of Cigarettes Smoked Daily: 1 If you are a former smoker, when did you quit?: 7 years ago Cigars Per Day: 0 Information on smoking cessation initiated: No 'Breaking Loose' booklet given: 05/16/12 Hx Alcohol Use: No Drug/Substance Use Hx: No Substance Use Type: Marijuana Hx Substance Use Treatment: No Review of Systems - Review of Systems Able to Perform ROS?: Yes Comments:: 11/20/19 19:03 GENERAL/CONSTITUTIONAL: No fever or chills. No weakness. HEAD, EYES, EARS, NOSE AND THROAT: No change in vision. No ear pain or discharge. No sore throat. CARDIOVASCULAR: No chest pain or shortness of breath RESPIRATORY: No cough, wheezing, or hemoptysis. GASTROINTESTINAL: Nausea, vomiting, diarrhea. No constipation. GENITOURINARY: No dysuria, frequency, or change in urination. MUSCULOSKELETAL: No joint or muscle swelling or pain. No neck or back pain. SKIN: No rash NEUROLOGIC: LOC. No headache, vertigo, or change in strength/sensation. ENDOCRINE: No increased thirst. No abnormal weight change HEMATOLOGIC/LYMPHATIC: No anemia, easy bleeding, or history of blood clots. ALLERGIC/IMMUNOLOGIC: No hives or skin allergy. *Physical Exam - Vital Signs Last Vital Signs Temp Pulse Resp BP Pulse Ox 98.0 F 87 18 125/86 100 11/20/19 18:28 11/20/19 18:28 11/20/19 18:28 11/20/19 18:28 11/20/19 18:28 - Physical Exam 11/20/19 19:06 GENERAL: Awake, alert, and fully oriented, hunched over in bed clutching abdomen HEAD: No signs of trauma, normocephalic, atraumatic EYES: PERRLA, EOMI, sclera anicteric, conjunctiva clear ENT: Auricles normal inspection, hearing grossly normal, nares patent, oropharynx clear without exudates. Moist mucosa NECK: Normal ROM, supple, no lymphadenopathy, JVD, or masses LUNGS: No distress, speaks full sentences, clear to auscultation bilaterally HEART: Regular rate and rhythm, normal S1 and S2, no murmurs, rubs or gallops, peripheral pulses normal and equal bilaterally. ABDOMEN: Epigastric tenderness. Otherwise: Soft, normoactive bowel sounds. No guarding, no rebound. No masses EXTREMITIES : Normal inspection, Normal range of motion, no edema. No clubbing or cyanosis NEUROLOGICAL: Cranial nerves II through XII grossly intact. Normal speech, normal gait, no focal sensorimotor deficits SKIN: Warm, Dry, normal turgor, no rashes or lesions noted ED Treatment Course - LABORATORY CBC & Chemistry Diagram: 11/20/19 18:50 11/20/19 18:50 Medical Decision Making - Medical Decision Making 11/20/19 19:08 29F w/hx cyclic vomiting syndrome, charcot betty tooth, chronic wounds p/w one day of constant intractable vomiting with severe epigastric pain and tenderness. Ddx includes cyclic vomiting syndrome, pancreatitis, viral gastroenteritis. Plan: CBC CMP EKG CXR Lipase Pepcid Maalox Reglan UA Urine culture Serum test Ativan pending test PO challenge pending symptom control Dispo: Likely discharge pending po challenge, symptom management 11/20/19 20:05 test - negative Plan for 2mg ativan 11/20/19 20:06 CBC - WBC 15.8 CMP - wnl Lipase - negative 11/20/19 22:15 On reassessment, Ms. Rai is sleeping comfortably. 11/21/19 00:46 On reassessment, she is awake and sitting comfortably. Plan for po challenge, then discharge with close PCP follow up. Discharge - Discharge Information Problems reviewed: Yes Clinical Impression/Diagnosis: Abdominal pain Qualifiers: Abdominal location: epigastric Qualified Code(s): R10.13 - Epigastric pain Condition: Stable Disposition: HOME - Admission No - Follow up/Referral - Patient Discharge Instructions Patient Printed Discharge Instructions: Nausea and Vomiting-Adult Additional Instructions: You were seen in the ER for abdominal pain, nausea, vomiting. Your symptoms improved with medication. Your bloodwork was normal. Please be sure to follow up with your primary care provider as soon as possible, in the next 2-3 days. Return to the ER if you develop high fevers, intractable pain, intractable vomi ting, weakness, chest pain, or trouble breathing. - Post Discharge Activity
[2019-11-20 19:07] LABS: BASO % 0.1 % (0-2.0); HEMATOCRIT 39.2 % (32.4-45.2); HEMOGLOBIN 13.1 GM/dL (10.7-15.3); LYMPH % 1.5 % (8-40); MCH 31.1 pg (25.7-33.7); MCHC 33.3 g/dl (32.0-36.0); MEAN CELL VOLUME 93.2 fl (80-96); MEAN PLT VOLUME 10.3 fl (7.5-11.1); MONO % 0.7 % (3.8-10.2); NEUT % 97.7 % (42.8-82.8); PLATELET COUNT 201 K/MM3 (134-434); RDW 12.6 % (11.6-15.6); WHITE BLOOD COUNT 15.8 K/mm3 (4.0-10.0)
--- NOTE | 2019-11-20 19:22 | PDOC ---
Documentation entered by Enoc Bartlett SCRIBE, acting as scribe for Miladis Love DO. Miladis Love DO: This documentation has been prepared by the Dhruv bartholomew Daniel, SCRIBE, under my direction and personally reviewed by me in its entirety. I confirm that the documentation accurately reflects all work, treatment, procedures, and medical decision making performed by me. Attending Attestation - Resident Resident Name: Joni Cheng - ED Attending Attestation I have performed the following: I have examined & evaluated the patient, The case was reviewed & discussed with the resident, I agree w/resident's findings & plan, Exceptions are as noted - HPI HPI: 11/20/19 19:02 The patient is a 29 year old female with a past medical history of bipolar disorder, GERD, fibromyalgia, idiopathic scoliosis, Qdkdfwx-Httjt-Uiufy, erosive arthritis, and osteomyelitis here today for evaluation of abdominal pain. The patient reports that her abdominal pain began this morning around 10 AM and describes it as epigastric with associated nausea and vomiting. She also reports that she has been unable to tolerate PO intake. She states that while she was in the ER, she developed sudden lightheadedness which caused her to slide down in her wheelchair but sat back up and her lightheadedness resolved. Patient denies headache, lightheadedness. Denies fever, chills. Denies chest pain, shortness of breath. Denies diarrhea. Allergies: oxycodone, vancomycin - Physicial Exam PE: 11/20/19 19:10 Constitutional: +moaning in pain. Awake, alert, oriented. Head: Normocephalic. Atraumatic Eyes: PERRL. EOMI. Conjunctivae are not pale. ENT: Mucous membranes are moist and intact. Posterior pharynx without exudates or erythema. Uvula midline. Neck: Supple. Full ROM. No lymphadenopathy. Cardiovascular: Regular rate. Regular rhythm. S1, S2 regular. Distal pulses are 2+ and symmetric. Pulmonary/Chest: No evidence of respiratory distress. Clear to auscultation bilaterally No wheezing, rales or rhonchi. Abdominal: +epigastric tenderness. Soft and non-distended. No rebound, guarding or rigidity. No organomegaly. No palpable masses. Good bowel sounds. Back: No CVA tenderness. Musculoskeletal: No edema. No cyanosis. No clubbing. Full range of motion in all extremities. No calf tenderness. Radial/pedal pulses are intact and 2+ bilaterally Skin: Skin is warm and dry. No petechiae. No purpura. Neurological: Alert and oriented to person, place, and time. Cranial nerves II-XII are grossly intact. Normal speech. Strength is grossly symmetric. No sensory deficits. Psychiatric: Good eye contact. Normal interaction, affect and behavior. - Medical Decision Making 11/20/19 19:18 I, Dr. Miladis Love, DO, attest that this document has been prepared under my direction and personally reviewed by me in its entirety. I further attest, that it accurately reflects all work, treatment, procedures and medical d ecision-making performed by me. a/p: 29yo female with epigastric pain and intractable n/v at home today -hx of vomiting, cyclic vomiting in the past -pt states unable to tolerate po today, even water or ice chips -pt moaning -pt with a lightheaded episode in triage, near syncope- suspect secondary to pain and volume status -will send labs, hydrate, pain control, nausea control -will monitor and reassess -abd is soft, nd, epigastric ttp 11/20/19 20:21 elevated wbc, most likely secondary to pain and vomiting chem reviewed lipase neg serum preg still with vomiting, given ativan will continue to monitor and reassess 11/21/19 00:13 attempted to wake the patient, still sleeping after ativan 11/21/19 00:36 pt feeling better will po challenge 11/21/19 01:08 pt has tolerated po feels better asking to go home stable for dc to home Heart Score/ECG Review - ECG Intrepretation Comment:: 11/20/19 20:25 sinus at 87, nl axis, nl interval, no acute st/t wave findings
[2019-11-20] MEDS ORDERED: METOCLOPRAMIDE HCL INJECTION 10 MG/2 ML VIAL ONE (19:38)
[2019-11-20] MEDS ORDERED: MAG HYDROX/AL HYDROX/SIMETH 30 ML UNIT-DOSE CUP ONE (19:38)
[2019-11-20 19:54] LABS: ALBUMIN 4.5 g/dl (3.4-5.0); BILIRUBIN,TOTAL 0.7 mg/dL (0.2-1); BLOOD UREA NITROGEN 8.9 mg/dL (7-18); CALCIUM 9.5 mg/dL (8.5-10.1); CREATININE 0.7 mg/dL (0.55-1.3); POTASSIUM 3.8 mmol/L (3.5-5.1); TOT PROT 8.4 g/dl (6.4-8.2)
[2019-11-20] MEDS ORDERED: LORazepam 2 MG/ML SDV VIAL ONE (20:05)
[2019-11-21 01:42] VITALS: PULSE 82
--- NOTE | 2019-11-21 11:12 | EKG ---
Test Reason : Blood Pressure : / mmHG Vent. Rate : 087 BPM Atrial Rate : 087 BPM P-R Int : 138 ms QRS Dur : 084 ms QT Int : 366 ms P-R-T Axes : 056 073 058 degrees QTc Int : 440 ms NORMAL SINUS RHYTHM INCOMPLETE RBBB Confirmed by ORLIN HOPKINS MD ([id number]) on 11/21/2019 11:11:48 AM Referred By: Confirmed By:ORLIN HOPKINS MD
== END 2019-11-21 01:42 | disposition home or self-care (01) ==
LOC: JER 18:25
DX: R10.13 Epigastric pain (principal); R11.15 Cyclical vomiting syndrome unrelated to migraine; L97.519 Non-pressure chronic ulcer of other part of right foot with unspecified severity; F43.10 Post-traumatic stress disorder, unspecified; F31.9 Bipolar disorder, unspecified; F41.9 Anxiety disorder, unspecified; G60.0 Hereditary motor and sensory neuropathy; M79.7 Fibromyalgia; Z87.39 Personal history of other diseases of the musculoskeletal system and connective tissue; Z89.411 Acquired absence of right great toe; Z87.440 Personal history of urinary (tract) infections
CPT/HCPCS: 36415; 80053; 83690; 84703; 85025; 93005; 93010; 99284-25; J0131

== ENCOUNTER 2021-12-13 07:28 | Emergency (ER) | payer OTHER ==
[2021-12-13 07:48] VITALS: BP 141/72; PULSE 91; TEMP 98.2; BMI 19.8
[2021-12-13] MEDS ORDERED: FAMOTIDINE 20 MG/50 ML IVPB 20 MG/50 ML MG IVPB ONE ×2 (08:04→08:06)
[2021-12-13] MEDS ORDERED: SODIUM CHLORIDE 0.9% 500 ML INFUS.BAG IV ONE (08:04)
[2021-12-13] MEDS ORDERED: ONDANSETRON 4 MG/2 ML VIAL ONE (08:05)
[2021-12-13] MEDS ORDERED: ONDANSETRON 4 MG/2 ML VIAL IVPUSH ONE (08:05)
[2021-12-13] MEDS ORDERED: HALOPERIDOL LACTATE 5 MG/ML IV ONE (08:54)
[2021-12-13] MEDS ORDERED: ACETAMINOPHEN 1000 MG/100 ML BAG IVPB ONE (08:55)
[2021-12-13] MEDS ORDERED: ACETAMINOPHEN INJECTION 100 ML IVPB ONE (08:56)
[2021-12-13] MEDS ORDERED: HALOPERIDOL LACTATE 5 MG/ML ONE (08:56)
[2021-12-13 09:09] LABS: BASO % 0.3 % (0-2.0); EOS % 0.8 % (0-4.5); HEMATOCRIT 41.1 % (32.4-45.2); HEMOGLOBIN 13.7 GM/dL (10.7-15.3); LYMPH % 6.4 % (8-40); MCH 31.5 pg (25.7-33.7); MCHC 33.4 g/dl (32.0-36.0); MEAN CELL VOLUME 94.4 fl (80-96); MEAN PLT VOLUME 10.4 fl (7.5-11.1); MONO % 4.3 % (3.8-10.2); NEUT % 88.2 % (42.8-82.8); PLATELET COUNT 213 10^3/uL (134-434); RBC 4.35 M/mm3 (3.60-5.2); WHITE BLOOD COUNT 13.3 K/mm3 (4.0-10.0)
[2021-12-13 09:17] LABS: CALCIUM 9.2 mg/dL (8.5-10.1)
[2021-12-13 09:18] LABS: ALBUMIN 4.3 g/dl (3.4-5.0); BLOOD UREA NITROGEN 8.9 mg/dL (7-18); MAGNESIUM 1.9 mg/dL (1.8-2.4)
[2021-12-13 09:21] LABS: CREATININE 0.5 mg/dL (0.55-1.3)
[2021-12-13 09:22] LABS: BILIRUBIN,TOTAL 0.4 mg/dL (0.2-1)
[2021-12-14 11:08] LABS: SARS-CoV-2 NAA Not Detected (Not Detected)
== END 2021-12-13 13:40 | disposition home or self-care (01) ==
LOC: JER 07:28
PROC: 3E033GC Introduction of Other Therapeutic Substance into Peripheral Vein, Percutaneous Approach (ICD-10-PCS; principal; 2021-12-13)
DX: R11.15 Cyclical vomiting syndrome unrelated to migraine (principal); R10.13 Epigastric pain
CPT/HCPCS: 73630-TC-RT-FY; 76705-TC; 80053; 83690; 83735; 84703; 85025; 93005; 93010; 99285-25; C9803-CS; U0003; U0005

== ENCOUNTER 2021-12-14 14:19 | Inpatient (IN) | payer OTHER ==
[2021-12-14 14:27] VITALS: BMI 20.9
[2021-12-14] MEDS ORDERED: ONDANSETRON 4 MG/2 ML VIAL IVPUSH ONE (15:05)
[2021-12-14] MEDS ORDERED: PIPERACILLIN/TAZOB 4.5 GM 4.5 GM in DEXTROSE 5%-WATER 100 ML IVPB ONE (15:05)
[2021-12-14] MEDS ORDERED: CLINDAMYCIN 600MG PREMIX IVPB 600 MG/50 ML BAG IVPB ONE ×2 (15:06→15:18)
[2021-12-14] MEDS ORDERED: LACTATED RINGERS SOLUTION 1000 ML INFUS.BAG IV ONE (15:09)
[2021-12-14] MEDS ORDERED: ACETAMINOPHEN 1000 MG/100 ML BAG IVPB ONE (15:14)
[2021-12-14] MEDS ORDERED: PIPERACILLIN/TAZOB 4.5 GM 4.5 GM/100 ML BAG IVPB ONE (15:17)
[2021-12-14] MEDS ORDERED: ACETAMINOPHEN INJECTION 100 ML IVPB ONE (15:17)
[2021-12-14] MEDS ORDERED: ONDANSETRON 4 MG/2 ML VIAL ONE (15:17)
[2021-12-14] MEDS ORDERED: morphine CARPU-JECT 4 MG/1 ML DISP.SYRIN IVPUSH ONE (16:51)
[2021-12-14] MEDS ORDERED: METOCLOPRAMIDE HCL INJECTION 10 MG/2 ML VIAL IVPB ONE (16:51)
[2021-12-14] MEDS ORDERED: morphine SULFATE 4 MG/ML VIAL ONE (17:12)
[2021-12-14] MEDS ORDERED: METOCLOPRAMIDE HCL INJECTION 10 MG/2 ML VIAL ONE (17:12)
[2021-12-14 17:48] LABS: HEMATOCRIT 41.2 % (32.4-45.2); HEMOGLOBIN 14.1 GM/dL (10.7-15.3); MCH 31.7 pg (25.7-33.7); MCHC 34.1 g/dl (32.0-36.0); MEAN CELL VOLUME 92.9 fl (80-96); MEAN PLT VOLUME 10.3 fl (7.5-11.1); PLATELET COUNT 204 10^3/uL (134-434); RBC 4.44 M/mm3 (3.60-5.2); RDW 12.1 % (11.6-15.6); WHITE BLOOD COUNT 15.5 K/mm3 (4.0-10.0)
[2021-12-14 17:54] LABS: URINE APPEARANCE CLOUDY; URINE COLOR YELLOW
[2021-12-14 17:55] LABS: URINE BILIRUBIN NEGATIVE (NEGATIVE); URINE GLUCOSE (UA) NEGATIVE (NEGATIVE); URINE KETONE 2+ (NEGATIVE); URINE LEUK ESTERASE NEGATIVE (NEGATIVE); URINE NITRITE NEGATIVE (NEGATIVE); URINE PROTEIN 1+ (NEGATIVE); URINE UROBILINOGEN 0.2 mg/dL (0.2-1.0)
[2021-12-14 17:56] LABS: EPI CELLS 82 /uL (0-25.1); HYALINE CASTS 6 /uL (0-3.1); URINE BACTERIA 97531 /uL (0-1359); URINE RBC 17 /uL (0-23.9); URINE WBC 56 /uL (0-25.8)
[2021-12-14 18:08] LABS: INR 1.25 (0.83-1.09); PROTHROMBIN TIME (PATIENT) 14.4 SEC (9.7-13.0)
[2021-12-14 18:10] LABS: ACTIVATED PTT 29.9 SECONDS (25.2-36.5)
[2021-12-14 18:14] LABS: ALBUMIN 4.7 g/dl (3.4-5.0); MAGNESIUM 1.9 mg/dL (1.8-2.4)
[2021-12-14 18:17] LABS: CREATININE 0.6 mg/dL (0.55-1.3)
[2021-12-14 18:19] LABS: BILIRUBIN,TOTAL 0.8 mg/dL (0.2-1); TOT PROT 8.8 g/dl (6.4-8.2)
[2021-12-14] MEDS ORDERED: MAGNESIUM SULF 50% (8.12 MEQ/2 ML-1 GM VIAL) IVPB ONE (21:09)
[2021-12-14] MEDS ORDERED: SODIUM CHLORIDE 1,000 ML IV SCH (21:15)
[2021-12-14] MEDS ORDERED: PANTOPRAZOLE SODIUM 40 MG/100 ML BAG IVPB ONE (21:24)
[2021-12-14] MEDS: PANTOPRAZOLE SODIUM 40 MG VIAL IVPUSH SCH (21:32)
[2021-12-14] MEDS ORDERED: MAGNESIUM SULFATE IN WATER 2 GM/50 ML IVPB IVPB ONE (21:33)
[2021-12-14] MEDS ORDERED: KCL 10 MEQ IVPB 10 MEQ/100 ML INFUS.BAG IVPB ONE ×2 (22:14→23:18)
[2021-12-14] MEDS: KCL 10 MEQ IVPB 10 MEQ/100 ML INFUS.BAG IVPB SCH ×2 (22:19→23:20)
[2021-12-15] MEDS: ACETAMINOPHEN 325 MG TABLET (FP) PO PRN (00:49)
[2021-12-15] MEDS: KCL 10 MEQ IVPB 10 MEQ/100 ML INFUS.BAG IVPB SCH (00:49)
[2021-12-15] MEDS: ONDANSETRON 4 MG/2 ML VIAL IVPUSH PRN ×3 (00:49→18:12)
[2021-12-15] MEDS ORDERED: ACETAMINOPHEN 1000 MG/100 ML BAG IVPB ONE (01:27)
[2021-12-15] MEDS: METOCLOPRAMIDE HCL INJECTION 10 MG/2 ML VIAL IVPUSH PRN ×3 (02:13→18:12)
[2021-12-15] MEDS ORDERED: MELATONIN 5 MG TABLETS PO ONE (04:22)
[2021-12-15] MEDS: MAG HYDROX/AL HYDROX/SIMETH 30 ML UNIT-DOSE CUP PO PRN (05:05)
[2021-12-15] MEDS ORDERED: IBUPROFEN 800 MG/8 ML IJ IVPB ONE ×2 (05:07→21:20)
[2021-12-15 08:19] LABS: BASO % 0.2 % (0-2.0); HEMATOCRIT 41.5 % (32.4-45.2); HEMOGLOBIN 13.7 GM/dL (10.7-15.3); MCH 31.3 pg (25.7-33.7); MEAN CELL VOLUME 94.8 fl (80-96); MEAN PLT VOLUME 10.4 fl (7.5-11.1); MONO % 5.2 % (3.8-10.2); NEUT % 87.6 % (42.8-82.8); PLATELET COUNT 201 10^3/uL (134-434); RBC 4.38 M/mm3 (3.60-5.2)
[2021-12-15 08:30] LABS: ALBUMIN 4.3 g/dl (3.4-5.0); BLOOD UREA NITROGEN 5.8 mg/dL (7-18)
[2021-12-15 08:33] LABS: CREATININE 0.8 mg/dL (0.55-1.3); PHOSPHOROUS 2.6 mg/dL (2.5-4.9)
[2021-12-15 08:34] LABS: BILIRUBIN,TOTAL 0.9 mg/dL (0.2-1); TOT PROT 8.2 g/dl (6.4-8.2)
[2021-12-15] MEDS ORDERED: SODIUM CHLORIDE 0.9%/KCL 20 MEQ/1,000 ML INFUS.BAG IV SCH ×2 (09:30→13:51)
[2021-12-15] MEDS: ENOXAPARIN NA (PORCINE) 40 MG/0.4 ML DISP.SYRIN SQ SCH (09:56)
[2021-12-15] MEDS: PANTOPRAZOLE SODIUM 40 MG VIAL IVPUSH SCH (09:56)
[2021-12-15] MEDS ORDERED: DULoxetine HCL 20 MG CAPSULE.DR PO SCH (10:00)
[2021-12-15] MEDS: ALPRAZolam 1 MG TABLET PO PRN (14:29)
[2021-12-15] MEDS: ERTAPENEM SODIUM 1 GM in SODIUM CHLORIDE 50 ML IVPB SCH (14:29)
[2021-12-15] MEDS ORDERED: ALPRAZolam 1 MG TABLET PO ONE (21:20)
[2021-12-15] MEDS: MIRTAZAPINE 15 MG TABLET (FP) PO SCH (21:38)
[2021-12-16] MEDS: ONDANSETRON 4 MG/2 ML VIAL IVPUSH PRN ×3 (00:54→18:28)
[2021-12-16] MEDS: METOCLOPRAMIDE HCL INJECTION 10 MG/2 ML VIAL IVPUSH PRN ×3 (03:03→20:14)
[2021-12-16] MEDS: ALPRAZolam 1 MG TABLET PO PRN (03:03)
[2021-12-16 07:59] LABS: BASO % 0.3 % (0-2.0); EOS % 0.2 % (0-4.5); HEMATOCRIT 42.9 % (32.4-45.2); HEMOGLOBIN 14.8 GM/dL (10.7-15.3); LYMPH % 14.6 % (8-40); MCHC 34.4 g/dl (32.0-36.0); MEAN CELL VOLUME 92.9 fl (80-96); MEAN PLT VOLUME 9.9 fl (7.5-11.1); MONO % 8.3 % (3.8-10.2); NEUT % 76.6 % (42.8-82.8); PLATELET COUNT 186 10^3/uL (134-434); RBC 4.62 M/mm3 (3.60-5.2); RDW 11.7 % (11.6-15.6); WHITE BLOOD COUNT 10.3 K/mm3 (4.0-10.0)
[2021-12-16 08:17] LABS: ALBUMIN 4.2 g/dl (3.4-5.0)
[2021-12-16 08:18] LABS: BLOOD UREA NITROGEN 6.4 mg/dL (7-18); CALCIUM 9.4 mg/dL (8.5-10.1); MAGNESIUM 1.8 mg/dL (1.8-2.4); PHOSPHOROUS 2.4 mg/dL (2.5-4.9)
[2021-12-16 08:19] LABS: BILIRUBIN,TOTAL 0.9 mg/dL (0.2-1); TOT PROT 7.9 g/dl (6.4-8.2)
[2021-12-16 08:21] LABS: CREATININE 0.5 mg/dL (0.55-1.3)
[2021-12-16] MEDS ORDERED: SODIUM CHLORIDE 50 ML IVPB ONE (09:13)
[2021-12-16] MEDS ORDERED: ERTAPENEM SODIUM 1 GM VIAL ONE (09:13)
[2021-12-16] MEDS: ENOXAPARIN NA (PORCINE) 40 MG/0.4 ML DISP.SYRIN SQ SCH (09:16)
[2021-12-16] MEDS: MAG HYDROX/AL HYDROX/SIMETH 30 ML UNIT-DOSE CUP PO PRN (09:17)
[2021-12-16] MEDS: ERTAPENEM SODIUM 1 GM in SODIUM CHLORIDE 50 ML IVPB SCH (09:17)
[2021-12-16] MEDS: PANTOPRAZOLE SODIUM 40 MG VIAL IVPUSH SCH (09:17)
[2021-12-16] MEDS ORDERED: POTASSIUM PHOSPHATE 30 MM in SODIUM CHLORIDE 500 ML IVPB ONE (12:00)
[2021-12-16] MEDS: PALIPERIDONE 1.5 MG PO SCH ×2 (17:40→17:41)
[2021-12-16] MEDS: MIRTAZAPINE 15 MG TABLET (FP) PO SCH (21:10)
[2021-12-17] MEDS: ONDANSETRON 4 MG/2 ML VIAL IVPUSH PRN ×4 (00:09→21:27)
[2021-12-17] MEDS: METOCLOPRAMIDE HCL INJECTION 10 MG/2 ML VIAL IVPUSH PRN ×2 (02:51→09:18)
[2021-12-17] MEDS ORDERED: ERTAPENEM SODIUM 1 GM VIAL ONE (08:31)
[2021-12-17] MEDS ORDERED: SODIUM CHLORIDE 50 ML IVPB ONE (08:31)
[2021-12-17] MEDS: PANTOPRAZOLE SODIUM 40 MG VIAL IVPUSH SCH (09:18)
[2021-12-17] MEDS: ERTAPENEM SODIUM 1 GM in SODIUM CHLORIDE 50 ML IVPB SCH (09:18)
[2021-12-17] MEDS: ENOXAPARIN NA (PORCINE) 40 MG/0.4 ML DISP.SYRIN SQ SCH (09:18)
[2021-12-17 09:30] LABS: BASO % 0.5 % (0-2.0); EOS % 0.4 % (0-4.5); HEMATOCRIT 47.1 % (32.4-45.2); HEMOGLOBIN 16.7 GM/dL (10.7-15.3); LYMPH % 11.7 % (8-40); MCH 32.4 pg (25.7-33.7); MCHC 35.4 g/dl (32.0-36.0); MEAN CELL VOLUME 91.6 fl (80-96); MEAN PLT VOLUME 9.8 fl (7.5-11.1); MONO % 9.7 % (3.8-10.2); NEUT % 77.7 % (42.8-82.8); PLATELET COUNT 226 10^3/uL (134-434); RBC 5.15 M/mm3 (3.60-5.2); RDW 11.8 % (11.6-15.6); WHITE BLOOD COUNT 14.3 K/mm3 (4.0-10.0)
[2021-12-17 09:53] LABS: ALBUMIN 4.3 g/dl (3.4-5.0); BLOOD UREA NITROGEN 10.2 mg/dL (7-18); CALCIUM 9.4 mg/dL (8.5-10.1)
[2021-12-17 09:57] LABS: BILIRUBIN,TOTAL 1.1 mg/dL (0.2-1); CREATININE 0.7 mg/dL (0.55-1.3); TOT PROT 8.7 g/dl (6.4-8.2)
[2021-12-17] MEDS: MIRTAZAPINE 15 MG TABLET (FP) PO SCH (21:26)
[2021-12-18] MEDS: ONDANSETRON 4 MG/2 ML VIAL IVPUSH PRN (02:40)
[2021-12-18] MEDS: METOCLOPRAMIDE HCL INJECTION 10 MG/2 ML VIAL IVPUSH PRN (04:52)
[2021-12-18 09:08] LABS: BASO % 0.6 % (0-2.0); EOS % 0.9 % (0-4.5); MCH 31.7 pg (25.7-33.7); MCHC 34.8 g/dl (32.0-36.0); MEAN CELL VOLUME 91.2 fl (80-96); MEAN PLT VOLUME 9.9 fl (7.5-11.1); MONO % 9.2 % (3.8-10.2); NEUT % 76.3 % (42.8-82.8); PLATELET COUNT 223 10^3/uL (134-434); RBC 4.71 M/mm3 (3.60-5.2); RDW 12.2 % (11.6-15.6); WHITE BLOOD COUNT 11.2 K/mm3 (4.0-10.0)
[2021-12-18 09:27] LABS: CALCIUM 9.2 mg/dL (8.5-10.1)
[2021-12-18 09:28] LABS: ALBUMIN 3.9 g/dl (3.4-5.0)
[2021-12-18] MEDS ORDERED: SODIUM CHLORIDE 50 ML IVPB ONE (09:28)
[2021-12-18] MEDS ORDERED: ERTAPENEM SODIUM 1 GM VIAL ONE (09:28)
[2021-12-18 09:31] LABS: CREATININE 0.7 mg/dL (0.55-1.3)
[2021-12-18 09:32] LABS: BLOOD UREA NITROGEN 10.1 mg/dL (7-18)
[2021-12-18 09:33] LABS: BILIRUBIN,TOTAL 1.2 mg/dL (0.2-1); TOT PROT 7.8 g/dl (6.4-8.2)
[2021-12-18] MEDS: ENOXAPARIN NA (PORCINE) 40 MG/0.4 ML DISP.SYRIN SQ SCH (09:33)
[2021-12-18] MEDS: PANTOPRAZOLE SODIUM 40 MG VIAL IVPUSH SCH (09:33)
[2021-12-18] MEDS ORDERED: ALPRAZolam 1 MG TABLET PO PRN (09:33)
[2021-12-18] MEDS: ERTAPENEM SODIUM 1 GM in SODIUM CHLORIDE 50 ML IVPB SCH (09:33)
[2021-12-18] MEDS: MIRTAZAPINE 15 MG TABLET (FP) PO SCH (21:59)
[2021-12-19] MEDS: ONDANSETRON 4 MG/2 ML VIAL IVPUSH PRN ×2 (06:41→12:43)
[2021-12-19] MEDS: METOCLOPRAMIDE HCL INJECTION 10 MG/2 ML VIAL IVPUSH PRN (08:54)
[2021-12-19] MEDS ORDERED: ERTAPENEM SODIUM 1 GM VIAL ONE ×2 (10:48→10:50)
[2021-12-19] MEDS ORDERED: SODIUM CHLORIDE 50 ML IVPB ONE (10:48)
[2021-12-19] MEDS: PANTOPRAZOLE SODIUM 40 MG VIAL IVPUSH SCH (10:55)
[2021-12-19] MEDS: ENOXAPARIN NA (PORCINE) 40 MG/0.4 ML DISP.SYRIN SQ SCH (10:55)
[2021-12-19] MEDS: ERTAPENEM SODIUM 1 GM in SODIUM CHLORIDE 50 ML IVPB SCH (10:55)
[2021-12-19] MEDS ORDERED: FAMOTIDINE 20 MG/50 ML IVPB 20 MG/50 ML MG IVPB ONE (12:55)
[2021-12-19] MEDS ORDERED: SODIUM CHLORIDE 1,000 ML IV SCH (13:00)
[2021-12-19] MEDS: LACTOBACILLUS ACIDOPHILUS 1 TABLET PO SCH (13:43)
[2021-12-19] MEDS: MIRTAZAPINE 15 MG TABLET (FP) PO SCH (21:16)
[2021-12-20 07:43] LABS: BASO % 1.2 % (0-2.0); EOS % 3.7 % (0-4.5); HEMATOCRIT 38.6 % (32.4-45.2); HEMOGLOBIN 13.1 GM/dL (10.7-15.3); LYMPH % 23.7 % (8-40); MCH 31.7 pg (25.7-33.7); MCHC 33.9 g/dl (32.0-36.0); MEAN CELL VOLUME 93.5 fl (80-96); MONO % 9.6 % (3.8-10.2); NEUT % 61.8 % (42.8-82.8); PLATELET COUNT 178 10^3/uL (134-434); RBC 4.13 M/mm3 (3.60-5.2); RDW 11.9 % (11.6-15.6); WHITE BLOOD COUNT 7.4 K/mm3 (4.0-10.0)
[2021-12-20 07:58] LABS: CALCIUM 8.5 mg/dL (8.5-10.1)
[2021-12-20 07:59] LABS: ALBUMIN 3.2 g/dl (3.4-5.0); BLOOD UREA NITROGEN 9.4 mg/dL (7-18)
[2021-12-20 08:02] LABS: CREATININE 0.5 mg/dL (0.55-1.3)
[2021-12-20 08:04] LABS: BILIRUBIN,TOTAL 0.7 mg/dL (0.2-1); TOT PROT 6.4 g/dl (6.4-8.2)
[2021-12-20] MEDS ORDERED: SODIUM CHLORIDE 50 ML IVPB ONE (09:39)
[2021-12-20] MEDS ORDERED: ERTAPENEM SODIUM 1 GM VIAL ONE (09:39)
[2021-12-20] MEDS: ENOXAPARIN NA (PORCINE) 40 MG/0.4 ML DISP.SYRIN SQ SCH (09:47)
[2021-12-20] MEDS: ERTAPENEM SODIUM 1 GM in SODIUM CHLORIDE 50 ML IVPB SCH (09:47)
[2021-12-20] MEDS: LACTOBACILLUS ACIDOPHILUS 1 TABLET PO SCH (09:47)
[2021-12-20] MEDS: ONDANSETRON 4 MG/2 ML VIAL IVPUSH PRN (09:47)
[2021-12-20] MEDS: PANTOPRAZOLE SODIUM 40 MG VIAL IVPUSH SCH (09:48)
[2021-12-20] MEDS: POLYETHYLENE GLYCOL (HEALTHYLAX) 3350 17 GM PACKET PO SCH (22:24)
[2021-12-20] MEDS: MIRTAZAPINE 15 MG TABLET (FP) PO SCH (22:24)
[2021-12-21 08:27] LABS: BASO % 1.2 % (0-2.0); EOS % 4.4 % (0-4.5); HEMATOCRIT 40.3 % (32.4-45.2); HEMOGLOBIN 13.7 GM/dL (10.7-15.3); LYMPH % 20.5 % (8-40); MCHC 33.9 g/dl (32.0-36.0); MEAN CELL VOLUME 94.3 fl (80-96); MEAN PLT VOLUME 10.2 fl (7.5-11.1); MONO % 9.5 % (3.8-10.2); NEUT % 64.4 % (42.8-82.8); PLATELET COUNT 185 10^3/uL (134-434); RBC 4.27 M/mm3 (3.60-5.2); RDW 11.8 % (11.6-15.6); WHITE BLOOD COUNT 7.7 K/mm3 (4.0-10.0)
[2021-12-21 08:38] LABS: CALCIUM 8.8 mg/dL (8.5-10.1)
[2021-12-21 08:39] LABS: BLOOD UREA NITROGEN 9.1 mg/dL (7-18)
[2021-12-21 08:42] LABS: CREATININE 0.5 mg/dL (0.55-1.3)
[2021-12-21 08:44] LABS: BILIRUBIN,TOTAL 0.6 mg/dL (0.2-1); TOT PROT 7.3 g/dl (6.4-8.2)
[2021-12-21 08:55] LABS: ALBUMIN 3.9 g/dl (3.4-5.0)
[2021-12-21] MEDS ORDERED: SODIUM CHLORIDE 50 ML IVPB ONE (10:10)
[2021-12-21] MEDS ORDERED: ERTAPENEM SODIUM 1 GM VIAL ONE (10:10)
[2021-12-21] MEDS: POLYETHYLENE GLYCOL (HEALTHYLAX) 3350 17 GM PACKET PO SCH (10:16)
[2021-12-21] MEDS: ENOXAPARIN NA (PORCINE) 40 MG/0.4 ML DISP.SYRIN SQ SCH (10:16)
[2021-12-21] MEDS: PANTOPRAZOLE SODIUM 40 MG VIAL IVPUSH SCH (10:17)
[2021-12-21] MEDS: ERTAPENEM SODIUM 1 GM in SODIUM CHLORIDE 50 ML IVPB SCH (10:17)
[2021-12-21] MEDS: LACTOBACILLUS ACIDOPHILUS 1 TABLET PO SCH (10:17)
[2021-12-21] MEDS: MIRTAZAPINE 15 MG TABLET (FP) PO SCH (21:25)
[2021-12-22 07:41] LABS: BASO % 1.1 % (0-2.0); EOS % 2.9 % (0-4.5); HEMATOCRIT 41.2 % (32.4-45.2); HEMOGLOBIN 14.1 GM/dL (10.7-15.3); LYMPH % 18.8 % (8-40); MCH 32.2 pg (25.7-33.7); MCHC 34.3 g/dl (32.0-36.0); MEAN CELL VOLUME 93.8 fl (80-96); MEAN PLT VOLUME 9.7 fl (7.5-11.1); MONO % 8.2 % (3.8-10.2); PLATELET COUNT 196 10^3/uL (134-434); RBC 4.39 M/mm3 (3.60-5.2); RDW 12.1 % (11.6-15.6); WHITE BLOOD COUNT 8.2 K/mm3 (4.0-10.0)
[2021-12-22 08:12] LABS: BLOOD UREA NITROGEN 10.4 mg/dL (7-18); CALCIUM 9.7 mg/dL (8.5-10.1)
[2021-12-22 08:16] LABS: BILIRUBIN,TOTAL 0.8 mg/dL (0.2-1); CREATININE 0.5 mg/dL (0.55-1.3); TOT PROT 7.6 g/dl (6.4-8.2)
[2021-12-22] MEDS ORDERED: ERTAPENEM SODIUM 1 GM VIAL ONE (10:22)
[2021-12-22] MEDS ORDERED: SODIUM CHLORIDE 50 ML IVPB ONE (10:22)
[2021-12-22] MEDS: ERTAPENEM SODIUM 1 GM in SODIUM CHLORIDE 50 ML IVPB SCH (10:25)
[2021-12-22] MEDS: PANTOPRAZOLE SODIUM 40 MG VIAL IVPUSH SCH (10:26)
[2021-12-22] MEDS: ENOXAPARIN NA (PORCINE) 40 MG/0.4 ML DISP.SYRIN SQ SCH (10:26)
[2021-12-22] MEDS: POLYETHYLENE GLYCOL (HEALTHYLAX) 3350 17 GM PACKET PO SCH (10:26)
[2021-12-22] MEDS: LACTOBACILLUS ACIDOPHILUS 1 TABLET PO SCH (10:26)
[2021-12-22] MEDS ORDERED: MINERAL OIL ENEMA 133 ML ENEMA PR ONE (10:51)
[2021-12-22] MEDS ORDERED: LORazepam 0.5 MG TABLET PO PRN (17:27)
[2021-12-22] MEDS: MIRTAZAPINE 15 MG TABLET (FP) PO SCH (22:19)
[2021-12-23 09:07] LABS: ALBUMIN 3.6 g/dl (3.4-5.0); BLOOD UREA NITROGEN 11.6 mg/dL (7-18); CALCIUM 8.9 mg/dL (8.5-10.1)
[2021-12-23 09:09] LABS: BASO % 1.2 % (0-2.0); EOS % 3.1 % (0-4.5); HEMATOCRIT 41.6 % (32.4-45.2); HEMOGLOBIN 13.7 GM/dL (10.7-15.3); MCH 31.4 pg (25.7-33.7); MCHC 33.1 g/dl (32.0-36.0); MEAN PLT VOLUME 10.1 fl (7.5-11.1); NEUT % 67.7 % (42.8-82.8); PLATELET COUNT 202 10^3/uL (134-434); RBC 4.38 M/mm3 (3.60-5.2); RDW 12.1 % (11.6-15.6); WHITE BLOOD COUNT 7.7 K/mm3 (4.0-10.0)
[2021-12-23 09:11] LABS: BILIRUBIN,TOTAL 0.6 mg/dL (0.2-1); CREATININE 0.6 mg/dL (0.55-1.3); TOT PROT 7.2 g/dl (6.4-8.2)
[2021-12-23] MEDS ORDERED: ERTAPENEM SODIUM 1 GM VIAL ONE (10:17)
[2021-12-23] MEDS ORDERED: SODIUM CHLORIDE 50 ML IVPB ONE (10:17)
[2021-12-23] MEDS: LACTOBACILLUS ACIDOPHILUS 1 TABLET PO SCH (11:48)
[2021-12-23] MEDS: POLYETHYLENE GLYCOL (HEALTHYLAX) 3350 17 GM PACKET PO SCH (11:48)
[2021-12-23] MEDS: ENOXAPARIN NA (PORCINE) 40 MG/0.4 ML DISP.SYRIN SQ SCH (11:49)
[2021-12-23] MEDS: ERTAPENEM SODIUM 1 GM in SODIUM CHLORIDE 50 ML IVPB SCH (11:49)
[2021-12-23] MEDS: PANTOPRAZOLE SODIUM 40 MG VIAL IVPUSH SCH (11:49)
[2021-12-23] MEDS: PALIPERIDONE 1.5 MG PO SCH (21:42)
[2021-12-23] MEDS: MIRTAZAPINE 15 MG TABLET (FP) PO SCH (21:42)
[2021-12-24] MEDS ORDERED: SODIUM CHLORIDE 50 ML IVPB ONE (09:02)
[2021-12-24] MEDS ORDERED: ERTAPENEM SODIUM 1 GM VIAL ONE (09:02)
[2021-12-24] MEDS: ENOXAPARIN NA (PORCINE) 40 MG/0.4 ML DISP.SYRIN SQ SCH (09:09)
[2021-12-24] MEDS: POLYETHYLENE GLYCOL (HEALTHYLAX) 3350 17 GM PACKET PO SCH (09:09)
[2021-12-24] MEDS: PANTOPRAZOLE SODIUM 40 MG VIAL IVPUSH SCH (09:09)
[2021-12-24] MEDS: LACTOBACILLUS ACIDOPHILUS 1 TABLET PO SCH (09:09)
[2021-12-24] MEDS: ERTAPENEM SODIUM 1 GM in SODIUM CHLORIDE 50 ML IVPB SCH (09:09)
[2021-12-24] MEDS: ACETAMINOPHEN 325 MG TABLET (FP) PO PRN (17:19)
[2021-12-24] MEDS: MIRTAZAPINE 15 MG TABLET (FP) PO SCH (21:42)
[2021-12-24] MEDS: PALIPERIDONE 1.5 MG PO SCH (21:42)
[2021-12-25 05:37] VITALS: BP 120/71; PULSE 96; TEMP 97.9
[2021-12-25] MEDS ORDERED: ERTAPENEM SODIUM 1 GM VIAL ONE (09:33)
[2021-12-25] MEDS ORDERED: SODIUM CHLORIDE 50 ML IVPB ONE (09:34)
[2021-12-25] MEDS: PANTOPRAZOLE SODIUM 40 MG VIAL IVPUSH SCH (10:07)
[2021-12-25] MEDS: ENOXAPARIN NA (PORCINE) 40 MG/0.4 ML DISP.SYRIN SQ SCH (10:07)
[2021-12-25] MEDS: POLYETHYLENE GLYCOL (HEALTHYLAX) 3350 17 GM PACKET PO SCH (10:07)
[2021-12-25] MEDS: ERTAPENEM SODIUM 1 GM in SODIUM CHLORIDE 50 ML IVPB SCH (10:07)
[2021-12-25] MEDS: LACTOBACILLUS ACIDOPHILUS 1 TABLET PO SCH (10:08)
== END 2021-12-25 12:24 | disposition home or self-care (01) | DRG 463 ==
LOC: JER 14:19 → JERBED 17:38 → J7W 12-15 00:20
PROVIDERS: ADMIT Internal Medicine
DX: N39.0 Urinary tract infection, site not specified (principal); N31.9 Neuromuscular dysfunction of bladder, unspecified; M41.9 Scoliosis, unspecified; B96.1 Klebsiella pneumoniae [K. pneumoniae] as the cause of diseases classified elsewhere; D72.829 Elevated white blood cell count, unspecified; E87.6 Hypokalemia; F12.90 Cannabis use, unspecified, uncomplicated; F17.200 Nicotine dependence, unspecified, uncomplicated; F31.9 Bipolar disorder, unspecified; F43.10 Post-traumatic stress disorder, unspecified; H91.91 Unspecified hearing loss, right ear; K21.9 Gastro-esophageal reflux disease without esophagitis; L08.9 Local infection of the skin and subcutaneous tissue, unspecified; M79.7 Fibromyalgia; R35.0 Frequency of micturition; Z16.12 Extended spectrum beta lactamase (ESBL) resistance; B95.5 Unspecified streptococcus as the cause of diseases classified elsewhere; F41.8 Other specified anxiety disorders
CPT/HCPCS: 36415; 73630-TC-RT-FY; 74018-TC-FY; 74177-TC; 76705-TC; 80053; 81003; 82962; 83690; 83735; 84100; 84703; 85025; 85610; 85730; 86850; 86900; 86901; 87040; 87086; 87186; 93005; 93010; 97116-GP; 97161-GP; 99285-25; C9803-CS; Q9967; U0003; U0005

== ENCOUNTER 2021-12-26 14:14 | Emergency (ER) | payer OTHER ==
[2021-12-26 14:51] VITALS: BMI 19.8
[2021-12-26] MEDS ORDERED: SODIUM CHLORIDE 0.9% 500 ML INFUS.BAG IV ONE ×2 (15:14→17:55)
[2021-12-26] MEDS ORDERED: FAMOTIDINE 20 MG/50 ML IVPB 20 MG/50 ML MG IVPB ONE (15:14)
[2021-12-26] MEDS ORDERED: METOCLOPRAMIDE HCL INJECTION 10 MG/2 ML VIAL IVPB ONE (15:14)
[2021-12-26] MEDS ORDERED: ACETAMINOPHEN 1000 MG/100 ML BAG IVPB ONE (15:15)
[2021-12-26] MEDS ORDERED: ACETAMINOPHEN INJECTION 100 ML IVPB ONE (16:24)
[2021-12-26] MEDS ORDERED: METOCLOPRAMIDE HCL INJECTION 10 MG/2 ML VIAL ONE (16:24)
[2021-12-26] MEDS ORDERED: HALOPERIDOL LACTATE 5 MG/ML IM ONE (16:24)
[2021-12-26 16:52] LABS: BASO % 0.6 % (0-2.0); HEMATOCRIT 39.6 % (32.4-45.2); HEMOGLOBIN 13.3 GM/dL (10.7-15.3); LYMPH % 3.5 % (8-40); MCH 31.8 pg (25.7-33.7); MCHC 33.6 g/dl (32.0-36.0); MEAN CELL VOLUME 94.4 fl (80-96); MEAN PLT VOLUME 9.8 fl (7.5-11.1); MONO % 2.9 % (3.8-10.2); PLATELET COUNT 236 10^3/uL (134-434); RDW 12.1 % (11.6-15.6); WHITE BLOOD COUNT 13.8 K/mm3 (4.0-10.0)
[2021-12-26] MEDS ORDERED: HALOPERIDOL LACTATE 5 MG/ML ONE (17:10)
[2021-12-26 17:22] LABS: MAGNESIUM 1.7 mg/dL (1.8-2.4)
[2021-12-26] MEDS ORDERED: MAGNESIUM SULF 50% (8.12 MEQ/2 ML-1 GM VIAL) IVPB ONE (17:27)
[2021-12-26 17:28] LABS: PH,URINE >= 9.0 (5.0-8.0); URINE APPEARANCE TURBID; URINE BILIRUBIN NEGATIVE (NEGATIVE); URINE COLOR YELLOW; URINE GLUCOSE (UA) NEGATIVE (NEGATIVE); URINE KETONE 1+ (NEGATIVE); URINE LEUK ESTERASE NEGATIVE (NEGATIVE); URINE NITRITE NEGATIVE (NEGATIVE); URINE PROTEIN TRACE (NEGATIVE); URINE UROBILINOGEN 0.2 mg/dL (0.2-1.0)
[2021-12-26 17:54] LABS: ANISOCYTOSIS 0; MACROCYTOSIS 0
[2021-12-26] MEDS ORDERED: MAGNESIUM SULFATE IN WATER 2 GM/50 ML IVPB IVPB ONE (18:19)
[2021-12-26 18:47] VITALS: BP 101/57
[2021-12-26 18:53] LABS: ALBUMIN 4.1 g/dl (3.4-5.0); BLOOD UREA NITROGEN 5.6 mg/dL (7-18); CALCIUM 9.8 mg/dL (8.5-10.1)
[2021-12-26 18:56] LABS: CREATININE 0.7 mg/dL (0.55-1.3)
[2021-12-26 18:58] LABS: BILIRUBIN,TOTAL 0.7 mg/dL (0.2-1); TOT PROT 8.1 g/dl (6.4-8.2)
[2021-12-26 19:27] VITALS: TEMP 98.8
[2021-12-26] MEDS ORDERED: morphine CARPU-JECT 4 MG/1 ML DISP.SYRIN IVPUSH ONE (19:54)
[2021-12-26 19:59] VITALS: PULSE 100
[2021-12-26 20:00] LABS: BLOOD UREA NITROGEN 5.4 mg/dL (7-18)
[2021-12-26] MEDS ORDERED: morphine SULFATE 4 MG/ML VIAL ONE (20:01)
[2021-12-26 20:03] LABS: CREATININE 0.4 mg/dL (0.55-1.3)
[2021-12-26 20:04] LABS: BILIRUBIN,TOTAL 0.5 mg/dL (0.2-1); TOT PROT 6.1 g/dl (6.4-8.2)
[2021-12-26 20:39] LABS: CALCIUM 8.1 mg/dL (8.5-10.1)
[2021-12-26 20:53] LABS: INR 1.14 (0.83-1.09); PROTHROMBIN TIME (PATIENT) 13.1 SEC (9.7-13.0)
[2021-12-26 20:56] LABS: ACTIVATED PTT 30.9 SECONDS (25.2-36.5)
== END 2021-12-27 00:05 | disposition home or self-care (01) ==
LOC: JER 14:14
PROC: 3E0333Z Introduction of Anti-inflammatory into Peripheral Vein, Percutaneous Approach (ICD-10-PCS; principal; 2021-12-26)
PROC: 3E033GC Introduction of Other Therapeutic Substance into Peripheral Vein, Percutaneous Approach (ICD-10-PCS; 2021-12-26)
PROC: 3E033GC Introduction of Other Therapeutic Substance into Peripheral Vein, Percutaneous Approach (ICD-10-PCS; 2021-12-26)
PROC: 3E033GC Introduction of Other Therapeutic Substance into Peripheral Vein, Percutaneous Approach (ICD-10-PCS; 2021-12-26)
PROC: 3E033NZ Introduction of Analgesics, Hypnotics, Sedatives into Peripheral Vein, Percutaneous Approach (ICD-10-PCS; 2021-12-26)
PROC: 3E023GC Introduction of Other Therapeutic Substance into Muscle, Percutaneous Approach (ICD-10-PCS; 2021-12-26)
DX: R11.15 Cyclical vomiting syndrome unrelated to migraine (principal); R11.0 Nausea
CPT/HCPCS: 36415; 71045-TC-FY; 80053; 81003; 83690; 83735; 84439; 84443; 84484; 84703; 85025; 85379; 85610; 85730; 87077; 87086; 87491; 87591; 93005; 93010; 99285-25; C9803-CS; U0003; U0005

== ENCOUNTER 2021-12-30 14:02 | Emergency (ER) | payer OTHER ==
[2021-12-30 14:20] VITALS: BP 97/61; PULSE 87; TEMP 98.1; BMI 18.8
== END 2021-12-30 16:40 | disposition home or self-care (01) ==
LOC: JERFT 14:02
DX: L08.89 Other specified local infections of the skin and subcutaneous tissue (principal)
CPT/HCPCS: 73140-TC-LT-FY; 87070; 87077; 87186; 87205; 99283-25

== ENCOUNTER 2022-01-04 18:46 | Inpatient (IN) | payer OTHER ==
[2022-01-04 19:03] VITALS: BMI 18.8
[2022-01-04 21:31] LABS: BASO % 0.5 % (0-2.0); EOS % 4.2 % (0-4.5); HEMATOCRIT 36.2 % (32.4-45.2); LYMPH % 19.7 % (8-40); MCHC 33.2 g/dl (32.0-36.0); MEAN CELL VOLUME 96.4 fl (80-96); MEAN PLT VOLUME 9.3 fl (7.5-11.1); NEUT % 69.6 % (42.8-82.8); PLATELET COUNT 232 10^3/uL (134-434); RBC 3.76 M/mm3 (3.60-5.2); RDW 12.2 % (11.6-15.6); WHITE BLOOD COUNT 8.1 K/mm3 (4.0-10.0)
[2022-01-04 21:48] LABS: CALCIUM 8.9 mg/dL (8.5-10.1)
[2022-01-04 21:49] LABS: BLOOD UREA NITROGEN 10.6 mg/dL (7-18)
[2022-01-04 21:52] LABS: CREATININE 0.7 mg/dL (0.55-1.3)
[2022-01-04 21:53] LABS: BILIRUBIN,TOTAL 0.2 mg/dL (0.2-1); TOT PROT 7.4 g/dl (6.4-8.2)
[2022-01-04 21:58] LABS: ALBUMIN 3.6 g/dl (3.4-5.0)
[2022-01-04] MEDS ORDERED: CLINDAMYCIN 600MG PREMIX IVPB 600 MG/50 ML BAG IVPB ONE ×2 (22:53→22:56)
[2022-01-04] MEDS ORDERED: KETOROLAC TROMETHAMINE 30 MG/1 ML VIAL ONE (23:52)
[2022-01-05] MEDS ORDERED: KETOROLAC TROMETHAMINE 30 MG/1 ML VIAL IVPUSH ONE (00:14)
[2022-01-05] MEDS ORDERED: ACETAMINOPHEN 325 MG TABLET (FP) PO PRN (01:30)
[2022-01-05] MEDS ORDERED: KETOROLAC TROMETHAMINE 15 MG/ML VIAL IVPUSH PRN (01:48)
[2022-01-05] MEDS ORDERED: PIPERACILLIN/TAZOB 3.375 GM 3.375 GM/50 ML BAG IVPB ONE ×2 (02:11→09:31)
[2022-01-05] MEDS: PIPERACILLIN/TAZOB 3.375 GM 3.375 GM in DEXTROSE 5%-WATER - 50 ML IVPB SCH ×5 (02:16→17:30)
[2022-01-05] MEDS: morphine CARPU-JECT 2 MG/1 ML DISP.SYRIN IVPUSH SCH ×2 (02:37→16:52)
[2022-01-05] MEDS: LINEZOLID 600 MG PREMIX BAG 600 MG/300 ML BAG IVPB SCH ×2 (02:45→14:28)
[2022-01-05 06:22] LABS: HEMATOCRIT 32.7 % (32.4-45.2); MCH 32.3 pg (25.7-33.7); MCHC 33.7 g/dl (32.0-36.0); MEAN CELL VOLUME 95.8 fl (80-96); MEAN PLT VOLUME 9.3 fl (7.5-11.1); PLATELET COUNT 184 10^3/uL (134-434); RBC 3.41 M/mm3 (3.60-5.2); RDW 12.2 % (11.6-15.6); WHITE BLOOD COUNT 6.8 K/mm3 (4.0-10.0)
[2022-01-05 06:38] LABS: CALCIUM 8.3 mg/dL (8.5-10.1)
[2022-01-05 06:39] LABS: BLOOD UREA NITROGEN 11.1 mg/dL (7-18)
[2022-01-05 06:42] LABS: CREATININE 0.5 mg/dL (0.55-1.3)
[2022-01-05] MEDS ORDERED: FAMOTIDINE 20 MG TABLET ONE (09:30)
[2022-01-05] MEDS ORDERED: ENOXAPARIN NA (PORCINE) 40 MG/0.4 ML DISP.SYRIN SQ ONE (09:31)
[2022-01-05] MEDS: FAMOTIDINE 20 MG TABLET PO SCH (09:40)
[2022-01-05] MEDS: ENOXAPARIN NA (PORCINE) 40 MG/0.4 ML DISP.SYRIN SQ SCH (09:40)
[2022-01-05] MEDS ORDERED: ONDANSETRON 4 MG/2 ML VIAL IVPUSH ONE ×2 (13:55→15:38)
[2022-01-05] MEDS ORDERED: ONDANSETRON 4 MG/2 ML VIAL ONE (13:56)
[2022-01-05] MEDS ORDERED: DEXTROSE 5%-WATER - 50 ML IVPB ONE (17:24)
[2022-01-05] MEDS ORDERED: PIPERACILLIN/TAZOBACTAM 3.375 GM VIAL IVPB ONE (17:24)
[2022-01-05] MEDS: MIRTAZAPINE 15 MG TABLET (FP) PO SCH (21:26)
[2022-01-05] MEDS ORDERED: PALIPERIDONE 1.5 MG PO SCH (22:00)
[2022-01-06] MEDS ORDERED: PIPERACILLIN/TAZOBACTAM 3.375 GM VIAL IVPB ONE ×3 (01:24→16:26)
[2022-01-06] MEDS ORDERED: DEXTROSE 5%-WATER - 50 ML IVPB ONE ×3 (01:24→16:27)
[2022-01-06] MEDS: LINEZOLID 600 MG PREMIX BAG 600 MG/300 ML BAG IVPB SCH ×2 (02:51→13:55)
[2022-01-06] MEDS: PIPERACILLIN/TAZOB 3.375 GM 3.375 GM in DEXTROSE 5%-WATER - 50 ML IVPB SCH ×3 (02:52→17:07)
[2022-01-06 08:41] LABS: HEMATOCRIT 35.2 % (32.4-45.2); HEMOGLOBIN 11.9 GM/dL (10.7-15.3); MCHC 33.6 g/dl (32.0-36.0); PLATELET COUNT 224 10^3/uL (134-434); RBC 3.71 M/mm3 (3.60-5.2); RDW 12.2 % (11.6-15.6); WHITE BLOOD COUNT 5.5 K/mm3 (4.0-10.0)
[2022-01-06] MEDS: ENOXAPARIN NA (PORCINE) 40 MG/0.4 ML DISP.SYRIN SQ SCH (09:36)
[2022-01-06] MEDS: FAMOTIDINE 20 MG TABLET PO SCH (09:36)
[2022-01-06] MEDS: MIRTAZAPINE 15 MG TABLET (FP) PO SCH (23:14)
[2022-01-07] MEDS ORDERED: PIPERACILLIN/TAZOBACTAM 3.375 GM VIAL IVPB ONE ×3 (01:38→17:40)
[2022-01-07] MEDS ORDERED: DEXTROSE 5%-WATER - 50 ML IVPB ONE ×3 (01:38→17:40)
[2022-01-07] MEDS: LINEZOLID 600 MG PREMIX BAG 600 MG/300 ML BAG IVPB SCH ×2 (01:53→15:31)
[2022-01-07] MEDS: PIPERACILLIN/TAZOB 3.375 GM 3.375 GM in DEXTROSE 5%-WATER - 50 ML IVPB SCH ×3 (03:10→17:55)
[2022-01-07] MEDS: FAMOTIDINE 20 MG TABLET PO SCH (11:35)
[2022-01-07] MEDS: ENOXAPARIN NA (PORCINE) 40 MG/0.4 ML DISP.SYRIN SQ SCH (11:35)
[2022-01-07] MEDS: MIRTAZAPINE 15 MG TABLET (FP) PO SCH (21:34)
[2022-01-08] MEDS ORDERED: DEXTROSE 5%-WATER - 50 ML IVPB ONE ×3 (01:07→17:58)
[2022-01-08] MEDS ORDERED: PIPERACILLIN/TAZOBACTAM 3.375 GM VIAL IVPB ONE ×3 (01:07→17:58)
[2022-01-08] MEDS: LINEZOLID 600 MG PREMIX BAG 600 MG/300 ML BAG IVPB SCH ×2 (01:11→14:55)
[2022-01-08] MEDS: PIPERACILLIN/TAZOB 3.375 GM 3.375 GM in DEXTROSE 5%-WATER - 50 ML IVPB SCH ×3 (02:38→18:02)
[2022-01-08 09:12] LABS: BASO % 0.7 % (0-2.0); EOS % 7.2 % (0-4.5); HEMATOCRIT 37.1 % (32.4-45.2); HEMOGLOBIN 12.5 GM/dL (10.7-15.3); MCHC 33.7 g/dl (32.0-36.0); MEAN CELL VOLUME 94.9 fl (80-96); MEAN PLT VOLUME 8.8 fl (7.5-11.1); MONO % 6.4 % (3.8-10.2); NEUT % 62.7 % (42.8-82.8); PLATELET COUNT 231 10^3/uL (134-434); RBC 3.91 M/mm3 (3.60-5.2)
[2022-01-08] MEDS ORDERED: ONDANSETRON 4 MG/2 ML VIAL IVPUSH PRN (09:14)
[2022-01-08 09:35] LABS: BLOOD UREA NITROGEN 12.1 mg/dL (7-18); CALCIUM 8.8 mg/dL (8.5-10.1)
[2022-01-08 09:39] LABS: CREATININE 0.6 mg/dL (0.55-1.3)
[2022-01-08] MEDS: FAMOTIDINE 20 MG TABLET PO SCH (10:02)
[2022-01-08] MEDS: ENOXAPARIN NA (PORCINE) 40 MG/0.4 ML DISP.SYRIN SQ SCH (10:03)
[2022-01-08] MEDS: POLYETHYLENE GLYCOL (HEALTHYLAX) 3350 17 GM PACKET PO SCH (15:50)
[2022-01-08] MEDS: MIRTAZAPINE 15 MG TABLET (FP) PO SCH (21:38)
[2022-01-09] MEDS: LINEZOLID 600 MG PREMIX BAG 600 MG/300 ML BAG IVPB SCH ×2 (00:56→14:22)
[2022-01-09] MEDS ORDERED: PIPERACILLIN/TAZOBACTAM 3.375 GM VIAL IVPB ONE ×3 (01:18→17:12)
[2022-01-09] MEDS ORDERED: DEXTROSE 5%-WATER - 50 ML IVPB ONE ×3 (01:18→17:12)
[2022-01-09] MEDS: PIPERACILLIN/TAZOB 3.375 GM 3.375 GM in DEXTROSE 5%-WATER - 50 ML IVPB SCH ×3 (02:02→17:26)
[2022-01-09] MEDS: ENOXAPARIN NA (PORCINE) 40 MG/0.4 ML DISP.SYRIN SQ SCH (10:46)
[2022-01-09] MEDS: FAMOTIDINE 20 MG TABLET PO SCH (10:47)
[2022-01-09] MEDS: POLYETHYLENE GLYCOL (HEALTHYLAX) 3350 17 GM PACKET PO SCH (10:47)
[2022-01-09] MEDS ORDERED: DULoxetine HCL 20 MG CAPSULE.DR PO SCH (16:15)
[2022-01-09] MEDS: MIRTAZAPINE 15 MG TABLET (FP) PO SCH (21:25)
[2022-01-10] MEDS ORDERED: DEXTROSE 5%-WATER - 50 ML IVPB ONE ×3 (00:19→17:01)
[2022-01-10] MEDS ORDERED: PIPERACILLIN/TAZOBACTAM 3.375 GM VIAL IVPB ONE ×3 (00:19→17:00)
[2022-01-10] MEDS: LINEZOLID 600 MG PREMIX BAG 600 MG/300 ML BAG IVPB SCH ×2 (00:50→14:43)
[2022-01-10] MEDS: PIPERACILLIN/TAZOB 3.375 GM 3.375 GM in DEXTROSE 5%-WATER - 50 ML IVPB SCH ×3 (01:58→17:28)
[2022-01-10] MEDS ORDERED: ALPRAZolam 0.25 MG TABLET PO ONE (06:19)
[2022-01-10] MEDS: POLYETHYLENE GLYCOL (HEALTHYLAX) 3350 17 GM PACKET PO SCH (10:41)
[2022-01-10] MEDS: ENOXAPARIN NA (PORCINE) 40 MG/0.4 ML DISP.SYRIN SQ SCH (10:41)
[2022-01-10] MEDS: FAMOTIDINE 20 MG TABLET PO SCH (10:41)
[2022-01-10 12:11] LABS: SARS-CoV-2 NAA Not Detected (Not Detected)
[2022-01-10] MEDS: MIRTAZAPINE 15 MG TABLET (FP) PO SCH (21:14)
[2022-01-11] MEDS ORDERED: DEXTROSE 5%-WATER - 50 ML IVPB ONE ×3 (01:15→17:50)
[2022-01-11] MEDS ORDERED: PIPERACILLIN/TAZOBACTAM 3.375 GM VIAL IVPB ONE ×3 (01:15→17:50)
[2022-01-11] MEDS: LINEZOLID 600 MG PREMIX BAG 600 MG/300 ML BAG IVPB SCH ×2 (01:19→14:18)
[2022-01-11] MEDS: PIPERACILLIN/TAZOB 3.375 GM 3.375 GM in DEXTROSE 5%-WATER - 50 ML IVPB SCH ×3 (02:29→17:57)
[2022-01-11] MEDS: FAMOTIDINE 20 MG TABLET PO SCH (09:32)
[2022-01-11] MEDS: POLYETHYLENE GLYCOL (HEALTHYLAX) 3350 17 GM PACKET PO SCH (09:32)
[2022-01-11] MEDS: ENOXAPARIN NA (PORCINE) 40 MG/0.4 ML DISP.SYRIN SQ SCH (09:32)
[2022-01-11] MEDS ORDERED: ALPRAZolam 1 MG TABLET PO ONE (12:11)
[2022-01-11 14:07] VITALS: TEMP 98.9
[2022-01-11] MEDS: MIRTAZAPINE 15 MG TABLET (FP) PO SCH (21:30)
[2022-01-12 00:25] VITALS: BP 140/87; PULSE 112
== END 2022-01-11 22:25 | disposition short-term general hospital (02) | DRG 344 ==
LOC: JERFT 18:46 → JER 18:46 → JERBED 23:13 → J7W 01-05 16:08
PROVIDERS: ADMIT Hospitalist
DX: M86.8X4 Other osteomyelitis, hand (principal); M00.9 Pyogenic arthritis, unspecified; L03.114 Cellulitis of left upper limb; K29.60 Other gastritis without bleeding; S63.259A Unspecified dislocation of unspecified finger, initial encounter; F60.3 Borderline personality disorder; G60.0 Hereditary motor and sensory neuropathy; M79.7 Fibromyalgia; F25.9 Schizoaffective disorder, unspecified; Z89.421 Acquired absence of other right toe(s); F41.9 Anxiety disorder, unspecified; F31.9 Bipolar disorder, unspecified; X58.XXXA Exposure to other specified factors, initial encounter; Y93.89 Activity, other specified; Y92.89 Other specified places as the place of occurrence of the external cause; Y99.8 Other external cause status
CPT/HCPCS: 36415; 73130-TC-LT-FY; 73218-TC-LT; 80048; 80053; 85025; 85027; 85651; 86140; 87040; 99285-25; C9803-CS; U0003; U0005

== ENCOUNTER 2022-03-03 04:26 | Day surgery (SDC) | payer OTHER ==
[2022-03-02 10:25] VITALS: BMI 21.3
[2022-03-03] MEDS ORDERED: LIDOCAINE 1%/EPI 1:100000 (20 ML MULTI DOSE VIAL) ONE (12:32)
[2022-03-03] MEDS ORDERED: BUPIVACAINE HCL/PF 0.5% (5MG/ML) 10 ML VIAL ONE (12:32)
[2022-03-03] MEDS ORDERED: PROPOFOL 20 ML ONE ×3 (12:50)
[2022-03-03] MEDS ORDERED: MIDAZOLAM HCL 2 MG/2 ML SINGLE DOSE VIAL ONE ×4 (12:51→13:30)
[2022-03-03] MEDS ORDERED: ceFAZolin SODIUM 1 GM VIAL IVPB ONE (13:08)
[2022-03-03] MEDS ORDERED: BUPIVACAINE HCL/PF 0.5% (5MG/ML) 10 ML VIAL NR ONE (13:24)
[2022-03-03] MEDS ORDERED: LIDOCAINE 1%/EPI 1:100000 (20 ML MULTI DOSE VIAL) IJ ONE (13:28)
[2022-03-03 15:29] VITALS: BP 112/70; PULSE 70; TEMP 97
== END 2022-03-03 15:10 | disposition home or self-care (01) ==
LOC: JASU-SURG 04:26
PROVIDERS: ATTEND Podiatrist Foot Surgery
PROC: 0QBN0ZZ Excision of Right Metatarsal, Open Approach (ICD-10-PCS; principal; 2022-03-03 12:30)
DX: M77.41 Metatarsalgia, right foot (principal)
CPT/HCPCS: 73630-TC-RT-FY; 81025; 88304-TC; 88311-TC

== ENCOUNTER 2022-03-18 11:46 | Inpatient (IN) | payer OTHER ==
[2022-03-18] MEDS ORDERED: SODIUM CHLORIDE 0.9% 500 ML INFUS.BAG IV ONE (12:56)
[2022-03-18] MEDS ORDERED: ACETAMINOPHEN 1000 MG/100 ML BAG IVPB ONE (12:56)
[2022-03-18] MEDS ORDERED: PIPERACILLIN/TAZOB 3.375 GM 3.375 GM in DEXTROSE 5%-WATER - 50 ML IVPB ONE (12:56)
[2022-03-18] MEDS ORDERED: ACETAMINOPHEN INJECTION 100 ML IVPB ONE (13:17)
[2022-03-18] MEDS ORDERED: PIPERACILLIN/TAZOB 3.375 GM 3.375 GM/50 ML BAG IVPB ONE (13:17)
[2022-03-18] MEDS ORDERED: VANCOMYCIN 1 GM in D5W (PRE-DOCKED) 1,000 MG/250 ML IVPB ONE (13:51)
[2022-03-18 13:59] LABS: ALBUMIN 3.8 g/dl (3.4-5.0); BLOOD UREA NITROGEN 11.2 mg/dL (7-18); CALCIUM 8.8 mg/dL (8.5-10.1)
[2022-03-18] MEDS ORDERED: VANCOMYCIN 1 GRAM (PRE-DOCKED) 1,000 MG/250 ML BAG IVPB ONE (14:00)
[2022-03-18 14:02] LABS: CREATININE 0.5 mg/dL (0.55-1.3)
[2022-03-18 14:04] LABS: BILIRUBIN,TOTAL 0.6 mg/dL (0.2-1); TOT PROT 7.7 g/dl (6.4-8.2)
[2022-03-18 14:25] LABS: ERYTHROCYTE SEDIMENTATION RATE 11 mm/hr (0-20)
[2022-03-18 14:27] LABS: BASO % 0.2 % (0-2.0); EOS % 1.5 % (0-4.5); HEMATOCRIT 38.8 % (32.4-45.2); HEMOGLOBIN 13.4 GM/dL (10.7-15.3); LYMPH % 6.9 % (8-40); MCH 31.3 pg (25.7-33.7); MCHC 34.5 g/dl (32.0-36.0); MEAN CELL VOLUME 90.7 fl (80-96); MEAN PLT VOLUME 9.8 fl (7.5-11.1); MONO % 8.2 % (3.8-10.2); NEUT % 83.2 % (42.8-82.8); PLATELET COUNT 193 10^3/uL (134-434); RBC 4.28 M/mm3 (3.60-5.2); RDW 11.6 % (11.6-15.6); WHITE BLOOD COUNT 16.6 K/mm3 (4.0-10.0)
[2022-03-18] MEDS ORDERED: morphine CARPU-JECT 2 MG/1 ML DISP.SYRIN IVPUSH ONE (14:38)
[2022-03-18] MEDS ORDERED: oxyCODONE HCL 5 MG TABLET PO ONE (15:39)
[2022-03-18] MEDS ORDERED: oxyCODONE HCL 5 MG TABLET ONE (15:50)
[2022-03-18] MEDS ORDERED: ONDANSETRON 4 MG/2 ML VIAL IVPUSH ONE (17:12)
[2022-03-18] MEDS ORDERED: ONDANSETRON 4 MG/2 ML VIAL ONE (17:13)
[2022-03-18] MEDS ORDERED: oxyCODONE HCL 5 MG TABLET PO PRN (18:13)
[2022-03-18] MEDS ORDERED: ACETAMINOPHEN 325 MG TABLET (FP) PO PRN (18:13)
[2022-03-18] MEDS ORDERED: ONDANSETRON 4 MG/2 ML VIAL IVPUSH PRN (18:13)
[2022-03-18] MEDS ORDERED: ACETAMINOPHEN 1000 MG/100 ML BAG IVPB PRN (18:19)
[2022-03-18] MEDS ORDERED: MIRTAZAPINE 15 MG TABLET (FP) ONE (21:00)
[2022-03-18] MEDS ORDERED: HEPARIN NA (PORCINE) 5,000 UNITS/ML 1ML VIAL ONE (21:00)
[2022-03-18] MEDS: MIRTAZAPINE 15 MG TABLET (FP) PO SCH (21:05)
[2022-03-18] MEDS: HEPARIN NA (PORCINE) 5,000 UNITS/ML 1ML VIAL SQ SCH (21:05)
[2022-03-18] MEDS ORDERED: PALIPERIDONE 1.5 MG PO SCH (22:00)
[2022-03-18] MEDS ORDERED: HYDROXYZINE HCL PO SCH (22:00)
[2022-03-19] MEDS: MIRTAZAPINE 15 MG TABLET (FP) PO SCH (00:23)
[2022-03-19] MEDS: HEPARIN NA (PORCINE) 5,000 UNITS/ML 1ML VIAL SQ SCH ×2 (00:48→09:17)
[2022-03-19] MEDS: FAMOTIDINE 20 MG TABLET PO SCH (09:17)
[2022-03-19 09:50] LABS: BASO % 0.6 % (0-2.0); EOS % 3.5 % (0-4.5); HEMATOCRIT 37.1 % (32.4-45.2); HEMOGLOBIN 12.6 GM/dL (10.7-15.3); LYMPH % 11.4 % (8-40); MCH 31.5 pg (25.7-33.7); MEAN CELL VOLUME 92.7 fl (80-96); MEAN PLT VOLUME 10.4 fl (7.5-11.1); MONO % 6.6 % (3.8-10.2); NEUT % 77.9 % (42.8-82.8); PLATELET COUNT 170 10^3/uL (134-434); RDW 11.6 % (11.6-15.6)
[2022-03-19 10:12] LABS: CALCIUM 8.6 mg/dL (8.5-10.1)
[2022-03-19 10:13] LABS: ALBUMIN 3.5 g/dl (3.4-5.0); BLOOD UREA NITROGEN 9.4 mg/dL (7-18)
[2022-03-19 10:16] LABS: CREATININE 0.5 mg/dL (0.55-1.3)
[2022-03-19 10:18] LABS: TOT PROT 7.1 g/dl (6.4-8.2)
[2022-03-19] MEDS ORDERED: DAPTOMYCIN 250 MG in SODIUM CHLORIDE 50 ML IVPB SCH (11:45)
[2022-03-19] MEDS: ERTAPENEM SODIUM 1 GM in SODIUM CHLORIDE 50 ML IVPB SCH (12:18)
[2022-03-19] MEDS: DAPTOMYCIN 250 MG in SODIUM CHLORIDE 50 ML IVPB SCH (13:36)
[2022-03-20 09:49] LABS: BASO % 0.7 % (0-2.0); EOS % 7.1 % (0-4.5); HEMATOCRIT 36.9 % (32.4-45.2); HEMOGLOBIN 12.8 GM/dL (10.7-15.3); MCH 31.6 pg (25.7-33.7); MCHC 34.7 g/dl (32.0-36.0); MEAN CELL VOLUME 91.2 fl (80-96); MEAN PLT VOLUME 10.1 fl (7.5-11.1); MONO % 6.8 % (3.8-10.2); NEUT % 68.4 % (42.8-82.8); PLATELET COUNT 187 10^3/uL (134-434); RBC 4.04 M/mm3 (3.60-5.2); RDW 11.5 % (11.6-15.6); WHITE BLOOD COUNT 7.2 K/mm3 (4.0-10.0)
[2022-03-20] MEDS: HEPARIN NA (PORCINE) 5,000 UNITS/ML 1ML VIAL SQ SCH ×2 (10:07→22:09)
[2022-03-20] MEDS: ERTAPENEM SODIUM 1 GM in SODIUM CHLORIDE 50 ML IVPB SCH (10:08)
[2022-03-20] MEDS: FAMOTIDINE 20 MG TABLET PO SCH (10:10)
[2022-03-20 10:36] LABS: ALBUMIN 3.4 g/dl (3.4-5.0)
[2022-03-20 10:37] LABS: CALCIUM 9.1 mg/dL (8.5-10.1)
[2022-03-20 10:39] LABS: CREATININE 0.5 mg/dL (0.55-1.3)
[2022-03-20 10:41] LABS: BILIRUBIN,TOTAL 0.4 mg/dL (0.2-1); TOT PROT 7.5 g/dl (6.4-8.2)
[2022-03-20 11:30] LABS: ERYTHROCYTE SEDIMENTATION RATE 52 mm/hr (0-20)
[2022-03-20] MEDS: DAPTOMYCIN 250 MG in SODIUM CHLORIDE 50 ML IVPB SCH (13:21)
[2022-03-20] MEDS: MIRTAZAPINE 15 MG TABLET (FP) PO SCH (22:09)
[2022-03-21 09:16] LABS: BASO % 1.1 % (0-2.0); EOS % 8.4 % (0-4.5); HEMATOCRIT 35.9 % (32.4-45.2); HEMOGLOBIN 12.2 GM/dL (10.7-15.3); LYMPH % 26.3 % (8-40); MCH 31.1 pg (25.7-33.7); MCHC 34.1 g/dl (32.0-36.0); MEAN CELL VOLUME 91.2 fl (80-96); MEAN PLT VOLUME 10.4 fl (7.5-11.1); MONO % 8.5 % (3.8-10.2); NEUT % 55.7 % (42.8-82.8); PLATELET COUNT 208 10^3/uL (134-434); RBC 3.94 M/mm3 (3.60-5.2); RDW 11.6 % (11.6-15.6); WHITE BLOOD COUNT 5.1 K/mm3 (4.0-10.0)
[2022-03-21 09:47] LABS: CALCIUM 8.8 mg/dL (8.5-10.1)
[2022-03-21 09:50] LABS: BLOOD UREA NITROGEN 10.6 mg/dL (7-18)
[2022-03-21 09:51] LABS: CREATININE 0.5 mg/dL (0.55-1.3); PHOSPHOROUS 3.3 mg/dL (2.5-4.9)
[2022-03-21] MEDS: FAMOTIDINE 20 MG TABLET PO SCH (10:13)
[2022-03-21] MEDS: ERTAPENEM SODIUM 1 GM in SODIUM CHLORIDE 50 ML IVPB SCH (10:13)
[2022-03-21] MEDS: HEPARIN NA (PORCINE) 5,000 UNITS/ML 1ML VIAL SQ SCH ×2 (10:13→22:18)
[2022-03-21] MEDS: DAPTOMYCIN 250 MG in SODIUM CHLORIDE 50 ML IVPB SCH (13:12)
[2022-03-21] MEDS: MIRTAZAPINE 15 MG TABLET (FP) PO SCH (22:18)
[2022-03-21 23:59] VITALS: BMI 20.9
[2022-03-22 08:42] LABS: EOS % 8.5 % (0-4.5); LYMPH % 28.2 % (8-40); MCH 31.3 pg (25.7-33.7); MCHC 34.2 g/dl (32.0-36.0); MEAN CELL VOLUME 91.6 fl (80-96); MEAN PLT VOLUME 9.7 fl (7.5-11.1); MONO % 8.1 % (3.8-10.2); NEUT % 54.2 % (42.8-82.8); PLATELET COUNT 201 10^3/uL (134-434); RBC 3.82 M/mm3 (3.60-5.2); RDW 11.5 % (11.6-15.6); WHITE BLOOD COUNT 5.3 K/mm3 (4.0-10.0)
[2022-03-22] MEDS: HEPARIN NA (PORCINE) 5,000 UNITS/ML 1ML VIAL SQ SCH (08:59)
[2022-03-22] MEDS: FAMOTIDINE 20 MG TABLET PO SCH (08:59)
[2022-03-22 09:07] LABS: CALCIUM 9.1 mg/dL (8.5-10.1)
[2022-03-22 09:08] LABS: ALBUMIN 3.2 g/dl (3.4-5.0); BLOOD UREA NITROGEN 13.4 mg/dL (7-18); MAGNESIUM 1.9 mg/dL (1.8-2.4)
[2022-03-22 09:11] LABS: BILIRUBIN,TOTAL 0.3 mg/dL (0.2-1); CREATININE 0.6 mg/dL (0.55-1.3); TOT PROT 6.8 g/dl (6.4-8.2)
[2022-03-22] MEDS: CEPHALEXIN MONOHYDRATE 500 MG CAPSULE (UD) PO SCH ×2 (11:50→17:33)
[2022-03-22 14:43] VITALS: BP 109/78; PULSE 103; TEMP 97.8
== END 2022-03-22 18:43 | disposition home or self-care (01) | DRG 383 ==
LOC: JER 11:46 → JERBED 17:27 → J6S 03-19 00:01
PROVIDERS: ADMIT Internal Medicine
PROC: 0Y9M3ZZ Drainage of Right Foot, Percutaneous Approach (ICD-10-PCS; principal; 2022-03-19)
DX: L03.031 Cellulitis of right toe (principal); F50.9 Eating disorder, unspecified; G60.0 Hereditary motor and sensory neuropathy; G60.8 Other hereditary and idiopathic neuropathies; A49.01 Methicillin susceptible Staphylococcus aureus infection, unspecified site; D72.829 Elevated white blood cell count, unspecified; F12.20 Cannabis dependence, uncomplicated; F31.9 Bipolar disorder, unspecified; F43.10 Post-traumatic stress disorder, unspecified; Z68.1 Body mass index [BMI] 19.9 or less, adult; K21.9 Gastro-esophageal reflux disease without esophagitis
CPT/HCPCS: 0241U-QW; 36415; 73610-TC-RT-FY; 73630-TC-RT-FY; 80048; 80053; 82550; 83605; 83735; 84100; 84703; 85025; 85651; 86140; 87040; 87070; 87186; 87205; 88304-TC; 93005; 93010; 99285-25; G0463-25; J0878; J1644

== ENCOUNTER 2022-05-20 05:45 | Emergency (ER) | payer OTHER ==
[2022-05-20 05:53] VITALS: BMI 20.5
[2022-05-20] MEDS ORDERED: SODIUM CHLORIDE 0.9% 500 ML INFUS.BAG IV ONE ×2 (05:59→08:11)
[2022-05-20] MEDS ORDERED: METOCLOPRAMIDE HCL INJECTION 10 MG/2 ML VIAL IVPUSH ONE (05:59)
[2022-05-20] MEDS ORDERED: FAMOTIDINE 20 MG/50 ML IVPB 20 MG/50 ML MG IVPB ONE ×2 (06:07→06:27)
[2022-05-20] MEDS ORDERED: LACTATED RINGERS SOLUTION 1000 ML INFUS.BAG IV ONE (06:07)
[2022-05-20] MEDS ORDERED: ACETAMINOPHEN 1000 MG/100 ML BAG IVPB ONE (06:07)
[2022-05-20] MEDS ORDERED: METOCLOPRAMIDE HCL INJECTION 10 MG/2 ML VIAL IM ONE (06:07)
[2022-05-20] MEDS ORDERED: METOCLOPRAMIDE HCL INJECTION 10 MG/2 ML VIAL ONE (06:13)
[2022-05-20] MEDS ORDERED: ACETAMINOPHEN INJECTION 100 ML IVPB ONE (06:27)
[2022-05-20 06:58] LABS: BASO % 0.4 % (0-2.0); HEMATOCRIT 39.6 % (32.4-45.2); HEMOGLOBIN 13.2 GM/dL (10.7-15.3); LYMPH % 8.1 % (8-40); MCH 30.9 pg (25.7-33.7); MCHC 33.4 g/dl (32.0-36.0); MEAN CELL VOLUME 92.7 fl (80-96); MEAN PLT VOLUME 10.5 fl (7.5-11.1); MONO % 3.9 % (3.8-10.2); NEUT % 86.6 % (42.8-82.8); PLATELET COUNT 193 10^3/uL (134-434); RBC 4.27 M/mm3 (3.60-5.2); RDW 12.3 % (11.6-15.6); WHITE BLOOD COUNT 15.2 K/mm3 (4.0-10.0)
[2022-05-20 07:18] LABS: ALBUMIN 4.3 g/dl (3.4-5.0); CALCIUM 9.1 mg/dL (8.5-10.1)
[2022-05-20 07:19] LABS: BLOOD UREA NITROGEN 9.8 mg/dL (7-18)
[2022-05-20 07:21] LABS: CREATININE 0.6 mg/dL (0.55-1.3)
[2022-05-20 07:23] LABS: BILIRUBIN,TOTAL 0.5 mg/dL (0.2-1); TOT PROT 7.9 g/dl (6.4-8.2)
[2022-05-20] MEDS ORDERED: KCL 10 MEQ IVPB 10 MEQ/100 ML INFUS.BAG IVPB SCH (07:45)
[2022-05-20 07:47] LABS: MAGNESIUM 1.6 mg/dL (1.8-2.4)
[2022-05-20] MEDS ORDERED: MAGNESIUM SULF 50% (8.12 MEQ/2 ML-1 GM VIAL) IVPB ONE (07:49)
[2022-05-20] MEDS ORDERED: HALOPERIDOL LACTATE 5 MG/ML IV ONE (07:55)
[2022-05-20] MEDS ORDERED: MAGNESIUM SULFATE IN WATER 2 GM/50 ML IVPB IVPB ONE (08:39)
[2022-05-20] MEDS ORDERED: HALOPERIDOL LACTATE 5 MG/ML ONE (08:39)
[2022-05-20] MEDS ORDERED: KCL 10 MEQ IVPB 10 MEQ/100 ML INFUS.BAG IVPB ONE (09:45)
[2022-05-20] MEDS ORDERED: MAG HYDROX/AL HYDROX/SIMETH -MYLANTA- ORAL SUSPENSION PO ONE (10:31)
[2022-05-20 10:47] VITALS: BP 133/87; PULSE 90; RESP 20; TEMP 98.3
[2022-05-20] MEDS ORDERED: MAG HYDROX/AL HYDROX/SIMETH 30 ML UNIT-DOSE CUP ONE (10:50)
[2022-05-20 11:26] LABS: PH,URINE 8.5 (5.0-8.0); URINE APPEARANCE CLEAR; URINE BILIRUBIN NEGATIVE (NEGATIVE); URINE COLOR YELLOW; URINE GLUCOSE (UA) TRACE (NEGATIVE); URINE KETONE 1+ (NEGATIVE); URINE LEUK ESTERASE NEGATIVE (NEGATIVE); URINE NITRITE NEGATIVE (NEGATIVE); URINE PROTEIN NEGATIVE (NEGATIVE); URINE UROBILINOGEN 0.2 mg/dL (0.2-1.0)
[2022-05-20] MEDS ORDERED: metroNIDAZOLE 250 MG TABLET PO ONE (14:11)
[2022-05-20] MEDS ORDERED: metroNIDAZOLE 250 MG TABLET ONE (14:15)
== END 2022-05-20 15:05 | disposition home or self-care (01) ==
LOC: JER 05:45
PROC: 3E0333Z Introduction of Anti-inflammatory into Peripheral Vein, Percutaneous Approach (ICD-10-PCS; principal; 2022-05-20)
PROC: 3E033GC Introduction of Other Therapeutic Substance into Peripheral Vein, Percutaneous Approach (ICD-10-PCS; 2022-05-20)
PROC: 3E033GC Introduction of Other Therapeutic Substance into Peripheral Vein, Percutaneous Approach (ICD-10-PCS; 2022-05-20)
PROC: 3E033GC Introduction of Other Therapeutic Substance into Peripheral Vein, Percutaneous Approach (ICD-10-PCS; 2022-05-20)
PROC: 3E033GC Introduction of Other Therapeutic Substance into Peripheral Vein, Percutaneous Approach (ICD-10-PCS; 2022-05-20)
PROC: 3E0233Z Introduction of Anti-inflammatory into Muscle, Percutaneous Approach (ICD-10-PCS; 2022-05-20)
DX: R11.2 Nausea with vomiting, unspecified (principal); R19.7 Diarrhea, unspecified; E87.6 Hypokalemia; E83.42 Hypomagnesemia
CPT/HCPCS: 36415; 74177-TC; 76705-TC; 80053; 81003; 83605; 83690; 83735; 84703; 85025; 87086; 87186; 93005; 93010; 99285-25; Q9967

== ENCOUNTER 2022-05-21 14:43 | Inpatient (IN) | payer OTHER ==
[2022-05-21 14:47] VITALS: RESP 18; TEMP 97.8; BMI 20.5
[2022-05-21] MEDS ORDERED: SODIUM CHLORIDE 0.9% 1000 ML INFUS.BAG IV ONE (15:12)
[2022-05-21] MEDS ORDERED: METOCLOPRAMIDE HCL INJECTION 10 MG/2 ML VIAL IVPUSH ONE (15:13)
[2022-05-21] MEDS ORDERED: HALOPERIDOL LACTATE 5 MG/ML IM ONE (15:18)
[2022-05-21] MEDS ORDERED: HALOPERIDOL LACTATE 5 MG/ML ONE (15:19)
[2022-05-21] MEDS ORDERED: METOCLOPRAMIDE HCL INJECTION 10 MG/2 ML VIAL ONE (15:19)
[2022-05-21 15:46] LABS: BASO % 0.3 % (0-2.0); EOS % 0.2 % (0-4.5); HEMATOCRIT 40.9 % (32.4-45.2); HEMOGLOBIN 13.9 GM/dL (10.7-15.3); MCHC 33.9 g/dl (32.0-36.0); MEAN CELL VOLUME 91.3 fl (80-96); MEAN PLT VOLUME 9.9 fl (7.5-11.1); MONO % 6.7 % (3.8-10.2); NEUT % 82.8 % (42.8-82.8); PLATELET COUNT 203 10^3/uL (134-434); RBC 4.48 M/mm3 (3.60-5.2); RDW 12.2 % (11.6-15.6); WHITE BLOOD COUNT 11.4 K/mm3 (4.0-10.0)
[2022-05-21 16:07] LABS: BLOOD UREA NITROGEN 6.4 mg/dL (7-18); CALCIUM 9.3 mg/dL (8.5-10.1)
[2022-05-21 16:08] LABS: ALBUMIN 4.2 g/dl (3.4-5.0)
[2022-05-21 16:11] LABS: CREATININE 0.6 mg/dL (0.55-1.3)
[2022-05-21 16:12] LABS: TOT PROT 8.3 g/dl (6.4-8.2)
[2022-05-21 23:21] VITALS: BP 118/73; PULSE 65
[2022-05-22] MEDS ORDERED: ERTAPENEM SODIUM 1 GM in SODIUM CHLORIDE 50 ML IVPB SCH (02:10)
[2022-05-22] MEDS ORDERED: morphine CARPU-JECT 2 MG/1 ML DISP.SYRIN IVPUSH PRN (02:13)
[2022-05-22] MEDS ORDERED: morphine CARPU-JECT 4 MG/1 ML DISP.SYRIN IVPUSH PRN (02:13)
[2022-05-22] MEDS ORDERED: ACETAMINOPHEN 1000 MG/100 ML BAG IVPB PRN (02:13)
[2022-05-22] MEDS ORDERED: ERTAPENEM SODIUM 1 GM VIAL ONE (02:23)
[2022-05-22] MEDS ORDERED: ONDANSETRON 4 MG/2 ML VIAL IVPUSH PRN (02:23)
[2022-05-22] MEDS ORDERED: KCL 10 MEQ IVPB 10 MEQ/100 ML INFUS.BAG IVPB SCH (02:30)
[2022-05-22] MEDS ORDERED: D5-LR+20 MEQ KCL - 20 MEQ/1,000 ML INFUS.BAG IV SCH (02:30)
[2022-05-22] MEDS ORDERED: morphine SULFATE 4 MG/ML VIAL IVPUSH PRN (02:52)
[2022-05-22] MEDS ORDERED: DEXTROSE 5%-LACTATED RINGERS 1,000 ML with POTASSIUM CHLORIDE 20 MEQ IV SCH (03:15)
[2022-05-22] MEDS ORDERED: INSULIN SLIDING SCALE (NOVOLOG) 1 VIAL SQ SCH (06:00)
[2022-05-22] MEDS ORDERED: ENOXAPARIN NA (PORCINE) 40 MG/0.4 ML DISP.SYRIN SQ SCH (10:00)
[2022-05-22] MEDS ORDERED: FERROUS SO4 325 MG TABLET (FP) PO SCH (10:00)
== END 2022-05-22 04:15 | disposition left against medical advice (07) | DRG 249 ==
LOC: JER 14:43 → JERBED 16:46
PROVIDERS: ADMIT Internal Medicine; ATTEND Internal Medicine
DX: K52.89 Other specified noninfective gastroenteritis and colitis (principal); M79.7 Fibromyalgia; E87.6 Hypokalemia; D72.829 Elevated white blood cell count, unspecified; R10.13 Epigastric pain; F31.9 Bipolar disorder, unspecified; F43.10 Post-traumatic stress disorder, unspecified; G47.00 Insomnia, unspecified
CPT/HCPCS: 0241U-QW; 36415; 80053; 83690; 84703; 85025; 93005; 93010; 99285-25

== ENCOUNTER 2022-09-03 11:51 | Inpatient (IN) | payer OTHER ==
[2022-09-03] MEDS ORDERED: ACETAMINOPHEN 500 MG TABLET (FP) PO ONE (12:21)
[2022-09-03] MEDS ORDERED: ACETAMINOPHEN 500 MG TABLET (FP) ONE (12:26)
[2022-09-03] MEDS ORDERED: KETOROLAC TROMETHAMINE 15 MG/ML VIAL IVPUSH ONE ×2 (13:37→17:42)
[2022-09-03] MEDS ORDERED: KETOROLAC TROMETHAMINE 15 MG/ML VIAL ONE ×2 (13:38→17:45)
[2022-09-03 13:41] LABS: BASO % 0.3 % (0-2.0); EOS % 1.1 % (0-4.5); HEMATOCRIT 37.1 % (32.4-45.2); HEMOGLOBIN 12.2 GM/dL (10.7-15.3); LYMPH % 8.6 % (8-40); MCH 30.5 pg (25.7-33.7); MCHC 32.8 g/dl (32.0-36.0); MEAN CELL VOLUME 93.1 fl (80-96); MEAN PLT VOLUME 9.9 fl (7.5-11.1); MONO % 3.8 % (3.8-10.2); NEUT % 86.2 % (42.8-82.8); PLATELET COUNT 206 10^3/uL (134-434); RBC 3.98 M/mm3 (3.60-5.2); RDW 11.5 % (11.6-15.6); WHITE BLOOD COUNT 12.8 K/mm3 (4.0-10.0)
[2022-09-03 14:02] LABS: ALBUMIN 3.5 g/dl (3.4-5.0); CALCIUM 8.7 mg/dL (8.5-10.1)
[2022-09-03 14:03] LABS: BLOOD UREA NITROGEN 15.3 mg/dL (7-18)
[2022-09-03 14:06] LABS: CREATININE 0.6 mg/dL (0.55-1.3)
[2022-09-03 14:07] LABS: BILIRUBIN,TOTAL 0.6 mg/dL (0.2-1); TOT PROT 7.3 g/dl (6.4-8.2)
[2022-09-03] MEDS ORDERED: CEFEPIME HCL/D5W 1 GM/50 ML BAG IVPB ONE (14:27)
[2022-09-03] MEDS ORDERED: VANCOMYCIN 1 GM in D5W (PRE-DOCKED) 1,000 MG/250 ML IVPB ONE (14:27)
[2022-09-03 14:28] LABS: ERYTHROCYTE SEDIMENTATION RATE 13 mm/hr (0-20)
[2022-09-03] MEDS ORDERED: VANCOMYCIN/WATER FOR INJ (PEG) 1,000 MG/200 ML BAG IVPB ONE (14:36)
[2022-09-03] MEDS ORDERED: CEFEPIME 1 GM/100 ML BAG IVPB ONE (14:37)
[2022-09-03] MEDS: ACETAMINOPHEN 1000 MG/100 ML BAG IVPB PRN (21:45)
[2022-09-03] MEDS ORDERED: KETOROLAC TROMETHAMINE 30 MG/1 ML VIAL IVPUSH ONE (22:21)
[2022-09-03] MEDS ORDERED: MELATONIN 5 MG TABLETS PO ONE (22:24)
[2022-09-03 23:06] VITALS: BMI 22.1
[2022-09-04] MEDS ORDERED: VANCOMYCIN/WATER FOR INJ (PEG) 1,000 MG/200 ML BAG IVPB SCH (03:00)
[2022-09-04] MEDS ORDERED: VANCOMYCIN 1 GM PREMIX - 1 GM/200 ML BAG IVPB SCH (08:00)
[2022-09-04 08:43] LABS: BASO % 0.6 % (0-2.0); EOS % 4.3 % (0-4.5); HEMATOCRIT 35.4 % (32.4-45.2); HEMOGLOBIN 11.8 GM/dL (10.7-15.3); LYMPH % 19.2 % (8-40); MCH 31.2 pg (25.7-33.7); MCHC 33.3 g/dl (32.0-36.0); MEAN CELL VOLUME 93.6 fl (80-96); MEAN PLT VOLUME 10.2 fl (7.5-11.1); MONO % 7.1 % (3.8-10.2); NEUT % 68.8 % (42.8-82.8); PLATELET COUNT 175 10^3/uL (134-434); RBC 3.78 M/mm3 (3.60-5.2); RDW 11.6 % (11.6-15.6); WHITE BLOOD COUNT 6.5 K/mm3 (4.0-10.0)
[2022-09-04 09:02] LABS: CALCIUM 8.8 mg/dL (8.5-10.1)
[2022-09-04 09:03] LABS: BLOOD UREA NITROGEN 20.2 mg/dL (7-18); MAGNESIUM 1.8 mg/dL (1.8-2.4)
[2022-09-04 09:05] LABS: CREATININE 0.6 mg/dL (0.55-1.3)
[2022-09-04] MEDS: ENOXAPARIN NA (PORCINE) 30 MG/0.3 ML DISP.SYRIN SQ SCH (11:24)
[2022-09-04] MEDS: SODIUM CHLORIDE 1,000 ML IV SCH (11:27)
[2022-09-04] MEDS: ACETAMINOPHEN 1000 MG/100 ML BAG IVPB PRN (11:27)
[2022-09-04] MEDS ORDERED: hydrOXYzine HCL 10 MG/5 ML LIQUID BULK BOTTLE PO PRN (14:36)
[2022-09-04] MEDS ORDERED: VANCOMYCIN 1 GM/200 ML PREMIX BAG (RESTRICTED TO ID ONLY) IVPB SCH ×2 (14:45→14:50)
[2022-09-04] MEDS ORDERED: PALIPERIDONE 1.5 MG PO SCH (14:45)
[2022-09-04] MEDS: CEFTRIAXONE 1 GM in DEXTROSE 5%-WATER - 50 ML IVPB SCH (16:03)
[2022-09-04] MEDS: KETOROLAC TROMETHAMINE 15 MG/ML VIAL IVPUSH PRN (16:04)
[2022-09-04] MEDS: PANTOPRAZOLE SODIUM 40 MG VIAL IVPUSH SCH (21:15)
[2022-09-04] MEDS: MIRTAZAPINE 15 MG TABLET (FP) PO SCH (21:16)
[2022-09-05] MEDS: SODIUM CHLORIDE 1,000 ML IV SCH ×2 (07:25→21:19)
[2022-09-05] MEDS: CEFTRIAXONE 1 GM in DEXTROSE 5%-WATER - 50 ML IVPB SCH (09:24)
[2022-09-05] MEDS: PANTOPRAZOLE SODIUM 40 MG VIAL IVPUSH SCH ×2 (09:25→21:16)
[2022-09-05] MEDS: FERROUS SO4 325 MG TABLET (FP) PO SCH (09:25)
[2022-09-05] MEDS: ENOXAPARIN NA (PORCINE) 30 MG/0.3 ML DISP.SYRIN SQ SCH (09:25)
[2022-09-05 10:57] LABS: BASO % 0.7 % (0-2.0); EOS % 4.2 % (0-4.5); HEMATOCRIT 39.6 % (32.4-45.2); LYMPH % 24.1 % (8-40); MCH 31.1 pg (25.7-33.7); MCHC 32.9 g/dl (32.0-36.0); MEAN CELL VOLUME 94.5 fl (80-96); MEAN PLT VOLUME 9.9 fl (7.5-11.1); MONO % 5.2 % (3.8-10.2); NEUT % 65.8 % (42.8-82.8); PLATELET COUNT 205 10^3/uL (134-434); RBC 4.19 M/mm3 (3.60-5.2); RDW 11.7 % (11.6-15.6); WHITE BLOOD COUNT 5.7 K/mm3 (4.0-10.0)
[2022-09-05 11:31] LABS: BLOOD UREA NITROGEN 15.7 mg/dL (7-18); MAGNESIUM 1.8 mg/dL (1.8-2.4)
[2022-09-05 11:35] LABS: CREATININE 0.6 mg/dL (0.55-1.3)
[2022-09-05] MEDS: KETOROLAC TROMETHAMINE 15 MG/ML VIAL IVPUSH PRN (15:32)
[2022-09-05] MEDS ORDERED: LIDOCAINE HCL 1%, 10 MG/ML (20ML VIAL) ONE (16:38)
[2022-09-05] MEDS ORDERED: LIDOCAINE HCL 1%, 10 MG/ML (50 mL VIAL) SQ ONE (16:47)
[2022-09-05] MEDS ORDERED: LIDOCAINE HCL 1%, 10 MG/ML (20ML VIAL) SQ ONE (17:00)
[2022-09-05] MEDS ORDERED: ACETAMINOPHEN 325 MG TABLET (FP) PO PRN ×2 (18:16→18:20)
[2022-09-05] MEDS: MIRTAZAPINE 15 MG TABLET (FP) PO SCH (21:16)
[2022-09-05] MEDS: MUPIROCIN 2% TOPICAL OINTMENT 22 GM TUBE TP SCH (21:17)
[2022-09-05] MEDS ORDERED: MUPIROCIN 2% TOPICAL OINTMENT 22 GM TUBE TP SCH ×2 (22:00)
[2022-09-06] MEDS: ENOXAPARIN NA (PORCINE) 30 MG/0.3 ML DISP.SYRIN SQ SCH (09:51)
[2022-09-06] MEDS: PANTOPRAZOLE SODIUM 40 MG VIAL IVPUSH SCH ×2 (09:51→21:21)
[2022-09-06] MEDS: SODIUM CHLORIDE 1,000 ML IV SCH (09:51)
[2022-09-06] MEDS: FERROUS SO4 325 MG TABLET (FP) PO SCH (09:52)
[2022-09-06] MEDS: CEFTRIAXONE 1 GM in DEXTROSE 5%-WATER - 50 ML IVPB SCH (09:52)
[2022-09-06 10:42] LABS: BASO % 0.8 % (0-2.0); EOS % 5.7 % (0-4.5); HEMATOCRIT 33.2 % (32.4-45.2); LYMPH % 27.4 % (8-40); MCH 31.3 pg (25.7-33.7); MCHC 33.2 g/dl (32.0-36.0); MEAN CELL VOLUME 94.4 fl (80-96); MEAN PLT VOLUME 9.9 fl (7.5-11.1); MONO % 6.5 % (3.8-10.2); NEUT % 59.6 % (42.8-82.8); PLATELET COUNT 159 10^3/uL (134-434); RBC 3.52 M/mm3 (3.60-5.2); RDW 11.5 % (11.6-15.6); WHITE BLOOD COUNT 4.9 K/mm3 (4.0-10.0)
[2022-09-06] MEDS: MUPIROCIN 2% TOPICAL OINTMENT 22 GM TUBE TP SCH ×2 (10:52→21:21)
[2022-09-06] MEDS: KETOROLAC TROMETHAMINE 15 MG/ML VIAL IVPUSH PRN (10:53)
[2022-09-06 11:10] LABS: BLOOD UREA NITROGEN 11.4 mg/dL (7-18); CALCIUM 8.1 mg/dL (8.5-10.1); MAGNESIUM 1.8 mg/dL (1.8-2.4)
[2022-09-06 11:13] LABS: CREATININE 0.5 mg/dL (0.55-1.3); PHOSPHOROUS 2.7 mg/dL (2.5-4.9)
[2022-09-06] MEDS ORDERED: CEFTRIAXONE 1 GM in DEXTROSE 5%-WATER - 50 ML IVPB ONE (12:15)
[2022-09-06] MEDS: MIRTAZAPINE 15 MG TABLET (FP) PO SCH (21:21)
[2022-09-07] MEDS: SODIUM CHLORIDE 1,000 ML IV SCH ×2 (01:56→10:34)
[2022-09-07] MEDS ORDERED: CEFTRIAXONE 2 GM in DEXTROSE 5%-WATER 100 ML IVPB SCH (10:00)
[2022-09-07] MEDS: PANTOPRAZOLE SODIUM 40 MG VIAL IVPUSH SCH (10:35)
[2022-09-07] MEDS: FERROUS SO4 325 MG TABLET (FP) PO SCH (10:35)
[2022-09-07] MEDS: MUPIROCIN 2% TOPICAL OINTMENT 22 GM TUBE TP SCH (10:47)
[2022-09-07] MEDS: KETOROLAC TROMETHAMINE 15 MG/ML VIAL IVPUSH PRN (11:02)
[2022-09-07 11:46] LABS: BASO % 0.6 % (0-2.0); EOS % 4.8 % (0-4.5); HEMATOCRIT 34.7 % (32.4-45.2); HEMOGLOBIN 11.5 GM/dL (10.7-15.3); LYMPH % 18.7 % (8-40); MCHC 33.1 g/dl (32.0-36.0); MEAN CELL VOLUME 93.8 fl (80-96); MEAN PLT VOLUME 9.9 fl (7.5-11.1); MONO % 6.7 % (3.8-10.2); NEUT % 69.2 % (42.8-82.8); PLATELET COUNT 182 10^3/uL (134-434); RDW 11.4 % (11.6-15.6); WHITE BLOOD COUNT 5.8 K/mm3 (4.0-10.0)
[2022-09-07 12:32] LABS: BLOOD UREA NITROGEN 11.3 mg/dL (7-18); CALCIUM 8.3 mg/dL (8.5-10.1); CREATININE 0.5 mg/dL (0.55-1.3); MAGNESIUM 1.7 mg/dL (1.8-2.4); PHOSPHOROUS 2.3 mg/dL (2.5-4.9)
[2022-09-07 14:35] VITALS: BP 97/62; PULSE 84; RESP 18; TEMP 98.6
[2022-09-07] MEDS ORDERED: NAPH,MB-DB/K PH,MBDB POWDER PACKET PO ONE (15:54)
[2022-09-07] MEDS ORDERED: MAGNESIUM OXIDE 400 MG TABLET (FP) PO ONE (15:56)
[2022-09-11] MEDS ORDERED: ERGOCALCIFEROL (VIT D2) 50,000 UNIT (1.25 MG) CAPSULE PO SCH (10:00)
== END 2022-09-07 18:01 | disposition home or self-care (01) | DRG 344 ==
LOC: JER 11:51 → JERFT 11:51 → INTOOBSV 14:42 → JERBED 14:42 → UNDOADMOB 14:42 → JERBED 15:17 → J7W 20:23 → J6S 09-05 01:17 → OBSVTOIN 09-05 14:27 → J6S 09-05 16:58
PROVIDERS: ADMIT Internal Medicine; ATTEND Internal Medicine
PROC: 0H9GXZX Drainage of Left Hand Skin, External Approach, Diagnostic (ICD-10-PCS; principal; 2022-09-05)
PROC: 0HBQXZZ Excision of Finger Nail, External Approach (ICD-10-PCS; 2022-09-05)
DX: M86.8X4 Other osteomyelitis, hand (principal); G60.0 Hereditary motor and sensory neuropathy; G62.9 Polyneuropathy, unspecified; L03.012 Cellulitis of left finger; M79.7 Fibromyalgia
CPT/HCPCS: 0241U-QW; 36415; 73130-TC-LT-FY; 73218-TC-LT; 80048; 80053; 83735; 84100; 84443; 85025; 85651; 86140; 87070; 87186; 87205; 99285-25; G0378

== ENCOUNTER 2022-09-08 10:59 | Day surgery (SDC) | payer OTHER ==
[2022-09-08] MEDS ORDERED: DALBAVANCIN HCL 1,500 MG in DEXTROSE 5%-WATER - 500 ML IVPB ONE (11:30)
[2022-09-08 11:31] VITALS: BP 116/73; TEMP 98.1
[2022-09-08 14:00] VITALS: PULSE 76; RESP 18
== END 2022-09-08 13:00 | disposition home or self-care (01) ==
LOC: FINFUSION 10:59 → FM/S 11:01 → FINFUSION 13:00
PROVIDERS: ATTEND Internal Medicine Infectious Disease
DX: M06.9 Rheumatoid arthritis, unspecified (principal)
CPT/HCPCS: 96365; J0875

== ENCOUNTER 2022-09-15 11:18 | Day surgery (SDC) | payer OTHER ==
[2022-09-15] MEDS ORDERED: DALBAVANCIN HCL 1,500 MG in DEXTROSE 5%-WATER - 500 ML IVPB ONE (12:00)
[2022-09-15 13:25] VITALS: BP 100/62; PULSE 80; RESP 16; TEMP 98.1
== END 2022-09-15 13:00 | disposition home or self-care (01) ==
LOC: FINFUSION 11:18 → FM/S 11:19 → FINFUSION 13:00
PROVIDERS: ATTEND Internal Medicine Infectious Disease
DX: M86.9 Osteomyelitis, unspecified (principal)
CPT/HCPCS: 96365; J0875

== ENCOUNTER 2022-11-05 11:42 | Emergency (ER) | payer OTHER ==
[2022-11-05 11:46] VITALS: BP 121/82; PULSE 93; RESP 18; TEMP 98.2; BMI 22.1
== END 2022-11-05 15:07 | disposition home or self-care (01) ==
LOC: JERFT 11:42 → JER 11:42 → JERFT 15:07
DX: M79.89 Other specified soft tissue disorders (principal)
CPT/HCPCS: 73130-TC-RT-FY; 99283-25

== ENCOUNTER 2023-01-08 04:09 | Day surgery (SDC) | payer OTHER ==
[2023-01-05 09:27] VITALS: BMI 20.9
[~2023-01-08 04:09] MED LIST: BUPIVACAINE HCL/PF 0.25% (2.5MG/ML) 10 ML VIAL IJ ONE; LIDOCAINE 1%/EPI 1:100000 (20 ML MULTI DOSE VIAL) IJ ONE
[2023-01-08] MEDS ORDERED: MIDAZOLAM HCL 2 MG/2 ML SINGLE DOSE VIAL ONE (14:17)
[2023-01-08] MEDS ORDERED: BUPIVACAINE HCL/PF 0.25% (2.5MG/ML) 10 ML VIAL ONE (14:28)
[2023-01-08] MEDS ORDERED: ceFAZolin SODIUM 1 GM VIAL IVPB ONE (15:00)
[2023-01-08] MEDS ORDERED: LIDOCAINE 1%/EPI 1:100000 (20 ML MULTI DOSE VIAL) IJ ONE ×2 (15:11)
[2023-01-08] MEDS ORDERED: BUPIVACAINE HCL/PF 0.25% (2.5MG/ML) 10 ML VIAL IJ ONE ×2 (15:11)
[2023-01-08] MEDS ORDERED: ONDANSETRON 4 MG/2 ML VIAL IVPUSH PRN (17:12)
[2023-01-08] MEDS ORDERED: oxyCODONE HCL 5 MG TABLET PO PRN (17:12)
[2023-01-08] MEDS ORDERED: LACTATED RINGERS SOLUTION 1,000 ML IV SCH (17:15)
[2023-01-08 17:29] VITALS: RESP 18
[2023-01-08 19:02] VITALS: BP 109/69; PULSE 69; TEMP 98.6
== END 2023-01-08 19:30 | disposition home or self-care (01) ==
LOC: JASU-SURG 04:09
PROVIDERS: ATTEND Plastic Surgery
PROC: 0HRGXK3 Replacement of Left Hand Skin with Nonautologous Tissue Substitute, Full Thickness, External Approach (ICD-10-PCS; principal; 2023-01-08 14:00)
DX: L85.9 Epidermal thickening, unspecified (principal); A52.16 Charcot's arthropathy (tabetic)
CPT/HCPCS: 11423; 15275; Q4121; 81025; 87070; 87186; 87205; 88305-TC; 88342-TC; 94760

== ENCOUNTER 2023-01-23 14:08 | Inpatient (IN) | payer OTHER ==
[2023-01-23] MEDS ORDERED: SODIUM CHLORIDE 0.9% 500 ML INFUS.BAG IV ONE (15:27)
[2023-01-23] MEDS ORDERED: ACETAMINOPHEN 1000 MG/100 ML BAG IVPB ONE (15:28)
[2023-01-23] MEDS ORDERED: VANCOMYCIN 1 GM in D5W (PRE-DOCKED) 1,000 MG/250 ML (RESTRICTED TO ID ONLY IVPB ONE (15:53)
[2023-01-23] MEDS ORDERED: PIPERACILLIN/TAZOB 4.5 GM 4.5 GM in DEXTROSE 5%-WATER 100 ML IVPB ONE (16:01)
[2023-01-23] MEDS ORDERED: ACETAMINOPHEN INJECTION 100 ML IVPB ONE (16:13)
[2023-01-23] MEDS ORDERED: VANCOMYCIN/WATER FOR INJ (PEG) 1,000 MG/200 ML BAG IVPB ONE (16:14)
[2023-01-23 16:50] LABS: BASO % 0.7 % (0-2.0); EOS % 6.2 % (0-4.5); HEMATOCRIT 34.7 % (32.4-45.2); HEMOGLOBIN 11.8 GM/dL (10.7-15.3); LYMPH % 22.3 % (8-40); MCH 31.5 pg (25.7-33.7); MCHC 34.2 g/dl (32.0-36.0); MEAN CELL VOLUME 92.4 fl (80-96); MEAN PLT VOLUME 9.7 fl (7.5-11.1); MONO % 6.3 % (3.8-10.2); NEUT % 64.5 % (42.8-82.8); PLATELET COUNT 176 10^3/uL (134-434); RBC 3.75 M/mm3 (3.60-5.2); RDW 11.5 % (11.6-15.6); WHITE BLOOD COUNT 6.4 K/mm3 (4.0-10.0)
[2023-01-23 16:59] LABS: CHLORIDE 108 mmol/L (98-107); POTASSIUM 4.2 mmol/L (3.5-5.1); SODIUM 138 mmol/L (136-145)
[2023-01-23 17:01] LABS: ALBUMIN 3.4 g/dl (3.4-5.0); ANION GAP 5 MMOL/L (8-16); BLOOD UREA NITROGEN 10.5 mg/dL (7-18); CALCIUM 8.7 mg/dL (8.5-10.1); CO2 25 mmol/L (21-32); GLUCOSE,RANDOM 105 mg/dL (74-106)
[2023-01-23 17:04] LABS: CREATININE 0.5 mg/dL (0.55-1.3); SGPT/ALT 18 U/L (13-61)
[2023-01-23 17:05] LABS: SGOT/AST 7 U/L (15-37)
[2023-01-23 17:06] LABS: BILIRUBIN,TOTAL 0.3 mg/dL (0.2-1); TOT PROT 6.7 g/dl (6.4-8.2)
[2023-01-23 17:07] LABS: ALK PHOS 73 U/L (45-117)
[2023-01-23 17:32] LABS: ERYTHROCYTE SEDIMENTATION RATE 2 mm/hr (0-20)
[2023-01-23] MEDS ORDERED: PIPERACILLIN/TAZOB 4.5 GM 4.5 GM/100 ML BAG IVPB ONE (18:41)
[2023-01-23 21:43] VITALS: BMI 23.4
[2023-01-23] MEDS: HEPARIN NA (PORCINE) 5,000 UNITS/ML 1ML VIAL SQ SCH (23:01)
[2023-01-24] MEDS ORDERED: PIPERACILLIN/TAZOB 3.375 GM 3.375 GM in DEXTROSE 5%-WATER - 50 ML IVPB SCH (01:00)
[2023-01-24] MEDS: PIPERACILLIN/TAZOB 3.375 GM 3.375 GM in DEXTROSE 5%-WATER - 50 ML IVPB SCH ×3 (01:38→17:17)
[2023-01-24] MEDS ORDERED: KETOROLAC TROMETHAMINE 15 MG/ML VIAL IVPUSH ONE (03:03)
[2023-01-24] MEDS ORDERED: PIPERACILLIN/TAZOBACTAM 3.375 GM VIAL IVPB ONE (06:55)
[2023-01-24] MEDS ORDERED: ENOXAPARIN NA (PORCINE) 40 MG/0.4 ML DISP.SYRIN SQ SCH (10:00)
[2023-01-24 11:03] LABS: BASO % 0.7 % (0-2.0); EOS % 9.6 % (0-4.5); HEMATOCRIT 34.9 % (32.4-45.2); HEMOGLOBIN 12.1 GM/dL (10.7-15.3); LYMPH % 24.1 % (8-40); MCH 32.1 pg (25.7-33.7); MCHC 34.8 g/dl (32.0-36.0); MEAN CELL VOLUME 92.3 fl (80-96); MONO % 5.7 % (3.8-10.2); NEUT % 59.9 % (42.8-82.8); PLATELET COUNT 174 10^3/uL (134-434); RBC 3.78 M/mm3 (3.60-5.2); RDW 11.8 % (11.6-15.6); WHITE BLOOD COUNT 5.2 K/mm3 (4.0-10.0)
[2023-01-24 11:13] LABS: CALCIUM 8.6 mg/dL (8.5-10.1)
[2023-01-24 11:14] LABS: ALBUMIN 3.2 g/dl (3.4-5.0); BLOOD UREA NITROGEN 9.7 mg/dL (7-18); MAGNESIUM 1.8 mg/dL (1.8-2.4)
[2023-01-24 11:17] LABS: CREATININE 0.6 mg/dL (0.55-1.3); PHOSPHOROUS 3.1 mg/dL (2.5-4.9)
[2023-01-24 11:18] LABS: TOT PROT 6.5 g/dl (6.4-8.2)
[2023-01-24 11:19] LABS: BILIRUBIN,TOTAL 0.6 mg/dL (0.2-1)
[2023-01-24] MEDS: HEPARIN NA (PORCINE) 5,000 UNITS/ML 1ML VIAL SQ SCH ×2 (11:28→21:41)
[2023-01-24] MEDS: ACETAMINOPHEN 1000 MG/100 ML BAG IVPB PRN ×3 (11:28→21:40)
[2023-01-24] MEDS ORDERED: PALIPERIDONE 1.5 MG PO PRN (15:24)
[2023-01-24] MEDS: MIRTAZAPINE 15 MG TABLET (FP) PO SCH (21:40)
[2023-01-24] MEDS: MUPIROCIN 2% TOPICAL OINTMENT 22 GM TUBE TP SCH (21:43)
[2023-01-25] MEDS: PIPERACILLIN/TAZOB 3.375 GM 3.375 GM in DEXTROSE 5%-WATER - 50 ML IVPB SCH ×3 (02:19→17:44)
[2023-01-25] MEDS ORDERED: KETOROLAC TROMETHAMINE 15 MG/ML VIAL IVPUSH ONE (09:07)
[2023-01-25] MEDS: PANTOPRAZOLE 20 MG TABLET PO SCH (09:53)
[2023-01-25] MEDS: hydrOXYzine HCL 10 MG/5 ML LIQUID BULK BOTTLE PO SCH (09:54)
[2023-01-25] MEDS: HEPARIN NA (PORCINE) 5,000 UNITS/ML 1ML VIAL SQ SCH ×2 (09:54→23:07)
[2023-01-25] MEDS: MUPIROCIN 2% TOPICAL OINTMENT 22 GM TUBE TP SCH ×2 (10:03→23:08)
[2023-01-25 13:55] VITALS: RESP 18
[2023-01-25] MEDS: MIRTAZAPINE 15 MG TABLET (FP) PO SCH (23:07)
[2023-01-26] MEDS: PIPERACILLIN/TAZOB 3.375 GM 3.375 GM in DEXTROSE 5%-WATER - 50 ML IVPB SCH ×2 (01:22→10:00)
[2023-01-26] MEDS: hydrOXYzine HCL 10 MG/5 ML LIQUID BULK BOTTLE PO SCH (09:57)
[2023-01-26] MEDS: PANTOPRAZOLE 20 MG TABLET PO SCH (09:57)
[2023-01-26] MEDS: HEPARIN NA (PORCINE) 5,000 UNITS/ML 1ML VIAL SQ SCH (09:57)
[2023-01-26] MEDS: MUPIROCIN 2% TOPICAL OINTMENT 22 GM TUBE TP SCH (10:03)
[2023-01-26 15:40] VITALS: BP 102/54; PULSE 75; TEMP 98.1
== END 2023-01-26 17:29 | disposition home or self-care (01) | DRG 383 ==
LOC: JER 14:08 → JERBED 16:03 → J6S 20:25
PROVIDERS: ADMIT Internal Medicine; ATTEND Internal Medicine
DX: L03.011 Cellulitis of right finger (principal); G60.0 Hereditary motor and sensory neuropathy; A49.01 Methicillin susceptible Staphylococcus aureus infection, unspecified site; F31.9 Bipolar disorder, unspecified; G60.9 Hereditary and idiopathic neuropathy, unspecified; M79.7 Fibromyalgia
CPT/HCPCS: 36415; 73130-TC-RT-FY; 73140-TC-RT-FY; 80053; 83735; 84100; 84703; 85025; 85651; 86140; 87070; 87186; 87205; 93005; 93010; 99285-25; C9803-CS; G0463-25; J1644; U0003; U0005

== ENCOUNTER 2023-08-30 16:35 | Inpatient (IN) | payer OTHER ==
[2023-08-30 16:44] VITALS: BMI 21.7
[2023-08-30 18:42] LABS: BASO % 0.6 % (0-2.0); EOS % 8.1 % (0-4.5); HEMATOCRIT 34.2 % (32.4-45.2); HEMOGLOBIN 11.5 GM/dL (10.7-15.3); LYMPH % 23.3 % (8-40); MCH 31.6 pg (25.7-33.7); MCHC 33.6 g/dl (32.0-36.0); MEAN CELL VOLUME 94.1 fl (80-96); MEAN PLT VOLUME 10.2 fl (7.5-11.1); MONO % 5.7 % (3.8-10.2); NEUT % 62.3 % (42.8-82.8); PLATELET COUNT 159 10^3/uL (134-434); RBC 3.63 M/mm3 (3.60-5.2); RDW 11.9 % (11.6-15.6); WHITE BLOOD COUNT 7.7 K/mm3 (4.0-10.0)
[2023-08-30 19:17] LABS: URINE APPEARANCE CLEAR; URINE BILIRUBIN NEGATIVE (NEGATIVE); URINE COLOR YELLOW; URINE GLUCOSE (UA) NEGATIVE (NEGATIVE); URINE KETONE NEGATIVE (NEGATIVE); URINE LEUK ESTERASE NEGATIVE (NEGATIVE); URINE NITRITE NEGATIVE (NEGATIVE); URINE PROTEIN NEGATIVE (NEGATIVE); URINE UROBILINOGEN 0.2 mg/dL (0.2-1.0)
[2023-08-30] MEDS ORDERED: ACETAMINOPHEN 1000 MG/100 ML BAG IVPB ONE (19:34)
[2023-08-30] MEDS ORDERED: SODIUM CHLORIDE 1,000 ML IV STA (19:37)
[2023-08-30] MEDS ORDERED: PIPERACILLIN/TAZOB 3.375 GM 3.375 GM in DEXTROSE 5%-WATER - 50 ML IVPB ONE (19:37)
[2023-08-30] MEDS ORDERED: VANCOMYCIN 1,000 MG in DEXTROSE 5%-WATER - 250 ML IVPB ONE (19:37)
[2023-08-30 19:45] LABS: ALBUMIN 3.2 g/dl (3.4-5.0); ALK PHOS 70 U/L (45-117); ANION GAP 6 mmol/L (4-13); BILIRUBIN,TOTAL 0.2 mg/dL (0.2-1); BLOOD UREA NITROGEN 14.7 mg/dL (7-18); CALCIUM 8.3 mg/dL (8.5-10.1); CHLORIDE 109 mmol/L (98-107); CO2 25 mmol/L (21-32); CREATININE 0.6 mg/dL (0.55-1.3); GLUCOSE,RANDOM 90 mg/dL (74-106); SGOT/AST 13 U/L (15-37); SGPT/ALT 20 U/L (13-61); SODIUM 139 mmol/L (136-145); TOT PROT 6.4 g/dl (6.4-8.2)
[2023-08-30] MEDS ORDERED: VANCOMYCIN 1 GRAM (PRE-DOCKED) 1,000 MG/250 ML BAG IVPB ONE (20:30)
[2023-08-30] MEDS ORDERED: ACETAMINOPHEN INJECTION 100 ML IVPB ONE (20:30)
[2023-08-30] MEDS ORDERED: PIPERACILLIN/TAZOB 3.375 GM 3.375 GM/50 ML BAG IVPB ONE (20:31)
[2023-08-30 20:36] LABS: ERYTHROCYTE SEDIMENTATION RATE 5 mm/hr (0-20)
[2023-08-30] MEDS ORDERED: morphine CARPU-JECT 2 MG/1 ML DISP.SYRIN IM ONE (22:42)
[2023-08-30] MEDS ORDERED: KETOROLAC TROMETHAMINE 15 MG/ML VIAL IVPUSH PRN (22:48)
[2023-08-30] MEDS ORDERED: morphine CARPU-JECT 2 MG/1 ML DISP.SYRIN IM PRN (22:49)
[2023-08-30] MEDS ORDERED: KETOROLAC TROMETHAMINE 15 MG/ML VIAL IVPUSH ONE (22:57)
[2023-08-30] MEDS ORDERED: ACETAMINOPHEN 1000 MG/100 ML BAG IVPB PRN (23:00)
[2023-08-31] MEDS ORDERED: PALIPERIDONE 1.5 MG PO PRN (00:05)
[2023-08-31] MEDS ORDERED: KETOROLAC TROMETHAMINE 15 MG/ML VIAL ONE ×2 (00:26→08:28)
[2023-08-31] MEDS: CLINDAMYCIN 600MG PREMIX IVPB 600 MG/50 ML BAG IVPB SCH ×4 (02:32→22:53)
[2023-08-31] MEDS ORDERED: CLINDAMYCIN 600MG PREMIX IVPB 600 MG/50 ML BAG IVPB ONE ×4 (02:34→22:58)
[2023-08-31] MEDS ORDERED: PIPERACILLIN/TAZOB 3.375 GM 3.375 GM/50 ML BAG IVPB ONE ×3 (04:04→17:56)
[2023-08-31] MEDS: PIPERACILLIN/TAZOB 3.375 GM 3.375 GM in DEXTROSE 5%-WATER - 50 ML IVPB SCH ×3 (05:20→17:58)
[2023-08-31] MEDS ORDERED: PANTOPRAZOLE 20 MG TABLET PO ONE (08:05)
[2023-08-31] MEDS ORDERED: ENOXAPARIN NA (PORCINE) 40 MG/0.4 ML DISP.SYRIN SQ ONE (08:06)
[2023-08-31 08:53] LABS: HEMATOCRIT 33.8 % (32.4-45.2); HEMOGLOBIN 11.4 GM/dL (10.7-15.3); MCHC 33.6 g/dl (32.0-36.0); MEAN CELL VOLUME 95.1 fl (80-96); MEAN PLT VOLUME 10.2 fl (7.5-11.1); PLATELET COUNT 132 10^3/uL (134-434); RBC 3.55 M/mm3 (3.60-5.2); RDW 11.8 % (11.6-15.6); WHITE BLOOD COUNT 5.4 K/mm3 (4.0-10.0)
[2023-08-31] MEDS: ENOXAPARIN NA (PORCINE) 40 MG/0.4 ML DISP.SYRIN SQ SCH (09:11)
[2023-08-31] MEDS: hydrOXYzine HCL 10 MG/5 ML UNIT DOSE CUPS PO SCH (09:11)
[2023-08-31] MEDS: PANTOPRAZOLE 20 MG TABLET PO SCH (09:11)
[2023-08-31 09:19] LABS: POTASSIUM 3.9 mmol/L (3.5-5.1)
[2023-08-31 09:31] LABS: ALBUMIN 2.9 g/dl (3.4-5.0); BLOOD UREA NITROGEN 11.4 mg/dL (7-18); CALCIUM 7.7 mg/dL (8.5-10.1)
[2023-08-31 09:33] LABS: CREATININE 0.6 mg/dL (0.55-1.3)
[2023-08-31 09:36] LABS: BILIRUBIN,TOTAL 0.4 mg/dL (0.2-1); TOT PROT 5.9 g/dl (6.4-8.2)
[2023-08-31] MEDS ORDERED: SODIUM CHLORIDE 1,000 ML IV STA (10:27)
[2023-08-31] MEDS ORDERED: SODIUM CHLORIDE 1,000 ML IV SCH (10:30)
[2023-08-31] MEDS ORDERED: HYDROmorphone HCl 2 MG/ML VIAL ONE (17:56)
[2023-08-31] MEDS: HYDROmorphone HCl 2 MG/ML VIAL IVPB PRN (17:58)
[2023-08-31] MEDS: MIRTAZAPINE 15 MG TABLET (FP) PO SCH (22:53)
[2023-08-31] MEDS ORDERED: MIRTAZAPINE 15 MG TABLET (FP) ONE (22:58)
[2023-08-31] MEDS ORDERED: ACETAMINOPHEN INJECTION 100 ML IVPB ONE (22:58)
[2023-09-01] MEDS ORDERED: PIPERACILLIN/TAZOB 3.375 GM 3.375 GM in DEXTROSE 5%-WATER - 50 ML IVPB SCH (03:00)
[2023-09-01] MEDS: CLINDAMYCIN 600MG PREMIX IVPB 600 MG/50 ML BAG IVPB SCH ×4 (04:55→22:52)
[2023-09-01] MEDS: PIPERACILLIN/TAZOB 3.375 GM 3.375 GM in DEXTROSE 5%-WATER - 50 ML IVPB SCH ×3 (04:55→18:49)
[2023-09-01] MEDS ORDERED: PIPERACILLIN/TAZOB 3.375 GM 3.375 GM/50 ML BAG IVPB ONE ×3 (05:10→18:49)
[2023-09-01] MEDS ORDERED: CLINDAMYCIN 600MG PREMIX IVPB 600 MG/50 ML BAG IVPB ONE ×4 (05:10→22:18)
[2023-09-01] MEDS ORDERED: HYDROmorphone HCl 2 MG/ML VIAL ONE ×2 (07:28→22:57)
[2023-09-01] MEDS: HYDROmorphone HCl 2 MG/ML VIAL IVPB PRN ×2 (07:39→23:00)
[2023-09-01] MEDS ORDERED: ENOXAPARIN NA (PORCINE) 40 MG/0.4 ML DISP.SYRIN SQ ONE (11:16)
[2023-09-01] MEDS ORDERED: PANTOPRAZOLE 20 MG TABLET PO ONE (11:16)
[2023-09-01] MEDS: SODIUM CHLORIDE 1,000 ML IV SCH (11:35)
[2023-09-01] MEDS: PANTOPRAZOLE 20 MG TABLET PO SCH (11:35)
[2023-09-01] MEDS: ENOXAPARIN NA (PORCINE) 40 MG/0.4 ML DISP.SYRIN SQ SCH (11:35)
[2023-09-01] MEDS: hydrOXYzine HCL 10 MG/5 ML UNIT DOSE CUPS PO SCH (13:20)
[2023-09-01] MEDS ORDERED: MIRTAZAPINE 15 MG TABLET (FP) ONE (22:17)
[2023-09-01] MEDS: MIRTAZAPINE 15 MG TABLET (FP) PO SCH (22:53)
[2023-09-02] MEDS ORDERED: PIPERACILLIN/TAZOB 3.375 GM 3.375 GM/50 ML BAG IVPB ONE ×3 (02:34→19:02)
[2023-09-02] MEDS: PIPERACILLIN/TAZOB 3.375 GM 3.375 GM in DEXTROSE 5%-WATER - 50 ML IVPB SCH ×3 (02:39→19:03)
[2023-09-02] MEDS ORDERED: CLINDAMYCIN 600MG PREMIX IVPB 600 MG/50 ML BAG IVPB ONE ×4 (03:41→21:33)
[2023-09-02] MEDS: CLINDAMYCIN 600MG PREMIX IVPB 600 MG/50 ML BAG IVPB SCH ×4 (03:41→21:48)
[2023-09-02 08:41] LABS: HEMATOCRIT 32.9 % (32.4-45.2); MCH 32.1 pg (25.7-33.7); MCHC 33.4 g/dl (32.0-36.0); MEAN CELL VOLUME 96.2 fl (80-96); MEAN PLT VOLUME 10.2 fl (7.5-11.1); PLATELET COUNT 147 10^3/uL (134-434); RBC 3.42 M/mm3 (3.60-5.2); RDW 12.1 % (11.6-15.6); WHITE BLOOD COUNT 5.6 K/mm3 (4.0-10.0)
[2023-09-02 08:58] LABS: CALCIUM 7.9 mg/dL (8.5-10.1)
[2023-09-02 08:59] LABS: BLOOD UREA NITROGEN 13.9 mg/dL (7-18)
[2023-09-02 09:02] LABS: CREATININE 0.6 mg/dL (0.55-1.3)
[2023-09-02] MEDS ORDERED: ENOXAPARIN NA (PORCINE) 40 MG/0.4 ML DISP.SYRIN SQ ONE (09:27)
[2023-09-02] MEDS ORDERED: PANTOPRAZOLE 20 MG TABLET PO ONE (09:27)
[2023-09-02] MEDS: PANTOPRAZOLE 20 MG TABLET PO SCH (09:59)
[2023-09-02] MEDS: ENOXAPARIN NA (PORCINE) 40 MG/0.4 ML DISP.SYRIN SQ SCH (09:59)
[2023-09-02] MEDS: SODIUM CHLORIDE 1,000 ML IV SCH (09:59)
[2023-09-02] MEDS: hydrOXYzine HCL 10 MG/5 ML UNIT DOSE CUPS PO SCH (11:11)
[2023-09-02] MEDS ORDERED: HYDROmorphone HCl 2 MG/ML VIAL ONE ×2 (13:02→21:50)
[2023-09-02] MEDS: HYDROmorphone HCl 2 MG/ML VIAL IVPB PRN ×2 (13:04→21:53)
[2023-09-02] MEDS ORDERED: ACETAMINOPHEN 1000 MG/100 ML BAG IVPB PRN (18:50)
[2023-09-02] MEDS ORDERED: ACETAMINOPHEN INJECTION 100 ML IVPB ONE (19:02)
[2023-09-02] MEDS ORDERED: MIRTAZAPINE 15 MG TABLET (FP) ONE (21:32)
[2023-09-02] MEDS: MIRTAZAPINE 15 MG TABLET (FP) PO SCH (21:48)
[2023-09-03] MEDS ORDERED: PIPERACILLIN/TAZOB 3.375 GM 3.375 GM/50 ML BAG IVPB ONE ×2 (02:07→09:01)
[2023-09-03] MEDS ORDERED: CLINDAMYCIN 600MG PREMIX IVPB 600 MG/50 ML BAG IVPB ONE ×2 (02:07→09:00)
[2023-09-03] MEDS: PIPERACILLIN/TAZOB 3.375 GM 3.375 GM in DEXTROSE 5%-WATER - 50 ML IVPB SCH ×2 (02:08→09:02)
[2023-09-03] MEDS: CLINDAMYCIN 600MG PREMIX IVPB 600 MG/50 ML BAG IVPB SCH ×2 (02:36→09:02)
[2023-09-03] MEDS: ENOXAPARIN NA (PORCINE) 40 MG/0.4 ML DISP.SYRIN SQ SCH (09:02)
[2023-09-03] MEDS: hydrOXYzine HCL 10 MG/5 ML UNIT DOSE CUPS PO SCH (09:02)
[2023-09-03] MEDS: PANTOPRAZOLE 20 MG TABLET PO SCH (09:02)
[2023-09-03] MEDS: SODIUM CHLORIDE 1,000 ML IV SCH (10:33)
[2023-09-03 11:17] VITALS: RESP 18
[2023-09-03 14:30] VITALS: BP 108/80; PULSE 83; TEMP 98.1
[2023-09-03] MEDS ORDERED: AMOX TR/POT CLAV 875MG/125MG TABLETS (FP) PO SCH (17:30)
== END 2023-09-03 14:50 | disposition home or self-care (01) | DRG 383 ==
LOC: JER 16:35 → JERBED 22:01 → OBSVTOIN 09-03 11:10
PROVIDERS: ADMIT Internal Medicine; ATTEND Internal Medicine
DX: L03.011 Cellulitis of right finger (principal); G60.0 Hereditary motor and sensory neuropathy
CPT/HCPCS: 0241U-QW; 36415; 73110-TC-RT-FY; 80048; 80053; 81003; 82550; 83605; 84100; 84703; 85025; 85027; 85651; 86140; 87040; 87086; 93005; 93010; 99285-25; G0378; J0131

== ENCOUNTER 2023-12-20 13:10 | Inpatient (IN) | payer OTHER ==
[2023-12-20] MEDS ORDERED: ACETAMINOPHEN 325 MG TABLET (FP) ONE (15:04)
[2023-12-20] MEDS: ACETAMINOPHEN 500 MG TABLET (FP) PO ONE (15:33)
[2023-12-20 15:44] LABS: BASO % 0.7 % (0-2.0); HEMATOCRIT 38.8 % (32.4-45.2); HEMOGLOBIN 13.3 GM/dL (10.7-15.3); LYMPH % 18.5 % (8-40); MCH 31.8 pg (25.7-33.7); MCHC 34.3 g/dl (32.0-36.0); MEAN CELL VOLUME 92.8 fl (80-96); MEAN PLT VOLUME 9.5 fl (7.5-11.1); MONO % 5.1 % (3.8-10.2); NEUT % 69.7 % (42.8-82.8); PLATELET COUNT 215 10^3/uL (134-434); RBC 4.18 M/mm3 (3.60-5.2); WHITE BLOOD COUNT 8.5 K/mm3 (4.0-10.0)
[2023-12-20 16:04] LABS: POTASSIUM 3.8 mmol/L (3.5-5.1)
[2023-12-20 16:06] LABS: CALCIUM 8.8 mg/dL (8.5-10.1)
[2023-12-20 16:07] LABS: ALBUMIN 3.9 g/dl (3.4-5.0); BLOOD UREA NITROGEN 8.1 mg/dL (7-18)
[2023-12-20 16:10] LABS: CREATININE 0.6 mg/dL (0.55-1.3)
[2023-12-20 16:11] LABS: BILIRUBIN,TOTAL 0.7 mg/dL (0.2-1); TOT PROT 7.9 g/dl (6.4-8.2)
[2023-12-20] MEDS ORDERED: PIPERACILLIN/TAZOB 4.5 GM 4.5 GM/100 ML BAG IVPB ONE (16:53)
[2023-12-20] MEDS: PIPERACILLIN/TAZOB 4.5 GM 4.5 GM in DEXTROSE 5%-WATER 100 ML IVPB ONE (17:04)
[2023-12-20] MEDS: PIPERACILLIN/TAZOB 3.375 GM 3.375 GM in DEXTROSE 5%-WATER - 50 ML IVPB SCH (17:24)
[2023-12-20] MEDS ORDERED: CLINDAMYCIN 600MG PREMIX IVPB 600 MG/50 ML BAG IVPB ONE (17:40)
[2023-12-20] MEDS: CLINDAMYCIN 600MG PREMIX IVPB 600 MG/50 ML BAG IVPB ONE (17:46)
[2023-12-20] MEDS ORDERED: KETOROLAC TROMETHAMINE 15 MG/ML VIAL ONE (18:21)
[2023-12-20] MEDS: KETOROLAC TROMETHAMINE 15 MG/ML VIAL IVPUSH ONE (18:24)
[2023-12-20 20:46] VITALS: BMI 22.4
[2023-12-20] MEDS: KETOROLAC TROMETHAMINE 15 MG/ML VIAL IVPUSH PRN (21:34)
[2023-12-20] MEDS: MIRTAZAPINE 15 MG TABLET (FP) PO SCH (21:34)
[2023-12-21 09:01] LABS: BASO % 0.8 % (0-2.0); EOS % 8.6 % (0-4.5); HEMATOCRIT 34.6 % (32.4-45.2); LYMPH % 18.9 % (8-40); MCH 32.1 pg (25.7-33.7); MCHC 34.6 g/dl (32.0-36.0); MEAN CELL VOLUME 92.9 fl (80-96); MEAN PLT VOLUME 10.1 fl (7.5-11.1); MONO % 5.9 % (3.8-10.2); NEUT % 65.8 % (42.8-82.8); PLATELET COUNT 182 10^3/uL (134-434); RBC 3.73 M/mm3 (3.60-5.2); WHITE BLOOD COUNT 6.6 K/mm3 (4.0-10.0)
[2023-12-21 09:19] LABS: POTASSIUM 3.6 mmol/L (3.5-5.1)
[2023-12-21 09:21] LABS: ALBUMIN 3.2 g/dl (3.4-5.0); CALCIUM 8.5 mg/dL (8.5-10.1)
[2023-12-21 09:22] LABS: BLOOD UREA NITROGEN 10.4 mg/dL (7-18); MAGNESIUM 1.8 mg/dL (1.8-2.4)
[2023-12-21 09:25] LABS: CREATININE 0.6 mg/dL (0.55-1.3); PHOSPHOROUS 3.3 mg/dL (2.5-4.9)
[2023-12-21 09:26] LABS: BILIRUBIN,TOTAL 0.4 mg/dL (0.2-1); TOT PROT 6.4 g/dl (6.4-8.2)
[2023-12-21] MEDS: hydrOXYzine PAMOATE 25 MG CAPSULE (FP) PO SCH (10:20)
[2023-12-21] MEDS: ENOXAPARIN NA (PORCINE) 40 MG/0.4 ML DISP.SYRIN SQ SCH (10:25)
[2023-12-21 18:36] LABS: EPI CELLS >36 /uL (0-25.1); HYALINE CASTS 42 /uL (0-3.1); PH,URINE 5.5 (5.0-8.0); URINE APPEARANCE CLOUDY; URINE BILIRUBIN NEGATIVE (NEGATIVE); URINE COLOR YELLOW; URINE GLUCOSE (UA) NEGATIVE (NEGATIVE); URINE KETONE TRACE (NEGATIVE); URINE LEUK ESTERASE 2+ (NEGATIVE); URINE NITRITE POSITIVE (NEGATIVE); URINE PROTEIN TRACE (NEGATIVE); URINE RBC 6 /uL (0-23.9); URINE UROBILINOGEN 0.2 mg/dL (0.2-1.0); URINE WBC 860 /uL (0-25.8)
[2023-12-21 18:42] LABS: URINE BACTERIA 990.3 /uL (0-1359)
[2023-12-22 21:16] VITALS: RESP 18
[2023-12-22] MEDS: hydrOXYzine PAMOATE 25 MG CAPSULE (FP) PO ONE (21:32)
[2023-12-23 08:08] LABS: EOS % 9.2 % (0-4.5); HEMATOCRIT 35.6 % (32.4-45.2); HEMOGLOBIN 11.8 GM/dL (10.7-15.3); MCH 31.4 pg (25.7-33.7); MCHC 33.3 g/dl (32.0-36.0); MEAN CELL VOLUME 94.4 fl (80-96); MEAN PLT VOLUME 9.4 fl (7.5-11.1); MONO % 6.6 % (3.8-10.2); NEUT % 53.2 % (42.8-82.8); PLATELET COUNT 201 10^3/uL (134-434); RBC 3.77 M/mm3 (3.60-5.2); RDW 11.9 % (11.6-15.6); WHITE BLOOD COUNT 5.2 K/mm3 (4.0-10.0)
[2023-12-23 08:21] LABS: POTASSIUM 3.7 mmol/L (3.5-5.1)
[2023-12-23 08:24] LABS: CALCIUM 8.4 mg/dL (8.5-10.1)
[2023-12-23 08:25] LABS: BLOOD UREA NITROGEN 13.1 mg/dL (7-18)
[2023-12-23 08:28] LABS: CREATININE 0.5 mg/dL (0.55-1.3)
[2023-12-24 00:05] VITALS: TEMP 97.6
[2023-12-24 08:26] LABS: BASO % 0.8 % (0-2.0); HEMATOCRIT 36.5 % (32.4-45.2); HEMOGLOBIN 12.2 GM/dL (10.7-15.3); LYMPH % 23.2 % (8-40); MCH 31.7 pg (25.7-33.7); MCHC 33.4 g/dl (32.0-36.0); MEAN CELL VOLUME 94.8 fl (80-96); MEAN PLT VOLUME 9.7 fl (7.5-11.1); MONO % 6.9 % (3.8-10.2); NEUT % 54.1 % (42.8-82.8); PLATELET COUNT 214 10^3/uL (134-434); RBC 3.84 M/mm3 (3.60-5.2); RDW 11.6 % (11.6-15.6); WHITE BLOOD COUNT 5.7 K/mm3 (4.0-10.0)
[2023-12-24 08:35] LABS: CALCIUM 8.4 mg/dL (8.5-10.1)
[2023-12-24 08:36] LABS: BLOOD UREA NITROGEN 14.4 mg/dL (7-18)
[2023-12-24 08:39] LABS: CREATININE 0.5 mg/dL (0.55-1.3)
[2023-12-24 13:06] VITALS: BP 113/70; PULSE 82
== END 2023-12-24 03:10 | disposition home or self-care (01) | DRG 383 ==
LOC: JER 13:10 → JERBED 16:13 → J7W 18:32
PROVIDERS: ADMIT Internal Medicine; ATTEND Nurse Practitioner Acute Care
DX: L03.031 Cellulitis of right toe (principal); G60.0 Hereditary motor and sensory neuropathy; G62.9 Polyneuropathy, unspecified; M79.7 Fibromyalgia; K31.84 Gastroparesis; F41.9 Anxiety disorder, unspecified; G47.00 Insomnia, unspecified; F31.9 Bipolar disorder, unspecified
CPT/HCPCS: 36415; 73610-TC-RT-FY; 73630-TC-RT-FY; 80048; 80053; 81003; 83735; 84100; 85025; 85651; 86140; 87040; 93005; 93010; 99285-25

== ENCOUNTER 2024-04-25 12:17 | Day surgery (SDC) | payer OTHER ==
[2024-04-22 15:30] VITALS: BMI 20.9
[2024-04-25 12:47] VITALS: TEMP 97.4
[2024-04-25 13:32] VITALS: RESP 18
[2024-04-25 14:00] VITALS: BP 91/50; PULSE 67
== END 2024-04-25 13:57 | disposition home or self-care (01) ==
LOC: FASU-ENDO 12:17
PROVIDERS: ATTEND Internal Medicine Gastroenterology
PROC: 0DJ08ZZ Inspection of Upper Intestinal Tract, Via Natural or Artificial Opening Endoscopic (ICD-10-PCS; principal; 2024-04-25 13:09)
DX: R10.13 Epigastric pain (principal); R11.0 Nausea
CPT/HCPCS: 81025

== ENCOUNTER 2024-06-27 10:31 | Day surgery (SDC) | payer OTHER ==
[2024-06-23 11:35] VITALS: BMI 20.2
[2024-06-27 11:54] VITALS: PULSE 63; RESP 18; TEMP 97.8
[2024-06-27 12:13] VITALS: BP 110/61
== END 2024-06-27 12:05 | disposition home or self-care (01) ==
LOC: FASU-ENDO 10:31
PROVIDERS: ATTEND Internal Medicine Gastroenterology
PROC: 0DB68ZX Excision of Stomach, Via Natural or Artificial Opening Endoscopic, Diagnostic (ICD-10-PCS; 2024-06-27)
PROC: 0DB98ZX Excision of Duodenum, Via Natural or Artificial Opening Endoscopic, Diagnostic (ICD-10-PCS; principal; 2024-06-27 11:16)
DX: K29.50 Unspecified chronic gastritis without bleeding (principal)
CPT/HCPCS: 81025; 88305-TC; 88342-TC

== ENCOUNTER 2024-07-22 05:14 | Day surgery (SDC) | payer OTHER ==
[2024-07-22] MEDS ORDERED: LIDOCAINE HCL 1%, 10 MG/ML (20ML VIAL) ONE (14:26)
[2024-07-22] MEDS ORDERED: GENTAMICIN SO4 80 MG/2 ML VIAL ONE (14:30)
[2024-07-22] MEDS ORDERED: BACITRACIN ZINC 15 GM TUBE TOPICAL OINTMENT ONE (14:30)
[2024-07-22] MEDS ORDERED: MIDAZOLAM HCL 2 MG/2 ML SINGLE DOSE VIAL ONE ×2 (14:40→15:34)
[2024-07-22] MEDS ORDERED: ONDANSETRON 4 MG/2 ML VIAL ONE (15:06)
[2024-07-22] MEDS ORDERED: KETOROLAC TROMETHAMINE 30 MG/1 ML VIAL ONE (15:06)
[2024-07-22] MEDS ORDERED: DEXAMETHASONE SOD PHOSPHATE 4 MG/1 ML VIAL ONE (15:06)
[2024-07-22] MEDS ORDERED: PROPOFOL 20 ML ONE (15:13)
[2024-07-22] MEDS: ceFAZolin SODIUM 1 GM VIAL IVPB ONE ×2 (15:30)
[2024-07-22] MEDS ORDERED: ceFAZolin SODIUM 1 GM VIAL ONE (15:32)
[2024-07-22] MEDS: LIDOCAINE 1%/EPI 1:100000 (20 ML MULTI DOSE VIAL) IJ ONE (15:34)
[2024-07-22] MEDS: BUPIVACAINE HCL/PF 0.25% (2.5MG/ML) 10 ML VIAL IJ ONE (15:34)
[2024-07-22] MEDS ORDERED: ONDANSETRON 4 MG/2 ML VIAL IVPUSH PRN (16:03)
[2024-07-22] MEDS: BACITRACIN 0.9 GM PACKET TP ONE (16:25)
[2024-07-22 18:22] VITALS: RESP 18
[2024-07-22] MEDS: CEPHALEXIN 250 MG/5 ML ORAL SUSPENSION PO SCH (19:10)
[2024-07-22] MEDS: LACTATED RINGERS SOLUTION 1,000 ML IV SCH (19:12)
[2024-07-22] MEDS: morphine SULFATE 10 MG/5 ML UNIT-DOSE CUP PO PRN (20:34)
[2024-07-22] MEDS: ACETAMINOPHEN 325 MG TABLET (FP) PO ONE (20:37)
[2024-07-22] MEDS: oxyCODONE HCL 5 MG TABLET PO ONE (20:37)
[2024-07-22] MEDS: DOCUSATE SODIUM 100 MG CAPSULE (FP) PO SCH (21:39)
[2024-07-23] MEDS: oxyCODONE/APAP PERCOCET - MUST ORDER INDIVIDUAL COMPONENTS NR ONE (08:14)
[2024-07-23 13:28] VITALS: BP 132/85; PULSE 85; TEMP 98.6
== END 2024-07-23 14:20 | disposition home or self-care (01) ==
LOC: JASUSAT 05:14 → J6S 18:13 → JASUSAT 07-23 14:20
PROVIDERS: ATTEND Plastic Surgery
PROC: 0JXJ0ZC Transfer Right Hand Subcutaneous Tissue and Fascia with Skin, Subcutaneous Tissue and Fascia, Open Approach (ICD-10-PCS; 2024-07-22)
PROC: 0HRFX73 Replacement of Right Hand Skin with Autologous Tissue Substitute, Full Thickness, External Approach (ICD-10-PCS; principal; 2024-07-22 14:00)
DX: S61.001D Unspecified open wound of right thumb without damage to nail, subsequent encounter (principal); L98.498 Non-pressure chronic ulcer of skin of other sites with other specified severity; Q68.1 Congenital deformity of finger(s) and hand; X58.XXXD Exposure to other specified factors, subsequent encounter
CPT/HCPCS: 73140-TC-RT-FY; 81025; 87070; 87077; 87186; 87205; 88304-TC; 94760; J0131

== ENCOUNTER 2024-09-12 14:31 | Inpatient (IN) | payer OTHER ==
[2024-09-12] MEDS ORDERED: ACETAMINOPHEN INJECTION 100 ML ONE (15:50)
[2024-09-12] MEDS: ACETAMINOPHEN 1000 MG/100 ML BAG IVPB ONE (16:21)
[2024-09-12 16:26] LABS: BASO % 0.3 % (0-2.0); EOS % 1.9 % (0-4.5); HEMATOCRIT 38.6 % (32.4-45.2); LYMPH % 12.9 % (8-40); MCH 31.2 pg (25.7-33.7); MCHC 33.7 g/dl (32.0-36.0); MEAN CELL VOLUME 92.6 fl (80-96); MEAN PLT VOLUME 9.7 fl (7.5-11.1); MONO % 6.5 % (3.8-10.2); NEUT % 78.4 % (42.8-82.8); PLATELET COUNT 207 10^3/uL (134-434); RBC 4.16 M/mm3 (3.60-5.2); RDW 12.3 % (11.6-15.6); WHITE BLOOD COUNT 9.1 K/mm3 (4.0-10.0)
[2024-09-12 16:36] LABS: INR 1.15 (0.83-1.09); PROTHROMBIN TIME (PATIENT) 12.9 SEC (9.7-13.0)
[2024-09-12 16:39] LABS: ACTIVATED PTT 31.6 SECONDS (25.2-36.5)
[2024-09-12 16:47] LABS: POTASSIUM 4.3 mmol/L (3.5-5.1)
[2024-09-12 16:49] LABS: CALCIUM 9.3 mg/dL (8.5-10.1)
[2024-09-12 16:50] LABS: ALBUMIN 3.8 g/dl (3.4-5.0); BLOOD UREA NITROGEN 9.3 mg/dL (7-18)
[2024-09-12 16:53] LABS: CREATININE 0.6 mg/dL (0.55-1.3)
[2024-09-12 16:54] LABS: BILIRUBIN,TOTAL 0.8 mg/dL (0.2-1); TOT PROT 7.8 g/dl (6.4-8.2)
[2024-09-12] MEDS ORDERED: CEFAZOLIN 2 GM/D5W 2 GM/50 ML ML IVPB ONE (17:03)
[2024-09-12] MEDS ORDERED: CLINDAMYCIN 600MG PREMIX IVPB 600 MG/50 ML BAG IVPB ONE (17:04)
[2024-09-12] MEDS: CEFAZOLIN 2 GM in DEXTROSE 5%-WATER - 50 ML IVPB ONE (17:10)
[2024-09-12] MEDS: CLINDAMYCIN 600MG PREMIX IVPB 600 MG/50 ML BAG IVPB ONE (17:30)
[2024-09-12 17:43] LABS: HIV INTERPRETATION NEGATIVE (NEGATIVE)
[2024-09-12] MEDS ORDERED: KETOROLAC TROMETHAMINE 15 MG/ML VIAL ONE (18:07)
[2024-09-12 18:23] LABS: ERYTHROCYTE SEDIMENTATION RATE 13 mm/hr (0-20)
[2024-09-12] MEDS: KETOROLAC TROMETHAMINE 15 MG/ML VIAL IVPUSH ONE (18:37)
[2024-09-12 20:35] VITALS: BMI 21.0
[2024-09-13] MEDS: LINEZOLID 600 MG PREMIX BAG 600 MG/300 ML BAG IVPB SCH (03:11)
[2024-09-13 08:13] LABS: POTASSIUM 3.7 mmol/L (3.5-5.1)
[2024-09-13 08:15] LABS: BASO % 0.6 % (0-2.0); EOS % 4.7 % (0-4.5); HEMATOCRIT 39.3 % (32.4-45.2); HEMOGLOBIN 13.4 GM/dL (10.7-15.3); LYMPH % 22.4 % (8-40); MCH 31.9 pg (25.7-33.7); MCHC 34.2 g/dl (32.0-36.0); MEAN CELL VOLUME 93.1 fl (80-96); MEAN PLT VOLUME 9.7 fl (7.5-11.1); NEUT % 64.3 % (42.8-82.8); PLATELET COUNT 190 10^3/uL (134-434); RBC 4.22 M/mm3 (3.60-5.2); RDW 12.1 % (11.6-15.6); WHITE BLOOD COUNT 6.6 K/mm3 (4.0-10.0)
[2024-09-13 08:16] LABS: CALCIUM 9.3 mg/dL (8.5-10.1)
[2024-09-13 08:17] LABS: ALBUMIN 3.8 g/dl (3.4-5.0); BLOOD UREA NITROGEN 14.5 mg/dL (7-18)
[2024-09-13 08:19] LABS: PHOSPHOROUS 3.1 mg/dL (2.5-4.9)
[2024-09-13 08:20] LABS: CREATININE 0.7 mg/dL (0.55-1.3)
[2024-09-13 08:23] LABS: TOT PROT 7.5 g/dl (6.4-8.2)
[2024-09-13] MEDS: ERTAPENEM SODIUM 1 GM in SODIUM CHLORIDE 50 ML IVPB SCH (09:13)
[2024-09-13] MEDS: ENOXAPARIN NA (PORCINE) 40 MG/0.4 ML DISP.SYRIN SQ SCH (09:14)
[2024-09-13] MEDS: ACETAMINOPHEN 1000 MG/100 ML BAG IVPB PRN (13:23)
[2024-09-13] MEDS ORDERED: ACETAMINOPHEN 1000 MG/100 ML BAG IVPB PRN ×2 (18:05→18:11)
[2024-09-13] MEDS ORDERED: ACETAMINOPHEN 1000 MG/100 ML BAG IVPB SCH ×2 (18:15)
[2024-09-13] MEDS ORDERED: KETOROLAC TROMETHAMINE 15 MG/ML VIAL IVPUSH SCH ×2 (18:15)
[2024-09-13] MEDS: KETOROLAC TROMETHAMINE 15 MG/ML VIAL IVPUSH SCH (19:01)
[2024-09-13] MEDS: MIRTAZAPINE 15 MG TABLET (FP) PO SCH (22:48)
[2024-09-14] MEDS: AMPICILLIN NA/SULBACTAM NA 1.5 GM in SODIUM CHLORIDE 100 ML IVPB SCH (11:21)
[2024-09-15] MEDS: LINEZOLID 600 MG PREMIX BAG 600 MG in PREMIX 300 IVPB SCH (08:14)
[2024-09-15 14:09] VITALS: BP 120/91; PULSE 98; RESP 18; TEMP 98.1
== END 2024-09-15 14:18 | disposition home or self-care (01) | DRG 383 ==
LOC: JER 14:31 → JERBED 17:49 → J7W 19:29 → OBSVTOIN 20:02
PROVIDERS: ADMIT Internal Medicine
DX: L03.115 Cellulitis of right lower limb (principal); M86.60 Other chronic osteomyelitis, unspecified site; G60.0 Hereditary motor and sensory neuropathy; K31.84 Gastroparesis; L97.519 Non-pressure chronic ulcer of other part of right foot with unspecified severity; B96.1 Klebsiella pneumoniae [K. pneumoniae] as the cause of diseases classified elsewhere; F12.90 Cannabis use, unspecified, uncomplicated; F17.210 Nicotine dependence, cigarettes, uncomplicated; F31.9 Bipolar disorder, unspecified; M79.7 Fibromyalgia
CPT/HCPCS: 36415; 73630-TC-RT-FY; 80053; 83735; 84100; 85025; 85610; 85651; 85730; 86140; 86803; 86850; 86900; 86901; 87070; 87205; 87389; 93005; 93010; 99285-25; G0378; J0131

== ENCOUNTER 2025-04-25 23:39 | Observation (INO) | payer OTHER ==
[2025-04-26] MEDS ORDERED: ONDANSETRON 4 MG/2 ML VIAL ONE ×2 (00:56→05:08)
[2025-04-26] MEDS: ONDANSETRON 4 MG/2 ML VIAL IVPUSH ONE ×2 (01:00→05:17)
[2025-04-26] MEDS: SODIUM CHLORIDE 500 ML IV STA ×2 (01:00→05:16)
[2025-04-26] MEDS: morphine CARPU-JECT 4 MG/1 ML DISP.SYRIN IVPUSH ONE (01:00)
[2025-04-26 01:30] LABS: MCHC 34.1 g/dl (32.2-35.5); MEAN CELL VOLUME 91.5 fl (79.4-94.8); MEAN PLT VOLUME 11.4 fl (9.4-12.3); RDW 11.6 % (12.1-16.8)
[2025-04-26 02:08] LABS: CO2 23 mmol/L (21-32)
[2025-04-26 02:09] LABS: GLUCOSE,RANDOM 176 mg/dL (74-106)
[2025-04-26 02:11] LABS: CREATININE 0.8 mg/dL (0.55-1.3); SGOT/AST 80 U/L (15-37)
[2025-04-26 02:13] LABS: TOT PROT 9.1 g/dl (6.4-8.2)
[2025-04-26 02:14] LABS: ALK PHOS 95 U/L (45-117)
[2025-04-26 02:20] LABS: SGPT/ALT 35 U/L (13-61)
[2025-04-26 02:55] LABS: INR 1.28 (0.83-1.09); PROTHROMBIN TIME (PATIENT) 14.0 SEC (9.7-13.0)
[2025-04-26] MEDS ORDERED: METOCLOPRAMIDE HCL INJECTION 10 MG/2 ML VIAL ONE (02:56)
[2025-04-26] MEDS: METOCLOPRAMIDE HCL INJECTION 10 MG/2 ML VIAL IVPB ONE (02:57)
[2025-04-26 02:58] LABS: ACTIVATED PTT 26.0 SECONDS (25.2-36.5)
[2025-04-26] MEDS ORDERED: MAGNESIUM SULFATE IN WATER 2 GM/50 ML IVPB IVPB ONE (04:18)
[2025-04-26] MEDS: MAGNESIUM SULF 50% (8.12 MEQ/2 ML-1 GM VIAL) IVPB ONE (04:23)
[2025-04-26] MEDS ORDERED: MORPHINE SULFATE 2 MG/ML SYRINGE ONE (05:08)
[2025-04-26] MEDS: morphine CARPU-JECT 2 MG/1 ML DISP.SYRIN IVPUSH ONE (05:17)
[2025-04-26] MEDS: PIPERACILLIN/TAZOB 4.5 GM 4.5 GM in DEXTROSE 5%-WATER 100 ML IVPB ONE (05:58)
[2025-04-26] MEDS: SODIUM CHLORIDE 1,000 ML IV SCH (07:44)
[2025-04-26] MEDS: CEFTRIAXONE 1 GM in DEXTROSE 5%-WATER - 50 ML IVPB SCH (09:17)
[2025-04-26] MEDS: ACETAMINOPHEN 1000 MG/100 ML BAG IVPB PRN (10:05)
[2025-04-26] MEDS: ONDANSETRON 4 MG/2 ML VIAL IVPUSH PRN (11:00)
[2025-04-26] MEDS: KETOROLAC TROMETHAMINE 15 MG/ML VIAL IVPUSH PRN (14:49)
[2025-04-26] MEDS ORDERED: PANTOPRAZOLE SODIUM 40 MG VIAL IVPUSH SCH ×2 (15:10→22:00)
[2025-04-26] MEDS: MAG HYDROX/AL HYDROX/SIMETH 30 ML UNIT-DOSE CUP PO PRN (15:18)
[2025-04-26] MEDS: PANTOPRAZOLE SODIUM 40 MG VIAL IVPUSH SCH (15:18)
[2025-04-26 16:49] LABS: URINE APPEARANCE CLEAR; URINE BILIRUBIN NEGATIVE (NEGATIVE); URINE COLOR YELLOW; URINE GLUCOSE (UA) NEGATIVE (NEGATIVE); URINE KETONE 3+ (NEGATIVE); URINE LEUK ESTERASE NEGATIVE (NEGATIVE); URINE NITRITE NEGATIVE (NEGATIVE); URINE PROTEIN TRACE (NEGATIVE); URINE UROBILINOGEN 0.2 mg/dL (0.2-1.0)
[2025-04-26 17:12] LABS: COCAINE, UR NEGATIVE (NEGATIVE); METHADONE, UR NEGATIVE (NEGATIVE); URINE BARBITURATES NEGATIVE (NEGATIVE); URINE BENZODIAZEPINES NEGATIVE (NEGATIVE)
[2025-04-26 17:13] LABS: PHENCYCLIDINE,URINE NEGATIVE (NEGATIVE)
[2025-04-26 17:15] LABS: URINE AMPHETAMINES NEGATIVE (NEGATIVE)
[2025-04-26 17:18] LABS: EPI CELLS >36 /uL (0-25.1); HYALINE CASTS 1 /uL (0-3.1); URINE BACTERIA 25 /uL (0-1359); URINE RBC 54 /uL (0-23.9); URINE WBC 8 /uL (0-25.8)
[2025-04-26 17:23] LABS: OPIATES, URI POSITIVE (NEGATIVE)
[2025-04-26] MEDS ORDERED: morphine CARPU-JECT 2 MG/1 ML DISP.SYRIN IVPUSH PRN (18:37)
[2025-04-26] MEDS: morphine CARPU-JECT 2 MG/1 ML DISP.SYRIN IVPUSH PRN (18:44)
[2025-04-26] MEDS: KETOROLAC TROMETHAMINE 15 MG/ML VIAL IVPUSH ONE (23:11)
[2025-04-27 09:53] LABS: ABSOLUTE IMMATURE GRANULOCYTES 0.08 x10^3/uL (0.0-0.031); BASOPHILS # 0.04 x10^3/uL (0.01-0.08); EOSINOPHIL % 0.1 % (0.7-5.8); EOSINOPHILS # 0.01 x10^3/uL (0.04-0.36); MCHC 33.3 g/dl (32.2-35.5); MEAN CELL VOLUME 93.7 fl (79.4-94.8); MEAN PLT VOLUME 11.2 fl (9.4-12.3); MONOCYTE # 0.78 x10^3/uL (0.24-0.86); MONOCYTE % 5.9 % (4.7-12.5); RDW 11.9 % (12.1-16.8)
[2025-04-27 10:35] LABS: CO2 23.0 mmol/L (21-32); GLUCOSE,RANDOM 111.0 mg/dL (74-106)
[2025-04-27 10:37] LABS: SGPT/ALT 26.0 U/L (13-61)
[2025-04-27 10:39] LABS: CREATININE 0.51 mg/dL (0.55-1.3); SGOT/AST 21.0 U/L (15-37)
[2025-04-27 10:41] LABS: ALK PHOS 83.0 U/L (45-117)
[2025-04-27 10:53] LABS: TOT PROT 7.3 g/dl (6.4-8.2)
[2025-04-27] MEDS ORDERED: POTASSIUM CHLORIDE TABS 20 MEQ TABLET.ER (FP) PO SCH (11:00)
[2025-04-27] MEDS: POTASSIUM CHLORIDE ORAL LIQUID 20 MEQ/15 ML PO SCH (11:10)
[2025-04-27] MEDS ORDERED: KETOROLAC TROMETHAMINE 15 MG/ML VIAL IVPUSH PRN (17:38)
[2025-04-27] MEDS: ACETAMINOPHEN 325 MG TABLET (FP) PO PRN (17:43)
[2025-04-27] MEDS: ONDANSETRON 4 MG/2 ML VIAL IVPUSH SCH (17:43)
[2025-04-27] MEDS: MIRTAZAPINE 15 MG TABLET (FP) PO SCH (22:24)
[2025-04-28] MEDS: ACETAMINOPHEN 1000 MG/100 ML BAG IVPB ONE (03:07)
[2025-04-28] MEDS: METOCLOPRAMIDE HCL INJECTION 10 MG/2 ML VIAL IVPUSH ONE (03:08)
[2025-04-28 08:57] LABS: ABSOLUTE IMMATURE GRANULOCYTES 0.07 x10^3/uL (0.0-0.031); BASOPHILS # 0.06 x10^3/uL (0.01-0.08); EOSINOPHIL % 0.0 % (0.7-5.8); EOSINOPHILS # 0.00 x10^3/uL (0.04-0.36); MCHC 32.8 g/dl (32.2-35.5); MEAN CELL VOLUME 93.7 fl (79.4-94.8); MEAN PLT VOLUME 11.9 fl (9.4-12.3); MONOCYTE # 0.53 x10^3/uL (0.24-0.86); MONOCYTE % 4.1 % (4.7-12.5); RDW 11.6 % (12.1-16.8)
[2025-04-28 09:58] LABS: GLUCOSE,RANDOM 85.0 mg/dL (74-106); TOT PROT 7.3 g/dl (6.4-8.2)
[2025-04-28 09:59] LABS: CO2 21.0 mmol/L (21-32)
[2025-04-28 10:01] LABS: ALK PHOS 80.0 U/L (40-150)
[2025-04-28 10:04] LABS: CREATININE 0.45 mg/dL (0.55-1.3); SGOT/AST 28.0 U/L (5-34); SGPT/ALT 21.0 U/L (0-55)
[2025-04-28] MEDS: MAGNESIUM 1GM/D5W - 1 GM/100 ML IVPB IVPB ONE (11:15)
[2025-04-28] MEDS: NAPH,MB-DB/K PH,MBDB POWDER PACKET PO SCH (11:29)
[2025-04-28] MEDS ORDERED: hydrOXYzine PAMOATE 25 MG CAPSULE (FP) PO PRN (12:31)
[2025-04-28 15:45] VITALS: BMI 19.8
[2025-04-28] MEDS: morphine CARPU-JECT 2 MG/1 ML DISP.SYRIN SQ PRN (16:32)
[2025-04-28] MEDS: MIRTAZAPINE 15 MG TABLET (FP) PO SCH (21:14)
[2025-04-28] MEDS: PANTOPRAZOLE 40 MG TABLET PO SCH (21:15)
[2025-04-29 07:36] VITALS: RESP 16
[2025-04-29 08:49] LABS: ABSOLUTE IMMATURE GRANULOCYTES 0.06 x10^3/uL (0.0-0.031); BASOPHILS # 0.06 x10^3/uL (0.01-0.08); EOSINOPHIL % 0.1 % (0.7-5.8); EOSINOPHILS # 0.01 x10^3/uL (0.04-0.36); MCHC 34.6 g/dl (32.2-35.5); MEAN CELL VOLUME 90.0 fl (79.4-94.8); MEAN PLT VOLUME 11.1 fl (9.4-12.3); MONOCYTE # 0.80 x10^3/uL (0.24-0.86); MONOCYTE % 6.8 % (4.7-12.5); RDW 11.2 % (12.1-16.8)
[2025-04-29 09:26] LABS: GLUCOSE,RANDOM 83.0 mg/dL (74-106); TOT PROT 8.0 g/dl (6.4-8.2)
[2025-04-29 09:27] LABS: CO2 23.0 mmol/L (21-32)
[2025-04-29 09:29] LABS: ALK PHOS 89.0 U/L (40-150)
[2025-04-29 09:31] LABS: SGOT/AST 21.0 U/L (5-34)
[2025-04-29 09:32] LABS: CREATININE 0.5 mg/dL (0.55-1.3)
[2025-04-29 09:34] LABS: SGPT/ALT 17.0 U/L (0-55)
[2025-04-29] MEDS: MAGNESIUM SULFATE IN WATER 2 GM/50 ML IVPB IVPB ONE (10:48)
[2025-04-29] MEDS: ENOXAPARIN NA (PORCINE) 40 MG/0.4 ML DISP.SYRIN SQ SCH (10:48)
[2025-04-29 13:48] VITALS: BP 148/97; PULSE 98; TEMP 99.3
== END 2025-04-29 15:35 | disposition home or self-care (01) ==
LOC: JER 23:39 → JERBED 04-26 05:10 → UNDOADMOB 04-26 05:10 → INTOOBSV 04-26 05:10 → JERBED 04-26 08:21 → J8W 04-26 08:21 → JERBED 04-26 14:52 → J8W 04-26 14:52
PROVIDERS: ADMIT Internal Medicine; ATTEND Student in an Organized Health Care Education/Training Program
PROC: 3E033NZ Introduction of Analgesics, Hypnotics, Sedatives into Peripheral Vein, Percutaneous Approach (ICD-10-PCS; principal; 2025-04-26)
PROC: 3E023GC Introduction of Other Therapeutic Substance into Muscle, Percutaneous Approach (ICD-10-PCS; 2025-04-26)
PROC: 3E0333Z Introduction of Anti-inflammatory into Peripheral Vein, Percutaneous Approach (ICD-10-PCS; 2025-04-26)
PROC: 3E023NZ Introduction of Analgesics, Hypnotics, Sedatives into Muscle, Percutaneous Approach (ICD-10-PCS; 2025-04-26)
PROC: 3E033GC Introduction of Other Therapeutic Substance into Peripheral Vein, Percutaneous Approach (ICD-10-PCS; 2025-04-26)
PROC: 3E0337Z Introduction of Electrolytic and Water Balance Substance into Peripheral Vein, Percutaneous Approach (ICD-10-PCS; 2025-04-26)
DX: K52.9 Noninfective gastroenteritis and colitis, unspecified (principal); K31.84 Gastroparesis; E83.42 Hypomagnesemia; E11.9 Type 2 diabetes mellitus without complications; F12.90 Cannabis use, unspecified, uncomplicated; F43.10 Post-traumatic stress disorder, unspecified; E83.39 Other disorders of phosphorus metabolism; D72.829 Elevated white blood cell count, unspecified; G60.0 Hereditary motor and sensory neuropathy; Z88.5 Allergy status to narcotic agent; Z90.49 Acquired absence of other specified parts of digestive tract; G62.9 Polyneuropathy, unspecified; D64.9 Anemia, unspecified; Z89.429 Acquired absence of other toe(s), unspecified side; F31.9 Bipolar disorder, unspecified; Z87.891 Personal history of nicotine dependence; M79.7 Fibromyalgia
CPT/HCPCS: 36415; 74177-TC; 76882-TC-RT-FY; 80053; 80307; 81003; 83036; 83605; 83690; 83735; 84100; 84132; 84703; 85025; 85610; 85730; 86850; 86900; 86901; 87086; 93005; 93010; 96361; 96365; 96366; 96367; 96368; 96372; 96375; 96376; 99285-25; G0378; Q9967